=== PATIENT | female | born 1965 | race African-American/Black ===

== ENCOUNTER 2020-10-08 13:10 | Outpatient (REF) | payer OTHER, SELFPAY ==
[2020-10-08 16:47] LABS: MANUAL DIFF FLAG NO
[2020-10-08 16:52] LABS: Basophils Absolute Auto 0.1 X10*3/uL (0.0-0.2); Basophils Percent Auto 0.6 % (0-2); Eosinophils Absolute Auto 0.2 X10*3/uL (0.0-0.4); Eosinophils Percent Auto 2.3 % (0-4); Hematocrit 43.3 % (37-47); Hemoglobin 13.7 g/dl (12.0-16.0); Imm Gran Abs Auto 0.02 X10*3/uL (0.00-0.03); Imm Gran Pct Auto 0.2 % (0.0-0.4); Lymphocytes Percent Auto 20.5 % (20-40); Mean Corpuscular HGB Conc 31.6 g/dl (31.0-35.0); Mean Corpuscular Hemoglobin 28.8 pg (27.0-33.0); Mean Platelet Volume 11.2 fL (9.4-12.3); Monocytes Absolute Auto 0.9 X10*3/uL (0.1-1.2); Monocytes Percent Auto 8.8 % (2-11); Neutrophils Absolute Auto 6.5 X10*3/uL (2.0-8.3); Neutrophils Percent Auto 67.6 % (45-73); Platelet Count 282 X10*3/uL (160-400); Red Blood Count 4.76 X10*6/uL (4.20-5.50); Red Cell Distribution Width 13.7 % (11.0-16.0); White Blood Count 9.6 X10*3/uL (4.8-10.8)
[2020-10-08 17:06] LABS: Anion Gap 11 (12-20); Blood Urea Nitrogen 8 mg/dL (9-16); Calcium 10.3 mg/dL (8.4-10.2); Carbon Dioxide 31 mmol/L (22-29); Chloride 103 mmol/L (96-108); Estimated Glomerular Filt Rate > 60; Glucose Random 75 mg/dL (60-115); Potassium 4.4 mmol/l (3.3-5.1); Sodium 141 mmol/L (135-145)
[2020-10-09 17:52] LABS: LDL Cholesterol Direct 131 mg/dL (<100)
== END 2020-10-08 13:11 | disposition home or self-care (01) ==
LOC: HO.HMGCLDS 13:10
PROVIDERS: PCP Internal Medicine; Visit Provider Internal Medicine
DX: L40.50 Arthropathic psoriasis, unspecified (principal); R01.1 Cardiac murmur, unspecified; I21.4 Non-ST elevation (NSTEMI) myocardial infarction; I10 Essential (primary) hypertension; Z91.19 Patient's noncompliance with other medical treatment and regimen; Z91.09 Other allergy status, other than to drugs and biological substances; K21.9 Gastro-esophageal reflux disease without esophagitis; F33.9 Major depressive disorder, recurrent, unspecified; F41.1 Generalized anxiety disorder; R52 Pain, unspecified; J45.909 Unspecified asthma, uncomplicated; Z15.89 Genetic susceptibility to other disease
CPT/HCPCS: 36415; 80048; 83721; 85025

== ENCOUNTER → 2020-11-19 13:43 | Outpatient (BNVA) | payer OTHER, SELFPAY | PROVIDERS: Visit Provider Obstetrics & Gynecology | DX: Z76.89 Persons encountering health services in other specified circumstances (principal) ==

== ENCOUNTER → 2021-03-24 09:58 | Outpatient (BNVA) | payer OTHER, SELFPAY | PROVIDERS: PCP Internal Medicine; Visit Provider Anesthesiology ==

== ENCOUNTER 2021-05-27 05:51 | Outpatient (REF) | payer OTHER, SELFPAY ==
--- NOTE | ~2021-05-27 | FL_ITS ---
EXAMINATION: XR FLUOROSCOPY WITH IMAGES CLINICAL INFORMATION: Sacroiliitis. COMPARISON: None. TECHNIQUE: Fluoroscopy performed by Shila Maldonado. Fluoroscopy time: 0.2 minutes DAP: 3.39 Gycm2 Images: 2 FINDINGS: 2 views of SI joints reveal needle positioned along the right and left SI joints and contrast opacifying the soft tissues. Visualized SI joint space is maintained normal. No bony of the body seen involving the sacrum or L4 and L5 vertebra. FL/FL guidance in treatment room IMPRESSION: Fluoroscopy was provided to referring physician for pain management.
== END 2021-05-27 05:52 | disposition home or self-care (01) ==
LOC: HO.RADIR 05:51
PROVIDERS: Visit Provider Anesthesiology
DX: M47.816 Spondylosis without myelopathy or radiculopathy, lumbar region (principal); M46.1 Sacroiliitis, not elsewhere classified
CPT/HCPCS: 27096; Q9967

== ENCOUNTER 2021-06-17 13:45 | Outpatient (REF) | payer OTHER, SELFPAY ==
--- NOTE | ~2021-06-17 | MM_ITS ---
EXAMINATION: MM SCREENING DIGITAL BREAST TOMOSYNTHESIS, BILATERAL CLINICAL INFORMATION: Screening. Asymptomatic. The lifetime risk of breast cancer based on the Tyrer-Cuzick Model is 10.3%. COMPARISON: Mammography: May 30, 2019 and studies dating back to February 23, 2013 TECHNIQUE: Digital breast tomosynthesis is performed in both the craniocaudal and mediolateral oblique views along with computer-aided detection (CAD). Synthesized 2D images are generated from the tomosynthesis. Right exaggerated craniocaudal view also performed. FINDINGS: The breasts are heterogeneously dense, which may obscure small masses (ACR BI-RADS breast composition Category c). There are no significant masses, abnormal calcifications, or other abnormalities. MM/MM tomosynthesis screening BI IMPRESSION: There are no significant changes from prior study. ASSESSMENT: BI-RADS 1: Negative RECOMMENDATION: Routine annual mammography screening. This patient's information was entered into a reminder system with a target due date for their next mammogram.
== END 2021-06-17 13:46 | disposition home or self-care (01) ==
LOC: HO.MAMMO 13:45
PROVIDERS: Visit Provider Internal Medicine
DX: Z12.31 Encounter for screening mammogram for malignant neoplasm of breast (principal)
CPT/HCPCS: 77063; 77067

== ENCOUNTER → 2021-07-14 10:48 | Outpatient (BNVA) | payer OTHER, SELFPAY | PROVIDERS: PCP Internal Medicine; Visit Provider Anesthesiology ==

== ENCOUNTER 2021-07-15 07:14 | Outpatient (REF) | payer OTHER, SELFPAY ==
[2021-07-15 11:31] LABS: MANUAL DIFF FLAG NO
[2021-07-15 11:40] LABS: Basophils Absolute Auto 0.1 X10*3/uL (0.0-0.2); Eosinophils Absolute Auto 0.3 X10*3/uL (0.0-0.4); Eosinophils Percent Auto 3.1 % (0-4); Hematocrit 41.4 % (37-47); Hemoglobin 13.1 g/dl (12.0-16.0); Imm Gran Abs Auto 0.03 X10*3/uL (0.00-0.03); Imm Gran Pct Auto 0.3 % (0.0-0.4); Lymphocytes Absolute Auto 1.9 X10*3/uL (1.2-4.9); Lymphocytes Percent Auto 21.2 % (20-40); Mean Corpuscular HGB Conc 31.6 g/dl (31.0-35.0); Mean Corpuscular Hemoglobin 28.4 pg (27.0-33.0); Mean Corpuscular Volume 89.6 fL (80-98); Mean Platelet Volume 10.6 fL (9.4-12.3); Monocytes Absolute Auto 0.6 X10*3/uL (0.1-1.2); Monocytes Percent Auto 6.8 % (2-11); Neutrophils Percent Auto 67.6 % (45-73); Platelet Count 306 X10*3/uL (160-400); Red Blood Count 4.62 X10*6/uL (4.20-5.50); Red Cell Distribution Width 14.2 % (11.0-16.0)
[2021-07-15 12:17] LABS: TSH reflex Free T4 0.71 uIU/mL (0.32-4.0)
[2021-07-15 12:28] LABS: Alanine Aminotransferase 25 U/L (0-31); Alkaline Phosphatase 94 U/L (39-117); Anion Gap 11 (12-20); Aspartate Amino Transferase 24 U/L (5-31); Bilirubin Total 0.6 mg/dL (0.0-1.0); Blood Urea Nitrogen 10 mg/dL (9-16); Calcium 10.2 mg/dL (8.4-10.2); Carbon Dioxide 27 mmol/L (22-29); Chloride 107 mmol/L (96-108); Cholesterol 208 mg/dL; Estimated Glomerular Filt Rate > 60; Glucose Fasting 101 mg/dL (60-99); HDL Cholesterol 54 mg/dL; LDL Cholesterol Calculated 137 mg/dl; Potassium 4.4 mmol/L (3.3-5.1); Sodium 141 mmol/L (135-145); Total Protein 7.8 g/dL (6.5-8.0); Triglycerides 87 mg/dL
[2021-07-18 18:11] LABS: TS Negative Control Passed; TS Panel A 0; TS Panel B 0; TS Positive Control Passed; TSpotTB Negative (SeeBelow)
== END 2021-07-15 07:15 | disposition home or self-care (01) ==
LOC: HO.HMGCLDS 07:14
PROVIDERS: PCP Internal Medicine; Visit Provider Physician Assistant Medical
DX: Z00.01 Encounter for general adult medical examination with abnormal findings (principal); K21.9 Gastro-esophageal reflux disease without esophagitis; J45.909 Unspecified asthma, uncomplicated; F41.1 Generalized anxiety disorder; F33.9 Major depressive disorder, recurrent, unspecified; L40.0 Psoriasis vulgaris; L40.59 Other psoriatic arthropathy; Z91.09 Other allergy status, other than to drugs and biological substances; Z79.899 Other long term (current) drug therapy
CPT/HCPCS: 36415; 80053; 80061; 84443; 85025; 86481

== ENCOUNTER 2021-09-01 13:47 | Outpatient (REF) | payer OTHER, SELFPAY | END 2021-09-01 13:48 | disposition home or self-care (01) | LOC: HO.LNP 13:47 | PROVIDERS: Visit Provider Physician Assistant | DX: Z20.822 Contact with and (suspected) exposure to COVID-19 (principal); J45.901 Unspecified asthma with (acute) exacerbation | CPT/HCPCS: U0003; U0005 ==

== ENCOUNTER → 2021-09-25 14:39 | Outpatient (BNVA) | payer OTHER, SELFPAY | PROVIDERS: PCP Internal Medicine; Visit Provider Internal Medicine ==

== ENCOUNTER → 2021-10-13 09:43 | Outpatient (BNVA) | payer OTHER, SELFPAY | PROVIDERS: PCP Internal Medicine; Referring Provider Internal Medicine; Visit Provider Internal Medicine Cardiovascular Disease | DX: I42.2 Other hypertrophic cardiomyopathy (principal); I51.89 Other ill-defined heart diseases; R06.02 Shortness of breath | CPT/HCPCS: 93005 ==

== ENCOUNTER → 2021-11-13 11:24 | Outpatient (REF) | payer OTHER, SELFPAY ==
--- NOTE | 2021-11-13 11:26 | CA_ITS ---
Transthoracic Echocardiogram Amended Patient (Last, First, Middle): Lisa Gill, Gender: Female Date of : 1965 Age: 56 Procedure Date: 11/13/2021 Procedure Type: Transthoracic Echocardiogram Location: OP Height: 162.56 cm Weight: 94.8 kg BSA: 1.99 m2 Heart Rate: bpm BP: 138 / 80 mmHg Inorganic Chemistry Professor: VERONICA Perez MD: Danielito Alexander MD Small Piece Cutter: Danielito Alexander MD Symptoms: I42.2 - Other hypertrophic cardiomyopathy Study Quality: Fair/Contrast ECG Rhythm: Sinus Conclusions: - 1. Normal LV systolic function with psedonormal filling pattern 2. Asymmetric hypertrophy of the apex as well as the lateral and posterior wall of moderate seveirty 3. Mild aortic regurgitation 4. No pericardial effusion Findings Procedure Information Contrast agent, definity, is being given per protocol without apparent complications. Left Ventricle Normal left ventricular size and systolic function. The visually estimated ejection fraction is between 60-65%. There is no evidence of regional wall motion abnormalities. Spectral Doppler is indicative of a pseudonormal filling pattern. E/E prime ratio is between 8 and 15 consistent with indeterminate filling pressures. There is moderate posterior, moderate lateral, and moderate apical asymmetric hypertrophy. Right Ventricle Normal right ventricular cavity size and systolic function. Atria The left atrium is mildly dilated. Interatrial shunt cannot be excluded. The right atrium is normal in size. Aortic Valve The aortic valve structure and function is likely normal. There is no aortic valve stenosis. The peak aortic gradient is 30 mmHg.The mean gradient is 14 mmHg. There is mild aortic valve regurgitation. The increased gradient across the aortic valve is most suggestive of increased stroke volume. Obstructive physiology cannot be entirely ruled out. Mitral Valve Normal mitral valve structure and function. There is trace mitral valve regurgitation. There is no mitral valve stenosis. Pulmonic Valve The pulmonic valve was not well visualized. Tricuspid Valve Likely normal tricuspid valve structure and function. Tricuspid regurgitation envelope is inadequate for calculation of right ventricular systolic pressure. Great Vessels All visible segments of the aorta are normal in size. The pulmonary artery was not well visualized. Venous The inferior vena cava is mildly dilated and collapses greater than 50% with inspiration. Pericardium/Pleural There is no evidence of pericardial effusion. Prior Study Comparison No significant change compared to prior study dated: 12/27/2017. Measurements 2D Linear Measurements IVSd: 1.07 0.6-0.9/0.6-1.0 cm LVIDd: 4.50 3.9-5.3/4.2-5.9 cm LVIDd Index: 2.26 2.4-3.2/2.2-3.1 cm/m2 LVIDs: 2.78 2.0-3.6 cm LVPWd: 1.43 0.7-1.1 cm Ao Root: 2.50 2.1-3.5 cm LA Diam: 4.40 2.7-3.8/3.0-4.0 cm LAIDs Index: 2.21 1.5-2.3 cm/m2 LV Mass: 261.95 67-162/88-224 g LV Mass Index: 131.63 43-95/49-115 g/m2 LVOT Diam: 1.90 3.0+(-)1.3 cm 2D Volumes LA Vol: 27.90 Mitral Valve MV Pk E: 1.12 MV PK A: 0.73 MV Decel Time: 230.00 E/A: 1.50 E'Lateral: 4.46 E'Medial: 5.55 E/E' Med: 20.20 E/E' Lat: 25.10 PHT: 67.00 MVA PHT: 3.28 Decel Van Zandt: 4.88 Aortic Valve AoV Pk Vu: 2.76 AoV Mn Vu: 1.67 AoV VTI: 0.47 AoV Pk Grad: 30.00 Aov Mn Grad: 14.00 TEQUILA Cont.VTI: 2.31 LVOT LVOT Pk Vu: 2.01 LVOT Mn Vu: 1.33 LVOT VTI: 0.38 LVOT Pk Grad: 16.00 LVOT Mn Grad: 8.00 LVOT Diam: 1.90 LVOT Area: 2.84 Diastolic Function MV Pk E: 1.12 MV Pk A: 0.73 E/A: 1.50 E'Medial: 5.55 E/E' Med: 20.20 E' Laterial: 4.46 E/E' Lat: 25.10 Right Ventricle TAPSE (mm): 2.04 TVS' Vu: 9.90 Tricuspid Valve RA Press: 8.00 Great Vessels Aorta Ao Root-2D: 2.50 2.0-3.7 cm Ao Asc: 2.50 2.1-3.4 cm Updated in Other Vendor System with Status of Final Danielito Alexander MD electronically signed on 11/13/2021 3:22:54 PM with status of Final
== END ==
LOC: HO.CARD 11:24
PROVIDERS: PCP Internal Medicine; Visit Provider Internal Medicine Cardiovascular Disease
DX: I42.2 Other hypertrophic cardiomyopathy (principal)
CPT/HCPCS: 93306; Q9957

== ENCOUNTER 2021-11-21 06:05 | Day surgery (SDC) | payer OTHER, SELFPAY ==
[2021-09-15 10:23] VITALS: BMI 36.2
--- NOTE | 2021-11-20 16:28 | P.CONAN_ITS ---
Documented by User: Albertina Gardner NP 11/20/21 16:32 HPI - Anesthesia Eval Consult details Narrative: 56yo F for Right?Diagnostic Sacroiliac Joint Innervation Injection Recent cardiac and pulmo visits stress importance of MITCHELL treatment. Case reviewed with Dr Bonilla. [facility] Active Problems Active Problems: All Active Problems (Updated 10/13/21 @ 10:26 by Andrea Kirby) HTN (hypertension) (Acute) Diastolic dysfunction (Acute) Apical variant hypertrophic cardiomyopathy (Acute) MITCHELL (obstructive sleep apnea) (Acute) Obesity (BMI 35.0-39.9 without comorbidity) (Acute) Asthma, moderate (Acute) Encounter for general adult medical examination with abnormal findings (Acute) Breast screening (Acute) Chronic narcotic dependence (Acute) Blurring of vision (Acute) Sacroiliitis (Acute) Spondylosis of lumbar region without myelopathy or radiculopathy (Acute) Asthma (Acute) Pain management (Acute) Anxiety, generalized (Acute) Depression, major, recurrent (Acute) Chronic GERD (Acute) Environmental allergies (Acute) Noncompliance (Acute) Hypertension, essential (Acute) Arthritis with psoriasis (Acute) HLA B27 (HLA B27 positive) (Acute) Past Medical History Medical History Anxiety, generalized 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 Asthma Cardiomyopathy Chronic GERD Depression, major, recurrent Diastolic dysfunction Environmental allergies Heart murmur HLA B27 (HLA B27 positive) HTN (hypertension) Hypertension, essential Noncompliance NSTEMI (non-ST elevated myocardial infarction) Obesity (BMI 35.0-39.9 without comorbidity) MITCHELL (obstructive sleep apnea) Pain management Sacroiliitis Spondylosis of lumbar region without myelopathy or radiculopathy Family History Family History Mother Uterine cancer Other Substance use disorder Surgical History Surgical History History of endometrial ablation History of hysterectomy for benign disease History of tubal ligation Social History Social History (System 10/29/21 @ 12:41 by Danielle Sanchez) Housing: House Patient Tobacco Use Status: Former Tobacco user Quit Date: 2007 Tobacco use type: Cigarette Second Hand Smoke Exposure: No Use of substances other than those prescribed or required for medical reasons: No Spiritism Healthcare Practices: Sikhism- no blood products Are you DNR?: No Advance Directives: No Advance Directives Information Provided: Yes Advance Directives on File: No Current occupational status: employed Meds Allergies Allergy/AdvReac Type Severity Reaction Status Date / Time cat dander [CATS] Allergy Severe DIFFICULTY Verified 10/29/21 12:41 BREATHING dog dander [DOGS] Allergy Severe DIFFICULTY Verified 10/29/21 12:41 BREATHING latex [Latex] Allergy Severe ANAPHYLAXIS Verified 10/29/21 12:41 penicillin G [PENICILLIN G] AdvReac Unknown PT STATES Verified 10/29/21 12:41 IT JUST DOESN'T WORK FOR HER Environmental Allergy Unknown allergy Uncoded 10/29/21 12:41 symptoms Home Medications Medication Instructions Recorded Confirmed Last Taken Type betamethasone dipropionate 0.05 % 1 applic TOPICAL DAILY PRN 10/08/20 10/13/21 Unknown History topical cream montelukast 10 mg tablet 10 mg PO DAILY 10/08/20 10/13/21 Unknown History (Singulair) albuterol sulfate 90 mcg/actuation 1 puff PO QID PRN 09/15/21 10/13/21 Unknown History aerosol inhaler cetirizine 10 mg tablet (Zyrtec) 10 mg PO DAILY 09/15/21 10/13/21 Unknown History albuterol sulfate 5 mg/mL(0.5 %) 5 mg INHALATION Q6H PRN 09/25/21 10/13/21 Unknown History solution for nebulization guselkumab 100 mg/mL subcutaneous mg SUBCUT 11/21/21 11/21/21 Unknown History auto-injector (Tremfya) Exam Exam Date and Time: November 20, 2021 1628 Height,Weight and Vital Signs: Height 5 ft 4 in Weight 95.708 kg Pertinent Lab Results Pertinent Lab Results: Laboratory Tests 07/15/21 07/15/21 07:22 07:22 WBC 9.0 Hgb 13.1 Hct 41.4 Plt Count 306 Sodium 141 Potassium 4.4 Chloride 107 Carbon Dioxide 27 BUN 10 Creatinine 0.77 Narrative Narrative: ECHO 10/2021 Conclusions: - 1. Normal LV systolic function with psedonormal filling pattern 2. Asymmetric hypertrophy of the apex as well as the lateral and posterior wall of moderate seveirty? 3. Mild aortic regurgitation ? 4. No pericardial effusion ?? 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 Asthma Cardiomyopathy Chronic GERD Depression, major, recurrent Diastolic dysfunction Environmental allergies Heart murmur HLA B27 (HLA B27 positive) HTN (hypertension) Hypertension, essential Noncompliance NSTEMI (non-ST elevated myocardial infarction) Obesity (BMI 35.0-39.9 without comorbidity) MITCHELL (obstructive sleep apnea) Pain management Sacroiliitis Spondylosis of lumbar region without myelopathy or radiculopathy Family History Family History Mother Uterine cancer Other Substance use disorder Family history of problems with anesthesia: No Surgical History Surgical History History of endometrial ablation History of hysterectomy for benign disease History of tubal ligation History of Problems with Anesthesia: No Social History Social History (System 10/29/21 @ 12:41 by Danielle Sanchez) Housing: House Patient Tobacco Use Status: Former Tobacco user Quit Date: 2007 Tobacco use type: Cigarette Second Hand Smoke Exposure: No Use of substances other than those prescribed or required for medical reasons: No Spiritism Healthcare Practices: Sikhism- no blood products Are you DNR?: No Advance Directives: No Advance Directives Information Provided: Yes Advance Directives on File: No Current occupational status: employed Meds Allergies Allergy/AdvReac Type Severity Reaction Status Date / Time cat dander [CATS] Allergy Severe DIFFICULTY Verified 10/29/21 12:41 BREATHING dog dander [DOGS] Allergy Severe DIFFICULTY Verified 10/29/21 12:41 BREATHING latex [Latex] Allergy Severe ANAPHYLAXIS Verified 10/29/21 12:41 penicillin G [PENICILLIN G] AdvReac Unknown PT STATES Verified 10/29/21 12:41 IT JUST DOESN'T WORK FOR HER Environmental Allergy Unknown allergy Uncoded 10/29/21 12:41 symptoms Home Medications Medication Instructions Recorded Confirmed Last Taken Type betamethasone dipropionate 0.05 % 1 applic TOPICAL DAILY PRN 10/08/20 10/13/21 Unknown History topical cream montelukast 10 mg tablet 10 mg PO DAILY 10/08/20 10/13/21 Unknown History (Singulair) albuterol sulfate 90 mcg/actuation 1 puff PO QID PRN 09/15/21 10/13/21 Unknown History aerosol inhaler cetirizine 10 mg tablet (Zyrtec) 10 mg PO DAILY 09/15/21 10/13/21 Unknown History albuterol sulfate 5 mg/mL(0.5 %) 5 mg INHALATION Q6H PRN 09/25/21 10/13/21 Unknown History solution for nebulization guselkumab 100 mg/mL subcutaneous mg SUBCUT 11/21/21 11/21/21 Unknown History auto-injector (Tremfya) Exam Airway Mallampati Class: III TM Dist: >3cm Neck ROM: Full Loose/Missing/Broken Teeth: Yes (Chipped , caps ) Heart: rrr Lungs: bl breath sounds Assessment and Plan Final Anesthetic Review Family History of Problems with Anesthesia: No History of Problems with Anesthesia: No NPO: Yes ASA Class: III Patient Risk: Intermediate Procedure Risk: Intermediate Anesthetic Plan Anesthetic Plan: MAC: Disposition: Standard PACU
--- NOTE | ~2021-11-21 | FL_ITS ---
EXAMINATION: Intraoperative fluoroscopy CLINICAL INFORMATION: SI joint injection COMPARISON: Intraoperative fluoroscopy 05/27/2021 TECHNIQUE: Intraoperative fluoroscopy was provided for use by Dr. Topete. A total of 3 images were saved to PACS. A radiologist was not present during imaging. Today's dictation is only for administrative purposes to document intraoperative fluoroscopic usage. TOTAL FLUOROSCOPIC TIME: 0.5 FL/FL guidance in OR FINDINGS~\^^ Intraoperative fluoroscopy provided for use by Dr. Topete. Please see operative note for detailed findings.
[2021-11-21 06:27] VITALS: BP 110/77; PULSE 74; RESP 18; TEMP 36.6; O2SAT 95
[2021-11-21] MEDS: Lactated Ringers 500 ML 20 ML IVCONT (06:37)
--- NOTE | 2021-11-21 07:52 | MHC.SHP ---
Pre-Procedural Eval Section A Date of Service: 11/21/21 Section B Chief Complaint: Sacroiliitis Details of Present Illness: as above Relevant Family History (Specify if Yes): No Relevant Social History: None Present Medications: see Short Stay Collaborative assessment Medical History: Significant History History of Previous Operations: No relevant previous surgery Allergies: Allergies Allergy/AdvReac Type Severity Reaction Status Date / Time cat dander [CATS] Allergy Severe DIFFICULTY Verified 10/29/21 12:41 BREATHING dog dander [DOGS] Allergy Severe DIFFICULTY Verified 10/29/21 12:41 BREATHING latex [Latex] Allergy Severe ANAPHYLAXIS Verified 10/29/21 12:41 penicillin G [PENICILLIN G] AdvReac Unknown PT STATES Verified 10/29/21 12:41 IT JUST DOESN'T WORK FOR HER Environmental Allergy Unknown allergy Uncoded 10/29/21 12:41 symptoms Review of Systems Sugical H&P ROS: Negative: Cardiovascular, Respiratory, Neurological, Psychiatric, Hem-Onc, Allergic/Immunologic, Gastrointestinal, Genitourinary, Musculoskeletal, Integumentary, Endocrine and Eyes/Ears/Nose/Throat and Yes, Specify: Constitution (morbid obesity) Exam Surgical H&P Exam: Normal: HEENT, Normal: Heart, Normal: Lungs, Normal: Extremities, Normal: Abdomen, Normal: Skin and Normal: Neurological Plan Diagnosis/Plan: Unchanged I have reviewed the history and physical and performed a pertinent physical examination on my patient. No changes have occurred unless specified.
[2021-11-21 08:20] VITALS: BP 154/89; PULSE 64; RESP 20; TEMP 36.1; O2SAT 95
--- NOTE | 2021-11-21 08:23 | P.BOP_ITS ---
Brief Operative Note Date of Service: 11/21/21 Pre-op diagnosis: sacroiliitis Post-op diagnosis: same Procedure: sacroiliac joint innervation injection right Implants: none Surgeon: Rodo Topeet MD Anesthesia: MAC Was an First Assistant Manager used for this Procedure?: No Estimated blood loss (mL): 1 Pathology: none sent Condition: stable Disposition: PACU
--- NOTE | 2021-11-21 08:24 | P.OP_ITS ---
Operative Note Operative Note Date of Service: 11/21/21 Narrative: Lisa is a very pleasant 56 years old female who came to the operating room with symptoms of right sacroiliitis. She is here to receive right sacroiliac joint Innervation diagnostic injection. The patient was explained informed consent all the risks and benefits were explained to the patient. She was taken to the operating room where med and Society of Anesthesiology monitors were applied and patient was minimally sedated. She was positioned prone on the operating table. Time-out was performed delineating correct site and side of the procedure date of of the patient, name of the patient, risk of fire, need for DVT prophylaxis, need for antibiotics which is none. Her right lower back and right buttock were prepped with DuraPrep and draped with sterile utility towels. C-arm was brought over the operating field and sq picture of the right pelvis was demonstrated on the screen. The point of interest were delineated as the connection of the superior articular process of the patient on the right with sacral allow on the right as well as lowest point of sacral lip of the sacroiliac joint on the right. The rest of the points of interest were delineated as the line between the 1st 2 point of the interests in which the needles would need to be position in Hutchinson fashion. The projection of the line of needle insertions to the skin was injected with lidocaine 1%, after that 22 gauge 3-1/2 inch needles were driven to the point of interest in tunnel vision fashion. When needles gently contacted the bone small amount of Marcaine 0.5% was injected into each needle position. The the patient received total amount of lidocaine 2% 15 mL and total amount of Marcaine 0.5% 13 mL. The patient tolerated procedure well she was taking outside of the operating room to recovery room. She recovered uneventfully.
[2021-11-21 08:35] VITALS: BP 147/90; PULSE 71; RESP 20; TEMP 36.1; O2SAT 95
[2021-11-21 08:50] VITALS: BP 150/86; PULSE 65; RESP 22; TEMP 36.1; O2SAT 99
== END 2021-11-21 09:16 | disposition home or self-care (01) ==
PROVIDERS: PCP Internal Medicine; Visit Provider Anesthesiology
PROC: (CPT 64451; principal; 2021-11-21 07:30)
DX: M46.1 Sacroiliitis, not elsewhere classified (principal); M47.816 Spondylosis without myelopathy or radiculopathy, lumbar region; I10 Essential (primary) hypertension; G47.33 Obstructive sleep apnea (adult) (pediatric); J45.909 Unspecified asthma, uncomplicated; F32.9 Major depressive disorder, single episode, unspecified; Z79.51 Long term (current) use of inhaled steroids; Z79.899 Other long term (current) drug therapy; Z88.0 Allergy status to penicillin; Z91.040 Latex allergy status; Z87.891 Personal history of nicotine dependence
CPT/HCPCS: 64451; J2250; Q9967

== ENCOUNTER → 2021-11-27 09:31 | Outpatient (BNVA) | payer OTHER, SELFPAY | PROVIDERS: PCP Internal Medicine; Visit Provider Anesthesiology ==

== ENCOUNTER → 2021-12-01 12:47 | Outpatient (REF) | payer OTHER, SELFPAY | LOC: HO.SL 12:47 | PROVIDERS: PCP Internal Medicine; Visit Provider Internal Medicine | DX: G47.33 Obstructive sleep apnea (adult) (pediatric) (principal); E66.9 Obesity, unspecified | CPT/HCPCS: 95806 ==

== ENCOUNTER 2022-02-09 12:38 | Outpatient (REF) | payer OTHER, SELFPAY ==
--- NOTE | ~2022-02-09 | XR_ITS ---
EXAMINATION: XR SHOULDER, LEFT CLINICAL INFORMATION: Sprain of left shoulder joint. COMPARISON: None TECHNIQUE: AP external rotation, Grashey, scapular Y, and axillary views of the left shoulder. FINDINGS: The bones and soft tissues are normal. No fracture. Glenohumeral and acromioclavicular alignment is anatomic with normal joint space. No abnormal soft tissue calcifications. XR/XR shoulder LT min 2V IMPRESSION: Unremarkable left shoulder.
== END 2022-02-09 12:39 | disposition home or self-care (01) ==
LOC: HO.HMGCX 12:38
PROVIDERS: PCP Internal Medicine; Visit Provider Internal Medicine
DX: S43.402A Unspecified sprain of left shoulder joint, initial encounter (principal)
CPT/HCPCS: 73030

== ENCOUNTER 2022-04-10 15:22 | Outpatient (REF) | payer OTHER, SELFPAY ==
[2022-04-10 16:23] LABS: MANUAL DIFF FLAG NO
[2022-04-10 16:28] LABS: Basophils Absolute Auto 0.1 X10*3/uL (0.0-0.2); Basophils Percent Auto 0.6 % (0-2); Eosinophils Absolute Auto 0.3 X10*3/uL (0.0-0.4); Eosinophils Percent Auto 2.9 % (0-4); Hematocrit 38.8 % (37.0-47.0); Hemoglobin 11.9 g/dl (12.0-16.0); Imm Gran Abs Auto 0.02 X10*3/uL (0.00-0.03); Imm Gran Pct Auto 0.2 % (0.0-0.4); Lymphocytes Absolute Auto 2.1 X10*3/uL (1.2-4.9); Lymphocytes Percent Auto 23.2 % (20-40); Mean Corpuscular HGB Conc 30.7 g/dl (31.0-35.0); Mean Corpuscular Hemoglobin 27.7 pg (27.0-33.0); Mean Corpuscular Volume 90.4 fL (80.0-98.0); Mean Platelet Volume 10.7 fL (9.4-12.3); Monocytes Absolute Auto 0.9 X10*3/uL (0.1-1.2); Monocytes Percent Auto 9.5 % (2-11); Neutrophils Absolute Auto 5.7 x10*3/uL (2.0-8.3); Neutrophils Percent Auto 63.6 % (45-73); Platelet Count 274 X10*3/uL (160-400); Red Blood Count 4.29 X10*6/uL (4.20-5.50); Red Cell Distribution Width 14.7 % (11.0-16.0)
[2022-04-10 17:04] LABS: Alanine Aminotransferase 17 U/L (0-31); Albumin Level 3.7 g/dL (3.5-5.0); Alkaline Phosphatase 91 U/L (39-117); Anion Gap 11 (12-20); Aspartate Amino Transferase 19 U/L (5-31); Bilirubin Total 0.3 mg/dL (0.0-1.0); Blood Urea Nitrogen 10 mg/dL (9-16); Calcium 11.1 mg/dL (8.4-10.2); Carbon Dioxide 30 mmol/L (22-29); Chloride 104 mmol/L (96-108); Estimated Glomerular Filt Rate > 60; Glucose Random 90 mg/dL (60-115); Potassium 4.4 mmol/L (3.3-5.1); Sodium 141 mmol/L (135-145); Total Protein 7.3 g/dL (6.5-8.0)
[2022-04-10 17:06] LABS: Amphetamine Screen Urine Not Detected (Not Detect); Barbiturates, Urine Not Detected (Not Detect); Benzodiazepines Screen Urine Not Detected (Not Detect); Cannabinoid Screen Urine Not Detected (Not Detect); Cocaine Screen Urine Not Detected (Not Detect); Fentanyl, urine Not Detected (Not Detect); Opiate Screen Urine POSITIVE (Not Detect); Phencyclidine Screen Urine Not Detected (Not Detect)
[2022-04-10 17:16] LABS: Estimated Average Glucose 123 mg/dL; Hemoglobin A1c % 5.9 %
== END 2022-04-10 15:23 | disposition home or self-care (01) ==
LOC: HO.HMGCLDS 15:22
PROVIDERS: PCP Internal Medicine; Visit Provider Internal Medicine
DX: F11.20 Opioid dependence, uncomplicated (principal); F33.9 Major depressive disorder, recurrent, unspecified; F41.1 Generalized anxiety disorder; I10 Essential (primary) hypertension; J45.40 Moderate persistent asthma, uncomplicated; K21.9 Gastro-esophageal reflux disease without esophagitis; L40.50 Arthropathic psoriasis, unspecified; R52 Pain, unspecified; R73.03 Prediabetes; Z15.89 Genetic susceptibility to other disease
CPT/HCPCS: 80053; 80307; 80364; 80365; 83036; 85025

== ENCOUNTER 2022-04-17 13:12 | Outpatient (REF) | payer OTHER, SELFPAY ==
[2022-04-21 20:56] LABS: Parathyroid Hormone Related Pr 12 pg/mL (11-20)
== END 2022-04-17 13:13 | disposition home or self-care (01) ==
LOC: HO.HMGCLDS 13:12
PROVIDERS: PCP Internal Medicine; Visit Provider Internal Medicine
DX: E83.52 Hypercalcemia (principal)
CPT/HCPCS: 36415; 83519

== ENCOUNTER → 2022-12-08 14:08 | Outpatient (BNVA) | payer OTHER, SELFPAY | PROVIDERS: PCP Internal Medicine; Referring Provider Internal Medicine; Visit Provider Internal Medicine Cardiovascular Disease | DX: I42.2 Other hypertrophic cardiomyopathy (principal); I10 Essential (primary) hypertension | CPT/HCPCS: 93005 ==

== ENCOUNTER 2023-02-02 13:50 | Outpatient (REF) | payer OTHER, SELFPAY ==
--- NOTE | ~2023-02-02 | MM_ITS ---
EXAMINATION: MM SCREENING DIGITAL BREAST TOMOSYNTHESIS, BILATERAL CLINICAL INFORMATION: Screening. Asymptomatic. The lifetime risk of breast cancer based on the Tyrer-Cuzick Model is 6%. COMPARISON: Mammography: 06/17/2021, 05/30/2019, 03/31/2017 TECHNIQUE: Digital breast tomosynthesis is performed in both the craniocaudal and mediolateral oblique views along with computer-aided detection (CAD). Synthesized 2D images are generated from the tomosynthesis. FINDINGS: There are scattered areas of fibroglandular density (ACR BI-RADS breast composition Category b). There are no significant masses, abnormal calcifications, or other abnormalities. Parenchymal pattern is similar to prior studies. There is no developing density or architectural abnormality. The axilla and skin contours are unremarkable. No significant changes. MM/MM tomosynthesis screening BI IMPRESSION: No mammographic evidence of malignancy. ASSESSMENT: BI-RADS 1: Negative RECOMMENDATION: Routine annual mammography screening. This patient's information was entered into a reminder system with a target due date for their next mammogram.
== END 2023-02-02 13:51 | disposition home or self-care (01) ==
LOC: HO.MAMMO 13:50
PROVIDERS: Visit Provider Internal Medicine
DX: Z12.31 Encounter for screening mammogram for malignant neoplasm of breast (principal)
CPT/HCPCS: 77063; 77067

== ENCOUNTER → 2023-02-23 15:03 | Outpatient (BNVA) | payer OTHER, SELFPAY | PROVIDERS: PCP Internal Medicine; Visit Provider Internal Medicine | DX: Z13.89 Encounter for screening for other disorder (principal) ==

== ENCOUNTER 2023-03-11 08:10 | Outpatient (REF) | payer OTHER, SELFPAY ==
[2023-03-11 11:04] LABS: MANUAL DIFF FLAG NO
[2023-03-11 11:44] LABS: Basophils Absolute Auto 0.1 X10*3/uL (0.0-0.2); Basophils Percent Auto 0.6 % (0-2); Eosinophils Absolute Auto 0.1 X10*3/uL (0.0-0.4); Eosinophils Percent Auto 1.4 % (0-4); Hematocrit 38.5 % (37.0-47.0); Hemoglobin 11.8 g/dl (12.0-16.0); Imm Gran Abs Auto 0.03 X10*3/uL (0.00-0.03); Imm Gran Pct Auto 0.3 % (0.0-0.4); Lymphocytes Percent Auto 10.9 % (20-40); Mean Corpuscular HGB Conc 30.6 g/dl (31.0-35.0); Mean Corpuscular Hemoglobin 28.1 pg (27.0-33.0); Mean Corpuscular Volume 91.7 fL (80.0-98.0); Mean Platelet Volume 11.1 fL (9.4-12.3); Monocytes Absolute Auto 0.6 X10*3/uL (0.1-1.2); Monocytes Percent Auto 6.3 % (2-11); Neutrophils Absolute Auto 7.2 x10*3/uL (2.0-8.3); Neutrophils Percent Auto 80.5 % (45-73); Platelet Count 269 X10*3/uL (160-400); Red Cell Distribution Width 15.5 % (11.0-16.0); White Blood Count 8.9 X10*3/uL (4.8-10.8)
[2023-03-11 12:06] LABS: B Type Natriuretic Peptide 612 pg/mL (<100)
[2023-03-11 12:17] LABS: Alanine Aminotransferase 40 U/L (0-31); Albumin Level 3.8 g/dL (3.5-5.0); Alkaline Phosphatase 93 U/L (39-117); Anion Gap 9 (12-20); Aspartate Amino Transferase 22 U/L (5-31); Bilirubin Total 0.6 mg/dL (0.0-1.0); Blood Urea Nitrogen 11 mg/dL (9-16); Calcium 10.3 mg/dL (8.4-10.2); Carbon Dioxide 29 mmol/L (22-29); Chloride 109 mmol/L (96-108); Cholesterol 185 mg/dL; Estimated Glomerular Filt Rate > 60; Glucose Fasting 109 mg/dL (60-99); Glucose Random 108 mg/dL (60-115); HDL Cholesterol 58 mg/dL; LDL Cholesterol Calculated 117 mg/dl; Potassium 4.4 mmol/L (3.3-5.1); Sodium 143 mmol/L (135-145); Triglycerides 51 mg/dL
[2023-03-11 12:40] LABS: TSH reflex Free T4 0.52 uIU/mL (0.32-4.0)
== END 2023-03-11 08:11 | disposition home or self-care (01) ==
LOC: HO.HMGCLDS 08:10
PROVIDERS: Absent Provider Internal Medicine Cardiovascular Disease; PCP Internal Medicine; Visit Provider Internal Medicine
DX: F33.9 Major depressive disorder, recurrent, unspecified (principal); J45.40 Moderate persistent asthma, uncomplicated; K21.9 Gastro-esophageal reflux disease without esophagitis; L40.50 Arthropathic psoriasis, unspecified; R73.03 Prediabetes; R06.09 Other forms of dyspnea; F11.20 Opioid dependence, uncomplicated; F41.1 Generalized anxiety disorder; I10 Essential (primary) hypertension
CPT/HCPCS: 36415; 80048; 80053; 80061; 83880; 84443; 85025

== ENCOUNTER 2023-06-17 12:02 | Outpatient (REF) | payer OTHER, SELFPAY ==
[2023-06-17 13:13] LABS: MANUAL DIFF FLAG NO
[2023-06-17 13:47] LABS: Basophils Absolute Auto 0.1 X10*3/uL (0.0-0.2); Basophils Percent Auto 0.8 % (0-2); Eosinophils Absolute Auto 0.1 X10*3/uL (0.0-0.4); Eosinophils Percent Auto 1.4 % (0-4); Hematocrit 43.5 % (37.0-47.0); Imm Gran Abs Auto 0.04 X10*3/uL (0.00-0.03); Imm Gran Pct Auto 0.4 % (0.0-0.4); Lymphocytes Absolute Auto 1.6 X10*3/uL (1.2-4.9); Lymphocytes Percent Auto 17.9 % (20-40); Mean Corpuscular HGB Conc 32.2 g/dl (31.0-35.0); Mean Corpuscular Hemoglobin 28.6 pg (27.0-33.0); Mean Platelet Volume 10.9 fL (9.4-12.3); Monocytes Absolute Auto 0.7 X10*3/uL (0.1-1.2); Neutrophils Absolute Auto 6.5 x10*3/uL (2.0-8.3); Neutrophils Percent Auto 71.5 % (45-73); Platelet Count 292 X10*3/uL (160-400); Red Blood Count 4.89 X10*6/uL (4.20-5.50); Red Cell Distribution Width 14.6 % (11.0-16.0); White Blood Count 9.1 X10*3/uL (4.8-10.8)
[2023-06-17 14:50] LABS: Alanine Aminotransferase 23 U/L (0-31); Albumin Level 4.1 g/dL (3.5-5.0); Alkaline Phosphatase 109 U/L (39-117); Anion Gap 14 (12-20); Aspartate Amino Transferase 24 U/L (5-31); Bilirubin Direct 0.2 mg/dL (0.0-0.5); Bilirubin Total 0.4 mg/dL (0.0-1.0); Blood Urea Nitrogen 12 mg/dL (9-16); Carbon Dioxide 25 mmol/L (22-29); Chloride 106 mmol/L (96-108); Estimated Glomerular Filt Rate > 60; Glucose Random 95 mg/dL (60-115); Potassium 3.9 mmol/L (3.3-5.1); Sodium 141 mmol/L (135-145); Total Protein 8.1 g/dL (6.5-8.0)
[2023-06-18 05:31] LABS: HBS Num1 13.08 mIU/mL (0-7.99); HBc Num1 0.09 S/CO (0.00-0.79); HBsAGNum1 0.49 S/CO (0.00-0.99); Hepatitis B Core Antibody Nonreactive (Nonreactive); Hepatitis B Surface Antigen Negative (Negative); ~Hepatitis B Surface Antibody REACTIVE (Nonreactive); ~Hepatitis C Antibody Nonreactive (Nonreactive)
[2023-06-19 22:28] LABS: TS Negative Control Passed; TS Panel A 0; TS Panel B 0; TS Positive Control Passed; TSpotTB Negative (Negative)
== END 2023-06-17 12:03 | disposition home or self-care (01) ==
LOC: HO.HMGCLDS 12:02
PROVIDERS: PCP Internal Medicine; Visit Provider Physician Assistant Medical
DX: Z11.1 Encounter for screening for respiratory tuberculosis (principal); L40.0 Psoriasis vulgaris; L40.59 Other psoriatic arthropathy
CPT/HCPCS: 36415; 80048; 80076; 85025; 86481; 86704; 86706; 86803; 87340

== ENCOUNTER 2023-06-18 12:04 | Outpatient (AMB) | payer OTHER, SELFPAY ==
[2023-06-18 12:05] VITALS: BP 144/78; PULSE 70; O2SAT 96; BMI 35.4
--- NOTE | 2023-06-18 12:05 | A.OFFPC_ITS ---
Vital Signs 06/18/23 12:05 Height 5 ft 4 in Weight 206 lb BMI 35.4 BP 144/78 H Blood Pressure Location Rt brachial Position Sitting Pulse 70 Pulse Source Pulse Oximeter Pulse Oximetry (%) 96 Oxygen Delivery Method Room Air Intake Visit Reasons: 2 month follow up Allergies cat dander [CATS] Allergy (Severe, Verified 06/18/23 12:05) DIFFICULTY BREATHING dog dander [DOGS] Allergy (Severe, Verified 06/18/23 12:05) DIFFICULTY BREATHING latex [Latex] Allergy (Severe, Verified 06/18/23 12:05) ANAPHYLAXIS penicillin G [PENICILLIN G] Adverse Reaction (Unknown, Verified 06/18/23 12:05) PT STATES IT JUST DOESN'T WORK FOR HER Environmental Allergy (Unknown, Uncoded 02/23/23 15:28) allergy symptoms Medication List - Last Reconciled 06/18/23 by Kai Saha MD albuterol sulfate 90 mcg/actuation (ProAir HFA) 1 inh inhalation QID PRN 90 days albuterol sulfate 0.63 mg (3 mL) inhalation QID PRN betamethasone dipropionate 0.05% 1 appl topical DAILY PRN 30 days blood pressure test kit-large (Quick Response BP Monitor-Large Cuff kit) As directed [Bp monitor As directed] cetirizine (All Day Allergy (cetirizine)) 10 mg PO DAILY fluticasone propion-salmeterol 500-50 mcg/dose 1 inh inhalation BID furosemide 20 mg PO DAILY guselkumab (Tremfya) mg subcut labetalol 100 mg PO BID montelukast 10 mg PO ONCE oxycodone 10 mg PO Q8H PRN 30 days quetiapine 100 mg PO BEDTIME 90 days sertraline 200 mg (2 x 100 mg) PO DAILY 90 days [Updraft machine As directed] verapamil ER 240 mg PO DAILY Tobacco use date assessed: 06/18/23 Dental Screening Dental Screen Date: 06/18/23 Did you have a dental visit in the last 12 months?: Yes Did you have a dental problem in the last 6 months where you did not have access to dental care?: No Was dental information given to patient?: No HPI 2 month follow up HPI Details Patient is a 57-year-old female this is her by monthly visit for medication refill Patient have diastolic hypertrophic cardiomyopathy management by Cardiology [facility] patient has visit in November Patient has a psoriatic arthritis, she is on oxycodone 10 mg 3 times a day and muscle relaxers as needed.? Patient is complying with the treatment plan Urine drug screen is being done twice a year Major severe depression:? Patient is on Seroquel 100 mg at bedtime which also helps her with sleep Anxiety disorder stable with sertraline 200 mg daily.? Hypertension: Continue verapamil 240 mg and labetalol 100 mg b.i.d. blood pressure is stable. Hypertension management is through Cardiology Asthma treatment with Advair and albuterol She is taking [id number] omeprazole once at night I have told her to start taking it twice a day Patient was seeing Dr. Clarke but she has no longer seeing him She is prediabetic , I would recommend diet-controlled Labs to be done next visit due for urine drug screen as well [facility] Medical History Anxiety, generalized 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 Asthma Cardiomyopathy Chronic GERD Depression, major, recurrent Diastolic dysfunction Dyspnea on exertion Environmental allergies Heart murmur HLA B27 (HLA B27 positive) HTN (hypertension) Hypertension, essential Noncompliance NSTEMI (non-ST elevated myocardial infarction) Obesity (BMI 35.0-39.9 without comorbidity) MITCHELL (obstructive sleep apnea) Pain management Refusal of blood transfusions as patient is [place] Sacroiliitis Spondylosis of lumbar region without myelopathy or radiculopathy Surgical History History of endometrial ablation History of hysterectomy for benign disease History of tubal ligation Hx of cardiac catheterization Hx of colonoscopy Family History Mother Uterine cancer Other Substance use disorder Social History Housing: House Patient Tobacco Use Status: Former Tobacco user Quit Date: 2007 Tobacco use type: Cigarette e-Cigarette/Vaping Use: Never Used Second Hand Smoke Exposure: No Current occupational status: employed Cognitive needs: No Hearing needs: No Vision needs: Yes Female Reproductive History Menstrual Age of Menarche: 14 Questionnaire PHQ-9 Over the last 2 weeks, how often have you been bothered by any of the following problems? 1. Little interest or pleasure in doing things: not at all 2. Feeling down, depressed, or hopeless: several days 3. Trouble falling or staying asleep, or sleeping too much: several days 4. Feeling tired or having little energy: several days 5. Poor appetite or overeating: not at all 6. Feeling bad about yourself - or that you are a failure or have let yourself or your family down: not at all 7. Trouble concentrating on things, such as reading the newspaper or watching television: not at all 8. Moving or speaking so slowly that other people could have noticed. Or the opposite - being so fidgety or restless that you have been moving around a lot more than usual: not at all 9. Thoughts that you would be better off or of hurting yourself in some way: not at all Total score: 3 Depression Screening Interpretation: Negative 01651 - PHQ-9 Billing: Yes Source: Developed by Drs. Albin Fitch, Kate Fink, Yosi Bar and colleagues, with an educational isaak from [employer]. Thrive Questionnaire Date Thrive assessed: 06/18/23 I am a: Patient What is your living situation today?: I have a steady place to live Within the past 12 months, did the food you bought not last and you didn't have the money to get more?: Sometimes True Within the past 12 months, did you worry whether your food would run out before you got money to buy more?: Never true Do you have trouble paying for medicines?: No Do you have trouble getting transportation to medical appointments?: No Do you have trouble paying your heating and electricity bill?: No Do you have trouble taking care of your child, family member or friend?: No Do you have trouble with day-to-day activities such as bathing, preparing meals, shopping, managing finances, etc.?: Yes Are you currently unemployed and looking for a job?: No Are you interested in more education?: No AUDIT C Alcohol Use Questionnaire (AUDIT-C) 1. How often do you have a drink containing alcohol?: 2-4 times a month 2. How many drinks containing alcohol do you have on a typical day when you are drinking?: 1 or 2 3. How often do you have six or more drinks on one occasion?: Never Total Score: 2 Score Reviewed/Action Taken: Yes FIDELIA-7 AMB Questionnaire FIDELIA-7 Date FIDELIA - 7 assessed: 06/18/23 Feeling nervous, anxious, or on edge: 0 = Not at all Not being able to stop or control worryin = Not at all Worrying too much about different things: 0 = Not at all Trouble relaxin = Not at all Being so restless that it is hard to sit still: 0 = Not at all Becoming easily annoyed or irritable: 0 = Not at all Feeling afraid as if something awful might happen: 0 = Not at all Total FIDELIA-7 score (0-4 normal; 5-9 mild; 10-14 moderate; 15-21 severe): 0 Source: Developed by Drs. Albin Fitch, Kate Fink, Yosi Bar and colleagues, with an educational isaak from [employer]. FIDELIA-7 Assessment Billing FIDELIA-7 Assessment Tool: FIDELIA-7 Assessment 17647 Review of Systems Const Denies chills and Denies fever(s) ENT Denies epistaxis and Denies nasal discharge Card Denies chest pain Resp Denies chest congestion, Denies cough and Denies hemoptysis GI Denies diarrhea and Denies nausea Skin/Breast Denies rash Neuro Reports no additional complaints Psych Reports no additional complaints Endo Reports no additional complaints Physical exam (Primary Care) Vital Signs: Last Vital Signs Pulse 70 06/18/23 12:05 BP 144/78 H 06/18/23 12:05 Pulse Ox 96 06/18/23 12:05 Oxygen Delivery Method Room Air 06/18/23 12:05 BMI result Body Mass Index 35.4 Tobacco/Smoking Status: Tobacco use Status Tobacco use date assessed 06/18/23 06/18/23 12:07 Patient Tobacco Use Status Former Tobacco user 06/18/23 12:07 Tobacco use type Cigarette 06/18/23 12:07 e-Cigarette/Vaping Use Never Used 06/18/23 12:07 Depression Screening Interpretation: Negative Thrive Assessment: Date of Thrive Assessment Date Thrive assessed 12/23/21 06/18/23 12:07 Const General: cooperative, comfortable and no acute distress Orientation/consciousness: patient oriented x3 HENMT Head: Yes normocephalic Eyes General: appearance normal, both eyes and all related structures Neck Neck: Yes supple Resp Effort & Inspection: normal respiratory effort, no cough and no stridor Cardio Rhythm: regular rhythm Heart sounds: S1 normal heart sound present and S2 normal heart sound present Skin General skin exam: turgor normal Neuro General: patient oriented x3, tone normal and moves all extremities Extrem Right lower extremity: no edema Left lower extremity: no edema Assessment and Plan Assessment & Plan (1) Arthritis with psoriasis: Code(s): L40.50 - Arthropathic psoriasis, unspecified (2) Hypertension, essential: Code(s): I10 - Essential (primary) hypertension (3) Chronic GERD: Code(s): K21.9 - Gastro-esophageal reflux disease without esophagitis (4) Depression, major, recurrent: Code(s): F33.9 - Major depressive disorder, recurrent, unspecified (5) Anxiety, generalized: Code(s): F41.1 - Generalized anxiety disorder (6) Pain management: Comment: Foll'd by Dr. Topete Code(s): R52 - Pain, unspecified (7) Asthma, moderate persistent: Code(s): J45.40 - Moderate persistent asthma, uncomplicated (8) Pre-diabetes: Code(s): R73.03 - Prediabetes (9) Chronic narcotic dependence: Comment: Controlled nature of medication was discussed, it is important to notify me of change of pharmacy, or if traveling. Do not share the medication with anybody, keep it safe away from the hands of small children, and only take it as prescribed. This medication have a tendency to be abused, habit-forming, and it can cause severe constipation along with other allergic reactions. Long-term use of narcotic medications have shown to increase sensitivity to pain. Code(s): F11.20 - Opioid dependence, uncomplicated Plan Patient is a 57-year-old female this is her by monthly visit for medication refill Patient have diastolic hypertrophic cardiomyopathy management by Cardiology [facility] patient has visit in November Patient has a psoriatic arthritis, she is on oxycodone 10 mg 3 times a day and muscle relaxers as needed.? Patient is complying with the treatment plan Urine drug screen is being done twice a year Major severe depression:? Patient is on Seroquel 100 mg at bedtime which also helps her with sleep Anxiety disorder stable with sertraline 200 mg daily.? Hypertension: Continue verapamil 240 mg and labetalol 100 mg b.i.d. blood pressure is stable. Hypertension management is through Cardiology Asthma treatment with Advair and albuterol She is taking [id number]-xcndser omeprazole once at night I have told her to start taking it twice a day Patient was seeing Dr. Clarke but she has no longer seeing him She is prediabetic , I would recommend diet-controlled Labs to be done next visit due for urine drug screen as well Medications: Refilled oxycodone 10 mg PO Q8H 30 days PRN 90 tabs 0RF pain Coding Level of Care Code Est Pt Level 4 (42767) Diagnoses Arthritis with psoriasis L40.50 Hypertension, essential I10 Chronic GERD K21.9 Depression, major, recurrent F33.9 Anxiety, generalized F41.1 Pain management R52 Asthma, moderate persistent J45.40 Pre-diabetes R73.03 Chronic narcotic dependence F11.20 Additional Codes FIDELIA-7 Assessment Billing - FIDELIA-7 Assessment Tool: FIDELIA-7 Assessment 50454 ([id number])
== END 2023-06-18 13:56 | disposition home or self-care (01) ==
PROVIDERS: PCP Internal Medicine; Visit Provider Internal Medicine
DX: I10 Essential (primary) hypertension (principal); K21.9 Gastro-esophageal reflux disease without esophagitis; F33.9 Major depressive disorder, recurrent, unspecified; F11.20 Opioid dependence, uncomplicated; J45.40 Moderate persistent asthma, uncomplicated; L40.50 Arthropathic psoriasis, unspecified; F41.1 Generalized anxiety disorder; R52 Pain, unspecified; R73.03 Prediabetes
CPT/HCPCS: 99214

== ENCOUNTER 2023-07-06 13:02 | Outpatient (AMB) | payer OTHER, SELFPAY ==
[2023-07-06 13:09] VITALS: BMI 35.8
--- NOTE | 2023-07-06 13:09 | A.OFFVIS_ITS ---
Intake VS Expanded 07/06/23 13:09 07/20/23 19:37 Height 5 ft 4 in 5 ft 4 in Weight 208 lb 8.917 oz 208 lb 12.8 oz BMI 35.8 35.8 Intake Visit Reasons: Obesity Allergies cat dander [CATS] Allergy (Severe, Verified 06/18/23 12:05) DIFFICULTY BREATHING dog dander [DOGS] Allergy (Severe, Verified 06/18/23 12:05) DIFFICULTY BREATHING latex [Latex] Allergy (Severe, Verified 06/18/23 12:05) ANAPHYLAXIS penicillin G [PENICILLIN G] Adverse Reaction (Unknown, Verified 06/18/23 12:05) PT STATES IT JUST DOESN'T WORK FOR HER Environmental Allergy (Unknown, Uncoded 02/23/23 15:28) allergy symptoms HPI Nutrition Presentation Details Pt presents for MNT for Obesity, MITCHELL. Pt was referred by Dr. Clarke, assembler [employer]. Pt reports having joined weight watchers 2 wks ago and is working on diet modifications. Current Meal routine B: 2 boiled eggs and plain yogurt w granola L: bowl of salad with chicken breast with hall bit, fat free dressing D: 2 corn ears with butter and chicken breast with green beans /hall bits snack: fruit parfait , popcorn Physical activity: daily life activities ETOH: denies smoking:denies Wt hx 228s in 2020 MJP-Ehltsta-Wa.Jeor Equation Height 5 ft 4 in Weight 208 lb 12.8 oz Resting Metabolic Rate 1515.79 Calculated Activity Level Sedentary Calories Needed to Maintain Weight 1818.95 Diagnosis Nutrition problem #1 excessive energy intake As related to (etiology) #1 diagnosis (as evidenced by BMI at 35.8 on 06/2023 , and elevated FBG) Most Recent Diabetes Results: Cholesterol 185 mg/dL 03/11/23 HDL Cholesterol 58 mg/dL 03/11/23 Triglycerides 51 mg/dL 03/11/23 Creatinine 0.76 mg/dL (0.5-1.4) 06/17/23 Blood Urea Nitrogen 12 mg/dL (9-16) 06/17/23 Sodium 141 mmol/L (135-145) 06/17/23 Potassium 3.9 mmol/L (3.3-5.1) 06/17/23 Chloride 106 mmol/L (96-108) 06/17/23 Carbon Dioxide 25 mmol/L (22-29) 06/17/23 Calcium 11.0 mg/dL (8.4-10.2) H 06/17/23 AST 24 U/L (5-31) 06/17/23 ALT 23 U/L (0-31) 06/17/23 Total Protein 8.1 g/dL (6.5-8.0) H 06/17/23 Albumin 4.1 g/dL (3.5-5.0) 06/17/23 [facility] Medical History Anxiety, generalized 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 Asthma Cardiomyopathy Chronic GERD Depression, major, recurrent Diastolic dysfunction Dyspnea on exertion Environmental allergies Heart murmur HLA B27 (HLA B27 positive) HTN (hypertension) Hypertension, essential Noncompliance NSTEMI (non-ST elevated myocardial infarction) Obesity (BMI 35.0-39.9 without comorbidity) MITCHELL (obstructive sleep apnea) Pain management Refusal of blood transfusions as patient is Spirit[place] Sacroiliitis Spondylosis of lumbar region without myelopathy or radiculopathy Surgical History History of endometrial ablation History of hysterectomy for benign disease History of tubal ligation Hx of cardiac catheterization Hx of colonoscopy Family History Mother Uterine cancer Other Substance use disorder Social History Housing: House Patient Tobacco Use Status: Former Tobacco user Quit Date: 2007 Tobacco use type: Cigarette e-Cigarette/Vaping Use: Never Used Second Hand Smoke Exposure: No Current occupational status: employed Cognitive needs: No Hearing needs: No Vision needs: Yes Female Reproductive History Menstrual Age of Menarche: 14 Assessment & Plan Assessment & Plan (1) Obesity due to excess calories: Code(s): E66.09 - Other obesity due to excess calories Plan: USed wt : 95 kg (06/2023) Est kcal needs as per MSJ: 1800 (40% carb, 30% protein/fat) Est fluid needs as per 25-30 ml/d: 2400- 2900 ml/d Est prot per day as per 1 g/kg bw: 95 Recommend fiber intake : 8-10 g per day and gradually increase to 25-28 g per day for women and 35-38 g for men or as tolerated Recommend sodium intake per day : l less than 2000 mg Educated patient on: ( R = reviewed V = verbalizes understanding N/R = needs review N/A = not applicable * Food sources of carbohydrate, adequate serving sizes and its role in various health conditions: R * Differences between complex carbohydrates a simple carbohydrates, role of fiber in diet: R * Differences between types of fats and role in diet (mono on saturated fat fatty acids, saturated fatty acids, trans fats): R basic * Food sources of sodium in salt and healthy modifications for heart health in kidney health: NR * Vitamins and minerals: R * Healthy plate method concept: R * Physical activity: Benefits a precaution: R Patient Instructions: Work on reducing your total carbohydrates to less than 180 g per day , distributed throughout the day (30-60g per meal) reduce on snack - limit to 0 or up to 20g , no more than 2 a day - practice mindful eating Coding Level of Care Code Nutr Indiv Intake (19242) Diagnoses Obesity due to excess calories E66.09 Time Spent (min) 30
[2023-07-20 19:37] VITALS: BMI 35.8
== END 2023-07-06 13:47 | disposition home or self-care (01) ==
PROVIDERS: PCP Internal Medicine; Referring Provider Internal Medicine; Visit Provider Dietitian, Registered
DX: E66.09 Other obesity due to excess calories (principal)

== ENCOUNTER → 2023-07-06 13:02 | Outpatient (BNVA) | payer OTHER, SELFPAY | PROVIDERS: Visit Provider Dietitian, Registered | DX: E66.09 Other obesity due to excess calories (principal); Z68.35 Body mass index [BMI] 35.0-35.9, adult; Z71.3 Dietary counseling and surveillance | CPT/HCPCS: 97802 ==

== ENCOUNTER 2023-07-28 16:39 | Emergency (ER) | payer OTHER, SELFPAY ==
--- NOTE | ~2023-07-28 | CT_ITS ---
EXAMINATION: CT HEAD WITHOUT CONTRAST CLINICAL INFORMATION: Clinical question of thalamic infarction. COMPARISON: None available. TECHNIQUE: Contiguous axial imaging was performed from the skull base to vertex without intravenous administration of contrast. This CT examination was performed using dose optimization techniques as appropriate, variously including the following: *Automated exposure control *Adjustment of mA and/or kV according to patient size (this includes techniques or standardized protocols for targeted exams where dose is matched to indication/reason for exam; i.e. extremities or head) *Use of iterative reconstruction technique DLP: 766 mGy-cm FINDINGS: There is no acute intracranial hemorrhage or evidence of territorial infarction. No abnormal mass effect or midline shift is seen. Zuniga to white matter differentiation is well preserved. There is no abnormal attenuation within the brain parenchyma. The ventricles are normal in size. No extra-axial fluid collections are identified. The calvarium and scalp soft tissues are normal. The middle ear cavity and mastoid air cells are clear. The visualized paranasal sinuses are clear. CT/CT head/brain wo IV con IMPRESSION: No acute intracranial pathology. If a clinical question of thalamic infarction persists, consider MRI evaluation as a more sensitive imaging modality.
[2023-07-28 16:42] VITALS: BP 176/75; PULSE 60; RESP 16; TEMP 36.3; O2SAT 97; BMI 36.4
--- NOTE | 2023-07-28 16:45 | ECG_ITS ---
Test Reason : numbness/tingling Blood Pressure : / mmHG Vent. Rate : 058 BPM Atrial Rate : 058 BPM P-R Int : 200 ms QRS Dur : 106 ms QT Int : 460 ms P-R-T Axes : 059 046 252 degrees QTc Int : 451 ms Sinus bradycardia Possible Left atrial enlargement Left ventricular hypertrophy ( Sokolow-Bains , [place] product ) ST & T wave abnormality, consider inferolateral ischemia Abnormal ECG When compared with ECG of -DEC-2017 10:48, Non-specific change in ST segment in Anterior leads Referred By: Wojciech Veras Electronically Signed By:DERICK PEMBERTON
--- NOTE | 2023-07-28 16:46 | ED_ITS ---
HPI - General Adult General Chief complaint: General Medical Stated complaint: extreme sweat, mini strokes? Time Seen by Provider: 07/28/23 17:57 Source: patient Mode of arrival: ambulatory Limitations: no limitations History of Present Illness HPI narrative: Patient 57 years old with history of anxiety, apical variant hypertrophic cardiomyopathy, hypertension, MITCHELL comes here for episodes of profuse sweating for last 6 months. Patient has seen PCP for same blood workup showed slightly elevated calcium level also complaining of headaches patient does get this can of episodes of profuse sweating which last for 5 - 10 minutes no palpitation no chest pain no nausea no vomiting patient is postmenopausal for last 18 years no chest pain no palpitation no syncope episode Related Data Home Medications Medication Instructions Recorded Confirmed guselkumab 100 mg/mL subcutaneous mg subcut 11/21/21 06/18/23 auto-injector (Tremfya) montelukast 10 mg tablet 10 mg PO ONCE 12/08/22 06/18/23 Previous Rx's Medication Instructions Recorded Updraft machine #1 ea 09/16/21 Bp monitor #1 ea 11/18/22 blood pressure test kit-large #1 ea 11/19/22 (Quick Response BP Monitor-Large Cuff kit) furosemide 20 mg tablet 20 mg PO DAILY #90 tabs 03/12/23 cetirizine 10 mg tablet (All Day 10 mg PO DAILY #90 tabs 03/23/23 Allergy (cetirizine)) fluticasone 500 mcg-salmeterol 50 1 inh inhalation BID #60 ea 03/29/23 mcg/dose blistr powdr for inhalation albuterol sulfate 0.63 mg/3 mL 0.63 mg (3 mL) inhalation QID PRN 04/05/23 solution for nebulization for wheezing #75 mL verapamil 240 mg 24 hr 240 mg PO DAILY #90 caps 04/19/23 capsule,extended release albuterol sulfate 90 mcg/actuation 1 inh inhalation QID PRN shortness 04/28/23 aerosol inhaler (ProAir HFA) of breath or wheezing 90 days #3 multiple units labetalol 100 mg tablet 100 mg PO BID #60 tabs 05/19/23 sertraline 100 mg tablet 200 mg (2 x 100 mg) PO DAILY 90 05/21/23 days #180 tabs betamethasone dipropionate 0.05 % 1 appl topical DAILY PRN Itching 06/08/23 topical cream 30 days #45 grams quetiapine 100 mg tablet 100 mg PO BEDTIME 90 days #90 tabs 06/22/23 oxycodone 10 mg tablet 10 mg PO Q8H PRN pain 30 days #90 07/14/23 tabs Allergies Allergy/AdvReac Type Severity Reaction Status Date / Time cat dander [CATS] Allergy Severe DIFFICULTY Verified 06/18/23 12:05 BREATHING dog dander [DOGS] Allergy Severe DIFFICULTY Verified 06/18/23 12:05 BREATHING latex [Latex] Allergy Severe ANAPHYLAXIS Verified 06/18/23 12:05 penicillin G [PENICILLIN G] AdvReac Unknown PT STATES Verified 06/18/23 12:05 IT JUST DOESN'T WORK FOR HER Environmental Allergy Unknown allergy Uncoded 02/23/23 15:28 symptoms Review of Systems 2 Review of Systems: Yes all other systems are reviewed and are negative [facility] Past Medical History Medical History Dyspnea on exertion Refusal of blood transfusions as patient is [employer] HTN (hypertension) Diastolic dysfunction Apical variant hypertrophic cardiomyopathy MITCHELL (obstructive sleep apnea) Obesity (BMI 35.0-39.9 without comorbidity) Sacroiliitis Spondylosis of lumbar region without myelopathy or radiculopathy Cardiomyopathy Asthma Pain management Anxiety, generalized Depression, major, recurrent Chronic GERD Environmental allergies Noncompliance Hypertension, essential NSTEMI (non-ST elevated myocardial infarction) Heart murmur 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) Surgical History Hx of cardiac catheterization Hx of colonoscopy History of tubal ligation History of endometrial ablation History of hysterectomy for benign disease Family History Family History Mother Uterine cancer Other Substance use disorder Social History Social History Housing: House Alcohol intake: current Alcohol intake frequency: 0-2 drinks per day Alcohol type: hard liquor Patient Tobacco Use Status: Former Tobacco user Quit Date: 2007 Tobacco use type: Cigarette Smoked in Last 30 Days: No e-Cigarette/Vaping Use: Never Used Second Hand Smoke Exposure: No Use of substances other than those prescribed or required for medical reasons: No Advance Directives: No Advance Directives Information Provided: Yes Patient : No Current occupational status: employed Cognitive needs: No Hearing needs: No Vision needs: Yes Physical Exam ED Vital Signs: Vital Signs - 24 hr 07/28/23 16:42 07/28/23 18:35 07/28/23 19:58 Temperature 97.4 F 98.5 F Pulse Rate 60 60 58 Respiratory Rate 16 18 16 Blood Pressure 176/75 H 166/82 H 173/79 H Pulse Oximetry 97 98 96 Oxygen Delivery Method Room Air Room Air Room Air 07/28/23 20:44 07/28/23 20:46 07/28/23 20:51 Temperature Pulse Rate 60 66 75 Respiratory Rate Blood Pressure 149/60 H 144/50 H 154/65 H Pulse Oximetry Oxygen Delivery Method BMI result Body Mass Index 36.4 Appearance: Alert. Oriented X3. No acute distress. Eyes: PERRLA, No Nystagmus ENT: Pharynx normal. Oral Mucosa moist thyroid not palpable Neck: Normal inspection. Neck supple. CVS: Normal heart rate and rhythm. Pulses normal. Systolic ejection murmur at base Respiratory: No respiratory distress. Equal air entry bilateral, no wheezing/rales/rhonchi Abdomen: Soft and nontender. Bowel sounds are present, no mass palpable, no CVA tenderness Skin: Skin warm and dry. Normal skin color. Normal skin turgor. Extremities: No lower extremity edema. No calf tenderness Neuro: Oriented X 3. No motor deficit. No sensory deficit.No cerebellar signs , cranial nerves II-XII intact Course Course Course Narrative: RME- 57 year old female presents for evaluation of periods of excessive sweating and tingling. Her doctor referred her to the ER for further workup. The patient has none of the symptoms currently and no neuro deficits. Plan for labs and an EKG Medical Decision Making Medical Decision Making [facility] Narrative: Patient with episode of diaphoresis etiology not clear likely autonomic dysfunction no palpitation no chest pain associated with symptoms will get CT scan of the head to rule out any severe labs are stable Patient CT scan is negative for acute orthostatics are normal discharge patient home advised to follow with neurologist/PCP Differential Diagnosis Differential Diagnoses: The differential diagnosis associated with the presentation includes Autonomic does function/metabolic cause/cardia Lab Data [facility] Lab Attestation statement: I reviewed the patient's lab results. 07/28/23 16:57 07/28/23 16:57 Labs: Lab Results 07/28/23 Range/Units 16:57 WBC 10.9 H (4.8-10.8) X10*3/uL RBC 3.88 L D (4.20-5.50) X10*6/uL Hgb 11.2 L (12.0-16.0) g/dl Hct 35.4 L (37.0-47.0) % MCV 91.2 (80.0-98.0) fL MCH 28.9 (27.0-33.0) pg MCHC 31.6 (31.0-35.0) g/dl RDW 14.6 (11.0-16.0) % Plt Count 217 D (160-400) X10*3/uL MPV 10.4 (9.4-12.3) fL Immature Gran % (Auto) 0.4 (0.0-0.4) % Neut % (Auto) 69.3 (45-73) % Lymph % (Auto) 16.9 L (20-40) % Fannin % (Auto) 9.7 (2-11) % Eos % (Auto) 3.0 (0-4) % Baso % (Auto) 0.7 (0-2) % Lymph # (Auto) 1.8 (1.2-4.9) X10*3/uL Fannin # (Auto) 1.1 (0.1-1.2) X10*3/uL Eos # (Auto) 0.3 (0.0-0.4) X10*3/uL Baso # (Auto) 0.1 (0.0-0.2) X10*3/uL Abs Immat Gran (auto) 0.04 H (0.00-0.03) X10*3/uL Absolute Neuts (auto) 7.6 (2.0-8.3) x10*3/uL Absolute Nucleated RBC 0.000 (0.0-0.012) X10*3/uL Nucleated RBC % (auto) 0.0 (0.0-0.2) /100WBC Sodium 140 (135-145) mmol/L Potassium 3.5 (3.3-5.1) mmol/L Chloride 107 (96-108) mmol/L Carbon Dioxide 29 (22-29) mmol/L Anion Gap 8 L (12-20) BUN 13 (9-16) mg/dL Creatinine 0.80 (0.5-1.4) mg/dL Estim Creat Clear Calc 86.2 Estimated GFR > 60 Random Glucose 86 (60-115) mg/dL Calcium 10.4 H (8.4-10.2) mg/dL Phosphorus 2.8 (2.7-4.5) mg/dL Magnesium 1.6 (1.6-2.6) mg/dL Total Bilirubin 0.3 (0.0-1.0) mg/dL AST 19 (5-31) U/L ALT 15 (0-31) U/L Alkaline Phosphatase 85 (39-117) U/L Total Protein 7.2 (6.5-8.0) g/dL Albumin 3.8 (3.5-5.0) g/dL Lipase 9 (8-78) U/L TSH 0.75 (0.32-4.0) uIU/mL Independent Interpretation I performed an independent interpretation of an: EKG Interpretation: Sinus bradycardia with heart rate 58 beats per minute LVH nonspecific ST T wave changes no acute change no acute ischemia Radiology Impression Discussion of test interpretation with radiology: I have reviewed the radiologist's reading. Discharge Plan Discharge Clinical Impression: Diaphoresis Patient Disposition: Home, Self-Care Instructions: Normal Exam (ED) Additional Instructions: Cause of your sweating is not clear possible some anomic dysfunction Check blood pressure/pulse rate during the episodes follow with PCP/neurologist for further evaluation Prescriptions: No Action (DME) Bp monitor Medium See Rx Instructions .Route .MEDSUPPLY Qty: 1 0RF Rx Instructions: As directed (DME) blood pressure test kit-large [Quick Response BP Monitor-Larg] Kit See Rx Instructions .Route Qty: 1 0RF Rx Instructions: As directed furosemide 20 mg tablet 20 mg PO DAILY Qty: 90 2RF cetirizine [All Day Allergy (cetirizine)] 10 mg tablet 10 mg PO DAILY Qty: 90 3RF fluticasone propion-salmeterol 500-50 mcg/dose blister with device 1 inh inhalation BID Qty: 60 3RF albuterol sulfate 0.63 mg/3 mL solution for nebulization 0.63 mg inhalation QID PRN (Reason: for wheezing) Qty: 75 0RF verapamil 240 mg capsule,ext rel. pellets 24 hr 240 mg PO DAILY Qty: 90 3RF labetalol 100 mg tablet 100 mg PO BID Qty: 60 4RF sertraline 100 mg tablet 200 mg PO DAILY 90 Days Qty: 180 0RF betamethasone dipropionate 0.05 % cream 1 appl topical DAILY PRN (Reason: Itching) 30 Days Qty: 45 2RF quetiapine 100 mg tablet 100 mg PO BEDTIME 90 Days Qty: 90 0RF Rx Instructions: Further refills will need office visit oxycodone 10 mg tablet 10 mg PO Q8H PRN (Reason: pain) 30 Days Qty: 90 0RF Tremfya 100 mg/mL auto-injector subcut (DME) Updraft machine See Rx Instructions .Route .MEDSUPPLY Qty: 1 0RF Rx Instructions: As directed albuterol sulfate [ProAir HFA] 90 mcg/actuation HFA aerosol inhaler 1 inh inhalation QID PRN (Reason: shortness of breath or wheezing) 90 Days Qty: 3 3RF montelukast 10 mg tablet 10 mg PO ONCE Interventions: ED Discharge Assessment Last Done: 07/28/23 21:13 Discharge Date/Time: 07/28/23 21:14
[2023-07-28 17:02] LABS: MANUAL DIFF FLAG NO
[2023-07-28 17:05] LABS: Basophils Absolute Auto 0.1 X10*3/uL (0.0-0.2); Basophils Percent Auto 0.7 % (0-2); Eosinophils Absolute Auto 0.3 X10*3/uL (0.0-0.4); Hematocrit 35.4 % (37.0-47.0); Hemoglobin 11.2 g/dl (12.0-16.0); Imm Gran Abs Auto 0.04 X10*3/uL (0.00-0.03); Imm Gran Pct Auto 0.4 % (0.0-0.4); Lymphocytes Absolute Auto 1.8 X10*3/uL (1.2-4.9); Lymphocytes Percent Auto 16.9 % (20-40); Mean Corpuscular HGB Conc 31.6 g/dl (31.0-35.0); Mean Corpuscular Hemoglobin 28.9 pg (27.0-33.0); Mean Corpuscular Volume 91.2 fL (80.0-98.0); Mean Platelet Volume 10.4 fL (9.4-12.3); Monocytes Absolute Auto 1.1 X10*3/uL (0.1-1.2); Monocytes Percent Auto 9.7 % (2-11); Neutrophils Absolute Auto 7.6 x10*3/uL (2.0-8.3); Neutrophils Percent Auto 69.3 % (45-73); Platelet Count 217 X10*3/uL (160-400); Red Blood Count 3.88 X10*6/uL (4.20-5.50); Red Cell Distribution Width 14.6 % (11.0-16.0); White Blood Count 10.9 X10*3/uL (4.8-10.8)
[2023-07-28 17:26] LABS: Alanine Aminotransferase 15 U/L (0-31); Albumin Level 3.8 g/dL (3.5-5.0); Alkaline Phosphatase 85 U/L (39-117); Anion Gap 8 (12-20); Aspartate Amino Transferase 19 U/L (5-31); Bilirubin Total 0.3 mg/dL (0.0-1.0); Blood Urea Nitrogen 13 mg/dL (9-16); Calcium 10.4 mg/dL (8.4-10.2); Carbon Dioxide 29 mmol/L (22-29); Chloride 107 mmol/L (96-108); Creatinine Clr Calc Pharmacy 86.2; Estimated Glomerular Filt Rate > 60; Glucose Random 86 mg/dL (60-115); Lipase 9 U/L (8-78); Magnesium 1.6 mg/dL (1.6-2.6); Phosphorus 2.8 mg/dL (2.7-4.5); Potassium 3.5 mmol/L (3.3-5.1); Sodium 140 mmol/L (135-145); Total Protein 7.2 g/dL (6.5-8.0)
[2023-07-28 17:41] LABS: TSH reflex Free T4 0.75 uIU/mL (0.32-4.0)
[2023-07-28 18:35] VITALS: BP 166/82; PULSE 60; RESP 18; TEMP 36.9; O2SAT 98
[2023-07-28 19:58] VITALS: BP 173/79; PULSE 58; RESP 16; O2SAT 96
--- NOTE | 2023-07-28 19:59 | PC.NURSE ---
pt aox4, ambulatory. reporting for several months episodes of sweating accompanied by numbness and along left side. episodes last for several minutes each and pt feels unfocused and off during these times. labs and EKG done. pt hypertensive, VS otherwise stable. reporting 5/10 throat pain.
[2023-07-28 20:44] VITALS: BP 149/60; PULSE 60
[2023-07-28 20:46] VITALS: BP 144/50; PULSE 66
[2023-07-28 20:51] VITALS: BP 154/65; PULSE 75
--- NOTE | 2023-07-28 21:01 | PC.NURSE ---
no tachycardia per orthos, Dr. Martinez aware, plan is to discharge pt. Notified ANGELINA Robbins
--- NOTE | 2023-07-28 21:11 | PC.NURSE ---
Reviewed discharge instructions With pt, pt verbalized understanding. No sign of distress at discharge. Notifed RN Itzel,
== END 2023-07-28 21:14 | disposition home or self-care (01) ==
PROVIDERS: Physician Assistant; Emergency Provider Internal Medicine; PCP Internal Medicine
DX: R61 Generalized hyperhidrosis (principal); R20.0 Anesthesia of skin; R00.1 Bradycardia, unspecified; R51.9 Headache, unspecified; Z79.899 Other long term (current) drug therapy
CPT/HCPCS: 36415; 70450; 80053; 83690; 83735; 84100; 84443; 85025; 93005; 99284

== ENCOUNTER 2023-08-04 12:52 | Outpatient (REF) | payer OTHER, SELFPAY ==
[2023-08-04 16:35] LABS: Anion Gap 13 (12-20); Blood Urea Nitrogen 11 mg/dL (9-16); Carbon Dioxide 30 mmol/L (22-29); Chloride 104 mmol/L (96-108); Estimated Glomerular Filt Rate > 60; Glucose Random 90 mg/dL (60-115); Potassium 3.5 mmol/L (3.3-5.1); Sodium 143 mmol/L (135-145)
[2023-08-04 16:39] LABS: B Type Natriuretic Peptide 609 pg/mL (<100)
== END 2023-08-04 12:53 | disposition home or self-care (01) ==
LOC: HO.HMGCLDS 12:52
PROVIDERS: PCP Internal Medicine; Visit Provider Nurse Practitioner
DX: R06.09 Other forms of dyspnea (principal)
CPT/HCPCS: 36415; 80048; 83880

== ENCOUNTER 2023-08-10 14:07 | Outpatient (AMB) | payer OTHER, SELFPAY ==
--- NOTE | 2023-08-10 14:28 | A.OFFVIS_ITS ---
Intake Vital Signs 08/10/23 14:30 Height 5 ft 4 in Weight 210 lb 12.191 oz BMI 36.2 BP 122/64 Blood Pressure Location Lt brachial Position Sitting Pulse 65 Pulse Source Pulse Oximeter Pulse Oximetry (%) 93 Oxygen Delivery Method Room Air Intake Visit Reasons: Shortness of breath Allergies cat dander [CATS] Allergy (Severe, Verified 08/10/23 14:32) DIFFICULTY BREATHING dog dander [DOGS] Allergy (Severe, Verified 08/10/23 14:32) DIFFICULTY BREATHING latex [Latex] Allergy (Severe, Verified 08/10/23 14:32) ANAPHYLAXIS penicillin G [PENICILLIN G] Adverse Reaction (Unknown, Verified 08/10/23 14:32) PT STATES IT JUST DOESN'T WORK FOR HER Environmental Allergy (Unknown, Uncoded 08/10/23 14:32) allergy symptoms Medication List - Last Reconciled 08/10/23 by Emilie Hernandez NP albuterol sulfate 90 mcg/actuation (ProAir HFA) 1 inh inhalation QID PRN 90 days albuterol sulfate 0.63 mg (3 mL) inhalation QID PRN betamethasone dipropionate 0.05% 1 appl topical DAILY PRN 30 days blood pressure test kit-large (Quick Response BP Monitor-Large Cuff kit) As directed [Bp monitor As directed] cetirizine (All Day Allergy (cetirizine)) 10 mg PO DAILY fluticasone propion-salmeterol 500-50 mcg/dose 1 inh inhalation BID furosemide 20 mg PO DAILY guselkumab (Tremfya) mg subcut labetalol 100 mg PO BID montelukast 10 mg PO ONCE oxycodone 10 mg PO Q8H PRN 30 days quetiapine 100 mg PO BEDTIME 90 days sertraline 200 mg (2 x 100 mg) PO DAILY 90 days [Updraft machine As directed] verapamil ER 240 mg PO DAILY HPI HPI Comments History of Present Illness Details 57-year-old female comes in today for an increased shortness of breath. She has a history of HTN, pre-diabetes. asthma, diastolic dysfunction, MITCHELL, and GERD., She had recently called and reported that she was feeling an increase in shortness of breath and we increased her lasix to 40mg QD for 3 days and checked a BNP and BMP. BNP was 609. She denies leg edema but endorses SOB with minimal exertion. She has not been monitoring her weight due to a broken scale but recei catalina a new one today. She reports she has not been watching her salt intake and has a high salt intake. Since 07/06/23 she had increased 3 lbs. [facility] Medical History Dyspnea on exertion Refusal of blood transfusions as patient is [employer] HTN (hypertension) Diastolic dysfunction Apical variant hypertrophic cardiomyopathy MITCHELL (obstructive sleep apnea) Obesity (BMI 35.0-39.9 without comorbidity) Sacroiliitis Spondylosis of lumbar region without myelopathy or radiculopathy Cardiomyopathy Asthma Pain management Anxiety, generalized Depression, major, recurrent Chronic GERD Environmental allergies Noncompliance Hypertension, essential NSTEMI (non-ST elevated myocardial infarction) Heart murmur 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) Surgical History Hx of cardiac catheterization Hx of colonoscopy History of tubal ligation History of endometrial ablation History of hysterectomy for benign disease Family History Mother Uterine cancer Other Substance use disorder Social History Housing: House Alcohol intake: current Alcohol intake frequency: 0-2 drinks per day Alcohol type: hard liquor Patient Tobacco Use Status: Former Tobacco user Quit Date: 2007 Tobacco use type: Cigarette e-Cigarette/Vaping Use: Never Used Second Hand Smoke Exposure: No Current occupational status: employed Cognitive needs: No Hearing needs: No Vision needs: Yes Female Reproductive History Menstrual Age of Menarche: 14 Review of Systems Const Denies chills, Denies fatigue, Denies fever(s), Denies frequent falls, Denies weakness, Denies weight gain and Denies weight loss ENT Denies dizziness Card Denies chest pain, Denies chest pain with activity, Denies syncope, Denies rapid heart rate, Denies pedal edema, Denies irregular heart rhythm, Denies leg edema, Denies lightheadedness, Denies palpitations, Reports dyspnea, Reports dyspnea on exertion, Denies orthopnea and Denies other (LOC) Resp Denies cough, Reports dyspnea and Reports dyspnea on exertion GI Denies hematochezia and Denies change in bowel habits Musc Denies abnormal gait, Denies arthralgias, Denies muscle weakness, Denies numbness, Denies radiating pain into limb and Denies tingling Neuro Denies abnormal gait, Denies dizziness, Denies syncope, Denies frequent falls, Denies numbness, Denies tingling and Denies weakness Endo Denies fatigue and Denies palpitations Physical Exam Vital Signs: Last Vital Signs Pulse 65 08/10/23 14:30 BP 122/64 08/10/23 14:30 Pulse Ox 93 08/10/23 14:30 Oxygen Delivery Method Room Air 08/10/23 14:30 BMI result Body Mass Index 36.2 Const General: healthy appearing and no acute distress Orientation/consciousness: patient oriented x3 HEENT Head: Yes normal to inspection Eyes General: appearance normal, both eyes and all related structures Neck Neck: Yes normal visual inspection Chest Chest palpation & inspection: normal inspection of the chest Resp Effort & Inspection: normal respiratory effort and able to speak in complete sentences Auscultation: clear to auscultation bilaterally Cardio Jugular venous distension: no JVD Palpation: normal PMI Rate: regular rate Rhythm: regular rhythm Heart sounds: S1 normal heart sound present, S2 normal heart sound present, no click, no gallops, no murmurs and no rubs GI Inspection: Yes normal to inspection Palpation (GI): Soft to palpation Skin General skin exam: no rashes or lesions noted Neuro General: patient oriented x3 Extrem General: Yes normal to inspection Psych Appearance: grossly normal Results Reviewed Results Reviewed: Laboratory Tests 08/04/23 13:02 Sodium 143 Potassium 3.5 Chloride 104 Carbon Dioxide 30 H Anion Gap 13 BUN 11 Creatinine 0.81 Estim Creat Clear Calc Not Reportable Estimated GFR > 60 Random Glucose 90 Calcium 10.0 B-Natriuretic Peptide 609 H Assessment & Plan Assessment & Plan (1) Dyspnea on exertion: Comment: Dyspnea on exertion is due to increased weight. As noted above the after stopping to drink wine her dyspnea on exertion has definitely improved, though her weight did not change much Have ordered a complete PULMONARY FUNCTION TEST for an up to date evaluation. Code(s): R06.09 - Other forms of dyspnea (2) Uncontrolled hypertension: Code(s): I10 - Essential (primary) hypertension Plan Blood pressure today is within goal. Increase lasix 20mg to 40mg a day for 3 days and repeat lab work this weekend/Wednesday morning. Discussed in detail the importance of goal blood pressures, sodium reduction, and daily monitoring weight. She will follow up in November as planned with Dr. Alexander sooner if needed. Orders: Orders Basic Metabolic Panel Today I10 - Essential (primary) hypertension, R06.09 - Other forms of dyspnea B Type Natriuretic Peptide 3 Days I10 - Essential (primary) hypertension, R06.09 - Other forms of dyspnea Coding Level of Care Code Est Pt Level 3 (47171) Diagnoses Dyspnea on exertion R06.09 Uncontrolled hypertension I10
[2023-08-10 14:30] VITALS: BP 122/64; PULSE 65; O2SAT 93; BMI 36.2
== END 2023-08-10 16:02 | disposition home or self-care (01) ==
PROVIDERS: PCP Internal Medicine; Visit Provider Nurse Practitioner
DX: R06.09 Other forms of dyspnea (principal); I10 Essential (primary) hypertension
CPT/HCPCS: 99213

== ENCOUNTER → 2023-08-10 14:07 | Outpatient (BNVA) | payer OTHER, SELFPAY | PROVIDERS: PCP Internal Medicine; Visit Provider Nurse Practitioner ==

== ENCOUNTER 2023-08-17 11:55 | Outpatient (AMB) | payer OTHER, SELFPAY ==
--- NOTE | 2023-08-17 11:58 | MHC.PC.OV ---
Vital Signs 08/17/23 12:02 Height 5 ft 4 in Weight 204 lb 5 oz BMI 35.1 BP 132/68 Blood Pressure Location Rt brachial Position Sitting Pulse 57 Pulse Source Pulse Oximeter Pulse Oximetry (%) 95 Oxygen Delivery Method Room Air Intake Visit Reasons: 2 Month follow up Allergies cat dander [CATS] Allergy (Severe, Verified 08/17/23 11:58) DIFFICULTY BREATHING dog dander [DOGS] Allergy (Severe, Verified 08/17/23 11:58) DIFFICULTY BREATHING latex [Latex] Allergy (Severe, Verified 08/17/23 11:58) ANAPHYLAXIS penicillin G [PENICILLIN G] Adverse Reaction (Unknown, Verified 08/17/23 11:58) PT STATES IT JUST DOESN'T WORK FOR HER Environmental Allergy (Unknown, Uncoded 08/10/23 14:32) allergy symptoms Medication List - Last Reconciled 08/17/23 by Kai Saha MD albuterol sulfate 90 mcg/actuation (ProAir HFA) 1 inh inhalation QID PRN 90 days albuterol sulfate 0.63 mg (3 mL) inhalation QID PRN betamethasone dipropionate 0.05% 1 appl topical DAILY PRN 30 days blood pressure test kit-large (Quick Response BP Monitor-Large Cuff kit) As directed [Bp monitor As directed] cetirizine (All Day Allergy (cetirizine)) 10 mg PO DAILY fluticasone propion-salmeterol 500-50 mcg/dose 1 inh inhalation BID furosemide 20 mg PO DAILY guselkumab (Tremfya) mg subcut labetalol 100 mg PO BID montelukast 10 mg PO ONCE oxycodone 10 mg PO Q8H PRN 30 days quetiapine 100 mg PO BEDTIME 90 days sertraline 200 mg (2 x 100 mg) PO DAILY 90 days [Updraft machine As directed] verapamil ER 240 mg PO DAILY Tobacco use date assessed: 08/17/23 Dental Screening Dental Screen Date: 08/17/23 Did you have a dental visit in the last 12 months?: Yes Did you have a dental problem in the last 6 months where you did not have access to dental care?: No Was dental information given to patient?: Patient has dentist HPI 2 Month follow up HPI Details Patient is 57-year-old female came in today for her follow-up appointment Patient was in emergency room in July of this year when she complained of feeling short of breath and tingling. Emergency notes reviewed, patient is slightly anemic with hemoglobin of 11.2 She had a cardiology appointment after urgency room visit Patient have diastolic hypertrophic cardiomyopathy her BNP is elevated in 600 range. She will be having echocardiogram and follow-up again in November with Dr. Alexander. She was feeling very depressed because of shortness of breath and her symptoms but she is getting better now. Patient has a psoriatic arthritis, she is on oxycodone 10 mg 3 times a day and muscle relaxers as needed.? Patient is complying with the treatment plan Urine drug screen is being done twice a year Major severe depression:? Patient is on Seroquel 100 mg at bedtime which also helps her with sleep Anxiety disorder stable with sertraline 200 mg daily.? Hypertension: Continue verapamil 240 mg and labetalol 100 mg b.i.d. blood pressure is stable. Hypertension management is through Cardiology Asthma treatment with Advair and albuterol, patient is stable at this time she was seeing Dr. Clarke but she is no longer seeing him She is taking anio-kxt-cntycil omeprazole once at night I have told her to start taking it twice a day She is prediabetic , I would recommend diet-controlled Labs to be done next visit due for urine drug screen as well PFSH Medical History Dyspnea on exertion Refusal of blood transfusions as patient is Jehovah's witness HTN (hypertension) Diastolic dysfunction Apical variant hypertrophic cardiomyopathy MITCHELL (obstructive sleep apnea) Obesity (BMI 35.0-39.9 without comorbidity) Sacroiliitis Spondylosis of lumbar region without myelopathy or radiculopathy Cardiomyopathy Asthma Pain management Anxiety, generalized Depression, major, recurrent Chronic GERD Environmental allergies Noncompliance Hypertension, essential NSTEMI (non-ST elevated myocardial infarction) Heart murmur 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) Surgical History Hx of cardiac catheterization Hx of colonoscopy History of tubal ligation History of endometrial ablation History of hysterectomy for benign disease Family History Mother Uterine cancer Other Substance use disorder Social History Housing: House Alcohol intake: current Alcohol intake frequency: 0-2 drinks per day Alcohol type: hard liquor Patient Tobacco Use Status: Former Tobacco user Quit Date: 2007 Tobacco use type: Cigarette e-Cigarette/Vaping Use: Never Used Second Hand Smoke Exposure: No Current occupational status: employed Cognitive needs: No Hearing needs: No Vision needs: Yes Female Reproductive History Menstrual Age of Menarche: 14 Questionnaire PHQ-9 Over the last 2 weeks, how often have you been bothered by any of the following problems? 1. Little interest or pleasure in doing things: several days 2. Feeling down, depressed, or hopeless: several days 3. Trouble falling or staying asleep, or sleeping too much: more than half the days 4. Feeling tired or having little energy: several days 5. Poor appetite or overeating: several days 6. Feeling bad about yourself - or that you are a failure or have let yourself or your family down: several days 7. Trouble concentrating on things, such as reading the newspaper or watching television: not at all 8. Moving or speaking so slowly that other people could have noticed. Or the opposite - being so fidgety or restless that you have been moving around a lot more than usual: not at all 9. Thoughts that you would be better off or of hurting yourself in some way: not at all Total score: 7 Depression Screening Interpretation: Positive Depression Screening Follow-up: Existing condition and In treatment Depression Screening Done: Yes [id number] - PHQ-9 Billing: Yes Source: Developed by Drs. Albin Fitch, Yosi Prakash and colleagues, with an educational isaka from [employer]. Thrive Questionnaire Date Thrive assessed: 06/18/23 AUDIT C Alcohol Use Questionnaire (AUDIT-C) 1. How often do you have a drink containing alcohol?: Never 3. How often do you have six or more drinks on one occasion?: Never Total Score: 0 Score Reviewed/Action Taken: Yes FIDELIA-7 AMB Questionnaire FIDELIA-7 Date FIDELIA - 7 assessed: 06/18/23 Source: Developed by Kate Bledsoe Kurt Kroenke and colleagues, with an educational isaak from [employer]. Review of Systems Const Denies chills and Denies fever(s) ENT Denies epistaxis and Denies nasal discharge Card Denies chest pain Resp Denies chest congestion, Denies cough and Denies hemoptysis GI Denies diarrhea and Denies nausea Skin/Breast Denies rash Neuro Reports no additional complaints Psych Reports no additional complaints Endo Reports no additional complaints Physical exam (Primary Care) Vital Signs: Last Vital Signs Pulse 57 08/17/23 12:02 BP 132/68 08/17/23 12:02 Pulse Ox 95 08/17/23 12:02 Oxygen Delivery Method Room Air 08/17/23 12:02 BMI result Body Mass Index 35.1 Tobacco/Smoking Status: Tobacco use Status Tobacco use date assessed 08/17/23 08/17/23 12:05 Patient Tobacco Use Status Former Tobacco user 08/17/23 12:05 Tobacco use type Cigarette 08/17/23 12:05 e-Cigarette/Vaping Use Never Used 08/17/23 12:05 PHQ-9: PHQ-9 Score PHQ-9: Total score 7 08/17/23 12:19 Depression Screening Interpretation: Positive Depression Screening Follow-up: Existing condition and In treatment Thrive Assessment: Date of Thrive Assessment Date Thrive assessed 06/18/23 08/17/23 12:05 Const General: cooperative, comfortable and no acute distress Orientation/consciousness: patient oriented x3 HENMT Head: Yes normocephalic Eyes General: appearance normal, both eyes and all related structures Neck Neck: Yes supple Resp Effort & Inspection: normal respiratory effort, no cough and no stridor Cardio Other: Cardiac murmur present Rhythm: regular rhythm Heart sounds: S1 normal heart sound present and S2 normal heart sound present Skin General skin exam: turgor normal Neuro General: patient oriented x3, tone normal and moves all extremities Extrem Other: Psoriatic nail changes present Right lower extremity: no edema Left lower extremity: no edema Assessment and Plan Assessment & Plan (1) Hypertension, essential: Code(s): I10 - Essential (primary) hypertension (2) Arthritis with psoriasis: Code(s): L40.50 - Arthropathic psoriasis, unspecified (3) Depression, major, recurrent: Code(s): F33.9 - Major depressive disorder, recurrent, unspecified Qualifiers: Active/Remission status: in partial remission Qualified Code(s): F33.41 - Major depressive disorder, recurrent, in partial remission (4) HLA B27 (HLA B27 positive): Code(s): Z15.89 - Genetic susceptibility to other disease (5) Sacroiliitis: Code(s): M46.1 - Sacroiliitis, not elsewhere classified (6) Apical variant hypertrophic cardiomyopathy: Code(s): I42.2 - Other hypertrophic cardiomyopathy (7) Chronic narcotic dependence: Comment: Controlled nature of medication was discussed, it is important to notify me of change of pharmacy, or if traveling. Do not share the medication with anybody, keep it safe away from the hands of small children, and only take it as prescribed. This medication have a tendency to be abused, habit-forming, and it can cause severe constipation along with other allergic reactions. Long-term use of narcotic medications have shown to increase sensitivity to pain. Code(s): F11.20 - Opioid dependence, uncomplicated (8) Psoriatic arthritis: Code(s): L40.50 - Arthropathic psoriasis, unspecified (9) Anxiety, generalized: Code(s): F41.1 - Generalized anxiety disorder (10) Pain management: Code(s): R52 - Pain, unspecified (11) Asthma, moderate persistent: Code(s): J45.40 - Moderate persistent asthma, uncomplicated Qualifiers: Asthma complication type: uncomplicated Qualified Code(s): J45.40 - Moderate persistent asthma, uncomplicated (12) Pre-diabetes: Code(s): R73.03 - Prediabetes (13) Pain management: Code(s): R52 - Pain, unspecified Plan Patient is 57-year-old female came in today for her follow-up appointment Patient was in emergency room in July of this year when she complained of feeling short of breath and tingling. Emergency notes reviewed, patient is slightly anemic with hemoglobin of 11.2 She had a cardiology appointment after urgency room visit Patient have diastolic hypertrophic cardiomyopathy her BNP is elevated in 600 range. She will be having echocardiogram and follow-up again in November with Dr. Alexander. She was feeling very depressed because of shortness of breath and her symptoms but she is getting better now. Patient has a psoriatic arthritis, she is on oxycodone 10 mg 3 times a day and muscle relaxers as needed.? Patient is complying with the treatment plan Urine drug screen is being done twice a year Major severe depression:? Patient is on Seroquel 100 mg at bedtime which also helps her with sleep Anxiety disorder stable with sertraline 200 mg daily.? Hypertension: Continue verapamil 240 mg and labetalol 100 mg b.i.d. blood pressure is stable. Hypertension management is through Cardiology Asthma treatment with Advair and albuterol, patient is stable at this time she was seeing Dr. Clarke but she is no longer seeing him She is taking hnup-uqc-esumabw omeprazole once at night I have told her to start taking it twice a day She is prediabetic , I would recommend diet-controlled Labs to be done next visit due for urine drug screen as well Orders: Orders Complete Blood Count Auto Diff 6 Weeks F11.20 - Opioid dependence, uncomplicated, F33.9 - Major depressive disorder, recurrent, unspecified, I10 - Essential (primary) hypertension, I42.2 - Other hypertrophic cardiomyopathy, L40.50 - Arthropathic psoriasis, unspecified, M46.1 - Sacroiliitis, not elsewhere classified, Z15.89 - Genetic susceptibility to other disease B Type Natriuretic Peptide 6 Weeks F11.20 - Opioid dependence, uncomplicated, F33.9 - Major depressive disorder, recurrent, unspecified, I10 - Essential (primary) hypertension, I42.2 - Other hypertrophic cardiomyopathy, L40.50 - Arthropathic psoriasis, unspecified, M46.1 - Sacroiliitis, not elsewhere classified, Z15.89 - Genetic susceptibility to other disease Drug Screen Urine 6 Weeks F11.20 - Opioid dependence, uncomplicated, R52 - Pain, unspecified Ferritin 6 Weeks F11.20 - Opioid dependence, uncomplicated, F33.9 - Major depressive disorder, recurrent, unspecified, I10 - Essential (primary) hypertension, I42.2 - Other hypertrophic cardiomyopathy, L40.50 - Arthropathic psoriasis, unspecified, M46.1 - Sacroiliitis, not elsewhere classified, Z15.89 - Genetic susceptibility to other disease Comprehensive Met. Panel 6 Weeks F11.20 - Opioid dependence, uncomplicated, F33.9 - Major depressive disorder, recurrent, unspecified, I10 - Essential (primary) hypertension, I42.2 - Other hypertrophic cardiomyopathy, L40.50 - Arthropathic psoriasis, unspecified, M46.1 - Sacroiliitis, not elsewhere classified, Z15.89 - Genetic susceptibility to other disease Opiates GCMS Expanded, Ur 6 Weeks F11.20 - Opioid dependence, uncomplicated, R52 - Pain, unspecified Medications: Refilled oxycodone 10 mg PO Q8H PRN 90 tabs 0RF pain 30 days Coding Level of Care Code Est Pt Level 4 (28310) Diagnoses Hypertension, essential I10 Arthritis with psoriasis L40.50 Recurrent major depressive disorder, in partial remission F33.41 Active/Remission status: in partial remission HLA B27 (HLA B27 positive) Z15.89 Sacroiliitis M46.1 Apical variant hypertrophic cardiomyopathy I42.2 Chronic narcotic dependence F11.20 Anxiety, generalized F41.1 Pain management R52 Moderate persistent asthma without complication J45.40 Asthma complication type: uncomplicated Pre-diabetes R73.03
[2023-08-17 12:02] VITALS: BP 132/68; PULSE 57; O2SAT 95; BMI 35.1
== END 2023-08-17 12:17 | disposition home or self-care (01) ==
PROVIDERS: PCP Internal Medicine; Visit Provider Internal Medicine
DX: L40.50 Arthropathic psoriasis, unspecified (principal); F33.41 Major depressive disorder, recurrent, in partial remission; M46.1 Sacroiliitis, not elsewhere classified; I42.2 Other hypertrophic cardiomyopathy; F11.20 Opioid dependence, uncomplicated; I10 Essential (primary) hypertension; J45.40 Moderate persistent asthma, uncomplicated; Z15.89 Genetic susceptibility to other disease; F41.1 Generalized anxiety disorder; R52 Pain, unspecified; R73.03 Prediabetes
CPT/HCPCS: 99214

== ENCOUNTER 2023-10-19 12:03 | Outpatient (AMB) | payer OTHER, SELFPAY ==
[2023-10-19 12:04] VITALS: BP 148/66; PULSE 67; O2SAT 95; BMI 36.3
--- NOTE | 2023-10-19 12:04 | MHC.PC.OV ---
Vital Signs 10/19/23 12:04 Height 5 ft 4 in Weight 211 lb 4 oz BMI 36.3 BP 148/66 H Blood Pressure Location Rt brachial Position Sitting Pulse 67 Pulse Source Pulse Oximeter Pulse Oximetry (%) 95 Oxygen Delivery Method Room Air Intake Visit Reasons: 4 month follow up Allergies cat dander [CATS] Allergy (Severe, Verified 10/19/23 12:04) DIFFICULTY BREATHING dog dander [DOGS] Allergy (Severe, Verified 10/19/23 12:04) DIFFICULTY BREATHING latex [Latex] Allergy (Severe, Verified 10/19/23 12:04) ANAPHYLAXIS penicillin G [PENICILLIN G] Adverse Reaction (Unknown, Verified 10/19/23 12:04) PT STATES IT JUST DOESN'T WORK FOR HER Environmental Allergy (Unknown, Uncoded 08/10/23 14:32) allergy symptoms Medication List - Last Reconciled 10/19/23 by Kai Saha MD albuterol sulfate 90 mcg/actuation (ProAir HFA) 1 inh inhalation QID PRN 90 days albuterol sulfate 0.63 mg (3 mL) inhalation QID PRN betamethasone dipropionate 0.05% 1 appl topical DAILY PRN 30 days blood pressure test kit-large (Quick Response BP Monitor-Large Cuff kit) As directed [Bp monitor As directed] cetirizine (All Day Allergy (cetirizine)) 10 mg PO DAILY ferrous sulfate 324 mg PO BID 90 days fluticasone propion-salmeterol 500-50 mcg/dose 1 inh inhalation BID furosemide 20 mg PO DAILY guselkumab (Tremfya) mg subcut labetalol 100 mg PO BID montelukast 10 mg PO ONCE oxycodone 10 mg PO Q8H PRN 30 days quetiapine 100 mg PO BEDTIME 90 days sertraline 200 mg (2 x 100 mg) PO DAILY 90 days [Updraft machine As directed] verapamil ER 240 mg PO DAILY Tobacco use date assessed: 10/19/23 Dental Screening Dental Screen Date: 10/19/23 Did you have a dental visit in the last 12 months?: Yes Did you have a dental problem in the last 6 months where you did not have access to dental care?: No Was dental information given to patient?: Patient has dentist HPI 4 month follow up HPI Details Patient is 58-year-old female came in today for her follow-up appointment Patient have diastolic hypertrophic cardiomyopathy her BNP is elevated 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 Alexander. 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 Patient is complying with the treatment plan Urine drug screen is being done twice a year , I have been ordering it but patient has not done it she will have it done today And patient is requesting if she can start coming every 3 months, as she is unable to afford the cost of visits, patient has been stable on this medication and there are no signs of abuse Need for p.o. right if patient started coming every 3 months Major severe depression:? Patient is on Seroquel 100 mg at bedtime which also helps her with sleep Anxiety disorder stable with sertraline 200 mg daily.? Hypertension: Continue verapamil 240 mg and labetalol 100 mg b.i.d. blood pressure is stable. Hypertension management is through Cardiology Asthma treatment with Advair and albuterol, patient is stable at this time she was seeing Dr. Clarke but she is no longer seeing him She is taking [id number] omeprazole once at night I have told her to start taking it twice a day She is prediabetic , I would recommend diet-controlled Follow-up 3 months for physical exam PFSH Medical History Dyspnea on exertion Refusal of blood transfusions as patient is [employer] HTN (hypertension) Diastolic dysfunction Apical variant hypertrophic cardiomyopathy MITCHELL (obstructive sleep apnea) Obesity (BMI 35.0-39.9 without comorbidity) Sacroiliitis Spondylosis of lumbar region without myelopathy or radiculopathy Cardiomyopathy Asthma Pain management Anxiety, generalized Depression, major, recurrent Chronic GERD Environmental allergies Noncompliance Hypertension, essential NSTEMI (non-ST elevated myocardial infarction) Heart murmur 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) Surgical History Hx of cardiac catheterization Hx of colonoscopy History of tubal ligation History of endometrial ablation History of hysterectomy for benign disease Family History Mother Uterine cancer Other Substance use disorder Social History Housing: House Alcohol intake: current Alcohol intake frequency: 0-2 drinks per day Alcohol type: hard liquor Patient Tobacco Use Status: Former Tobacco user Quit Date: 2007 Tobacco use type: Cigarette e-Cigarette/Vaping Use: Never Used Second Hand Smoke Exposure: No Current occupational status: employed Cognitive needs: No Hearing needs: No Vision needs: Yes Female Reproductive History Menstrual Age of Menarche: 14 Questionnaire Thrive Questionnaire Date Thrive assessed: 06/18/23 AUDIT C Alcohol Use Questionnaire (AUDIT-C) 1. How often do you have a drink containing alcohol?: Monthly or less 2. How many drinks containing alcohol do you have on a typical day when you are drinking?: 1 or 2 3. How often do you have six or more drinks on one occasion?: Never Total Score: 1 Score Reviewed/Action Taken: Yes FIDELIA-7 AMB Questionnaire FIDELIA-7 Date FIDELIA - 7 assessed: 06/18/23 Source: Developed by Drs. Albin Fitch, Kate Fink, Yosi Bar and colleagues, with an educational isaak from [employer]. Review of Systems Const Denies chills and Denies fever(s) ENT Denies epistaxis and Denies nasal discharge Card Denies chest pain Resp Denies chest congestion, Denies cough and Denies hemoptysis GI Denies diarrhea and Denies nausea Skin/Breast Denies rash Neuro Reports no additional complaints Psych Reports no additional complaints Endo Reports no additional complaints Physical exam (Primary Care) Vital Signs: Last Vital Signs Pulse 67 10/19/23 12:04 BP 148/66 H 10/19/23 12:04 Pulse Ox 95 10/19/23 12:04 Oxygen Delivery Method Room Air 10/19/23 12:04 BMI result Body Mass Index 36.3 Tobacco/Smoking Status: Tobacco use Status Tobacco use date assessed 10/19/23 10/19/23 12:05 Patient Tobacco Use Status Former Tobacco user 10/19/23 12:05 Tobacco use type Cigarette 10/19/23 12:05 e-Cigarette/Vaping Use Never Used 10/19/23 12:05 Thrive Assessment: Date of Thrive Assessment Date Thrive assessed 06/18/23 10/19/23 12:05 Const General: cooperative, comfortable and no acute distress Orientation/consciousness: patient oriented x3 HENMT Head: Yes normocephalic Eyes General: appearance normal, both eyes and all related structures Neck Neck: Yes supple Resp Effort & Inspection: normal respiratory effort, no cough and no stridor Cardio Rhythm: regular rhythm Heart sounds: S1 normal heart sound present and S2 normal heart sound present Skin General skin exam: turgor normal Neuro General: patient oriented x3, tone normal and moves all extremities Extrem Right lower extremity: no edema Left lower extremity: no edema Assessment and Plan Assessment & Plan (1) Hypertension, essential: Code(s): I10 - Essential (primary) hypertension (2) Chronic narcotic dependence: Comment: Controlled nature of medication was discussed, it is important to notify me of change of pharmacy, or if traveling. Do not share the medication with anybody, keep it safe away from the hands of small children, and only take it as prescribed. This medication have a tendency to be abused, habit-forming, and it can cause severe constipation along with other allergic reactions. Long-term use of narcotic medications have shown to increase sensitivity to pain. Code(s): F11.20 - Opioid dependence, uncomplicated (3) Psoriatic arthritis: Code(s): L40.50 - Arthropathic psoriasis, unspecified (4) Apical variant hypertrophic cardiomyopathy: Code(s): I42.2 - Other hypertrophic cardiomyopathy (5) Asthma, moderate persistent: Code(s): J45.40 - Moderate persistent asthma, uncomplicated Qualifiers: Asthma complication type: uncomplicated Qualified Code(s): J45.40 - Moderate persistent asthma, uncomplicated (6) Arthritis with psoriasis: Code(s): L40.50 - Arthropathic psoriasis, unspecified (7) Depression, major, recurrent: Code(s): F33.9 - Major depressive disorder, recurrent, unspecified Qualifiers: Active/Remission status: in partial remission Qualified Code(s): F33.41 - Major depressive disorder, recurrent, in partial remission (8) HLA B27 (HLA B27 positive): Code(s): Z15.89 - Genetic susceptibility to other disease (9) Sacroiliitis: Code(s): M46.1 - Sacroiliitis, not elsewhere classified (10) Anxiety, generalized: Code(s): F41.1 - Generalized anxiety disorder (11) Pain management: Code(s): R52 - Pain, unspecified (12) Pre-diabetes: Code(s): R73.03 - Prediabetes (13) Obesity due to excess calories: Code(s): E66.09 - Other obesity due to excess calories Qualifiers: Obesity classification: adult class 2 (BMI 35 - 39.9) Serious obesity comorbidity presence: with serious comorbidity Body mass index: BMI 36.0-36.9 Qualified Code(s): E66.01 - Morbid (severe) obesity due to excess calories; Z68.36 - Body mass index [BMI] 36.0-36.9, adult Plan Patient is 58-year-old female came in today for her follow-up appointment Patient have diastolic hypertrophic cardiomyopathy her BNP is elevated 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 Patient is complying with the treatment plan Urine drug screen is being done twice a year , I have been ordering it but patient has not done it she will have it done today And patient is requesting if she can start coming every 3 months, as she is unable to afford the cost of visits, patient has been stable on this medication and there are no signs of abuse Need for p.o. right if patient started coming every 3 months Major severe depression:? Patient is on Seroquel 100 mg at bedtime which also helps her with sleep Anxiety disorder stable with sertraline 200 mg daily.? Hypertension: Continue verapamil 240 mg and labetalol 100 mg b.i.d. blood pressure is stable. Hypertension management is through Cardiology Asthma treatment with Advair and albuterol, patient is stable at this time she was seeing Dr. Clarke but she is no longer seeing him She is taking tgkx-jrr-chgtaep omeprazole once at night I have told her to start taking it twice a day She is prediabetic , I would recommend diet-controlled Follow-up 3 months for physical exam Medications: Refilled oxycodone 10 mg PO Q8H PRN 90 tabs 0RF pain 30 days Coding Level of Care Code Est Pt Level 4 (85156) Diagnoses Hypertension, essential I10 Chronic narcotic dependence F11.20 Psoriatic arthritis L40.50 Apical variant hypertrophic cardiomyopathy I42.2 Moderate persistent asthma without complication J45.40 Asthma complication type: uncomplicated Recurrent major depressive disorder, in partial remission F33.41 Active/Remission status: in partial remission HLA B27 (HLA B27 positive) Z15.89 Sacroiliitis M46.1 Anxiety, generalized F41.1 Pain management R52 Pre-diabetes R73.03 Class 2 severe obesity due to excess calories with serious comorbidity and body mass index (BMI) of 36.0 to 36.9 in adult E66.01; Z68.36 Obesity classification: adult class 2 (BMI 35 - 39.9) Serious obesity comorbidity presence: with serious comorbidity Body mass index: BMI 36.0-36.9
== END 2023-10-19 12:36 | disposition home or self-care (01) ==
PROVIDERS: PCP Internal Medicine; Visit Provider Internal Medicine
DX: I10 Essential (primary) hypertension (principal); F11.20 Opioid dependence, uncomplicated; L40.50 Arthropathic psoriasis, unspecified; I42.2 Other hypertrophic cardiomyopathy; F33.41 Major depressive disorder, recurrent, in partial remission; E66.01 Morbid (severe) obesity due to excess calories; M46.1 Sacroiliitis, not elsewhere classified; J45.40 Moderate persistent asthma, uncomplicated; Z15.89 Genetic susceptibility to other disease; F41.1 Generalized anxiety disorder; R73.03 Prediabetes; Z68.36 Body mass index [BMI] 36.0-36.9, adult
CPT/HCPCS: 99214

== ENCOUNTER 2023-10-19 12:36 | Outpatient (REF) | payer OTHER, SELFPAY ==
[2023-10-19 16:03] LABS: Amphetamine Screen Urine Not Detected (Not Detect); Barbiturates, Urine Not Detected (Not Detect); Benzodiazepines Screen Urine Not Detected (Not Detect); Cannabinoid Screen Urine Not Detected (Not Detect); Cocaine Screen Urine Not Detected (Not Detect); Fentanyl, urine Not Detected (Not Detect); Opiate Screen Urine POSITIVE (Not Detect); Phencyclidine Screen Urine Not Detected (Not Detect)
[2023-10-19 16:07] LABS: MANUAL DIFF FLAG NO
[2023-10-19 16:13] LABS: Basophils Percent Auto 0.4 % (0-2); Eosinophils Absolute Auto 0.2 X10*3/uL (0.0-0.4); Eosinophils Percent Auto 2.6 % (0-4); Hematocrit 38.3 % (37.0-47.0); Hemoglobin 12.1 g/dl (12.0-16.0); Imm Gran Abs Auto 0.02 X10*3/uL (0.00-0.03); Imm Gran Pct Auto 0.2 % (0.0-0.4); Lymphocytes Absolute Auto 1.3 X10*3/uL (1.2-4.9); Lymphocytes Percent Auto 16.3 % (20-40); Mean Corpuscular HGB Conc 31.6 g/dl (31.0-35.0); Mean Corpuscular Hemoglobin 29.7 pg (27.0-33.0); Mean Corpuscular Volume 94.1 fL (80.0-98.0); Mean Platelet Volume 10.6 fL (9.4-12.3); Monocytes Absolute Auto 0.7 X10*3/uL (0.1-1.2); Neutrophils Absolute Auto 5.8 x10*3/uL (2.0-8.3); Neutrophils Percent Auto 71.5 % (45-73); Platelet Count 258 X10*3/uL (160-400); Red Blood Count 4.07 X10*6/uL (4.20-5.50); Red Cell Distribution Width 13.6 % (11.0-16.0); White Blood Count 8.1 X10*3/uL (4.8-10.8)
[2023-10-19 16:41] LABS: Alanine Aminotransferase 18 U/L (0-31); Albumin Level 3.8 g/dL (3.5-5.0); Alkaline Phosphatase 90 U/L (39-117); Anion Gap 10 (12-20); Aspartate Amino Transferase 21 U/L (5-31); Bilirubin Total 0.3 mg/dL (0.0-1.0); Blood Urea Nitrogen 12 mg/dL (9-16); Calcium 10.4 mg/dL (8.4-10.2); Carbon Dioxide 28 mmol/L (22-29); Chloride 106 mmol/L (96-108); Estimated Glomerular Filt Rate > 60; Glucose Random 94 mg/dL (60-115); Potassium 4.1 mmol/L (3.3-5.1); Sodium 140 mmol/L (135-145); Total Protein 7.7 g/dL (6.5-8.0)
[2023-10-19 16:44] LABS: Ferritin 68 ng/mL (10-250)
[2023-10-19 16:45] LABS: B Type Natriuretic Peptide 529 pg/mL (<100)
[2023-10-25 08:12] LABS: Codeine, Ur NEGATIVE; Hydrocodone, Ur NEGATIVE
[2023-10-25 08:16] LABS: Hydromorphone, Ur NEGATIVE; Morphine, Ur NEGATIVE; Norhydrocodone, Ur NEGATIVE
== END 2023-10-19 12:37 | disposition home or self-care (01) ==
LOC: HO.HMGCLDS 12:36
PROVIDERS: PCP Internal Medicine; Visit Provider Internal Medicine
DX: I10 Essential (primary) hypertension (principal); L40.50 Arthropathic psoriasis, unspecified; F33.9 Major depressive disorder, recurrent, unspecified; M46.1 Sacroiliitis, not elsewhere classified; I42.2 Other hypertrophic cardiomyopathy; F11.20 Opioid dependence, uncomplicated; R52 Pain, unspecified; Z15.89 Genetic susceptibility to other disease
CPT/HCPCS: 80053; 80307; 80365; 82728; 83880; 85025; G0480

== ENCOUNTER 2023-12-07 12:37 | Outpatient (AMB) | payer OTHER, SELFPAY ==
--- NOTE | 2023-12-07 12:38 | A.OFFVIS_ITS ---
Intake Vital Signs 12/07/23 12:41 Height 5 ft 4 in Weight 209 lb 7.026 oz BMI 35.9 BP 120/72 Blood Pressure Location Lt brachial Position Sitting Pulse 66 Intake Visit Reasons: 1 yr f/u after an echo Intake Note: 1 year follow-up after echo feeling good stopped lasix a few weeks ago Microfiche Duplicator Required: No Allergies cat dander [CATS] Allergy (Severe, Verified 10/19/23 12:04) DIFFICULTY BREATHING dog dander [DOGS] Allergy (Severe, Verified 10/19/23 12:04) DIFFICULTY BREATHING latex [Latex] Allergy (Severe, Verified 10/19/23 12:04) ANAPHYLAXIS penicillin G [PENICILLIN G] Adverse Reaction (Unknown, Verified 10/19/23 12:04) PT STATES IT JUST DOESN'T WORK FOR HER Environmental Allergy (Unknown, Uncoded 08/10/23 14:32) allergy symptoms Medication List - Last Reconciled 12/07/23 by Danielito Alexander MD albuterol sulfate 90 mcg/actuation (ProAir HFA) 1 inh inhalation QID PRN 90 days albuterol sulfate 0.63 mg (3 mL) inhalation QID PRN betamethasone dipropionate 0.05% 1 appl topical DAILY PRN 30 days blood pressure test kit-large (Quick Response BP Monitor-Large Cuff kit) As directed [Bp monitor As directed] cetirizine (All Day Allergy (cetirizine)) 10 mg PO DAILY ferrous sulfate 324 mg PO BID 90 days fluticasone propion-salmeterol 500-50 mcg/dose 1 inh inhalation BID guselkumab (Tremfya) mg subcut labetalol 100 mg PO BID montelukast 10 mg PO ONCE oxycodone 10 mg PO Q8H PRN 30 days quetiapine 100 mg PO BEDTIME 90 days sertraline 200 mg (2 x 100 mg) PO DAILY 90 days [Updraft machine As directed] verapamil ER 240 mg PO DAILY HPI HPI Comments History of Present Illness Details Lisa comes for follow-up. In July she was here because she was getting very short of breath walking very short distances. She was then prescribed Lasix 40 mg for few days and then 20 mg daily. She took it for a month. She says the symptoms improved and now her symptoms are better with exertion. However she says that recently she has been noticing increasing PND. She has not noticed any significant leg edema abdominal distension. She has currently not on any diuretic regimen. A BNP in July was in the 600 range and had reduced to 500 range after diuretic therapy. No repeat lab work has been done. No echocardiogram has been done. Patient denies any lightheadedness, syncope. Taking all her medications. She does not watch salt intake in her diet. She has also not monitoring her blood pressure at home regularly. She has also not been monitoring her weight at home. She uses a CPAP. No prolonged palpitations irregular heartbeat. [facility] Medical History (HFpEF) heart failure with preserved ejection fraction Dyspnea on exertion Refusal of blood transfusions as patient is [employer] HTN (hypertension) Diastolic dysfunction Apical variant hypertrophic cardiomyopathy MITCHELL (obstructive sleep apnea) Obesity (BMI 35.0-39.9 without comorbidity) Sacroiliitis Spondylosis of lumbar region without myelopathy or radiculopathy Cardiomyopathy Asthma Pain management Anxiety, generalized Depression, major, recurrent Chronic GERD Environmental allergies Noncompliance Hypertension, essential NSTEMI (non-ST elevated myocardial infarction) Heart murmur 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) Surgical History Hx of cardiac catheterization Hx of colonoscopy History of tubal ligation History of endometrial ablation History of hysterectomy for benign disease Family History Mother Uterine cancer Other Substance use disorder Social History Housing: House Alcohol intake: current Alcohol intake frequency: 0-2 drinks per day Alcohol type: hard liquor Patient Tobacco Use Status: Former Tobacco user Quit Date: 2007 Tobacco use type: Cigarette e-Cigarette/Vaping Use: Never Used Second Hand Smoke Exposure: No Current occupational status: employed Cognitive needs: No Hearing needs: No Vision needs: Yes Female Reproductive History Menstrual Age of Menarche: 14 Review of Systems Const Denies chills, Denies fatigue, Denies fever(s), Denies frequent falls, Denies weakness, Denies weight gain and Denies weight loss ENT Denies dizziness Card Denies chest pain, Denies leg edema, Denies lightheadedness, Denies palpitations, Denies dyspnea, Denies dyspnea on exertion, Denies orthopnea and D enies other (loss of consciousness) Resp Denies cough, Denies dyspnea and Denies dyspnea on exertion GI Denies hematochezia and Denies change in stool character Musc Denies abnormal gait, Denies muscle weakness, Denies numbness, Denies radiating pain into limb and Denies tingling Neuro Denies abnormal gait, Denies dizziness, Denies frequent falls, Denies numbness, Denies tingling and Denies weakness Endo Denies fatigue and Denies palpitations Physical Exam Vital Signs: Last Vital Signs Pulse 66 12/07/23 12:41 BP 120/72 12/07/23 12:41 BMI result Body Mass Index 35.9 Const General: cooperative, comfortable, no acute distress, alert and awake Nutritional Appearance: obese Orientation/consciousness: patient oriented x3 Limitations: no limitations Neck Neck: Yes trachea midline, Yes supple and Yes JVD Resp Effort & Inspection: normal respiratory effort Auscultation: clear to auscultation bilaterally Cardio Jugular venous distension: JVD Palpation: normal PMI Rate: regular rate Rhythm: regular rhythm Heart sounds: S1 normal heart sound present, S2 normal heart sound present, no click, no gallops and Murmur heart sound present systolic early, decrescendo, crescendo and other (Worsening with upright positioning suggestive dynamic murmur) Skin General skin exam: no rashes or lesions noted Neuro General: patient oriented x3 and no focal motor deficits Extrem General: Yes no clubbing, cyanosis or edema Assessment & Plan Assessment & Plan (1) (HFpEF) heart failure with preserved ejection fraction: Code(s): I50.30 - Unspecified diastolic (congestive) heart failure Plan: Patient exhibiting signs of mild fluid overload with symptoms of PND recently with prior significant elevated BNP and diastolic dysfunction related to apical hypertrophic cardiomyopathy. She has findings consistent with heart failure preserved ejection fraction. I had a long discussion about pathophysiology of heart failure with her. Management of this was discussed. Goals of therapy were discussed including improving symptoms and avoiding hospitalization. Will recheck BMP and BNP today. Will start on low-dose Lasix 20 mg daily starting tomorrow as well as Jardiance 10 mg starting tomorrow. Role of the therapy was discussed. Importance of daily weight monitoring was discussed. Additional diuretics as needed was discussed if she has weight gain of greater than 3 lb. Told her that after starting diuretic therapy and Jardiance she will notice some weight loss and will have a new baseline. Will obtain an echocardiogram in near future to assess LV systolic and diastolic function filling pressures. Continue CPAP therapy. Advised to monitor blood pressure at home and maintain a log. Goal blood pressure less than 130/84. Advised to call me with worsening symptoms. Follow-up lab work in 6 weeks time. Will follow up in the clinic in 6 weeks time, sooner p.r.n.. Thank you for allowing me to partake in her care Orders: Orders B Type Natriuretic Peptide Today I50.30 - Unspecified diastolic (congestive) he art failure B Type Natriuretic Peptide 6 Weeks I50.30 - Unspecified diastolic (congestive) heart failure Basic Metabolic Panel 6 Weeks I50.30 - Unspecified diastolic (congestive) heart failure CA echo transthoracic complete Today I50.30 - Unspecified diastolic (congestive) heart failure Basic Metabolic Panel Today I50.30 - Unspecified diastolic (congestive) heart failure Medications: New empagliflozin (Jardiance) 10 mg PO DAILY 30 tabs 5RF I50.30 - Unspecified diastolic (congestive) heart failure furosemide (Lasix) 20 mg PO DAILY 40 tabs 5RF I50.30 - Unspecified diastolic (congestive) heart failure Coding Level of Care Code Est Pt Level 4 (21204) Diagnoses (HFpEF) heart failure with preserved ejection fraction I50.30
[2023-12-07 12:41] VITALS: BP 120/72; PULSE 66; BMI 35.9
== END 2023-12-07 13:10 | disposition home or self-care (01) ==
PROVIDERS: Visit Provider Internal Medicine Cardiovascular Disease
DX: I50.30 Unspecified diastolic (congestive) heart failure (principal)
CPT/HCPCS: 99214

== ENCOUNTER 2023-12-07 12:37 | Outpatient (REF) | payer OTHER, SELFPAY ==
[2023-12-07 15:01] LABS: B Type Natriuretic Peptide 452 pg/mL (<100)
[2023-12-07 15:11] LABS: Anion Gap 9 (12-20); Blood Urea Nitrogen 12 mg/dL (9-16); Calcium 10.5 mg/dL (8.4-10.2); Carbon Dioxide 28 mmol/L (22-29); Chloride 107 mmol/L (96-108); Estimated Glomerular Filt Rate > 60; Glucose Random 83 mg/dL (60-115); Potassium 4.2 mmol/L (3.3-5.1); Sodium 140 mmol/L (135-145)
== END 2023-12-07 12:38 | disposition home or self-care (01) ==
LOC: HO.LAB 12:37
PROVIDERS: PCP Internal Medicine; Visit Provider Internal Medicine Cardiovascular Disease
DX: I50.30 Unspecified diastolic (congestive) heart failure (principal)
CPT/HCPCS: 36415; 80048; 83880

== ENCOUNTER 2024-01-11 13:40 | Outpatient (AMB) | payer OTHER, SELFPAY ==
--- NOTE | 2024-01-11 14:12 | MHC.PC.OV ---
Intake Visit Reasons: 3 month Follow Up (Pain meds)[phone] Allergies cat dander [CATS] Allergy (Severe, Verified 01/11/24 14:12) DIFFICULTY BREATHING dog dander [DOGS] Allergy (Severe, Verified 01/11/24 14:12) DIFFICULTY BREATHING latex [Latex] Allergy (Severe, Verified 01/11/24 14:12) ANAPHYLAXIS penicillin G [PENICILLIN G] Adverse Reaction (Unknown, Verified 01/11/24 14:12) PT STATES IT JUST DOESN'T WORK FOR HER Environmental Allergy (Unknown, Uncoded 08/10/23 14:32) allergy symptoms Medication List - Last Reconciled 01/11/24 by Kai Saha MD Advair Diskus 500-50 mcg/dose (fluticasone propion-salmeterol) 1 inh inhalation BID NS albuterol sulfate 90 mcg/actuation (ProAir HFA) 1 inh inhalation QID PRN 90 days albuterol sulfate 0.63 mg (3 mL) inhalation QID PRN betamethasone dipropionate 0.05% 1 appl topical DAILY PRN 30 days blood pressure test kit-large (Quick Response BP Monitor-Large Cuff kit) As directed [Bp monitor As directed] cetirizine (All Day Allergy (cetirizine)) 10 mg PO DAILY empagliflozin (Jardiance) 10 mg PO DAILY ferrous sulfate 324 mg PO BID 90 days furosemide (Lasix) 20 mg PO DAILY guselkumab (Tremfya) mg subcut labetalol 100 mg PO BID montelukast 10 mg PO ONCE oxycodone 10 mg PO Q8H PRN 30 days quetiapine 100 mg PO BEDTIME 90 days sertraline 200 mg (2 x 100 mg) PO DAILY 90 days [Updraft machine As directed] verapamil ER 240 mg PO DAILY Tobacco use date assessed: 01/11/24 Dental Screening Dental Screen Date: 01/11/24 Did you have a dental visit in the last 12 months?: Yes Did you have a dental problem in the last 6 months where you did not have access to dental care?: No Was dental information given to patient?: Patient has dentist HPI 3 month Follow Up (Pain meds)[phone] HPI Details Patient is a 58-year-old female this is a telemedicine video conference Patient has been started on Jardiance by Cardiology Since then she is having recurrent yeast infection she is requesting a script for Diflucan which I have sent for her Patient also have chronic lower back pain she is positive for HLA B27 Also have psoriatic arthritis She is taking oxycodone 10 mg t.i.d. Patient is complying with the treatment plan no signs of abuse Medication refilled She has physical exam appointment next month [facility] Medical History (HFpEF) heart failure with preserved ejection fraction Dyspnea on exertion Refusal of blood transfusions as patient is Hoahaoism HTN (hypertension) Diastolic dysfunction Apical variant hypertrophic cardiomyopathy MITCHELL (obstructive sleep apnea) Obesity (BMI 35.0-39.9 without comorbidity) Sacroiliitis Spondylosis of lumbar region without myelopathy or radiculopathy Cardiomyopathy Asthma Pain management Anxiety, generalized Depression, major, recurrent Chronic GERD Environmental allergies Noncompliance Hypertension, essential NSTEMI (non-ST elevated myocardial infarction) Heart murmur 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) Surgical History Hx of cardiac catheterization Hx of colonoscopy History of tubal ligation History of endometrial ablation History of hysterectomy for benign disease Family History Mother Uterine cancer Other Substance use disorder Social History Housing: House Alcohol intake: current Alcohol intake frequency: 0-2 drinks per day Alcohol type: hard liquor Patient Tobacco Use Status: Former Tobacco user Quit Date: 2007 Tobacco use type: Cigarette e-Cigarette/Vaping Use: Never Used Second Hand Smoke Exposure: No Current occupational status: employed Cognitive needs: No Hearing needs: No Vision needs: Yes Female Reproductive History Menstrual Age of Menarche: 14 Questionnaire Thrive Questionnaire Date Thrive assessed: 06/18/23 I am a: Patient What is your living situation today?: I have a steady place to live Within the past 12 months, did the food you bought not last and you didn't have the money to get more?: Never true Within the past 12 months, did you worry whether your food would run out before you got money to buy more?: Never true Please select the resources that you would like help with: None Currently or been in a relationship where the following occur: no concerns reported THRIVE Score: 0 AUDIT C Alcohol Use Questionnaire (AUDIT-C) 1. How often do you have a drink containing alcohol?: 4 or more times a week 2. How many drinks containing alcohol do you have on a typical day when you are drinking?: 1 or 2 3. How often do you have six or more drinks on one occasion?: Never Total Score: 4 Score Reviewed/Action Taken: No FIDELIA-7 AMB Questionnaire FIDELIA-7 Date FIDELIA - 7 assessed: 06/18/23 Feeling nervous, anxious, or on edge: 0 = Not at all Not being able to stop or control worryin = Not at all Worrying too much about different things: 0 = Not at all Trouble relaxin = Not at all Being so restless that it is hard to sit still: 0 = Not at all Becoming easily annoyed or irritable: 1 = Several days Feeling afraid as if something awful might happen: 0 = Not at all Total FIDELIA-7 score (0-4 normal; 5-9 mild; 10-14 moderate; 15-21 severe): 1 Source: Developed by Drs. Albin Fitch, Kate Fink, Yosi Bar and colleagues, with an educational isaak from [employer]. FIDELIA-7 Assessment Billing FIDELIA-7 Assessment Tool: FIDELIA-7 Assessment 00676 Review of Systems Const Denies chills and Denies fever(s) ENT Denies epistaxis and Denies nasal discharge Card Denies chest pain Resp Denies chest congestion, Denies cough and Denies hemoptysis GI Denies diarrhea and Denies nausea Skin/Breast Denies rash Neuro Reports no additional complaints Psych Reports no additional complaints Endo Reports no additional complaints Physical exam (Primary Care) Tobacco/Smoking Status: Tobacco use Status Tobacco use date assessed 01/11/24 01/11/24 14:13 Patient Tobacco Use Status Former Tobacco user 01/11/24 14:13 Tobacco use type Cigarette 01/11/24 14:13 e-Cigarette/Vaping Use Never Used 01/11/24 14:13 Thrive Assessment: Date of Thrive Assessment Date Thrive assessed 06/18/23 01/11/24 14:13 Currently or been in a relationship where the following occur: no concerns reported Telehealth Telehealth Location of provider rendering services: practice address Location of patient: address on file Patient Identification confirmed using: Name, : Yes Telehealth method: video Patient verbally consented to treatment: Yes Patient verbally consented to billing insurance company: Yes Patient informed of any privacy concerns related to visit: Yes Assessment and Plan Assessment & Plan (1) Hypertension, essential: Code(s): I10 - Essential (primary) hypertension (2) Chronic narcotic dependence: Comment: Controlled nature of medication was discussed, it is important to notify me of change of pharmacy, or if traveling. Do not share the medication with anybody, keep it safe away from the hands of small children, and only take it as prescribed. This medication have a tendency to be abused, habit-forming, and it can cause severe constipation along with other allergic reactions. Long-term use of narcotic medications have shown to increase sensitivity to pain. Code(s): F11.20 - Opioid dependence, uncomplicated (3) Psoriatic arthritis: Code(s): L40.50 - Arthropathic psoriasis, unspecified (4) HLA B27 (HLA B27 positive): Code(s): Z15.89 - Genetic susceptibility to other disease (5) Sacroiliitis: Code(s): M46.1 - Sacroiliitis, not elsewhere classified (6) Pain management: Code(s): R52 - Pain, unspecified (7) Vaginal yeast infection: Code(s): B37.31 - Acute candidiasis of vulva and vagina Plan Patient is a 58-year-old female this is a telemedicine video conference Patient has been started on Jardiance by Cardiology Since then she is having recurrent yeast infection she is requesting a script for Diflucan which I have sent for her Patient also have chronic lower back pain she is positive for HLA B27 Also have psoriatic arthritis She is taking oxycodone 10 mg t.i.d. Patient is complying with the treatment plan no signs of abuse Medication refilled Pressure is stable She has physical exam appointment next month Medications: New fluconazole may repeat second dose 72 hrs after first dose if symptoms persist 150 mg PO Q3D 2 tabs 2RF 2 doses Refilled oxycodone 10 mg PO Q8H PRN 90 tabs 0RF pain 30 days Coding Level of Care Code Tele Est Pt Level 3 (57372) Diagnoses Hypertension, essential I10 Chronic narcotic dependence F11.20 Psoriatic arthritis L40.50 HLA B27 (HLA B27 positive) Z15.89 Sacroiliitis M46.1 Pain management R52 Vaginal yeast infection B37.31 Additional Codes FIDELIA-7 Assessment Billing - FIDELIA-7 Assessment Tool: FIDELIA-7 Assessment 61039 ([id number]) Time Spent (min) 14
== END 2024-01-11 16:10 | disposition home or self-care (01) ==
LOC: HO.HMGC 13:41
PROVIDERS: PCP Internal Medicine; Visit Provider Internal Medicine
DX: I10 Essential (primary) hypertension (principal); F11.20 Opioid dependence, uncomplicated; L40.50 Arthropathic psoriasis, unspecified; M46.1 Sacroiliitis, not elsewhere classified; Z15.89 Genetic susceptibility to other disease; R52 Pain, unspecified; B37.31 Acute candidiasis of vulva and vagina
CPT/HCPCS: 99213

== ENCOUNTER → 2024-01-18 14:49 | Outpatient (REF) | payer OTHER, SELFPAY ==
--- NOTE | 2024-01-18 14:53 | CA_ITS ---
Transthoracic Echocardiogram Patient (Last, First, Middle): Lisa Gill, Gender: Female Date of : 1965 Age: 58 Procedure Date: 01/18/2024 Procedure Type: Transthoracic Echocardiogram Location: OP Height: 162.56 cm Weight: 92.53 kg BSA: 1.97 m2 Heart Rate: bpm BP: 130 / 68 mmHg Kitchen Steward: TO Referring MD: Danielito Alexander MD Symptoms: I50.30 - Unspecified diastolic (congestive) heart failure Study Quality: Fair/Contrast ECG Rhythm: Sinus Conclusions: - The left ventricular systolic function is hyperdynamic. The visually estimated ejection fraction is >70%. - Pattern of left ventricular hypertrophy suggestive of apical variant hypertrophic cardiomyopathy. - There is mild aortic valve regurgitation. - If clinically indicated, consider cardiac MRI. Findings Procedure Information Contrast agent, definity, is being given per protocol without apparent complications. Left Ventricle Normal left ventricular cavity size. The left ventricular systolic function is hyperdynamic. The visually estimated ejection fraction is >70%. Evidence suggests grade II (moderate) diastolic dysfunction. There is at least mild to-moderate concentric left ventricular hypertrophy but severe towards the apex. Pattern suggestive of apical variant hypertrophic cardiomyopathy. There is resting intraventricular/LVOT gradients, with a peak of 39 mm Hg. No significant change with Valsalva. Right Ventricle Normal right ventricular cavity size and systolic function. Atria Both atria are normal in size. Aortic Valve The aortic valve structure and function is likely normal. There is no aortic valve stenosis. There is mild aortic valve regurgitation. Gradients noted across the aortic valve due to hyperdynamic LV function. Mitral Valve The mitral valve appears normal. There is trace mitral valve regurgitation. There is no mitral valve stenosis. Pulmonic Valve The pulmonic valve is likely normal. Tricuspid Valve There is trace tricuspid valve regurgitation. Tricuspid regurgitation envelope is inadequate for calculation of right ventricular systolic pressure. Great Vessels The asc aorta is normal in size. Venous The inferior vena cava is normal in size and collapses greater than 50% with inspiration. Pericardium/Pleural There is no evidence of pericardial effusion. Prior Study Comparison No significant change compared to prior study dated: 11/13/2021. Measurements 2D Linear Measurements IVSd: 1.83 0.6-0.9/0.6-1.0 cm LVIDd: 5.05 3.9-5.3/4.2-5.9 cm LVIDd Index: 2.56 2.4-3.2/2.2-3.1 cm/m2 LVIDs: 2.84 2.0-3.6 cm LVPWd: 1.58 0.7-1.1 cm LV Mass: 495.78 67-162/88-224 g LV Mass Index: 251.66 43-95/49-115 g/m2 LVOT Diam: 1.80 3.0+(-)1.3 cm Mitral Valve MV VTI: 0.35 MV Pk Vu: 1.15 MV Mn Vu: 0.61 MV Pk Grad: 5.00 MV Mn Grad: 2.00 MV Pk E: 1.11 MV PK A: 0.55 MV Decel Time: 224.00 E/A: 2.00 E'Lateral: 4.90 E'Medial: 4.24 E/E' Med: 26.20 E/E' Lat: 22.70 PHT: 66.00 MVA PHT: 3.33 MVA Continuity: 3.51 Decel [place]: 4.96 Aortic Valve AoV Pk Vu: 3.04 AoV Mn Vu: 2.09 AoV VTI: 0.52 AoV Pk Grad: 37.00 Aov Mn Grad: 21.00 TEQUILA Cont.VTI: 2.39 AI Pk Vu: 4.54 AI [place]: 2.69 LVOT LVOT Pk Vu: 2.97 LVOT Mn Vu: 1.93 LVOT VTI: 0.49 LVOT Pk Grad: 35.00 LVOT Mn Grad: 18.00 LVOT Diam: 1.80 LVOT Area: 2.54 Diastolic Function MV Pk E: 1.11 MV Pk A: 0.55 E/A: 2.00 E'Medial: 4.24 E/E' Med: 26.20 E' Laterial: 4.90 E/E' Lat: 22.70 Right Ventricle TAPSE (mm): 25.90 TVS' Vu: 13.60 Tricuspid Valve RA Press: 8.00 Great Vessels Aorta Sinus of Valsalva: 2.48 2.0-3.5 cm Ao Asc: 2.70 2.1-3.4 cm Updated in Other Vendor System with Status of Final Justice Cabrera MD electronically signed on 01/19/2024 6:49:20 AM with status of Final
[2024-01-18 16:39] LABS: Anion Gap 9 (12-20); Blood Urea Nitrogen 14 mg/dL (9-16); Calcium 10.9 mg/dL (8.4-10.2); Carbon Dioxide 29 mmol/L (22-29); Chloride 105 mmol/L (96-108); Estimated Glomerular Filt Rate > 60; Glucose Random 96 mg/dL (60-115); Potassium 4.2 mmol/L (3.3-5.1); Sodium 139 mmol/L (135-145)
[2024-01-18 16:40] LABS: B Type Natriuretic Peptide 487 pg/mL (<100)
== END ==
LOC: HO.CARD 14:49
PROVIDERS: PCP Internal Medicine; Visit Provider Internal Medicine Cardiovascular Disease
DX: I50.30 Unspecified diastolic (congestive) heart failure (principal)
CPT/HCPCS: 36415; 80048; 83880; 93306; Q9957

== ENCOUNTER → 2024-01-18 14:53 | Outpatient (BNV) | payer OTHER, SELFPAY | PROVIDERS: PCP Internal Medicine; Visit Provider Internal Medicine | DX: I42.2 Other hypertrophic cardiomyopathy (principal); I50.30 Unspecified diastolic (congestive) heart failure | CPT/HCPCS: 93306 ==

== ENCOUNTER 2024-01-25 14:20 | Outpatient (AMB) | payer OTHER, SELFPAY ==
--- NOTE | 2024-01-25 14:30 | A.OFFVIS_ITS ---
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 Accompanied by: Daughter Allergies cat dander [CATS] Allergy (Severe, Verified 01/11/24 14:12) DIFFICULTY BREATHING dog dander [DOGS] Allergy (Severe, Verified 01/11/24 14:12) DIFFICULTY BREATHING latex [Latex] Allergy (Severe, Verified 01/11/24 14:12) ANAPHYLAXIS penicillin G [PENICILLIN G] Adverse Reaction (Unknown, Verified 01/11/24 14:12) PT STATES IT JUST DOESN'T WORK FOR HER Environmental Allergy (Unknown, Uncoded 08/10/23 14:32) allergy symptoms Medication List - Last Reconciled 01/25/24 by Danielito Alexander MD Advair Diskus 500-50 mcg/dose (fluticasone propion-salmeterol) 1 inh inhalation BID NS albuterol sulfate 90 mcg/actuation (ProAir HFA) 1 inh inhalation QID PRN 90 days albuterol sulfate 0.63 mg (3 mL) inhalation QID PRN betamethasone dipropionate 0.05% 1 appl topical DAILY PRN 30 days blood pressure test kit-large (Quick Response BP Monitor-Large Cuff kit) As directed [Bp monitor As directed] cetirizine (All Day Allergy (cetirizine)) 10 mg PO DAILY empagliflozin (Jardiance) 10 mg PO DAILY ferrous sulfate 324 mg PO BID 90 days furosemide (Lasix) 20 mg PO DAILY guselkumab (Tremfya) mg subcut labetalol 100 mg PO BID montelukast 10 mg PO ONCE oxycodone 10 mg PO Q8H PRN 30 days quetiapine 100 mg PO BEDTIME 90 days sertraline 200 mg (2 x 100 mg) PO DAILY 90 days [Updraft machine As directed] verapamil ER 240 mg PO DAILY HPI HPI Comments History of Present Illness Details Lisa comes for follow-up. She is accompanied by her daughter. She has been feeling very well. She still gets exertional shortness of breath but says that she gets exertional shortness of breath both related to bronchospastic airway disease and related to the heart and she can not tell the difference. Usually with the heart she says her shortness of breath resolved very quickly when she stops. She has not had anymore PND/orthopnea on low-dose diuretic therapy and on Jardiance. Continue the same. Recent echocardiogram shows normal LV ejection fraction but severe apical hypertrophic cardiomyopathy and [id number] concentric left ventricular hypertrophy. She has at least grade 2 diastolic dysfunction. She denies any palpitations, lightheadedness, syncope. Takes all her medications. Blood pressure is well controlled on current medications today. [facility] Medical History (HFpEF) heart failure with preserved ejection fraction Dyspnea on exertion Refusal of blood transfusions as patient is Gnosticism HTN (hypertension) Diastolic dysfunction Apical variant hypertrophic cardiomyopathy MITCHELL (obstructive sleep apnea) Obesity (BMI 35.0-39.9 without comorbidity) Sacroiliitis Spondylosis of lumbar region without myelopathy or radiculopathy Cardiomyopathy Asthma Pain management Anxiety, generalized Depression, major, recurrent Chronic GERD Environmental allergies Noncompliance Hypertension, essential NSTEMI (non-ST elevated myocardial infarction) Heart murmur 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) Surgical History Hx of cardiac catheterization Hx of colonoscopy History of tubal ligation History of endometrial ablation History of hysterectomy for benign disease Family History Mother Uterine cancer Other Substance use disorder Social History Housing: House Alcohol intake: current Alcohol intake frequency: 0-2 drinks per day Alcohol type: hard liquor Patient Tobacco Use Status: Former Tobacco user Quit Date: 2007 Tobacco use type: Cigarette e-Cigarette/Vaping Use: Never Used Second Hand Smoke Exposure: No Current occupational status: employed Cognitive needs: No Hearing needs: No Vision needs: Yes Female Reproductive History Menstrual Age of Menarche: 14 Review of Systems Const Denies chills, Denies fatigue, Denies fever(s), Denies frequent falls, Denies weakness, Denies weight gain and Denies weight loss ENT Denies dizziness Card Denies chest pain, Denies leg edema, Denies lightheadedness, Denies palpitations, Denies dyspnea, Denies dyspnea on exertion, Denies orthopnea and Denies other (loss of consciousness) Resp Denies cough, Denies dyspnea and Denies dyspnea on exertion GI Denies hematochezia and Denies change in stool character Musc Denies abnormal gait, Denies muscle weakness, Denies numbness, Denies radiating pain into limb and Denies tingling Neuro Denies abnormal gait, Denies dizziness, Denies frequent falls, Denies numbness, Denies tingling and Denies weakness Endo Denies fatigue and Denies palpitations Physical Exam Vital Signs: Last Vital Signs Pulse 66 01/25/24 14:31 BP 120/70 01/25/24 14:31 BMI result Body Mass Index 35.6 Const General: cooperative, comfortable, no acute distress, alert and awake Nutritional Appearance: obese Orientation/consciousness: patient oriented x3 Limitations: no limitations Neck Neck: Yes trachea midline, Yes supple and Yes no JVD Resp Effort & Inspection: normal respiratory effort Auscultation: clear to auscultation bilaterally Cardio Jugular venous distension: no JVD Palpation: normal PMI Rate: regular rate Rhythm: regular rhythm Heart sounds: S1 normal heart sound present, S2 normal heart sound present, no click, no gallops and Murmur heart sound present systolic early, decrescendo, crescendo and other (Worsening with upright positioning suggestive dynamic murmur) Skin General skin exam: no rashes or lesions noted Neuro General: patient oriented x3 and no focal motor deficits Extrem General: Yes no clubbing, cyanosis or edema Assessment & Plan Assessment & Plan (1) (HFpEF) heart failure with preserved ejection fraction: Code(s): I50.30 - Unspecified diastolic (congestive) heart failure Plan: Heart failure preserved ejection fraction with much improved symptoms on low- dose diuretic therapy and Jardiance therapy. Importance of continuing decongestive therapy was discussed. Management of heart failure was discussed in details. Importance of daily weight monitoring avoidance of salt loading was discussed additional diuretics as need be. Continue control of aggressively blood pressure was discussed. Continue CPAP therapy. She is encouraged to continue to participate in physical activity and weight loss program as tolerated. (2) Apical variant hypertrophic cardiomyopathy: Code(s): I42.2 - Other hypertrophic cardiomyopathy Plan: Apical form of hypertrophic cardiomyopathy with worsening concentric left ventricular hypertrophy. Will suggest a cardiac MRI to assess for subendocardial scar burden. She is significant scar burden will refer her for possible placement of defibrillator to reduce risk of sudden cardiac that. Otherwise continue aggressive risk factor modification along with current therapy with verapamil and labetalol. Continue participate in physical activity as tolerated. Will follow up in the clinic in 6 months time, sooner p.r.n.. Thank you for allowing me to partake in the care Orders: Orders MR cardiac morph fnct w con 1 Week I42.2 - Other hypertrophic cardiomyopathy Coding Level of Care Code Est Pt Level 4 (55624) Diagnoses (HFpEF) heart failure with preserved ejection fraction I50.30 Apical variant hypertrophic cardiomyopathy I42.2
[2024-01-25 14:31] VITALS: BP 120/70; PULSE 66; BMI 35.6
== END 2024-01-25 15:21 | disposition home or self-care (01) ==
PROVIDERS: PCP Internal Medicine; Visit Provider Internal Medicine Cardiovascular Disease
DX: I50.30 Unspecified diastolic (congestive) heart failure (principal); I42.2 Other hypertrophic cardiomyopathy
CPT/HCPCS: 99214

== ENCOUNTER → 2024-01-25 14:20 | Outpatient (BNVA) | payer OTHER, SELFPAY | PROVIDERS: PCP Internal Medicine; Visit Provider Internal Medicine Cardiovascular Disease ==

== ENCOUNTER 2024-02-08 12:13 | Outpatient (AMB) | payer OTHER, SELFPAY ==
[2024-02-08 12:15] VITALS: BP 130/68; PULSE 63; O2SAT 97; BMI 36.0
--- NOTE | 2024-02-08 12:15 | A.OFFPC_ITS ---
Vital Signs 02/08/24 12:15 Height 5 ft 4 in Weight 210 lb BMI 36.0 BP 130/68 Blood Pressure Location Rt brachial Position Sitting Pulse 63 Pulse Source Pulse Oximeter Pulse Oximetry (%) 97 Oxygen Delivery Method Room Air Intake Visit Reasons: Annual PE/Overdue Allergies cat dander [CATS] Allergy (Severe, Verified 02/08/24 12:16) DIFFICULTY BREATHING dog dander [DOGS] Allergy (Severe, Verified 02/08/24 12:16) DIFFICULTY BREATHING latex [Latex] Allergy (Severe, Verified 02/08/24 12:16) ANAPHYLAXIS penicillin G [PENICILLIN G] Adverse Reaction (Unknown, Verified 02/08/24 12:16) PT STATES IT JUST DOESN'T WORK FOR HER Environmental Allergy (Unknown, Uncoded 08/10/23 14:32) allergy symptoms Medication List - Last Reconciled 02/08/24 by Kai Saha MD Advair Diskus 500-50 mcg/dose (fluticasone propion-salmeterol) 1 inh inhalation BID NS albuterol sulfate 90 mcg/actuation (ProAir HFA) 1 inh inhalation QID PRN 90 days albuterol sulfate 0.63 mg (3 mL) inhalation QID PRN betamethasone dipropionate 0.05% 1 appl topical DAILY PRN 30 days blood pressure test kit-large (Quick Response BP Monitor-Large Cuff kit) As directed [Bp monitor As directed] cetirizine (All Day Allergy (cetirizine)) 10 mg PO DAILY empagliflozin (Jardiance) 10 mg PO DAILY ferrous sulfate 324 mg PO BID 90 days furosemide (Lasix) 20 mg PO DAILY guselkumab (Tremfya) mg subcut labetalol 100 mg PO BID montelukast 10 mg PO ONCE oxycodone 10 mg PO Q8H PRN 30 days quetiapine 100 mg PO BEDTIME 90 days sertraline 200 mg (2 x 100 mg) PO DAILY 90 days [Updraft machine As directed] verapamil ER 240 mg PO DAILY Tobacco use date assessed: 02/08/24 Dental Screening Dental Screen Date: 02/08/24 Did you have a dental visit in the last 12 months?: Yes Did you have a dental problem in the last 6 months where you did not have access to dental care?: No Was dental information given to patient?: Patient has dentist HPI Annual PE/Overdue HPI Details Patient is a 58 year female came physical exam Mammogram was January of last year, new set of order placed Patient had hysterectomy and is no longer having Pap smears Due for colonoscopy? I have sent message to gastroenterology department to check on that Patient suffers room hypertrophic cardiomyopathy recently had echocardiogram, a nd through Cardiology MRI of heart order was placed Patient might need defibrillator inserted Her BNP level continued to be high above 400 Her calcium is high as well I did order parathyroid hormone level last year which was not done I have placed order again we will check it in April, as patient recently had labs done already Blood pressure is stable, she brought her blood pressure monitor which is not working properly. Continue labetalol 100 mg b.i.d. along with verapamil 240 mg Asthma COPD stable with Advair Allergies stable with cetirizine and montelukast Patient is also on Jardiance through Cardiology and frusemide Patient have psoriatic arthritis and sacroiliitis Taking oxycodone 10 mg every 8 hours, patient is complying with the treatment plan no signs of abuse Medication refill sent Depression stable with Seroquel 100 mg at bedtime and sertraline 200 mg BMI is elevated at 36.0 need lose weight Follow-up 2 months for pain medication refill [facility] Medical History (HFpEF) heart failure with preserved ejection fraction Dyspnea on exertion Refusal of blood transfusions as patient is Sabianist HTN (hypertension) Diastolic dysfunction Apical variant hypertrophic cardiomyopathy MITCHELL (obstructive sleep apnea) Obesity (BMI 35.0-39.9 without comorbidity) Sacroiliitis Spondylosis of lumbar region without myelopathy or radiculopathy Cardiomyopathy Asthma Pain management Anxiety, generalized Depression, major, recurrent Chronic GERD Environmental allergies Noncompliance Hypertension, essential NSTEMI (non-ST elevated myocardial infarction) Heart murmur 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) Surgical History Hx of cardiac catheterization Hx of colonoscopy History of tubal ligation History of endometrial ablation History of hysterectomy for benign disease Family History Mother Uterine cancer Other Substance use disorder Social History Housing: House Alcohol intake: current Alcohol intake frequency: 0-2 drinks per day Alcohol type: hard liquor Patient Tobacco Use Status: Former Tobacco user Quit Date: 2007 Tobacco use type: Cigarette e-Cigarette/Vaping Use: Never Used Second Hand Smoke Exposure: No Current occupational status: employed Cognitive needs: No Hearing needs: No Vision needs: Yes Female Reproductive History Menstrual Age of Menarche: 14 Questionnaire Thrive Questionnaire Date Thrive assessed: 06/18/23 AUDIT C Alcohol Use Questionnaire (AUDIT-C) 1. How often do you have a drink containing alcohol?: 2-3 times a week 2. How many drinks containing alcohol do you have on a typical day when you are drinking?: 1 or 2 3. How often do you have six or more drinks on one occasion?: Never Total Score: 3 Score Reviewed/Action Taken: Yes FIDELIA-7 AMB Questionnaire FIDELIA-7 Date FIDELIA - 7 assessed: 06/18/23 Source: Developed by Drs. Albin Fitch, Kate Fink, Yosi Bar and colleagues, with an educational isaak from [employer]. Review of Systems Const Denies chills, Denies fever(s) and Denies headache(s) Eyes Denies blurry vision ENT Denies headache(s), Denies nasal discharge, Denies nasal obstruction, Denies odynophagia and Denies sinus pain Card Denies chest pain at rest and Denies chest pain with activity Resp Denies cough and Denies hemoptysis GI Denies diarrhea, Denies odynophagia, Denies vomiting and Denies hematemesis Reports as per HPI Musc Denies abnormal gait Skin/Breast Reports as per HPI Neuro Denies Neuro-related abnormal movements, Denies Abnormal speech present, Denies abnormal gait, Denies headache(s) and Denies Sensory deficit (Neuro) Psych Denies mood swings and Denies paranoia Endo Reports as per HPI Emmett/Lymph Reports as per HPI Aller/Immun Reports as per HPI Physical exam (Primary Care) Vital Signs: Last Vital Signs Pulse 63 02/08/24 12:15 BP 130/68 02/08/24 12:15 Pulse Ox 97 02/08/24 12:15 Oxygen Delivery Method Room Air 02/08/24 12:15 BMI result Body Mass Index 36.0 Tobacco/Smoking Status: Tobacco use Status Tobacco use date assessed 02/08/24 02/08/24 12:23 Patient Tobacco Use Status Former Tobacco user 02/08/24 12:23 Tobacco use type Cigarette 02/08/24 12:23 e-Cigarette/Vaping Use Never Used 02/08/24 12:23 Thrive Assessment: Date of Thrive Assessment Date Thrive assessed 06/18/23 02/08/24 12:23 Const General: cooperative, comfortable and no acute distress Orientation/consciousness: patient oriented x3 HENMT Head: Yes normocephalic and Yes atraumatic Eyes General: appearance normal, both eyes and all related structures Pupils: Equal, round and reactive pupils present EOM: EOMs intact bilaterally Neck Neck: Yes supple and No lymphadenopathy Thyroid: Thyroid normal Lymphatic: no lymphadenopathy noted Chest Breast/axilla palpation: normal palpation of the breasts Resp Effort & Inspection: normal respiratory effort and able to speak in complete sentences Auscultation: clear to auscultation bilaterally Cardio Heart sounds: S1 normal heart sound present and S2 normal heart sound present GI Palpation (GI): Soft to palpation and nontender Auscultation: normal bowel sounds General: Yes no CVA tenderness Back/Spine/Pelvis Back: no CVA tenderness Skin General skin exam: elasticity normal and turgor normal Neuro Other: Tandem walk failed, Romberg negative General: patient oriented x3 and gait normal Cranial nerves: Yes Equal, round and reactive pupils present Speech: No Abnormal speech present Sensory Exam: No Sensory deficit (Neuro) Coordination: tandem gait normal and Romberg test negative Extrem General: Yes normal exam except as noted and No edema Assessment and Plan Assessment & Plan (1) Encounter for general adult medical examination with abnormal findings: Code(s): Z00.01 - Encounter for general adult medical examination with abnormal findings (2) (HFpEF) heart failure with preserved ejection fraction: Code(s): I50.30 - Unspecified diastolic (congestive) heart failure Qualifiers: Heart failure chronicity: chronic Qualified Code(s): I50.32 - Chronic diastolic (congestive) heart failure (3) Pre-diabetes: Code(s): R73.03 - Prediabetes (4) Psoriatic arthritis: Code(s): L40.50 - Arthropathic psoriasis, unspecified (5) Asthma, moderate persistent: Code(s): J45.40 - Moderate persistent asthma, uncomplicated Qualifiers: Asthma complication type: uncomplicated Qualified Code(s): J45.40 - Moderate persistent asthma, uncomplicated (6) Obesity due to excess calories: Code(s): E66.09 - Other obesity due to excess calories Qualifiers: Body mass index: BMI 36.0-36.9 Obesity classification: adult class 2 (BMI 35 - 39.9) Serious obesity comorbidity presence: with serious comorbidity Qualified Code(s): E66.01 - Morbid (severe) obesity due to excess calories; Z68.36 - Body mass index [BMI] 36.0-36.9, adult (7) Chronic narcotic dependence: Comment: Controlled nature of medication was discussed, it is important to notify me of change of pharmacy, or if traveling. Do not share the medication with anybody, keep it safe away from the hands of small children, and only take it as prescribed. This medication have a tendency to be abused, habit-forming, and it can cause severe constipation along with other allergic reactions. Long-term use of narcotic medications have shown to increase sensitivity to pain. Code(s): F11.20 - Opioid dependence, uncomplicated (8) Blurring of vision: Code(s): H53.8 - Other visual disturbances (9) Apical variant hypertrophic cardiomyopathy: Code(s): I42.2 - Other hypertrophic cardiomyopathy (10) Sacroiliitis: Code(s): M46.1 - Sacroiliitis, not elsewhere classified (11) Anxiety, generalized: Code(s): F41.1 - Generalized anxiety disorder (12) Depression, major, recurrent: Code(s): F33.9 - Major depressive disorder, recurrent, unspecified Qualifiers: Active/Remission status: in partial remission Qualified Code(s): F33.41 - Major depressive disorder, recurrent, in partial remission (13) Chronic GERD: Code(s): K21.9 - Gastro-esophageal reflux disease without esophagitis (14) HLA B27 (HLA B27 positive): Code(s): Z15.89 - Genetic susceptibility to other disease (15) Hypertension, essential: Code(s): I10 - Essential (primary) hypertension Plan Patient is a 58 year female came physical exam Mammogram was January of last year, new set of order placed Patient had hysterectomy and is no longer having Pap smears Due for colonoscopy? I have sent message to gastroenterology department to check on that Patient suffers room hypertrophic cardiomyopathy recently had echocardiogram, and through Cardiology MRI of heart order was placed Patient might need defibrillator inserted Her BNP level continued to be high above 400 Her calcium is high as well I did order parathyroid hormone level last year which was not done I have placed order again we will check it in April, as patient recently had labs done already Blood pressure is stable, she brought her blood pressure monitor which is not working properly. Continue labetalol 100 mg b.i.d. along with verapamil 240 mg Asthma COPD stable with Advair Allergies stable with cetirizine and montelukast Patient is also on Jardiance through Cardiology and frusemide Patient have psoriatic arthritis and sacroiliitis Taking oxycodone 10 mg every 8 hours, patient is complying with the treatment plan no signs of abuse Medication refill sent Depression stable with Seroquel 100 mg at bedtime and sertraline 200 mg BMI is elevated at 36.0 need lose weight Follow-up 2 months for pain medication refill Orders: Orders Comprehensive Met. Panel 3 Months E66.09 - Other obesity due to excess calories, F11.20 - Opioid dependence, uncomplicated, F33.9 - Major depressive disorder, recurrent, unspecified, F41.1 - Generalized anxiety disorder, H53.8 - Other visual disturbances, I10 - Essential (primary) hypertension, I42.2 - Other hypertrophic cardiomyopathy, I50.30 - Unspecified diastolic (congestive) heart failure, J45.40 - Moderate persistent asthma, uncomplicated, K21.9 - Gastro- esophageal reflux disease without esophagitis, L40.50 - Arthropathic psoriasis, unspecified, M46.1 - Sacroiliitis, not elsewhere classified, R73.03 - Prediabetes, Z00.01 - Encounter for general adult medical examination with abnormal findings, Z15.89 - Genetic susceptibility to other disease B Type Natriuretic Peptide 3 Months E66.09 - Other obesity due to excess calories, F11.20 - Opioid dependence, uncomplicated, F33.9 - Major depressive disorder, recurrent, unspecified, F41.1 - Generalized anxiety disorder, H53.8 - Other visual disturbances, I10 - Essential (primary) hypertension, I42.2 - Other hypertrophic cardiomyopathy, I50.30 - Unspecified diastolic (congestive) heart failure, J45.40 - Moderate persistent asthma, uncomplicated, K21.9 - Gastro- esophageal reflux disease without esophagitis, L40.50 - Arthropathic psoriasis, unspecified, M46.1 - Sacroiliitis, not elsewhere classified, R73.03 - Prediabetes, Z00.01 - Encounter for general adult medical examination with abnormal findings, Z15.89 - Genetic susceptibility to other disease Parathyroid Hormone Related Pr 3 Months E66.09 - Other obesity due to excess calories, F11.20 - Opioid dependence, uncomplicated, F33.9 - Major depressive disorder, recurrent, unspecified, F41.1 - Generalized anxiety disorder, H53.8 - Other visual disturbances, I10 - Essential (primary) hypertension, I42.2 - Other hypertrophic cardiomyopathy, I50.30 - Unspecified diastolic (congestive) heart failure, J45.40 - Moderate persistent asthma, uncomplicated, K21.9 - Gastro- esophageal reflux disease without esophagitis, L40.50 - Arthropathic psoriasis, unspecified, M46.1 - Sacroiliitis, not elsewhere classified, R73.03 - Prediabetes, Z00.01 - Encounter for general adult medical examination with abnormal findings, Z15.89 - Genetic susceptibility to other disease Complete Blood Count Auto Diff 3 Months E66.09 - Other obesity due to excess calories, F11.20 - Opioid dependence, uncomplicated, F33.9 - Major depressive disorder, recurrent, unspecified, F41.1 - Generalized anxiety disorder, H53.8 - Other visual disturbances, I10 - Essential (primary) hypertension, I42.2 - Other hypertrophic cardiomyopathy, I50.30 - Unspecified diastolic (congestive) heart failure, J45.40 - Moderate persistent asthma, uncomplicated, K21.9 - Gastro- esophageal reflux disease without esophagitis, L40.50 - Arthropathic psoriasis, unspecified, M46.1 - Sacroiliitis, not elsewhere classified, R73.03 - Prediabetes, Z00.01 - Encounter for general adult medical examination with abnormal findings, Z15.89 - Genetic susceptibility to other disease TSH reflex Free T4 3 Months E66.09 - Other obesity due to excess calories, F11 .20 - Opioid dependence, uncomplicated, F33.9 - Major depressive disorder, recurrent, unspecified, F41.1 - Generalized anxiety disorder, H53.8 - Other visual disturbances, I10 - Essential (primary) hypertension, I42.2 - Other hypertrophic cardiomyopathy, I50.30 - Unspecified diastolic (congestive) heart failure, J45.40 - Moderate persistent asthma, uncomplicated, K21.9 - Gastro- esophageal reflux disease without esophagitis, L40.50 - Arthropathic psoriasis, unspecified, M46.1 - Sacroiliitis, not elsewhere classified, R73.03 - Prediabetes, Z00.01 - Encounter for general adult medical examination with abnormal findings, Z15.89 - Genetic susceptibility to other disease Vitamin D 25-OH (D2 and D3) 3 Months E66.09 - Other obesity due to excess calories, F11.20 - Opioid dependence, uncomplicated, F33.9 - Major depressive disorder, recurrent, unspecified, F41.1 - Generalized anxiety disorder, H53.8 - Other visual disturbances, I10 - Essential (primary) hypertension, I42.2 - Other hypertrophic cardiomyopathy, I50.30 - Unspecified diastolic (congestive) heart failure, J45.40 - Moderate persistent asthma, uncomplicated, K21.9 - Gastro- esophageal reflux disease without esophagitis, L40.50 - Arthropathic psoriasis, unspecified, M46.1 - Sacroiliitis, not elsewhere classified, R73.03 - Prediabetes, Z00.01 - Encounter for general adult medical examination with abnormal findings, Z15.89 - Genetic susceptibility to other disease LDL Cholesterol Direct 3 Months E66.09 - Other obesity due to excess calories, F11.20 - Opioid dependence, uncomplicated, F33.9 - Major depressive disorder, recurrent, unspecified, F41.1 - Generalized anxiety disorder, H53.8 - Other visual disturbances, I10 - Essential (primary) hypertension, I42.2 - Other hyp ertrophic cardiomyopathy, I50.30 - Unspecified diastolic (congestive) heart failure, J45.40 - Moderate persistent asthma, uncomplicated, K21.9 - Gastro- esophageal reflux disease without esophagitis, L40.50 - Arthropathic psoriasis, unspecified, M46.1 - Sacroiliitis, not elsewhere classified, R73.03 - Prediabetes, Z00.01 - Encounter for general adult medical examination with abnormal findings, Z15.89 - Genetic susceptibility to other disease Medications: Refilled oxycodone 10 mg PO Q8H PRN 90 tabs 0RF pain 30 days Coding Level of Care Code Est Pt Prev Care 40-64y([id number]) Diagnoses Encounter for general adult medical examination with abnormal findings Z00.01 Chronic heart failure with preserved ejection fraction I50.32 Heart failure chronicity: chronic Pre-diabetes R73.03 Psoriatic arthritis L40.50 Moderate persistent asthma without complication J45.40 Asthma complication type: uncomplicated Class 2 severe obesity due to excess calories with serious comorbidity and body mass index (BMI) of 36.0 to 36.9 in adult E66.01; Z68.36 Body mass index: BMI 36.0-36.9 Obesity classification: adult class 2 (BMI 35 - 39.9) Serious obesity comorbidity presence: with serious comorbidity Chronic narcotic dependence F11.20 Blurring of vision H53.8 Apical variant hypertrophic cardiomyopathy I42.2 Sacroiliitis M46.1 Anxiety, generalized F41.1 Recurrent major depressive disorder, in partial remission F33.41 Active/Remission status: in partial remission Chronic GERD K21.9 HLA B27 (HLA B27 positive) Z15.89 Hypertension, essential I10
== END 2024-02-08 12:49 | disposition home or self-care (01) ==
PROVIDERS: PCP Internal Medicine; Visit Provider Internal Medicine
DX: Z00.01 Encounter for general adult medical examination with abnormal findings (principal); I50.32 Chronic diastolic (congestive) heart failure; R73.03 Prediabetes; L40.50 Arthropathic psoriasis, unspecified; J45.40 Moderate persistent asthma, uncomplicated; E66.01 Morbid (severe) obesity due to excess calories; Z68.36 Body mass index [BMI] 36.0-36.9, adult; F11.20 Opioid dependence, uncomplicated; H53.8 Other visual disturbances; I42.2 Other hypertrophic cardiomyopathy; M46.1 Sacroiliitis, not elsewhere classified; F41.1 Generalized anxiety disorder
CPT/HCPCS: 99396

== ENCOUNTER 2024-02-19 16:21 | Inpatient (IN) | payer OTHER, SELFPAY ==
--- NOTE | 2024-02-19 | ECG_ITS ---
Test Reason : PAIN Blood Pressure : / mmHG Vent. Rate : 061 BPM Atrial Rate : 061 BPM P-R Int : 196 ms QRS Dur : 106 ms QT Int : 440 ms P-R-T Axes : 064 049 -13 degrees QTc Int : 442 ms Normal sinus rhythm Possible Left atrial enlargement Left ventricular hypertrophy ( Sokolow-Bains , [employer] product ) T wave abnormality, consider inferior ischemia Abnormal ECG When compared with ECG of 28-JUL-2023 16:52, ST no longer depressed in Lateral leads Referred By: Generic ED Physician Electronically Signed By:MELISSA PEREZ MD
--- NOTE | ~2024-02-19 | XR_ITS ---
EXAMINATION: XR LUMBOSACRAL SPINE CLINICAL INFORMATION: Low back pain. COMPARISON: CT abdomen/pelvis 02/19/2024. TECHNIQUE: Three views of the lumbosacral spine. FINDINGS: No evidence of acute compression deformity or subluxation. Severe intervertebral disc height loss and facet arthropathy at L5-S1 leading to neural foraminal encroachment. Symmetric SI joints. A few pelvic phleboliths are seen. Moderate degree of colonic stool burden. XR/XR lumbar spine 2-3V IMPRESSION: 1. No acute compression deformity or subluxation. 2. Severe degenerative changes at L5-S1 leading to neural foraminal encroachment.
--- NOTE | ~2024-02-19 | XR_ITS ---
EXAMINATION: XR CHEST CLINICAL INFORMATION: Chest pain COMPARISON: Chest x-rays of 12/27/2017 TECHNIQUE: Frontal view of the chest was obtained. FINDINGS: Cardiac leads and wires overlie the chest. Mild cardiomegaly is suspected. The lungs are mildly hypoexpanded. No focal airspace opacities, changes of overt pulmonary edema, pleural effusions or pneumothorax are seen. Mild prominence of the pulmonary vasculature is noted which may suggest pulmonary venous congestion. XR/XR chest 1V IMPRESSION: Mildly hypoexpanded lungs. No evidence of changes of overt pulmonary edema. No radiographic evidence of pneumonia. Likely mild pulmonary venous congestion.
--- NOTE | ~2024-02-19 | CT_ITS ---
EXAMINATION: CT ANGIOGRAM CHEST, PE PROTOCOL CT ABDOMEN AND PELVIS WITH CONTRAST CLINICAL INFORMATION: Pain COMPARISON: None TECHNIQUE: Multidetector CT pulmonary angiography of the thorax was performed according to the pulmonary embolism protocol after intravenous administration of 100 mL Omnipaque 350. Additionally, images of the abdomen and pelvis were acquired. Reformatted coronal and sagittal imaging was performed. 3-D MIP images performed at a dedicated separate workstation. This CT examination was performed using dose optimization techniques as appropriate, variously including the following: *Automated exposure control *Adjustment of mA and/or kV according to patient size (this includes techniques or standardized protocols for targeted exams where dose is matched to indication/reason for exam; i.e. extremities or head) *Use of iterative reconstruction technique DLP: 733 mGy-cm QUALITY: Overall Exam Quality: Satisfactory. Pulmonary Arterial Enhancement: Suboptimal. Breath Hold: Adequate. Artifacts Impacting Image Quality: None. FINDINGS: VASCULAR: Heart: Enlarged. No coronary artery calcifications. No aortic aneurysm or dissection. Celiac artery stenosis with poststenotic dilation; distal perfusion preserved. Superior mesenteric artery patent. Pulmonary Artery: No filling defect is identified in the central, lobar, or proximal segmental pulmonary arterial branches to suggest pulmonary embolus. NONVASCULAR: THORAX: Thyroid Gland: The visualized thyroid gland is normal. Lymph Nodes: No supraclavicular, axillary, mediastinal or hilar lymphadenopathy is identified. Airways: The trachea and central bronchi are normal. Lungs: No airspace consolidation. No suspicious nodules or masses. Pleura: No pleural effusion. No pneumothorax. ABDOMEN/PELVIS: Liver: Homogeneous in attenuation. Enlarged measuring 20 cm in the midclavicular line.. Gallbladder: Noninflamed. Biliary System: No intrahepatic or extrahepatic biliary dilation. Pancreas: Homogeneous in attenuation. Spleen: Normal in size. Genitourinary: Bilateral kidneys demonstrate symmetric enhancement. No perinephric fluid collection. No renal calculi. No hydroureteronephrosis. Urinary bladder is fluid-filled without focal wall thickening. Adrenal Glands: Unremarkable. Reproductive: Prostate present. Gastrointestinal: The visualized alimentary tract is normal in course. No evidence of obstruction. Appendix: The appendix is seen in its entirety and is unremarkable. Peritoneum: No pneumoperitoneum. No intra-abdominal fluid collection. Lymph Nodes: No pathologically enlarged abdominal or pelvic lymph nodes. Soft Tissues/Musculoskeletal: Degenerative changes at L4-L5 and L5-S1. No focal osseous lesions. CT/CT angio chest PE protocol IMPRESSION: 1. No acute pulmonary embolus up to the proximal segmental. 2. Hepatomegaly. 3. No acute abdominal or pelvic pathology. Fleischner guidelines were followed.
[2024-02-19 16:27] VITALS: BP 157/132; PULSE 70; RESP 30; TEMP 36.3; O2SAT 97; BMI 35.5
--- NOTE | 2024-02-19 16:29 | ED_ITS ---
HPI - Back Pain/Injury General Chief Complaint: Back Pain/Injury Stated Complaint: Back pain/Hurts to breath Time Seen by Provider: 02/19/24 16:31 Source: patient, RN notes reviewed and old records reviewed Mode of arrival: ambulatory Limitations: no limitations History of Present Illness HPI Narrative: 58-year-old female with past medical history significant for hypertrophic cardiomyopathy, heart failure with preserved ejection fraction, hypertension, asthma obstructive sleep apnea who presents for evaluation of mid back pain Patient reports that she noticed some mild mid back pain last night that was keeping her awake She reports that she could not lay on the sore area She had some minor discomfort this morning as well. About an hour prior to arrival she experienced severe mid back pain with associated shortness of breath She reports the pain has been constant for an hour The pain is 10/10 and it hurts to take a deep breath Denies any nausea vomiting, diarrhea. She reports a history of hysterectomy but no other abdominal surgeries Patient denies any chest pain currently Related Data Home Medications ?Medication ?Instructions ?Recorded ?Confirmed guselkumab 100 mg/mL subcutaneous mg subcut 11/21/21 02/08/24 auto-injector (Tremfya) Previous Rx's ?Medication ?Instructions ?Recorded Updraft machine #1 ea 09/16/21 Bp monitor #1 ea 11/18/22 blood pressure test kit-large #1 ea 11/19/22 (Quick Response BP Monitor-Large Cuff kit) cetirizine 10 mg tablet (All Day 10 mg PO DAILY #90 tabs 03/23/23 Allergy (cetirizine)) albuterol sulfate 0.63 mg/3 mL 0.63 mg (3 mL) inhalation QID PRN 04/05/23 solution for nebulization for wheezing #75 mL verapamil 240 mg 24 hr 240 mg PO DAILY #90 caps 04/19/23 capsule,extended release albuterol sulfate 90 mcg/actuation 1 inh inhalation QID PRN shortness 04/28/23 aerosol inhaler (ProAir HFA) of breath or wheezing 90 days #3 multiple units montelukast 10 mg tablet 10 mg PO ONCE #90 tabs 09/13/23 labetalol 100 mg tablet 100 mg PO BID #60 tabs 10/05/23 sertraline 100 mg tablet 200 mg (2 x 100 mg) PO DAILY 90 11/22/23 days #180 tabs empagliflozin 10 mg tablet 10 mg PO DAILY #30 tabs 12/07/23 (Jardiance) furosemide 20 mg tablet (Lasix) 20 mg PO DAILY #40 tabs 12/07/23 Advair Diskus 500 mcg-50 mcg/dose 1 inh inhalation BID #60 ea 12/08/23 powder for inhalation (fluticasone propion-salmeterol) betamethasone dipropionate 0.05 % 1 appl topical DAILY PRN Itching 12/09/23 topical cream 30 days #90 grams quetiapine 100 mg tablet 100 mg PO BEDTIME 90 days #90 tabs 12/21/23 ferrous sulfate 324 mg (65 mg 324 mg PO BID 90 days #180 tabs 01/31/24 iron) tablet,delayed release oxycodone 10 mg tablet 10 mg PO Q8H PRN pain 30 days #90 02/08/24 tabs Allergies Allergy/AdvReac Type Severity Reaction Status Date / Time cat dander [CATS] Allergy Severe DIFFICULTY Verified 02/19/24 16:31 BREATHING dog dander [DOGS] Allergy Severe DIFFICULTY Verified 02/19/24 16:31 BREATHING latex [Latex] Allergy Severe ANAPHYLAXIS Verified 02/19/24 16:31 penicillin G [PENICILLIN G] AdvReac Unknown PT STATES Verified 02/19/24 16:31 IT JUST DOESN'T WORK FOR HER Environmental Allergy Unknown allergy Uncoded 02/19/24 16:27 symptoms Review of Systems 2 Constitutional: Constitutional: Denies anorexia, Denies body ache(s), Denies chills and Denies fever(s) ENT: Denies sore throat Cardiovascular: Cardiovascular: Denies chest pain, Denies leg edema and Reports dyspnea Respiratory: Respiratory: Reports pain on inspiration and Reports dyspnea Gastrointestinal: Gastrointestinal: Denies abdominal pain and Denies nausea Musculoskeletal: Musculoskeletal: Reports back pain Integumentary/Breasts: Skin/Breast: Denies rash PMFSH Past Medical History Medical History (HFpEF) heart failure with preserved ejection fraction Dyspnea on exertion Refusal of blood transfusions as patient is Alevism HTN (hypertension) Diastolic dysfunction Apical variant hypertrophic cardiomyopathy MITCHELL (obstructive sleep apnea) Obesity (BMI 35.0-39.9 without comorbidity) Sacroiliitis Spondylosis of lumbar region without myelopathy or radiculopathy Cardiomyopathy Asthma Pain management Anxiety, generalized Depression, major, recurrent Chronic GERD Environmental allergies Noncompliance Hypertension, essential NSTEMI (non-ST elevated myocardial infarction) Heart murmur 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) Surgical History Hx of cardiac catheterization Hx of colonoscopy History of tubal ligation History of endometrial ablation History of hysterectomy for benign disease Family History Family History Mother Uterine cancer Other Substance use disorder Social History Social History Housing: House Alcohol intake: current Alcohol intake frequency: 0-2 drinks per day Alcohol type: hard liquor Patient Tobacco Use Status: Former Tobacco user Quit Date: 2007 Tobacco use type: Cigarette e-Cigarette/Vaping Use: Never Used Second Hand Smoke Exposure: No Advance Directives: No Advance Directives Information Provided: No Current occupational status: employed Cognitive needs: No Hearing needs: No Vision needs: Yes Physical Exam 2 Vital Signs: Vital Signs: Last Vital Signs Temp 97.3 F 02/19/24 16:27 Pulse 70 02/19/24 16:27 Resp 22 H 02/19/24 16:44 BP 157/132 H 02/19/24 16:27 Pulse Ox 97 02/19/24 16:27 O2 Del Method Room Air 02/19/24 16:27 BMI result Body Mass Index 35.5 Const: General: healthy appearing, alert and awake; No comfortable or no acute distress Nutritional Appearance: well nourished Orientation/consciousness: patient oriented x3 HEENT: Head: Yes normocephalic and Yes atraumatic Eyes: Eyelids: Yes eyelids normal Conjunctivae: conjunctivae normal S clerae: sclerae normal Corneas: corneas normal Pupils: Equal, round and reactive pupils present EOM: EOMs intact bilaterally Neck: Neck: Yes full ROM Resp: Effort & Inspection: normal respiratory effort, able to speak in complete sentences, no audible wheezes and not labored Auscultation: clear to auscultation bilaterally Cardio: Rate: regular rate Rhythm: regular rhythm GI: Inspection: No distended Palpation (GI): Soft to palpation, not firm, nontender, no guarding and not rigid Skin: General skin exam: elasticity normal Neuro: General: patient oriented x3 Cranial nerves: Yes Equal, round and reactive pupils present and Yes Bilaterally intact EOM present Cognition (Neuro): normal cognition Course Course Course Narrative: This is a Rapid Medical Examination (RME) in triage, full HPI, ROS, assessment and plan per primary provider in the Main ED. 58 yo female presenting for acute onset of right sided middle/lower back pain that started yesterday and acutely worsened less than an hour ago. Can't breathe. Diaphoretic and very uncomfortable in triage. VSS in triage, hypertensive. Plan: directly to treatment room Reevaluation(s) Reevaluation #1: Patient's EKG still shows T-wave inversions in the inferior leads. These are somewhat improved when compared to her most recent EKG which was dated July 28, 2023. Patient's troponin was called back as critical at 1:24 a.m.. The patient is continuing to have pain after morphine. I ordered aspirin and a CT angiography of her chest and abdomen. Time: 17:38 Reevaluation #2: Patient is now pain-free Time: 18:27 Medications Administered Discontinued Medications Generic Name Dose Route Start Last Admin Trade Name Freq PRN Reason Stop Dose Admin Iohexol 65 ml 02/19/24 18:13 02/19/24 18:13 Iohexol 350 Mg/Ml 100 Ml Infus..Btl IV 02/19/24 18:14 65 ml ONCE ONE Administration Morphine Sulfate 4 mg 02/19/24 16:41 02/19/24 16:44 Morphine Sulfate 4 Mg/Ml Cartridge IVPUSH 02/19/24 16:42 4 mg ONCE ONE Administration Protocol Ondansetron HCl 4 mg 02/19/24 16:41 02/19/24 16:44 Ondansetron Hcl 4 Mg/2 Ml Vial IVPUSH 02/19/24 16:42 4 mg ONCE ONE Administration Medical Decision Making Medical Decision Making MDM Narrative: 58-year-old female presents for evaluation of mid back pain that was atraumatic. She reports associated shortness of breath and pain with inspiration. Denies any chest pain currently. Her pain is not reproducible on exam. Patient admits to drinking a glass of wine daily but does not drink in excess. Pancreatitis is possible. Plan for labs including lipase. Will get a chest x-ray to evaluate for pneumonia/pleural effusion or widened mediastinum. Patient has no abdominal pain at this time, no chest pain. An EKG will be obtained to rule out acute ischemia. Patient be treated with morphine and Zofran in the meantime. Further workup as indicated Differential Diagnosis Differential Diagnoses: The differential diagnosis associated with the presentation includes See above Pancreatitis, pneumonia, pleural effusion, ACS, PE less likely, heart failure, obstructive uropathy Lab Data 02/19/24 16:40 02/19/24 16:40 Labs: Lab Results 02/19/24 Range/Units 16:40 WBC 11.8 H (4.8-10.8) X10*3/uL RBC 4.82 (4.20-5.50) X10*6/uL Hgb 14.0 (12.0-16.0) g/dl Hct 43.5 (37.0-47.0) % MCV 90.2 (80.0-98.0) fL MCH 29.0 (27.0-33.0) pg MCHC 32.2 (31.0-35.0) g/dl RDW 14.6 (11.0-16.0) % Plt Count 276 (160-400) X10*3/uL MPV 10.0 (9.4-12.3) fL Immature Gran % (Auto) 0.3 (0.0-0.4) % Neut % (Auto) 68.1 (45-73) % Lymph % (Auto) 19.4 L (20-40) % Winston % (Auto) 9.6 (2-11) % Eos % (Auto) 2.2 (0-4) % Baso % (Auto) 0.4 (0-2) % Lymph # (Auto) 2.3 (1.2-4.9) X10*3/uL Winston # (Auto) 1.1 (0.1-1.2) X10*3/uL Eos # (Auto) 0.3 (0.0-0.4) X10*3/uL Baso # (Auto) 0.1 (0.0-0.2) X10*3/uL Abs Immat Gran (auto) 0.04 H (0.00-0.03) X10*3/uL Absolute Neuts (auto) 8.0 (2.0-8.3) x10*3/uL Absolute Nucleated RBC 0.000 (0.0-0.012) X10*3/uL Nucleated RBC % (auto) 0.0 (0.0-0.2) /100WBC PT 11.5 (11.1-13.3) SEC INR 0.9 (0.9-1.1) Sodium 139 (135-145) mmol/L Potassium 4.4 (3.3-5.1) mmol/L Chloride 104 (96-108) mmol/L Carbon Dioxide 27 (22-29) mmol/L Anion Gap 12 (12-20) BUN 15 (9-16) mg/dL Creatinine 0.85 (0.5-1.4) mg/dL Estim Creat Clear Calc 79.1 Estimated GFR > 60 Random Glucose 95 (60-115) mg/dL Calcium 11.3 H (8.4-10.2) mg/dL Magnesium 2.1 (1.6-2.6) mg/dL Total Bilirubin 0.4 (0.0-1.0) mg/dL AST 20 (5-31) U/L ALT 17 (0-31) U/L Alkaline Phosphatase 110 (39-117) U/L Troponin I High Sens 125.7 H* (<3.5-17.0) ng/L Total Protein 8.5 H (6.5-8.0) g/dL Albumin 4.2 (3.5-5.0) g/dL Lipase 11 (8-78) U/L Discharge Plan Discharge Clinical Impression: Back pain Patient Disposition: Still a Patient Prescriptions: No Action (DME) Bp monitor Medium See Rx Instructions .Route .MEDSUPPLY Qty: 1 0RF Rx Instructions: As directed (DME) blood pressure test kit-large [Quick Response BP Monitor-Larg] Kit See Rx Instructions .Route Qty: 1 0RF Rx Instructions: As directed cetirizine [All Day Allergy (cetirizine)] 10 mg tablet 10 mg PO DAILY Qty: 90 3RF albuterol sulfate 0.63 mg/3 mL solution for nebulization 0.63 mg inhalation QID PRN (Reason: for wheezing) Qty: 75 0RF verapamil 240 mg capsule,ext rel. pellets 24 hr 240 mg PO DAILY Qty: 90 3RF montelukast 10 mg tablet 10 mg PO ONCE Qty: 90 3RF labetalol 100 mg tablet 100 mg PO BID Qty: 60 7RF sertraline 100 mg tablet 200 mg PO DAILY 90 Days Qty: 180 0RF fluticasone propion-salmeterol [Advair Diskus] 500-50 mcg/dose blister with device 1 inh inhalation BID Qty: 60 3RF betamethasone dipropionate 0.05 % cream 1 appl topical DAILY PRN (Reason: Itching) 30 Days Qty: 90 2RF quetiapine 100 mg tablet 100 mg PO BEDTIME 90 Days Qty: 90 0RF Rx Instructions: Further refills will need office visit ferrous sulfate 324 mg (65 mg iron) tablet,delayed release (DR/EC) 324 mg PO BID 90 Days Qty: 180 0RF Tremfya 100 mg/mL auto-injector subcut (DME) Updraft machine See Rx Instructions .Route .MEDSUPPLY Qty: 1 0RF Rx Instructions: As directed albuterol sulfate [ProAir HFA] 90 mcg/actuation HFA aerosol inhaler 1 inh inhalation QID PRN (Reason: shortness of breath or wheezing) 90 Days Qty: 3 3RF oxycodone 10 mg tablet 10 mg PO Q8H PRN (Reason: pain) 30 Days Qty: 90 0RF furosemide [Lasix] 20 mg tablet 20 mg PO DAILY Qty: 40 5RF Jardiance 10 mg tablet 10 mg PO DAILY Qty: 30 5RF Print Language: Chinese
[2024-02-19 16:44] VITALS: RESP 22
[2024-02-19] MEDS: Morphine Sulfate 4 MG/ML CARTRIDGE IVPUSH (16:44)
[2024-02-19] MEDS: ondansetron HCL 4 MG/2 ML VIAL IVPUSH (16:44)
[2024-02-19 16:45] LABS: MANUAL DIFF FLAG NO
[2024-02-19 16:48] LABS: Basophils Absolute Auto 0.1 X10*3/uL (0.0-0.2); Basophils Percent Auto 0.4 % (0-2); Eosinophils Absolute Auto 0.3 X10*3/uL (0.0-0.4); Eosinophils Percent Auto 2.2 % (0-4); Hematocrit 43.5 % (37.0-47.0); Imm Gran Abs Auto 0.04 X10*3/uL (0.00-0.03); Imm Gran Pct Auto 0.3 % (0.0-0.4); Lymphocytes Absolute Auto 2.3 X10*3/uL (1.2-4.9); Lymphocytes Percent Auto 19.4 % (20-40); Mean Corpuscular HGB Conc 32.2 g/dl (31.0-35.0); Mean Corpuscular Volume 90.2 fL (80.0-98.0); Monocytes Absolute Auto 1.1 X10*3/uL (0.1-1.2); Monocytes Percent Auto 9.6 % (2-11); Neutrophils Percent Auto 68.1 % (45-73); Platelet Count 276 X10*3/uL (160-400); Red Blood Count 4.82 X10*6/uL (4.20-5.50); Red Cell Distribution Width 14.6 % (11.0-16.0); White Blood Count 11.8 X10*3/uL (4.8-10.8)
[2024-02-19 16:55] LABS: INTERNATIONAL NORM RATIO 0.9 (0.9-1.1); Prothrombin Time 11.5 SEC (11.1-13.3)
--- NOTE | 2024-02-19 17:02 | PC.NURSE ---
Pt arrived tearful, rolling around on the bed, IV placed, labs obtained, provider at bedside, meds given per MAR.
[2024-02-19 17:07] LABS: Alanine Aminotransferase 17 U/L (0-31); Albumin Level 4.2 g/dL (3.5-5.0); Alkaline Phosphatase 110 U/L (39-117); Anion Gap 12 (12-20); Aspartate Amino Transferase 20 U/L (5-31); Bilirubin Total 0.4 mg/dL (0.0-1.0); Blood Urea Nitrogen 15 mg/dL (9-16); Calcium 11.3 mg/dL (8.4-10.2); Carbon Dioxide 27 mmol/L (22-29); Chloride 104 mmol/L (96-108); Creatinine Clr Calc Pharmacy 79.1; Estimated Glomerular Filt Rate > 60; Glucose Random 95 mg/dL (60-115); Lipase 11 U/L (8-78); Magnesium 2.1 mg/dL (1.6-2.6); Potassium 4.4 mmol/L (3.3-5.1); Sodium 139 mmol/L (135-145); Total Protein 8.5 g/dL (6.5-8.0)
--- NOTE | 2024-02-19 17:08 | MHC.EDTECH ---
I called lab and they said they would add the BNP and DDHS manually to the tubes they have
[2024-02-19] MEDS: iohexoL 350 MG/ML 100 ML INFUS..BTL 65 ML IV (18:13)
[2024-02-19] MEDS: Aspirin 81 MG TAB.CHEW 324 MG PO (18:33)
[2024-02-19 18:34] VITALS: RESP 18
[2024-02-19] MEDS: HYDROmorphone HCl 1 MG/ML SYRINGE IVPUSH ×2 (18:34→23:16)
[2024-02-19 18:43] VITALS: BP 135/55; PULSE 71; RESP 12; O2SAT 90
[2024-02-19 18:53] LABS: Appearance Urine Clear; Color Urine Yellow; Glucose Urine UA >=1000 mg/dL (Negative); Leukocyte Esterase Urine Negative (Negative); Nitrite Urine Negative (Negative); PH 5.5 (5.0-9.0); Specific Gravity - Urine >= 1.030 (1.005-1.025); UMIC TRIGGER UACC YES; Urine Blood Negative (Negative); Urine Ketones Negative (Negative); Urine Protein Negative (Neg-Trace)
[2024-02-19 18:55] LABS: Bacteria Urine Trace (None Seen); Hyaline Casts Urine 0-2 /LPF (0-2); RBC Urine 0-2 /HPF (0-2); WBC Urine 0-5 /HPF (0-5)
[2024-02-19 19:01] LABS: D Dimer High Sensitivity 200 NG/ML
[2024-02-19 19:12] LABS: B Type Natriuretic Peptide 512 pg/mL (<100)
[2024-02-19 19:31] LABS: Troponin-I High Sensitivity 125.7 ng/L (<3.5-17.0)
[2024-02-19 20:23] LABS: Troponin-I High Sensitivity 124.5 ng/L (<3.5-17.0)
[2024-02-19 22:27] VITALS: BP 131/67; PULSE 91; RESP 15; O2SAT 91
[2024-02-19] MEDS: 0.9 % Sodium Chloride Flush 3 ML SYRINGE IVFLUSH (23:15)
[2024-02-19] MEDS: Gabapentin 100 MG CAPSULE 200 MG PO (23:16)
[2024-02-20] VITALS (7 sets, daily range): BP systolic 112–140; BP diastolic 53–71; PULSE 52–82; RESP 16–19; TEMP 36.1–37.1; O2SAT 86–99
[2024-02-20] MEDS: QUEtiapine Fumarate 100 MG TABLET PO ×2 (01:15→21:20)
[2024-02-20] MEDS: Labetalol HCL 100 MG TABLET PO ×3 (01:15→21:20)
--- NOTE | 2024-02-20 03:08 | P.HPHOSP_ITS ---
History of Present Illness Date of Service: 02/19/24 Attending physician on admission: Francine Douglas Chief Complaint: Lower back pain Lisa Gill is a very pleasant 58 years old woman with past medical history significant for HFpEF, hypertrophic cardiomyopathy, essential hypertension, GERD, obstructive sleep apnea and asthma presents to the emergency department complaining of severe mid low back pain that started last night. She was unable to sleep well however, the pain subsided during the day. Tonight, she started to experience severe 10/10 mid back pain again that increases with inspiration. She described the pain as sharp and sudden. At some point the back pain radiated to her chest. It does not radiate to the lower extremities. She denied associated shortness on breath, cough, fever, chills, dizziness or palpitation. She denied any acute gastrointestinal or genitourinary symptoms. She takes oxycodone at home for chronic pain. She denied alcohol abuse, illicit drugs use or tobacco smoking In the ED, she was found to have tachypnea and hypertension but this resolved about 2 hours after receiving pain medications. Her blood workup is remarkable for elevated troponin x2 (125.7--> 124.5), BNP is 512 which is slightly increased from prior. There is slight elevation of WBC count. There are no significant electrolyte imbalances. UA showed no findings of UTI. She underwent chest, abdomen and pelvic CTA that showed no pulmonary embolism of to the proximal segmental, hepatomegaly and no acute abdominal abnormalities. There is no aortic aneurysm or dissection. ECG showed normal sinus rhythm with a heart rate of 61 beats per minutes, LVH changes without acute ischemic changes. CXR is negative. ED tx: Morphine 4 mg IV, Zofran 4 mg IV, aspirin 325 mg p.o., Dilaudid 1 g IV. While interviewing the patient she started to complain of severe mid back pain. Review of Systems 2 Review of Systems: All 12 systems were reviewed and normal except as noted in HPI. [facility] Medical History (Updated 02/20/24 @ 04:32 by Francine Douglas MD) Essential hypertension (HFpEF) heart failure with preserved ejection fraction Dyspnea on exertion Refusal of blood transfusions as patient is Jehovah's witness HTN (hypertension) Diastolic dysfunction Apical variant hypertrophic cardiomyopathy MITCHELL (obstructive sleep apnea) Obesity (BMI 35.0-39.9 without comorbidity) Sacroiliitis Spondylosis of lumbar region without myelopathy or radiculopathy Cardiomyopathy Asthma Pain management Anxiety, generalized Depression, major, recurrent Chronic GERD Environmental allergies Noncompliance Hypertension, essential NSTEMI (non-ST elevated myocardial infarction) Heart murmur 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) Family History Mother Uterine cancer Other Substance use disorder Surgical History Hx of cardiac catheterization Hx of colonoscopy History of tubal ligation History of endometrial ablation History of hysterectomy for benign disease Social History Housing: House Alcohol intake: current Alcohol intake frequency: 0-2 drinks per day Alcohol type: hard liquor Patient Tobacco Use Status: Former Tobacco user Quit Date: 2007 Tobacco use type: Cigarette e-Cigarette/Vaping Use: Never Used Second Hand Smoke Exposure: No Advance Directives: No Advance Directives Information Provided: No Current occupational status: employed Cognitive needs: No Hearing needs: No Vision needs: Yes Meds Allergies Allergy/AdvReac Type Severity Reaction Status Date / Time cat dander [CATS] Allergy Severe DIFFICULTY Verified 02/19/24 16:31 BREATHING dog dander [DOGS] Allergy Severe DIFFICULTY Verified 02/19/24 16:31 BREATHING latex [Latex] Allergy Severe ANAPHYLAXIS Verified 02/19/24 16:31 penicillin G [PENICILLIN G] AdvReac Unknown PT STATES Verified 02/19/24 16:31 IT JUST DOESN'T WORK FOR HER Environmental Allergy Unknown allergy Uncoded 02/19/24 16:27 symptoms Active Medications: Current Medications Acetaminophen (Acetaminophen 325 Mg Tablet) 975 mg PO Q6H PRN PRN Reason: Pain, Mild (Pain Scale 1-3) Labetalol HCl (Labetalol Hcl 100 Mg Tablet) 100 mg PO BID JAMES; Protocol Last Admin: 02/20/24 01:15 Dose: 100 mg Quetiapine Fumarate (Quetiapine Fumarate 100 Mg Tablet) 100 mg PO BEDTIME JAMES Last Admin: 02/20/24 01:15 Dose: 100 mg Sodium Chloride (0.9 % Sodium Chloride Flush 3 Ml Syringe) 3 ml IVFLUSH QSHIFT JAMES Last Admin: 02/19/24 23:15 Dose: 3 ml Home Medications ?Medication ?Instructions ?Recorded ?Confirmed ?Last Taken ?Type guselkumab 100 mg/mL subcutaneous mg subcut 11/21/21 02/08/24 02/19/24 History auto-injector (Tremfya) empagliflozin 10 mg tablet 10 mg PO DAILY 02/20/24 02/20/24 Unknown History (Jardiance) ferrous sulfate 324 mg (65 mg 324 mg PO BID 02/20/24 02/20/24 Unknown History iron) tablet,delayed release fluticasone 500 mcg-salmeterol 50 1 ea inhalation BID 02/20/24 02/20/24 Unknown History mcg/dose blistr powdr for inhalation ([facility] Inhub) guselkumab 100 mg/mL subcutaneous mg subcut 02/20/24 Unknown History auto-injector (Tremfya) montelukast 10 mg tablet 10 mg PO DAILY 02/20/24 02/20/24 Unknown History oxycodone 10 mg tablet 10 mg PO Q8H PRN pain 02/20/24 02/20/24 Unknown History sertraline 100 mg tablet 200 mg PO DAILY 02/20/24 02/20/24 Unknown History verapamil 240 mg 24 hr 240 mg PO DAILY 02/20/24 02/20/24 Unknown History capsule,extended release Physical Exam 2 Vital Signs and Narrative: Vital Signs: Last Vital Signs Temp 97.3 F 02/19/24 16:27 Pulse 79 02/20/24 02:06 Resp 16 02/20/24 02:06 BP 114/63 02/20/24 02:06 Pulse Ox 89 L 02/20/24 02:06 O2 Del Method Room Air 02/20/24 02:06 BMI result Body Mass Index 35.5 Constitutional - Awake and Alert. Looks in acute distress due to back pain. Cooperative. Pleasant HEENT - Pupils equally round. Normal sclerae. Moist oral mucosa Heart - S1S2, RRR. Lungs - Normal lung expansion, Normal respiratory effort, No respiratory distress, CTA bilaterally Gastrointestinal - NT / ND; +BS; No rebound or guarding Extremities - no calf tenderness bilaterally, no swelling Musculoskeletal - Normal inspection, normal ROM. No paraspinal muscle tenderness. Skin - Warm/Dry Neurological - Alert & oriented x3, CN II-XII in tact, 5/5 strength BUE and BLE Psychological - Appropriate affect Results Labs 02/19/24 16:40 02/19/24 16:40 Labs: Laboratory Results - last 24 hr 02/19/24 02/19/24 02/19/24 16:40 18:42 19:47 MCV 90.2 MCH 29.0 MCHC 32.2 RDW 14.6 Plt Count 276 MPV 10.0 Immature Gran % (Auto) 0.3 Neut % (Auto) 68.1 Lymph % (Auto) 19.4 L [place] % (Auto) 9.6 Eos % (Auto) 2.2 Baso % (Auto) 0.4 Lymph # (Auto) 2.3 [place] # (Auto) 1.1 Eos # (Auto) 0.3 Baso # (Auto) 0.1 Abs Immat Gran (auto) 0.04 H Absolute Neuts (auto) 8.0 Absolute Nucleated RBC 0.000 Nucleated RBC % (auto) 0.0 PT 11.5 INR 0.9 D-Dimer High Sensitivty 200 Anion Gap 12 Estim Creat Clear Calc 79.1 Estimated GFR > 60 Random Glucose 95 Calcium 11.3 H Magnesium 2.1 Total Bilirubin 0.4 AST 20 ALT 17 Alkaline Phosphatase 110 Troponin I High Sens 125.7 H* 124.5 H* B-Natriuretic Peptide 512 H Total Protein 8.5 H Albumin 4.2 Lipase 11 Urine Color Yellow Urine Appearance Clear Urine pH 5.5 Ur Specific [place] >= 1.030 H Urine Protein Negative Urine Glucose (UA) >=1000 H Urine Ketones Negative Urine Blood Negative Urine Nitrite Negative Ur Leukocyte Esterase Negative Urine RBC 0-2 Urine WBC 0-5 Ur Squamous Epith Cells 11-20 Urine Bacteria Trace Hyaline Casts 0-2 Imaging Radiologist's Impressions: Impressions Chest X-Ray 02/19/24 16:40 IMPRESSION: Mildly hypoexpanded lungs. No evidence of changes of overt pulmonary edema. No radiographic evidence of pneumonia. Likely mild pulmonary venous congestion. Abdomen/Pelvis CTA 02/19/24 18:43 IMPRESSION: 1. No acute pulmonary embolus up to the proximal segmental. 2. Hepatomegaly. 3. No acute abdominal or pelvic pathology. Fleischner guidelines were followed. Chest CTA 02/19/24 18:43 IMPRESSION: 1. No acute pulmonary embolus up to the proximal segmental. 2. Hepatomegaly. 3. No acute abdominal or pelvic pathology. Fleischner guidelines were followed. Assessment and Plan (1) Back pain: Qualifiers: Back pain location: low back pain Chronicity: acute Back pain laterality: midline Sciatica presence: without sciatica Qualified Code(s): M 54.50 - Low back pain, unspecified Status: Acute (2) (HFpEF) heart failure with preserved ejection fraction: Qualifiers: Heart failure chronicity: chronic Qualified Code(s): I50.32 - Chronic diastolic (congestive) heart failure Status: Acute (3) Elevated troponin: Status: Acute (4) Essential hypertension: Status: Acute (5) Asthma, moderate: Qualifiers: Asthma persistence: persistent Asthma complication type: uncomplicated Qualified Code(s): J45.40 - Moderate persistent asthma, uncomplicated Status: Acute (6) Obesity due to excess calories: Qualifiers: Obesity classification: adult class 2 (BMI 35 - 39.9) Serious obesity comorbidity presence: with serious comorbidity Body mass index: BMI 36.0-36.9 Qualified Code(s): E66.01 - Morbid (severe) obesity due to excess calories; Z68.36 - Body mass index [BMI] 36.0-36.9, adult Status: Acute (7) MITCHELL (obstructive sleep apnea): Status: Acute (8) Hypertension, essential: Status: Acute (9) Arthritis with psoriasis: Status: Acute Plan Lisa Gill is a very pleasant 58 years old woman presents with: * Low back pain (mid), not reproducible to palpation; hx of spondylosis lumbar/psoriatic arthritis; unclear of the etiology but could be neuropathic or atypical chest pain. Keeping observation. Pain control with Dilaudid IV as needed. 200 mg p.o. x1. * Elevated troponin. Recheck in the morning. Recent TTE reviewed (January 2024). Check lipid panel and hemoglobin A1c. Continue aspirin. Cardiology consult for further recommendations. * HFpEF. Hypertrophic cardiomyopathy. No signs symptoms of decompensation. Plan to obtain a cardiac MRI as an outpatient. Continue furosemide and Jardiance. * Essential hypertension. Continue diltiazem and labetalol. * Obstructive sleep apnea. Patient is not using her CPAP. * Asthma, moderate persistent. Continue Wixela or alternative. Continue montelukast. Bronchodilator therapy as needed. * Essential hypertension. Continue labetalol and verapamil. * Major severe depression. Continue sertraline and Seroquel. * Obesity. BMI 35.5 kg/m2. Weight loss. * Chronic narcotic dependence. Continue oxycodone Quality Stroke Does the patient have a stroke diagnosis?: No VTE Prior VTE?: No VTE Risk Level:: Medical - low VTE Device Contraindication: Treatment Not Indicated VTE Drug Contraindication: Treatment Not Indicated
[2024-02-20] MEDS: oxyCODONE HCl Immed Release 5 MG TABLET 10 MG PO ×2 (05:39→16:09)
[2024-02-20] MEDS: Acetaminophen 325 MG TABLET 975 MG PO (05:42)
[2024-02-20 05:58] LABS: MANUAL DIFF FLAG NO
--- NOTE | 2024-02-20 05:59 | PC.NURSE ---
Addendum entered by Amy Santos RN 02/20/24 06:29: Patient transfered to floor from ED at 0450. at 0438 ED RN read text from me concerning pt O2 sat 89% room air. RN did not respond or address. When patient transferred at 0450, O2 found to be 86%, fluctuating up and down to 92%, however, would not maintain>90% room air. Patient reported dyspnea while in ED as noted in MD reports, also with MITCHELL. MD made aware. Original Note: patient placed on 1L O2 NC
[2024-02-20 06:12] LABS: Basophils Absolute Auto 0.1 X10*3/uL (0.0-0.2); Basophils Percent Auto 0.5 % (0-2); Eosinophils Absolute Auto 0.2 X10*3/uL (0.0-0.4); Eosinophils Percent Auto 1.7 % (0-4); Hematocrit 38.7 % (37.0-47.0); Hemoglobin 12.1 g/dl (12.0-16.0); Imm Gran Abs Auto 0.04 X10*3/uL (0.00-0.03); Imm Gran Pct Auto 0.4 % (0.0-0.4); Lymphocytes Absolute Auto 1.8 X10*3/uL (1.2-4.9); Lymphocytes Percent Auto 16.7 % (20-40); Mean Corpuscular HGB Conc 31.3 g/dl (31.0-35.0); Mean Corpuscular Hemoglobin 29.2 pg (27.0-33.0); Mean Corpuscular Volume 93.3 fL (80.0-98.0); Mean Platelet Volume 10.2 fL (9.4-12.3); Monocytes Absolute Auto 1.1 X10*3/uL (0.1-1.2); Monocytes Percent Auto 10.8 % (2-11); Neutrophils Absolute Auto 7.3 x10*3/uL (2.0-8.3); Neutrophils Percent Auto 69.9 % (45-73); Platelet Count 224 X10*3/uL (160-400); Red Blood Count 4.15 X10*6/uL (4.20-5.50); Red Cell Distribution Width 14.6 % (11.0-16.0); White Blood Count 10.5 X10*3/uL (4.8-10.8)
[2024-02-20 06:41] LABS: Troponin-I High Sensitivity 115.2 ng/L (<3.5-17.0)
--- NOTE | 2024-02-20 08:53 | P.PNIM_ITS ---
Subjective Subjective Date of Service: 02/20/24 Interval History: f/u on back pain, elevated troponin pain is better, no chest pain at the moment, troponin i trending down Physical Exam 2 Vital Signs: Vital Signs: Last Vital Signs Temp 97.3 F 02/20/24 07:19 Pulse 71 02/20/24 07:19 Resp 16 02/20/24 07:19 BP 126/58 L 02/20/24 07:19 Pulse Ox 90 L 02/20/24 07:19 O2 Del Method Nasal Cannula 02/20/24 07:19 O2 Flow Rate 1 02/20/24 07:19 BMI result Body Mass Index 35.5 General: AO X 3, no acute distress Resp: CTA bilateral CVS: S1,S2,RRR GI: +BS, NT, no distention Skin: No rash Neuro: motor grossly intact Psych: appropriate affect Objective Data Active Medications Acetaminophen (Acetaminophen 325 Mg Tablet) 975 mg PO Q6H PRN PRN Reason: Pain, Mild (Pain Scale 1-3) Last Admin: 02/20/24 05:42 Dose: 975 mg Documented By: LORETA Aspirin (Aspirin Enteric Coated 81 Mg Tablet.) 81 mg PO DAILY [facility] Empagliflozin (Empagliflozin 10 Mg Tablet) 10 mg PO DAILY [facility] Ferrous Sulfate (Ferrous Sulfate 324 Mg Tablet.) 324 mg PO BID [facility] Fluticasone/Vilanterol (Fluticasone/Vilanterol 200/25 Blst.W.Dev) 1 puff INHALE DAILY [facility] Last Admin: 02/20/24 08:33 Dose: Not Given Documented By: SAJAN Non-Admin Reason: med unavail. pharmacy called Labetalol HCl (Labetalol Hcl 100 Mg Tablet) 100 mg PO BID [facility]; Protocol Last Admin: 02/20/24 01:15 Dose: 100 mg Documented By: TANMAY Montelukast Sodium (Montelukast Sodium 10 Mg Tablet) 10 mg PO DAILY [facility] Oxycodone HCl (Oxycodone Hcl Immed Release 5 Mg Tablet) 10 mg PO Q8H PRN PRN Reason: Pain, Severe (Pain Scale 7-10) Last Admin: 02/20/24 05:39 Dose: 10 mg Documented By: LORETA Quetiapine Fumarate (Quetiapine Fumarate 100 Mg Tablet) 100 mg PO BEDTIME [facility] Last Admin: 02/20/24 01:15 Dose: 100 mg Documented By: TANMAY Sertraline HCl (Sertraline Hcl 100 Mg Tablet) 200 mg PO DAILY [facility] Sodium Chloride (0.9 % Sodium Chloride Flush 3 Ml Syringe) 3 ml IVFLUSH QSHIFT [facility] Last Admin: 02/19/24 23:15 Dose: 3 ml Documented By: TANMAY Verapamil HCl (Verapamil Hcl Sr 240 Mg Tablet.Er) 240 mg PO DAILY [facility]; Protocol Labs 02/20/24 05:48 02/19/24 16:40 Labs: Laboratory Results - last 24 hr 02/19/24 02/19/24 02/19/24 16:40 18:42 19:47 MCV 90.2 MCH 29.0 MCHC 32.2 RDW 14.6 Plt Count 276 MPV 10.0 Immature Gran % (Auto) 0.3 Neut % (Auto) 68.1 Lymph % (Auto) 19.4 L [place] % (Auto) 9.6 Eos % (Auto) 2.2 Baso % (Auto) 0.4 Lymph # (Auto) 2.3 [place] # (Auto) 1.1 Eos # (Auto) 0.3 Baso # (Auto) 0.1 Abs Immat Gran (auto) 0.04 H Absolute Neuts (auto) 8.0 Absolute Nucleated RBC 0.000 Nucleated RBC % (auto) 0.0 PT 11.5 INR 0.9 D-Dimer High Sensitivty 200 Anion Gap 12 Estim Creat Clear Calc 79.1 Estimated GFR > 60 Random Glucose 95 Calcium 11.3 H Magnesium 2.1 Total Bilirubin 0.4 AST 20 ALT 17 Alkaline Phosphatase 110 Troponin I High Sens 125.7 H* 124.5 H* B-Natriuretic Peptide 512 H Total Protein 8.5 H Albumin 4.2 Lipase 11 Urine Color Yellow Urine Appearance Clear Urine pH 5.5 Ur Specific [place] >= 1.030 H Urine Protein Negative Urine Glucose (UA) >=1000 H Urine Ketones Negative Urine Blood Negative Urine Nitrite Negative Ur Leukocyte Esterase Negative Urine RBC 0-2 Urine WBC 0-5 Ur Squamous Epith Cells 11-20 Urine Bacteria Trace Hyaline Casts 0-2 02/20/24 05:48 MCV 93.3 MCH 29.2 MCHC 31.3 RDW 14.6 Plt Count 224 MPV 10.2 Immature Gran % (Auto) 0.4 Neut % (Auto) 69.9 Lymph % (Auto) 16.7 L [place] % (Auto) 10.8 Eos % (Auto) 1.7 Baso % (Auto) 0.5 Lymph # (Auto) 1.8 [place] # (Auto) 1.1 Eos # (Auto) 0.2 Baso # (Auto) 0.1 Abs Immat Gran (auto) 0.04 H Absolute Neuts (auto) 7.3 Absolute Nucleated RBC 0.000 Nucleated RBC % (auto) 0.0 PT INR D-Dimer High Sensitivty Anion Gap Estim Creat Clear Calc Estimated GFR Random Glucose Calcium Magnesium Total Bilirubin AST ALT Alkaline Phosphatase Troponin I High Sens 115.2 H* B-Natriuretic Peptide Total Protein Albumin Lipase Urine Color Urine Appearance Urine pH Ur Specific [place] Urine Protein Urine Glucose (UA) Urine Ketones Urine Blood Urine Nitrite Ur Leukocyte Esterase Urine RBC Urine WBC Ur Squamous Epith Cells Urine Bacteria Hyaline Casts Assessment and Plan (1) Back pain: Status: Acute Plan 58/F with HFpEF, HTN, MITCHELL here with back pain, chest pain Low back pain (mid), not reproducible to palpation; non radiating, hx of spondylosis lumbar/psoriatic arthritis; unclear etiology and intermittent, possibly muscular skeletal, no fever, or increase WBC. Symptomatic treatment for now Keeping observation. Consider imaging of the back if persists Elevated troponin. trednding down, no ischemic chages on ECG, repeat ECG, cardiology consul;t HFpEF. Hypertrophic cardiomyopathy. Euvolemic. Plan to obtain a cardiac MRI as an outpatient. Continue furosemide and Jardiance. Essential hypertension. Continue diltiazem and labetalol. Obstructive sleep apnea. Patient is not using her CPAP. Asthma, moderate persistent. No exacerbation, Continue Wixela or alternative. Continue montelukast. Bronchodilator therapy as needed. Essential hypertension. Continue labetalol and verapamil. Major severe depression. Continue sertraline and Seroquel. Obesity. BMI 35.5 kg/m2. Weight loss advised Chronic narcotic dependence. Continue oxycodone DVT P: Lovenox full code Quality Stroke Does the patient have a stroke diagnosis?: No VTE Prior VTE?: No VTE Risk Level:: Medical - low VTE Device Contraindication: Treatment Not Indicated VTE Drug Contraindication: Treatment Not Indicated
[2024-02-20] MEDS: 0.9 % Sodium Chloride Flush 3 ML SYRINGE IVFLUSH ×3 (09:16→22:21)
--- NOTE | 2024-02-20 09:17 | PHA.MEDREC ---
Pharmacy Consult ? Medication Reconciliation Pharmacy has completed the medication reconciliation.
[2024-02-20] MEDS: Empagliflozin 10 MG TABLET PO (09:18)
[2024-02-20] MEDS: Ferrous Sulfate 324 MG TABLET.DR PO ×2 (09:18→21:20)
[2024-02-20] MEDS: Aspirin Enteric Coated 81 MG TABLET.DR PO (09:18)
[2024-02-20] MEDS: VerapamiL HCL SR 240 MG TABLET.ER PO (09:18)
[2024-02-20] MEDS: Montelukast Sodium 10 MG TABLET PO (09:18)
[2024-02-20] MEDS: Sertraline HCL 100 MG TABLET 200 MG PO (09:18)
[2024-02-20 11:10] LABS: Cholesterol 198 mg/dL (<200); HDL Cholesterol 66 mg/dL (>40); LDL Cholesterol Calculated 121 mg/dL (<100); Triglycerides 56 mg/dL (<150)
--- NOTE | 2024-02-20 11:16 | MHC.CM.PN ---
pt lives with has own ride home is independent dc plan home no servies
[2024-02-20 11:17] LABS: Anion Gap 11 (12-20); Blood Urea Nitrogen 17 mg/dL (9-16); Calcium 10.4 mg/dL (8.4-10.2); Carbon Dioxide 27 mmol/L (22-29); Chloride 103 mmol/L (96-108); Estimated Glomerular Filt Rate > 60; Glucose Random 91 mg/dL (60-115); Potassium 4.3 mmol/L (3.3-5.1); Sodium 137 mmol/L (135-145)
[2024-02-20 11:19] LABS: Estimated Average Glucose 123 mg/dL; Hemoglobin A1c % 5.9 % (<6.0)
[2024-02-20] MEDS: Furosemide 20 MG TABLET PO (11:22)
[2024-02-20] MEDS: Loratadine 10 MG TABLET PO (11:22)
--- NOTE | 2024-02-20 11:23 | P.CONCA_ITS ---
History of Present Illness History of Present Illness Date of Service: 02/20/24 Requesting physician: Blayne Morales Consult reason: troponin elevation Chief complaint: intractable back pain Narrative: I was consulted to see you lawn done in cardiology consultation today whom I see in the clinic with history of apical hypertrophic cardiomyopathy as well as heart failure with preserved ejection fraction and sleep apnea with hypertension. She has been doing well overall and suddenly developed significant right lower back pain which was very severe. She says she had some pain before going to bed but he noted as the pain was mild and then when she woke up she was still having some pain and then subsequently went about doing her usual stuff around the house and then developed sudden-onset severe right lower back pain and came to the hospital. She said the pain was severe enough that she was not able to breathe. She has a any movement and deep breathing will cause of pain. She subsequently workup EKG shows normal sinus rhythm with repolarization abnormality although EKGs better than in the past. She has not hypertensive. Her BNP was in the baseline range of the mid 500 range and troponin were mildly elevated 100 range. However they were flat. Cardiology consult was sought for elevated troponins. Patient has had no chest pain or interscapular pain. She still has a little shortness of breath but she says this is because of her not able to take a deep breath because of the pain. She has never had pain like this in the past. She underwent a workup which was negative for acute pulmonary embolism or thoracic dissection any intra-abdominal pathology. Review of Systems 2 Constitutional: Constitutional: Reports no additional constitutional complaints Eyes: Eyes: Reports no additional eye complaints Cardiovascular: Cardiovascular: Denies chest pain, Denies syncope, Denies leg edema, Denies lightheadedness, Denies Loss of Consciousness, Denies palpitations and Reports dyspnea Respiratory: Respiratory: Reports no additional respiratory complaints and Reports dyspnea Gastrointestinal: Gastrointestinal: Reports no additional gastrointestinal complaints Musculoskeletal: Musculoskeletal: Reports other (Right lower discomfort) Neurologic: Reports system reviewed and no additional complaints, except as documented and Denies syncope Endocrine: Endocrine: Denies palpitations Allergic/Immunologic: Allergic/Immunologic: Reports no additional allergic/immunologic complaints [facility] Past Medical History Medical History (Updated 02/20/24 @ 11:27 by Danielito Alexander MD) Essential hypertension (HFpEF) heart failure with preserved ejection fraction Dyspnea on exertion Refusal of blood transfusions as patient is Yarsanism HTN (hypertension) Diastolic dysfunction Apical variant hypertrophic cardiomyopathy MITCHELL (obstructive sleep apnea) Obesity (BMI 35.0-39.9 without comorbidity) Sacroiliitis Spondylosis of lumbar region without myelopathy or radiculopathy Cardiomyopathy Asthma Pain management Anxiety, generalized Depression, major, recurrent Chronic GERD Environmental allergies Noncompliance Hypertension, essential NSTEMI (non-ST elevated myocardial infarction) Heart murmur 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) Family History Family History Mother Uterine cancer Other Substance use disorder Surgical History Surgical History Hx of cardiac catheterization Hx of colonoscopy History of tubal ligation History of endometrial ablation History of hysterectomy for benign disease Social History Social History Housing: House Alcohol intake: current Alcohol intake frequency: 0-2 drinks per day Alcohol type: hard liquor Patient Tobacco Use Status: Former Tobacco user Quit Date: 2007 Tobacco use type: Cigarette e-Cigarette/Vaping Use: Never Used Second Hand Smoke Exposure: No service: No Current occupational status: employed Cognitive needs: No Hearing needs: No Vision needs: Yes Meds Allergies Allergy/AdvReac Type Severity Reaction Status Date / Time cat dander [CATS] Allergy Severe DIFFICULTY Verified 02/19/24 16:31 BREATHING dog dander [DOGS] Allergy Severe DIFFICULTY Verified 02/19/24 16:31 BREATHING latex [Latex] Allergy Severe ANAPHYLAXIS Verified 02/19/24 16:31 penicillin G [PENICILLIN G] AdvReac Unknown PT STATES Verified 02/19/24 16:31 IT JUST DOESN'T WORK FOR HER Environmental Allergy Unknown allergy Uncoded 02/19/24 16:27 symptoms Active Medications: Current Medications Acetaminophen (Acetaminophen 325 Mg Tablet) 975 mg PO Q6H PRN PRN Reason: Pain, Mild (Pain Scale 1-3) Last Admin: 02/20/24 05:42 Dose: 975 mg Albuterol Sulfate (Albuterol Sulfate (0.042%) 1.25 Mg/3 Ml Vial.Neb) 1.25 mg INHALE QID PRN PRN Reason: for wheezing Albuterol Sulfate (Albuterol Sulfate 90 Mcg 8 Gm Inhaler) 1 puff INHALE QID PRN PRN Reason: shortness of breath or wheezing Aspirin (Aspirin Enteric Coated 81 Mg Tablet.) 81 mg PO DAILY [facility] Last Admin: 02/20/24 09:18 Dose: 81 mg Diphenhydramine HCl (Diphenhydramine Hcl 25 Mg Capsule) 25 mg PO DAILY [facility] Empagliflozin (Empagliflozin 10 Mg Tablet) 10 mg PO DAILY [facility] Last Admin: 02/20/24 09:18 Dose: 10 mg Ferrous Sulfate (Ferrous Sulfate 324 Mg Tablet.) 324 mg PO BID [facility] Last Admin: 02/20/24 09:18 Dose: 324 mg Fluticasone/Vilanterol (Fluticasone/Vilanterol 200/25 Blst.W.Dev) 1 puff INHALE DAILY [facility] Last Admin: 02/20/24 08:33 Dose: Not Given Furosemide (Furosemide 20 Mg Tablet) 20 mg PO DAILY [facility]; Protocol Labetalol HCl (Labetalol Hcl 100 Mg Tablet) 100 mg PO BID [facility]; Protocol Last Admin: 02/20/24 01:15 Dose: 100 mg Loratadine (Loratadine 10 Mg Tablet) 10 mg PO DAILY [facility] Montelukast Sodium (Montelukast Sodium 10 Mg Tablet) 10 mg PO DAILY [facility] Last Admin: 02/20/24 09:18 Dose: 10 mg Oxycodone HCl (Oxycodone Hcl Immed Release 5 Mg Tablet) 10 mg PO Q8H PRN PRN Reason: Pain, Severe (Pain Scale 7-10) Last Admin: 02/20/24 05:39 Dose: 10 mg Quetiapine Fumarate (Quetiapine Fumarate 100 Mg Tablet) 100 mg PO BEDTIME [facility] Last Admin: 02/20/24 01:15 Dose: 100 mg Sertraline HCl (Sertraline Hcl 100 Mg Tablet) 200 mg PO DAILY [facility] Last Admin: 02/20/24 09:18 Dose: 200 mg Sodium Chloride (0.9 % Sodium Chloride Flush 3 Ml Syringe) 3 ml IVFLUSH QSHIFT [facility] Last Admin: 02/20/24 09:16 Dose: 3 ml Verapamil HCl (Verapamil Hcl Sr 240 Mg Tablet.Er) 240 mg PO DAILY [facility]; Protocol Last Admin: 02/20/24 09:18 Dose: 240 mg Home Medications ?Medication ?Instructions ?Recorded ?Confirmed ?Last Taken ?Type diphenhydramine HCl 25 mg tablet 25 mg PO DAILY 02/20/24 02/20/24 02/19/24 History (Benadryl Allergy) empagliflozin 10 mg tablet 10 mg PO DAILY 02/20/24 02/20/24 02/19/24 History (Jardiance) ferrous sulfate 324 mg (65 mg 324 mg PO BID 02/20/24 02/20/24 02/19/24 History iron) tablet,delayed release fluticasone 500 mcg-salmeterol 50 1 ea inhalation BID 02/20/24 02/20/24 02/19/24 History mcg/dose blistr powdr for inhalation (Wixela Inhub) guselkumab 100 mg/mL subcutaneous 100 mg subcut Q8W 02/20/24 02/20/24 Unknown History auto-injector (Tremfya) montelukast 10 mg tablet 10 mg PO BEDTIME 02/20/24 02/20/24 Unknown History oxycodone 10 mg tablet 10 mg PO Q8H PRN pain 02/20/24 02/20/24 02/19/24 History sertraline 100 mg tablet 200 mg PO DAILY 02/20/24 02/20/24 02/19/24 History verapamil 240 mg 24 hr 240 mg PO DAILY 02/20/24 02/20/24 02/19/24 History capsule,extended release Physical Exam 2 Vital Signs: Vital Signs: Last Vital Signs Temp 97.3 F 02/20/24 07:19 Pulse 71 02/20/24 07:19 Resp 16 02/20/24 07:19 BP 126/58 L 02/20/24 07:19 Pulse Ox 90 L 02/20/24 07:19 O2 Del Method Nasal Cannula 02/20/24 07:19 O2 Flow Rate 1 02/20/24 07:19 BMI result Body Mass Index 35.5 Const: General: cooperative, comfortable, no acute distress, alert and awake Nutritional Appearance: obese Orientation/consciousness: patient oriented x3 HEENT: Head: Yes normocephalic and Yes atraumatic Neck: Neck: Yes trachea midline, Yes supple and Yes no JVD Resp: Effort & Inspection: decreased respiratory effort Auscultation: clear to auscultation bilaterally and diminished lung sounds Cardio: Jugular venous distension: no JVD Rate: regular rate Rhythm: r egular rhythm Heart sounds: S1 normal heart sound present, S2 normal heart sound present, no click, no gallops and no murmurs GI: Auscultation: normal bowel sounds Skin: General skin exam: no rashes or lesions noted Neuro: General: patient oriented x3 and no focal motor deficits Extrem: General: Yes no clubbing, cyanosis or edema Objective Labs and Meds 02/20/24 05:48 02/20/24 05:48 Lab results: Laboratory Results - last 24 hr 02/19/24 02/19/24 02/19/24 16:40 18:42 19:47 WBC 11.8 H RBC 4.82 Hgb 14.0 Hct 43.5 MCV 90.2 MCH 29.0 MCHC 32.2 RDW 14.6 Plt Count 276 MPV 10.0 Immature Gran % (Auto) 0.3 Neut % (Auto) 68.1 Lymph % (Auto) 19.4 L Piatt % (Auto) 9.6 Eos % (Auto) 2.2 Baso % (Auto) 0.4 Lymph # (Auto) 2.3 Piatt # (Auto) 1.1 Eos # (Auto) 0.3 Baso # (Auto) 0.1 Abs Immat Gran (auto) 0.04 H Absolute Neuts (auto) 8.0 Absolute Nucleated RBC 0.000 Nucleated RBC % (auto) 0.0 PT 11.5 INR 0.9 D-Dimer High Sensitivty 200 Sodium 139 Potassium 4.4 Chloride 104 Carbon Dioxide 27 Anion Gap 12 BUN 15 Creatinine 0.85 Estim Creat Clear Calc 79.1 Estimated GFR > 60 Random Glucose 95 Estimat Average Glucose Hemoglobin A1c % Calcium 11.3 H Magnesium 2.1 Total Bilirubin 0.4 AST 20 ALT 17 Alkaline Phosphatase 110 Troponin I High Sens 125.7 H* 124.5 H* B-Natriuretic Peptide 512 H Total Protein 8.5 H Albumin 4.2 Triglycerides Cholesterol LDL Cholesterol, Calc HDL Cholesterol Lipase 11 Urine Color Yellow Urine Appearance Clear Urine pH 5.5 Ur Specific Robbins >= 1.030 H Urine Protein Negative Urine Glucose (UA) >=1000 H Urine Ketones Negative Urine Blood Negative Urine Nitrite Negative Ur Leukocyte Esterase Negative Urine RBC 0-2 Urine WBC 0-5 Ur Squamous Epith Cells 11-20 Urine Bacteria Trace Hyaline Casts 0-2 02/20/24 05:48 WBC 10.5 RBC 4.15 L Hgb 12.1 Hct 38.7 MCV 93.3 MCH 29.2 MCHC 31.3 RDW 14.6 Plt Count 224 MPV 10.2 Immature Gran % (Auto) 0.4 Neut % (Auto) 69.9 Lymph % (Auto) 16.7 L Piatt % (Auto) 10.8 Eos % (Auto) 1.7 Baso % (Auto) 0.5 Lymph # (Auto) 1.8 Piatt # (Auto) 1.1 Eos # (Auto) 0.2 Baso # (Auto) 0.1 Abs Immat Gran (auto) 0.04 H Absolute Neuts (auto) 7.3 Absolute Nucleated RBC 0.000 Nucleated RBC % (auto) 0.0 PT INR D-Dimer High Sensitivty Sodium 137 Potassium 4.3 Chloride 103 Carbon Dioxide 27 Anion Gap 11 L BUN 17 H Creatinine 0.83 Estim Creat Clear Calc 81.0 Estimated GFR > 60 Random Glucose 91 Estimat Average Glucose 123 Hemoglobin A1c % 5.9 Calcium 10.4 H D Magnesium Total Bilirubin AST ALT Alkaline Phosphatase Troponin I High Sens 115.2 H* B-Natriuretic Peptide Total Protein Albumin Triglycerides 56 Cholesterol 198 LDL Cholesterol, Calc 121 H HDL Cholesterol 66 Lipase Urine Color Urine Appearance Urine pH Ur Specific Robbins Urine Protein Urine Glucose (UA) Urine Ketones Urine Blood Urine Nitrite Ur Leukocyte Esterase Urine RBC Urine WBC Ur Squamous Epith Cells Urine Bacteria Hyaline Casts Imaging Radiologist's impression: Impressions Chest X-Ray 02/19/24 16:40 IMPRESSION: Mildly hypoexpanded lungs. No evidence of changes of overt pulmonary edema. No radiographic evidence of pneumonia. Likely mild pulmonary venous congestion. Abdomen/Pelvis CTA 02/19/24 18:43 IMPRESSION: 1. No acute pulmonary embolus up to the proximal segmental. 2. Hepatomegaly. 3. No acute abdominal or pelvic pathology. Fleischner guidelines were followed. Chest CTA 02/19/24 18:43 IMPRESSION: 1. No acute pulmonary embolus up to the proximal segmental. 2. Hepatomegaly. 3. No acute abdominal or pelvic pathology. Fleischner guidelines were followed. Lumbar Spine X-Ray 02/20/24 09:42 IMPRESSION: 1. No acute compression deformity or subluxation. 2. Severe degenerative changes at L5-S1 leading to neural foraminal encroachment. Assessment and Plan (1) Elevated troponin: Status: Acute Elevated but flat troponin this middle-aged woman with known history of apical hypertrophic cardiomyopathy and heart failure preserved ejection fraction with acute pain. This is most likely a reaction to acute pain with catecholamine surge rather than an acute myocardial infarction. Likelihood of acute coronary syndrome is low. Her EKG actually looks better and she does not have any clear ischemic sounding discomfort. Her right lower back pain appears to be more musculoskeletal or muscular spasm. There is no obvious intra-abdominal pathology noted on CT scan with no evidence of aortic dissection and/or pulmonary embolism. Will pursue outpatient ischemic workup (2) Hypoxia: Status: Acute Hypoxia which appears to be due to reduce his ventilatory effort related to the pain. She says she is still getting pain when she takes a deep breath. She is most suggestive of musculoskeletal pain. There is no evidence of pulmonary embolism. Clinically BNP is high although does not appear to be in significant overt heart failure. Can give IV Lasix today. Strict intake and output chart needs to be pursued. Continue other medical therapy for hypertension as before. Continue supportive care. Incentive spirometry. Pain control. Will sign of the case. Please consult us if any significant issues Procedures Date of Service Date of Service: 02/20/24
[2024-02-20 12:46] LABS: Reflex LDLD? No
[2024-02-20] MEDS: Cyclobenzaprine HCl 5 MG TABLET PO ×2 (13:47→21:20)
[2024-02-21] VITALS: BP 142/62; PULSE 63; RESP 18; TEMP 36.2; O2SAT 90
--- NOTE | 2024-02-21 | ECG_ITS ---
Test Reason : elevated troponin Blood Pressure : / mmHG Vent. Rate : 063 BPM Atrial Rate : 063 BPM P-R Int : 194 ms QRS Dur : 104 ms QT Int : 436 ms P-R-T Axes : 070 054 225 degrees QTc Int : 446 ms Normal sinus rhythm Moderate voltage criteria for LVH, may be normal variant ( Sokolow-Bains , Hamer product ) ST & T wave abnormality, consider inferolateral ischemia Abnormal ECG When compared with ECG of 19-FEB-2024 17:01, T wave inversion now evident in Lateral leads Referred By: Blayne Morales Electronically Signed By:Rodolfo Pierre
--- NOTE | 2024-02-21 00:23 | PC.NURSE ---
Assumed care of patient at 19:00. Pt is A&Ox4. Pt was on 1L nc on assuming care of patient. Weaned to RA with spo2 maintaining 94-95%. Pt denies sob and breathing has been even and unlabored without distress. On second set of vitals this shift pt was woken up and spo2 noted 90% on RA, assessment unchanged from previous, pt asymptomatic. Covering Dr. Ryan Douglas notified, written order for okay 90% spo2, no need for 1L nc at this time to prevent potential co2 retention and per chart review pt has MITCHELL though has documented non-compliance with cpap. Per discussion with pt, pt stated I couldn't tolerate the mask . Patient resting in bed without any distress. Will continue to monitor for remainder of com writer's shift.
[2024-02-21 04:00] VITALS: BP 146/65; PULSE 72; RESP 18; TEMP 36.2; O2SAT 93
--- NOTE | 2024-02-21 05:25 | PC.NURSE ---
Pt discontinued her new IV in her sleep per her report; IV found intact on pt's table. Pt is refusing further IV insertion attempts. Covering Dr. Ryan Douglas notified.
[2024-02-21 07:23] VITALS: BP 132/72; PULSE 73; RESP 18; TEMP 36; O2SAT 95
[2024-02-21] MEDS: diphenhydrAMINE HCL 25 MG CAPSULE PO (07:29)
[2024-02-21] MEDS: Sertraline HCL 100 MG TABLET 200 MG PO (07:30)
[2024-02-21] MEDS: Loratadine 10 MG TABLET PO (07:30)
[2024-02-21] MEDS: Aspirin Enteric Coated 81 MG TABLET.DR PO (07:30)
[2024-02-21] MEDS: Montelukast Sodium 10 MG TABLET PO (07:30)
[2024-02-21] MEDS: oxyCODONE HCl Immed Release 5 MG TABLET 10 MG PO (07:30)
[2024-02-21] MEDS: Ferrous Sulfate 324 MG TABLET.DR PO (07:30)
[2024-02-21] MEDS: Empagliflozin 10 MG TABLET PO (07:30)
[2024-02-21] MEDS: Labetalol HCL 100 MG TABLET PO (07:30)
[2024-02-21] MEDS: VerapamiL HCL SR 240 MG TABLET.ER PO (07:31)
[2024-02-21] MEDS: Furosemide 20 MG TABLET PO (07:31)
--- NOTE | 2024-02-21 08:24 | PM.DS ---
DS: Providers Provider Date of Service: 02/21/24 Date of admission: 02/19/24 22:41 Primary care physician: Kai Saha MD Consults: 02/20/24 04:07 Consult to Cardiology Routine Consulting Provider: [facility] [facility] Reason for consultation: Elevated troponin Has provider been notified: Yes DS: Diagnosis Discharge Diagnosis (1) Elevated troponin: Status: Acute (2) Hypoxia: Status: Acute DS: Summary Hospital Course Hospital Course: admission hpi Chief Complaint: Lower back pain Lisa Gill is a very pleasant 58 years old woman with past medical history significant for HFpEF, hypertrophic cardiomyopathy, essential hypertension, GERD, obstructive sleep apnea and asthma presents to the emergency department complaining of severe mid low back pain that started last night. She was unable to sleep well however, the pain subsided during the day. Tonight, she started to experience severe 10/10 mid back pain again that increases with inspiration. She described the pain as sharp and sudden. At some point the back pain radiated to her chest. It does not radiate to the lower extremities. She denied associated shortness on breath, cough, fever, chills, dizziness or palpitation. She denied any acute gastrointestinal or genitourinary symptoms. She takes oxycodone at home for chronic pain. She denied alcohol abuse, illicit drugs use or tobacco smoking In the ED, she was found to have tachypnea and hypertension but this resolved about 2 hours after receiving pain medications. Her blood workup is remarkable for elevated troponin x2 (125.7--> 124.5), BNP is 512 which is slightly increased from prior. There is slight elevation of WBC count. There are no significant electrolyte imbalances. UA showed no findings of UTI. She underwent chest, abdomen and pelvic CTA that showed no pulmonary embolism of to the proximal segmental, hepatomegaly and no acute abdominal abnormalities. There is no aortic aneurysm or dissection. ECG showed normal sinus rhythm with a heart rate of 61 beats per minutes, LVH changes without acute ischemic changes. CXR is negative. ED tx: Morphine 4 mg IV, Zofran 4 mg IV, aspirin 325 mg p.o., Dilaudid 1 g IV. While interviewing the patient she started to complain of severe mid back pain. Hospital course: Patient presented with back pain, with a history of arthritis. The pain was localized to the lower back without radiation, and there were no associated weakness or numbness in the limbs, nor was there any fever reported. The patient denied any trauma. Initial workup revealed an incidental elevation in troponin I levels of 124 and went down to 115, no chest pain or significant ECG changes. Further investigations included a CT angiography (CTA) of the chest, which showed no pulmonary embolism (PE), and a CTA of the abdomen, which revealed no acute findings. A lumbar spine X-ray demonstrated severe degenerative disease at the L5-S1 level, likely responsible for the patient's pain. Pain management was approached conservatively with analgesics, muscle relaxants, and advice to avoid overuse of the back. Regarding the elevated troponin levels, the patient was evaluated by cardiology and was not deemed to be experiencing acute acute coronary syndrome (ACS). Additionally, mild hypoxia was noted, prompting a PE study, which yielded negative results. The low oxygen levels were likely related to the pain, and the patient was provided with incentive spirometry to aid in breathing exercises. Presently, the oxygen saturation is at 95% on room air, and the patient is encouraged to continue using the incentive spirometry. Time Attestation Discharge Coordination Time (in mins): 35 Quality: Safe Use of Opioids Does Pt have an Active Cancer Diagnosis on the Problem List?: No Quality: Stroke Does the patient have a stroke diagnosis?: No Physical Exam Vital Signs: Vital Signs: Last Vital Signs Temp 96.8 F 02/21/24 07:23 Pulse 73 02/21/24 07:23 Resp 18 02/21/24 07:23 BP 132/72 02/21/24 07:23 Pulse Ox 95 02/21/24 07:23 O2 Del Method Room Air 02/21/24 07:23 O2 Flow Rate 1 02/20/24 19:35 BMI result Body Mass Index 35.5 General: AO X 3, no acute distress Resp: CTA bilateral CVS: S1,S2,RRR GI: +BS, NT, no distention Skin: No rash Neuro: motor grossly intact Psych: appropriate affect DS: Data Data Completed and Pending Labs on day of discharge: Laboratory Results - last 24 hr 02/20/24 05:48 Sodium 137 Potassium 4.3 Chloride 103 Carbon Dioxide 27 Anion Gap 11 L BUN 17 H Creatinine 0.83 Estim Creat Clear Calc 81.0 Estimated GFR > 60 Random Glucose 91 Estimat Average Glucose 123 Hemoglobin A1c % 5.9 Calcium 10.4 H D Triglycerides 56 Cholesterol 198 LDL Cholesterol, Calc 121 H HDL Cholesterol 66 Discharge Plan Discharge Anticipated Discharge Date/Time: 02/21/24 08:25 Patient Disposition: Home, Self-Care Discharge Diagnosis: Back pain, elevated troponin I Referrals: Kai Saha MD [Primary Care Provider] - 1 Week Discharge Medications: New cyclobenzaprine 5 mg Tablet 5 mg PO TID PRN (Reason: spasm) Qty: 10 0RF Continued (DME) Bp monitor Medium See Rx Instructions .Route .MEDSUPPLY Qty: 1 0RF Rx Instructions: As directed (DME) blood pressure test kit-large [Quick Response BP Monitor-Larg] Kit See Rx Instructions .Route Qty: 1 0RF Rx Instructions: As directed cetirizine [All Day Allergy (cetirizine)] 10 mg tablet 10 mg PO DAILY Qty: 90 3RF albuterol sulfate 0.63 mg/3 mL solution for nebulization 0.63 mg inhalation QID PRN (Reason: for wheezing) Qty: 75 0RF labetalol 100 mg tablet 100 mg PO BID Qty: 60 7RF betamethasone dipropionate 0.05 % cream 1 appl topical DAILY PRN (Reason: Itching) 30 Days Qty: 90 2RF quetiapine 100 mg tablet 100 mg PO BEDTIME 90 Days Qty: 90 0RF Rx Instructions: Further refills will need office visit fluticasone propion-salmeterol [Wixela Inhub] 500-50 mcg/dose blister with device 1 ea INHALATION BID ferrous sulfate 324 mg (65 mg iron) tablet,delayed release (DR/EC) 324 mg PO BID Jardiance 10 mg tablet 10 mg PO DAILY montelukast 10 mg tablet 10 mg PO BEDTIME oxycodone 10 mg tablet 10 mg PO Q8H PRN (Reason: pain) sertraline 100 mg tablet 200 mg PO DAILY Tremfya 100 mg/mL auto-injector 100 mg subcut Q8W verapamil 240 mg capsule,ext rel. pellets 24 hr 240 mg PO DAILY diphenhydramine HCl [Benadryl Allergy] 25 mg Tablet 25 mg PO DAILY (DME) Updraft machine See Rx Instructions .Route .MEDSUPPLY Qty: 1 0RF Rx Instructions: As directed albuterol sulfate [ProAir HFA] 90 mcg/actuation HFA aerosol inhaler 1 inh inhalation QID PRN (Reason: shortness of breath or wheezing) 90 Days Qty: 3 3RF furosemide [Lasix] 20 mg tablet 20 mg PO DAILY Qty: 40 5RF Discharge Orders: Discharge Order (Routine); Ordered 02/21/24 Ordered By: Blayne Morales Diet: Advance to usual diet Activity on Discharge: As tolerated Stand Alone Forms: Patient Portal Discharge page Print Language: Nauruan Care Plan Goals: recovery from back pain and return to normal functioning Health Concerns: Back pain, elevated troponin Plan of Treatment: take oxycodone for pain, and cyclobenzaprine for muscle spasm avoid heavy lifting use incentive spirometry as directed follow up with your Doc[facility] in a week, call for appointment Assessment: see above
[2024-02-21] MEDS: Fluticasone/Vilanterol 200/25 BLST.W.DEV 1 PUFF INHALE (08:27)
[2024-02-21 08:31] VITALS: PULSE 72; RESP 18; O2SAT 93
--- NOTE | 2024-02-21 09:14 | MHC.CM.PN ---
EMR reviewed. Patient is medically cleared for dc home self care. Patient's sister will provide transportation ~9:30am. RN aware.
== END 2024-02-21 10:19 | disposition home or self-care (01) | DRG 552 ==
LOC: HO.ED 17:07 → HO.EDOVER 22:46 → HO.S3 02-20 03:38
PROVIDERS: Physician Assistant; Admitting Provider Internal Medicine; Emergency Provider Emergency Medicine Emergency Medical Services; PCP Internal Medicine; Visit Provider Internal Medicine
DX: M51.37 Other intervertebral disc degeneration, lumbosacral region (principal); I42.2 Other hypertrophic cardiomyopathy; I50.32 Chronic diastolic (congestive) heart failure; G47.33 Obstructive sleep apnea (adult) (pediatric); E66.01 Morbid (severe) obesity due to excess calories; Z68.36 Body mass index [BMI] 36.0-36.9, adult; I11.0 Hypertensive heart disease with heart failure; J45.40 Moderate persistent asthma, uncomplicated; Z79.51 Long term (current) use of inhaled steroids; Z79.899 Other long term (current) drug therapy
CPT/HCPCS: 36415; 71045; 71275; 72100; 74174; 80048; 80053; 80061; 81001; 83036; 83690; 83735; 83880; 84484; 85025; 85379; 85610; 93005; 94640; 99221; 99285; J1170; J2270; J2405; Q9967

== ENCOUNTER → 2024-02-19 22:41 | Outpatient (BNV) | payer OTHER, SELFPAY | PROVIDERS: Admitting Provider Internal Medicine; Emergency Provider Emergency Medicine Emergency Medical Services; PCP Internal Medicine; Visit Provider Internal Medicine Cardiovascular Disease | DX: R79.89 Other specified abnormal findings of blood chemistry (principal); R09.02 Hypoxemia; R94.31 Abnormal electrocardiogram [ECG] [EKG] | CPT/HCPCS: 93010; 99222 ==

== ENCOUNTER → 2024-02-19 22:41 | Outpatient (BNV) | payer OTHER, SELFPAY | PROVIDERS: Admitting Provider Internal Medicine; Emergency Provider Emergency Medicine Emergency Medical Services; PCP Internal Medicine; Visit Provider Internal Medicine | DX: R79.89 Other specified abnormal findings of blood chemistry (principal); R09.02 Hypoxemia | CPT/HCPCS: 99223; 99239; 99499 ==

== ENCOUNTER 2024-02-20 13:37 | Outpatient (BNV) | payer OTHER, SELFPAY | END 2024-02-21 08:08 | PROVIDERS: Admitting Provider Internal Medicine; Emergency Provider Emergency Medicine Emergency Medical Services; PCP Internal Medicine; Visit Provider Internal Medicine Cardiovascular Disease | DX: R94.31 Abnormal electrocardiogram [ECG] [EKG] (principal) | CPT/HCPCS: 93010 ==

== ENCOUNTER 2024-02-25 13:12 | Outpatient (AMB) | payer OTHER, SELFPAY ==
[2024-02-25 13:14] VITALS: BP 116/78; PULSE 67; O2SAT 98; BMI 36.1
--- NOTE | 2024-02-25 13:14 | MHC.PC.OV ---
Vital Signs 02/25/24 13:14 Height 5 ft 4 in Weight 210 lb 6 oz BMI 36.1 BP 116/78 Blood Pressure Location Lt brachial Position Sitting Pulse 67 Pulse Source Pulse Oximeter Pulse Oximetry (%) 98 Oxygen Delivery Method Room Air Intake Visit Reasons: ED F/u Allergies cat dander [CATS] Allergy (Severe, Verified 02/25/24 13:16) DIFFICULTY BREATHING dog dander [DOGS] Allergy (Severe, Verified 02/25/24 13:16) DIFFICULTY BREATHING latex [Latex] Allergy (Severe, Verified 02/25/24 13:16) ANAPHYLAXIS penicillin G [PENICILLIN G] Adverse Reaction (Unknown, Verified 02/25/24 13:16) PT STATES IT JUST DOESN'T WORK FOR HER Environmental Allergy (Unknown, Uncoded 02/25/24 13:16) allergy symptoms Medication List - Last Reconciled 02/25/24 by Kai Saha MD albuterol sulfate 90 mcg/actuation (ProAir HFA) 1 inh inhalation QID PRN 90 days albuterol sulfate 0.63 mg (3 mL) inhalation QID PRN betamethasone dipropionate 0.05% 1 appl topical DAILY PRN 30 days blood pressure test kit-large (Quick Response BP Monitor-Large Cuff kit) As directed [Bp monitor As directed] cetirizine (All Day Allergy (cetirizine)) 10 mg PO DAILY cyclobenzaprine 5 mg PO TID PRN diphenhydramine HCl (Benadryl Allergy) 25 mg PO DAILY empagliflozin (Jardiance) 10 mg PO DAILY ferrous sulfate 324 mg PO BID fluticasone propion-salmeterol 500-50 mcg/dose (Wixela Inhub) 1 ea inhalation BID furosemide (Lasix) 20 mg PO DAILY guselkumab (Tremfya) 100 mg subcut Q8W labetalol 100 mg PO BID montelukast 10 mg PO BEDTIME oxycodone 10 mg PO Q8H PRN quetiapine 100 mg PO BEDTIME 90 days sertraline 200 mg (2 x 100 mg) PO DAILY [Updraft machine As directed] verapamil ER 240 mg PO DAILY Tobacco use date assessed: 02/25/24 Dental Screening Dental Screen Date: 02/25/24 Did you have a dental visit in the last 12 months?: Yes Did you have a dental problem in the last 6 months where you did not have access to dental care?: No Was dental information given to patient?: Patient has dentist HPI ED F/u HPI Details Patient is a 58 year female came in today for follow-up after visiting emergency room 02/19/2024 [facility]. Patient have a history of hypertrophic cardiomyopathy, heart failure with preserved ejection fraction, hypertension Asthma, obstructive sleep apnea Presented for evaluation of mid back pain right-sided, associated with shortness a breath 10 x 10 intensity EKG showed T-wave inversions in inferior leads With elevated troponin of 125.7 and 124.5 with BNP of 512 Patient was given morphine and CT angio of chest and abdomen was ordered which showed no pulmonary embolism, no aortic aneurysm or dissection. Chest x-ray was negative Patient was admitted and she stayed in hospital for 2 days She was evaluated by Cardiology and was not deemed to be experiencing acute coronary syndrome. After evaluation patient was discharged with a script of cyclobenzaprine as muscle relaxer for back pain Patient says that she was organizing her home, and the pain was bothering her 2 days before it got worse the day she presented to emergency room Cyclobenzaprine is helping her she is feeling much better she is still having some discomfort with movement Pain is located more lower parathoracic area COUNTS INCLUDE 234 BEDS AT THE [facility] Medical History Essential hypertension (HFpEF) heart failure with preserved ejection fraction Dyspnea on exertion Refusal of blood transfusions as patient is Judaism HTN (hypertension) Diastolic dysfunction Apical variant hypertrophic cardiomyopathy MITCHELL (obstructive sleep apnea) Obesity (BMI 35.0-39.9 without comorbidity) Sacroiliitis Spondylosis of lumbar region without myelopathy or radiculopathy Cardiomyopathy Asthma Pain management Anxiety, generalized Depression, major, recurrent Chronic GERD Environmental allergies Noncompliance Hypertension, essential NSTEMI (non-ST elevated myocardial infarction) Heart murmur 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) Surgical History Hx of cardiac catheterization Hx of colonoscopy History of tubal ligation History of endometrial ablation History of hysterectomy for benign disease Family History Mother Uterine cancer Other Substance use disorder Social History Housing: House Alcohol intake: current Alcohol intake frequency: 0-2 drinks per day Alcohol type: hard liquor Patient Tobacco Use Status: Former Tobacco user Quit Date: 2007 Tobacco use type: Cigarette e-Cigarette/Vaping Use: Never Used Second Hand Smoke Exposure: No service: No Current occupational status: employed Cognitive needs: No Hearing needs: No Vision needs: Yes Female Reproductive History Menstrual Age of Menarche: 14 Questionnaire Thrive Questionnaire Date Thrive assessed: 02/20/24 FIDELIA-7 AMB Questionnaire FIDELIA-7 Date FIDELIA - 7 assessed: 06/18/23 Source: Developed by Drs. Albin Fitch, Kate Fink, Yosi Bar and colleagues, with an educational isaak from [employer]. Review of Systems Const Denies chills and Denies fever(s) ENT Denies epistaxis and Denies nasal discharge Card Denies chest pain Resp Denies chest congestion, Denies cough and Denies hemoptysis GI Denies diarrhea and Denies nausea Skin/Breast Denies rash Neuro Reports no additional complaints Psych Reports no additional complaints Endo Reports no additional complaints Physical exam (Primary Care) Vital Signs: Last Vital Signs Pulse 67 02/25/24 13:14 BP 116/78 02/25/24 13:14 Pulse Ox 98 02/25/24 13:14 Oxygen Delivery Method Room Air 02/25/24 13:14 BMI result Body Mass Index 36.1 Tobacco/Smoking Status: Tobacco use Status Tobacco use date assessed 02/25/24 02/25/24 13:18 Patient Tobacco Use Status Former Tobacco user 02/25/24 13:18 Tobacco use type Cigarette 02/25/24 13:18 e-Cigarette/Vaping Use Never Used 02/25/24 13:18 Thrive Assessment: Date of Thrive Assessment Date Thrive assessed 02/20/24 02/25/24 13:18 Const General: cooperative, comfortable and no acute distress Orientation/consciousness: patient oriented x3 HENMT Head: Yes normocephalic Eyes General: appearance normal, both eyes and all related structures Neck Neck: Yes supple Resp Effort & Inspection: normal respiratory effort, no cough and no stridor Cardio Rhythm: regular rhythm Heart sounds: S1 normal heart sound present and S2 normal heart sound present Back/Spine/Pelvis Back/spine/pelvis image: 1. Site of pain Skin General skin exam: turgor normal Neuro General: patient oriented x3, tone normal and moves all extremities Extrem Right lower extremity: no edema Left lower extremity: no edema Assessment and Plan Assessment & Plan (1) Hospital discharge follow-up: Code(s): Z09 - Encounter for follow-up examination after completed treatment for conditions other than malignant neoplasm (2) Acute back pain: Code(s): M54.9 - Dorsalgia, unspecified Qualifiers: Back pain location: thoracic back pain Back pain laterality: bilateral Qualified Code(s): M54.6 - Pain in thoracic spine (3) Elevated troponin: Code(s): R79.89 - Other specified abnormal findings of blood chemistry Plan Patient is a 58 year female came in today for follow-up after visiting emergency room 02/19/2024 [facility]. Patient have a history of hypertrophic cardiomyopathy, heart failure with preserved ejection fraction, hypertension Asthma, obstructive sleep apnea Presented for evaluation of mid back pain right-sided, associated with shortness a breath 10 x 10 intensity EKG showed T-wave inversions in inferior leads With elevated troponin of 125.7 and 124.5 with BNP of 512 Patient was given morphine and CT angio of chest and abdomen was ordered which showed no pulmonary embolism, no aortic aneurysm or dissection. Chest x-ray was negative Patient was admitted and she stayed in hospital for 2 days She was evaluated by Cardiology and was not deemed to be experiencing acute coronary syndrome. After evaluation patient was discharged with a script of cyclobenzaprine as muscle relaxer for back pain Patient says that she was organizing her home, and the pain was bothering her 2 days before it got worse the day she presented to emergency room Cyclobenzaprine is helping her she is feeling much better she is still having some discomfort with movement Pain is located more lower parathoracic area Coding Level of Care Code Est Pt Level 4 (24828) Diagnoses Hospital discharge follow-up Z09 Acute bilateral thoracic back pain M54.6 Back pain location: thoracic back pain Back pain laterality: bilateral Elevated troponin R79.89
== END 2024-02-25 16:36 | disposition home or self-care (01) ==
PROVIDERS: PCP Internal Medicine; Visit Provider Internal Medicine
DX: Z09 Encounter for follow-up examination after completed treatment for conditions other than malignant neoplasm (principal); M54.6 Pain in thoracic spine; R79.89 Other specified abnormal findings of blood chemistry
CPT/HCPCS: 99214

== ENCOUNTER 2024-03-24 15:31 | Outpatient (AMB) | payer OTHER, SELFPAY ==
[2024-03-24 15:35] VITALS: BP 134/72; PULSE 63; O2SAT 96; BMI 36.6
--- NOTE | 2024-03-24 15:35 | MHC.PC.OV ---
Vital Signs 03/24/24 15:35 Height 5 ft 4 in Weight 213 lb 6 oz BMI 36.6 BP 134/72 Blood Pressure Location Rt brachial Position Sitting Pulse 63 Pulse Source Pulse Oximeter Pulse Oximetry (%) 96 Oxygen Delivery Method Room Air Intake Visit Reasons: Discuss Pain Management~ Allergies cat dander [CATS] Allergy (Severe, Verified 03/24/24 15:38) DIFFICULTY BREATHING dog dander [DOGS] Allergy (Severe, Verified 03/24/24 15:38) DIFFICULTY BREATHING latex [Latex] Allergy (Severe, Verified 03/24/24 15:38) ANAPHYLAXIS penicillin G [PENICILLIN G] Adverse Reaction (Unknown, Verified 03/24/24 15:38) PT STATES IT JUST DOESN'T WORK FOR HER Environmental Allergy (Unknown, Uncoded 02/25/24 13:16) allergy symptoms Medication List - Last Reconciled 03/24/24 by Kai Saha MD albuterol sulfate 90 mcg/actuation (ProAir HFA) 1 inh inhalation QID PRN 90 days albuterol sulfate 0.63 mg (3 mL) inhalation QID PRN betamethasone dipropionate 0.05% 1 appl topical DAILY PRN 30 days blood pressure test kit-large (Quick Response BP Monitor-Large Cuff kit) As directed [Bp monitor As directed] cetirizine (All Day Allergy (cetirizine)) 10 mg PO DAILY cyclobenzaprine 5 mg PO TID 15 days diphenhydramine HCl (Benadryl Allergy) 25 mg PO DAILY empagliflozin (Jardiance) 10 mg PO DAILY ferrous sulfate 324 mg PO BID fluticasone propion-salmeterol 500-50 mcg/dose (Wixela Inhub) 1 ea inhalation BID furosemide (Lasix) 20 mg PO DAILY guselkumab (Tremfya) 100 mg subcut Q8W labetalol 100 mg PO BID montelukast 10 mg PO BEDTIME oxycodone 10 mg PO Q8H PRN quetiapine 100 mg PO BEDTIME 90 days sertraline 200 mg (2 x 100 mg) PO DAILY [Updraft machine As directed] verapamil ER 240 mg PO DAILY Tobacco use date assessed: 03/24/24 Dental Screening Dental Screen Date: 03/24/24 Did you have a dental visit in the last 12 months?: Yes Did you have a dental problem in the last 6 months where you did not have access to dental care?: No Was dental information given to patient?: Patient has dentist HPI Discuss Pain Management~ HPI Details Patient is a 58 year female who suffers psoriatic arthritis multiple joints She is taking oxycodone 10 mg 3 times a day Patient is requesting to switch it to extended release 40 mg once a day Patient says that she only takes it in the morning as it interferes with her sleep Medication switched to extended-release 40 mg. Patient is under pain contract, she is complying with the treatment plan no signs of abuse She also would like to try Wegovy injection for weight loss Patient already suffers from cardiac condition and is prediabetic with BMI of 36.6 Script sent [facility] Medical History Obesity due to excess calories Asthma, moderate Essential hypertension (HFpEF) heart failure with preserved ejection fraction Dyspnea on exertion Refusal of blood transfusions as patient is Moravian HTN (hypertension) Diastolic dysfunction Apical variant hypertrophic cardiomyopathy MITCHELL (obstructive sleep apnea) Obesity (BMI 35.0-39.9 without comorbidity) Sacroiliitis Spondylosis of lumbar region without myelopathy or radiculopathy Cardiomyopathy Asthma Pain management Anxiety, generalized Depression, major, recurrent Chronic GERD Environmental allergies Noncompliance Hypertension, essential NSTEMI (non-ST elevated myocardial infarction) Heart murmur 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) Surgical History Hx of cardiac catheterization Hx of colonoscopy History of tubal ligation History of endometrial ablation History of hysterectomy for benign disease Family History Mother Uterine cancer Other Substance use disorder Social History Housing: House Alcohol intake: current Alcohol intake frequency: 0-2 drinks per day Alcohol type: hard liquor Patient Tobacco Use Status: Former Tobacco user Quit Date: 2007 Tobacco use type: Cigarette e-Cigarette/Vaping Use: Never Used Second Hand Smoke Exposure: No service: No Current occupational status: employed Cognitive needs: No Hearing needs: No Vision needs: Yes Female Reproductive History Menstrual Age of Menarche: 14 Questionnaire Thrive Questionnaire Date Thrive assessed: 02/20/24 AUDIT C Alcohol Use Questionnaire (AUDIT-C) 1. How often do you have a drink containing alcohol?: Never 3. How often do you have six or more drinks on one occasion?: Never Total Score: 0 Score Reviewed/Action Taken: Yes FIDELIA-7 AMB Questionnaire FIDELIA-7 Date FIDELIA - 7 assessed: 06/18/23 Source: Developed by Drs. Albin Fitch, Kate Fink, Yosi Bar and colleagues, with an educational isaak from [employer]. Review of Systems Const Denies chills and Denies fever(s) ENT Denies epistaxis and Denies nasal discharge Card Denies chest pain Resp Denies chest congestion, Denies cough and Denies hemoptysis GI Denies diarrhea and Denies nausea Skin/Breast Denies rash Neuro Reports no additional complaints Psych Reports no additional complaints Endo Reports no additional complaints Physical exam (Primary Care) Vital Signs: Last Vital Signs Pulse 63 03/24/24 15:35 BP 134/72 03/24/24 15:35 Pulse Ox 96 03/24/24 15:35 Oxygen Delivery Method Room Air 03/24/24 15:35 BMI result Body Mass Index 36.6 Tobacco/Smoking Status: Tobacco use Status Tobacco use date assessed 03/24/24 03/24/24 15:40 Patient Tobacco Use Status Former Tobacco user 03/24/24 15:40 Tobacco use type Cigarette 03/24/24 15:40 e-Cigarette/Vaping Use Never Used 03/24/24 15:40 Thrive Assessment: Date of Thrive Assessment Date Thrive assessed 02/20/24 03/24/24 15:40 Const General: cooperative, comfortable and no acute distress Orientation/consciousness: patient oriented x3 HENMT Head: Yes normocephalic Eyes General: appearance normal, both eyes and all related structures Neck Neck: Yes supple Resp Effort & Inspection: normal respiratory effort, no cough and no stridor Skin General skin exam: turgor normal Neuro General: patient oriented x3, tone normal and moves all extremities Extrem Right lower extremity: no edema Left lower extremity: no edema Assessment and Plan Assessment & Plan (1) Psoriatic arthritis: Code(s): L40.50 - Arthropathic psoriasis, unspecified (2) Pre-diabetes: Code(s): R73.03 - Prediabetes (3) Pain management: Code(s): R52 - Pain, unspecified (4) HLA B27 (HLA B27 positive): Code(s): Z15.89 - Genetic susceptibility to other disease Plan Patient is a 58 year female who suffers psoriatic arthritis multiple joints She is taking oxycodone 10 mg 3 times a day Patient is requesting to switch it to extended release 40 mg once a day Patient says that she only takes it in the morning as it interferes with her sleep Medication switched to extended-release 40 mg. Patient is under pain contract, she is complying with the treatment plan no signs of abuse She also would like to try Wegovy injection for weight loss Patient already suffers from cardiac condition and is prediabetic with BMI of 36.6 Script sent Medications: New semaglutide (weight loss) (Wegovy) administer weeks 1 through 4 of therapy 0.25 mg (0.5 mL) subcut QWEEK 2 mL 0RF oxycodone ER Partial Fill upon patient request. 40 mg PO ONCE 30 tabs 0RF 30 days Discontinued oxycodone Discontinued Reason: Doctor's Order 10 mg PO Q8H PRN 90 tabs 0RF pain Coding Level of Care Code Est Pt Level 3 (10086) Diagnoses Psoriatic arthritis L40.50 Pre-diabetes R73.03 Pain management R52 HLA B27 (HLA B27 positive) Z15.89
== END 2024-03-24 16:35 | disposition home or self-care (01) ==
PROVIDERS: PCP Internal Medicine; Visit Provider Internal Medicine
DX: L40.50 Arthropathic psoriasis, unspecified (principal); R73.03 Prediabetes; R52 Pain, unspecified; Z15.89 Genetic susceptibility to other disease
CPT/HCPCS: 99213

== ENCOUNTER 2024-03-27 10:10 | Outpatient (REF) | payer OTHER, SELFPAY ==
[2024-03-27 13:27] LABS: MANUAL DIFF FLAG NO
[2024-03-27 13:48] LABS: Basophils Absolute Auto 0.1 X10*3/uL (0.0-0.2); Basophils Percent Auto 0.7 % (0-2); Eosinophils Absolute Auto 0.2 X10*3/uL (0.0-0.4); Eosinophils Percent Auto 1.8 % (0-4); Hematocrit 43.8 % (37.0-47.0); Imm Gran Abs Auto 0.02 X10*3/uL (0.00-0.03); Imm Gran Pct Auto 0.2 % (0.0-0.4); Lymphocytes Absolute Auto 1.4 X10*3/uL (1.2-4.9); Lymphocytes Percent Auto 16.3 % (20-40); Mean Corpuscular Hemoglobin 29.9 pg (27.0-33.0); Mean Corpuscular Volume 93.4 fL (80.0-98.0); Mean Platelet Volume 10.9 fL (9.4-12.3); Monocytes Absolute Auto 0.7 X10*3/uL (0.1-1.2); Monocytes Percent Auto 8.7 % (2-11); Neutrophils Percent Auto 72.3 % (45-73); Platelet Count 280 X10*3/uL (160-400); Red Blood Count 4.69 X10*6/uL (4.20-5.50); Red Cell Distribution Width 14.2 % (11.0-16.0); White Blood Count 8.3 X10*3/uL (4.8-10.8)
[2024-03-27 14:12] LABS: Alanine Aminotransferase 17 U/L (0-31); Albumin Level 4.1 g/dL (3.5-5.0); Alkaline Phosphatase 98 U/L (39-117); Anion Gap 15 (12-20); Aspartate Amino Transferase 25 U/L (5-31); Bilirubin Direct 0.2 mg/dL (0.0-0.5); Bilirubin Total 0.5 mg/dL (0.0-1.0); Blood Urea Nitrogen 12 mg/dL (9-16); Calcium 10.7 mg/dL (8.4-10.2); Carbon Dioxide 26 mmol/L (22-29); Chloride 104 mmol/L (96-108); Estimated Glomerular Filt Rate > 60; Glucose Random 100 mg/dL (60-115); Potassium 4.2 mmol/L (3.3-5.1); Sodium 141 mmol/L (135-145); Total Protein 8.2 g/dL (6.5-8.0)
[2024-03-27 14:16] LABS: TSH reflex Free T4 0.67 uIU/mL (0.32-4.0)
[2024-03-27 14:19] LABS: B Type Natriuretic Peptide 784 pg/mL (<100)
[2024-03-28 08:48] LABS: HBS Num1 10.46 mIU/mL (0-7.99); HBc Num1 0.18 S/CO (0.00-0.79); HBsAGNum1 0.25 S/CO (0.00-0.99); Hepatitis B Core Antibody Nonreactive (Nonreactive); Hepatitis B Surface Antigen Negative (Negative); ~HepC Num1 0.16 S/CO (0.00-0.79); ~Hepatitis C Antibody Nonreactive (Nonreactive)
[2024-03-28 18:04] LABS: LDL Cholesterol Direct 163 mg/dL (<100)
[2024-03-29 08:11] LABS: HBS Num2 10.66 mIU/mL (0-7.99); HBS Num3 10.67 mIU/mL (0-7.99); ~Hepatitis B Surface Antibody GRAYZONE (Nonreactive)
[2024-03-30 11:03] LABS: TS Negative Control Passed; TS Panel A 0; TS Panel B 0; TS Positive Control Passed; TSpotTB Negative (Negative)
[2024-03-31 15:23] LABS: Vitamin D 25-OH, D2 <4 ng/mL; Vitamin D 25-OH, D3 7 ng/mL; Vitamin D 25-OH, Total 7 ng/mL (30-100)
[2024-04-06 15:03] LABS: Parathyroid Hormone Related Pr 10 pg/mL (11-20)
== END 2024-03-27 10:11 | disposition home or self-care (01) ==
LOC: HO.HMGCLDS 10:10
PROVIDERS: PCP Internal Medicine; Referring Provider Physician Assistant Medical; Visit Provider Internal Medicine
DX: Z00.01 Encounter for general adult medical examination with abnormal findings (principal); I50.30 Unspecified diastolic (congestive) heart failure; R73.03 Prediabetes; L40.50 Arthropathic psoriasis, unspecified; J45.40 Moderate persistent asthma, uncomplicated; E66.09 Other obesity due to excess calories; F11.20 Opioid dependence, uncomplicated; H53.8 Other visual disturbances; I42.2 Other hypertrophic cardiomyopathy; M46.1 Sacroiliitis, not elsewhere classified; F41.1 Generalized anxiety disorder; F33.9 Major depressive disorder, recurrent, unspecified; K21.9 Gastro-esophageal reflux disease without esophagitis; Z15.89 Genetic susceptibility to other disease; I10 Essential (primary) hypertension; L40.0 Psoriasis vulgaris; L40.59 Other psoriatic arthropathy
CPT/HCPCS: 36415; 80053; 80076; 82248; 82306; 83519; 83721; 83880; 84443; 85025; 86481; 86704; 86706; 86803; 87340

== ENCOUNTER 2024-06-07 10:05 | Outpatient (AMB) | payer OTHER, SELFPAY ==
--- NOTE | 2024-06-07 10:07 | MHC.PC.OV ---
Vital Signs 06/07/24 10:08 Height 5 ft 4 in Weight 212 lb 3 oz BMI 36.4 BP 142/76 H Blood Pressure Location Rt brachial Pulse 78 Pulse Source Pulse Oximeter Pulse Oximetry (%) 94 Oxygen Delivery Method Room Air Intake Visit Reasons: Pain mgnt f/u Allergies cat dander [CATS] Allergy (Severe, Verified 06/07/24 10:08) DIFFICULTY BREATHING dog dander [DOGS] Allergy (Severe, Verified 06/07/24 10:08) DIFFICULTY BREATHING latex [Latex] Allergy (Severe, Verified 06/07/24 10:08) ANAPHYLAXIS penicillin G [PENICILLIN G] Adverse Reaction (Unknown, Verified 06/07/24 10:08) PT STATES IT JUST DOESN'T WORK FOR HER Environmental Allergy (Unknown, Uncoded 02/25/24 13:16) allergy symptoms Medication List - Last Reconciled 06/07/24 by Kai Saha MD albuterol sulfate 90 mcg/actuation (ProAir HFA) 1 inh inhalation QID PRN 90 days albuterol sulfate 0.63 mg (3 mL) inhalation QID PRN betamethasone dipropionate 0.05% 1 appl topical DAILY PRN 30 days blood pressure test kit-large (Quick Response BP Monitor-Large Cuff kit) As directed [Bp monitor As directed] cetirizine (All Day Allergy (cetirizine)) 10 mg PO DAILY cholecalciferol (vitamin D3) 50 mcg (2 x 25 mcg (1,000 unit)) PO DAILY 90 days diphenhydramine HCl (Benadryl Allergy) 25 mg PO DAILY empagliflozin (Jardiance) 10 mg PO DAILY fentanyl 12 mcg/hr 1 patch transdermal Q48H 30 days ferrous sulfate 324 mg PO BID fluticasone propion-salmeterol 500-50 mcg/dose (Wixela Inhub) 1 ea inhalation BID FreeStyle Lancets (lancets) Test blood sugar once per day NS FreeStyle Lite Meter (blood-glucose meter) Check blood sugar once per day NS FreeStyle Test (blood sugar diagnostic) Test blood sugar once per day NS furosemide (Lasix) 20 mg PO DAILY guselkumab (Tremfya) 100 mg subcut Q8W labetalol 100 mg PO BID montelukast 10 mg PO BEDTIME oxycodone 10 mg PO Q8H PRN 30 days oxycodone 5 mg PO Q8H PRN 7 days quetiapine 100 mg PO BEDTIME 90 days semaglutide (weight loss) (Wegovy) 0.25 mg (0.5 mL) subcut QWEEK sertraline 200 mg (2 x 100 mg) PO DAILY [Updraft machine As directed] verapamil ER 240 mg PO DAILY Tobacco use date assessed: 06/07/24 Dental Screening Dental Screen Date: 06/07/24 Did you have a dental visit in the last 12 months?: Yes Did you have a dental problem in the last 6 months where you did not have access to dental care?: No Was dental information given to patient?: Patient has dentist HPI Pain mgnt f/u HPI Details Patient is a 58 year female came in today for her regular pain management visit in follow-up Patient was started on fentanyl 12.5 mg patches as her psoriatic arthritis pain was not controlled with oxycodone 10 mg up to 3 times a day She was even prescribe sustained release oxycodone 40 mg she still continued to have pain at the end of the day Fentanyl patches helping her but she need to change it every other day and insurance is causing problem covering that We will address that Meanwhile she had leftover sustained release 40 mg of oxycodone she is using that Pain contract updated Labs done in March showed very low vitamin-D of 7 She is taking 1000 units daily, I am stopping that and instead I have sent 66311 unit once a week for next 3 months She is monitoring her sugars they are running below 120 fasting Allergies are stable patient is on cetirizine 10 mg and Singulair Asthma is stable with Wixela Patient is established with Cardiology for cardiomyopathy At this time patient is stable she is on frusemide 20 mg daily Blood pressure is stable continue labetalol 100 mg b.i.d. Depression and difficulty sleeping, patient is on Seroquel 100 mg at bedtime and is doing well along with sertraline 200 mg She was started on semaglutide injection for obesity Patient will return in 2 months for follow-up appointment [facility] Medical History Obesity due to excess calories Asthma, moderate Essential hypertension (HFpEF) heart failure with preserved ejection fraction Dyspnea on exertion Refusal of blood transfusions as patient is [employer] HTN (hypertension) Diastolic dysfunction Apical variant hypertrophic cardiomyopathy MITCHELL (obstructive sleep apnea) Obesity (BMI 35.0-39.9 without comorbidity) Sacroiliitis Spondylosis of lumbar region without myelopathy or radiculopathy Cardiomyopathy Asthma Pain management Anxiety, generalized Depression, major, recurrent Chronic GERD Environmental allergies Noncompliance Hypertension, essential NSTEMI (non-ST elevated myocardial infarction) Heart murmur 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) Surgical History Hx of cardiac catheterization Hx of colonoscopy History of tubal ligation History of endometrial ablation History of hysterectomy for benign disease Family History Mother Uterine cancer Other Substance use disorder Social History Housing: House Alcohol intake: current Alcohol intake frequency: 0-2 drinks per day Alcohol type: hard liquor Patient Tobacco Use Status: Former Tobacco user Tobacco use type: Cigarette e-Cigarette/Vaping Use: Never Used Second Hand Smoke Exposure: No service: No Current occupational status: employed Cognitive needs: No Hearing needs: No Vision needs: Yes Female Reproductive History Menstrual Age of Menarche: 14 Questionnaire Thrive Questionnaire Date Thrive assessed: 06/07/24 I am a: Patient What is your living situation today?: I have a steady place to live Within the past 12 months, did the food you bought not last and you didn't have the money to get more?: Never true Within the past 12 months, did you worry whether your food would run out before you got money to buy more?: Never true Do you have trouble paying for medicines?: No Do you have trouble getting transportation to medical appointments?: No Do you have trouble paying your heating and electricity bill?: No Do you have trouble taking care of your child, family member or friend?: No Do you have trouble with day-to-day activities such as bathing, preparing meals, shopping, managing finances, etc.?: I choose not to answer this question Are you currently unemployed and looking for a job?: No Are you interested in more education?: No Please select the resources that you would like help with: Housing/Intermediate Currently or been in a relationship where the following occur: No concerns reported THRIVE Score: 0 AUDIT C Alcohol Use Questionnaire (AUDIT-C) 1. How often do you have a drink containing alcohol?: 2-3 times a week 2. How many drinks containing alcohol do you have on a typical day when you are drinking?: 1 or 2 3. How often do you have six or more drinks on one occasion?: Never Total Score: 3 Score Reviewed/Action Taken: Yes FIDELIA-7 AMB Questionnaire FIDELIA-7 Date FIDELIA - 7 assessed: 06/07/24 Feeling nervous, anxious, or on edge: 0 = Not at all Not being able to stop or control worryin = Not at all Worrying too much about different things: 0 = Not at all Trouble relaxin = Not at all Being so restless that it is hard to sit still: 0 = Not at all Becoming easily annoyed or irritable: 0 = Not at all Feeling afraid as if something awful might happen: 0 = Not at all Total FIDELIA-7 score (0-4 normal; 5-9 mild; 10-14 moderate; 15-21 severe): 0 Source: Developed by Drs. Albin Fitch, Kate Fink, Yosi Bar and colleagues, with an educational isaak from [employer]. FIDELIA-7 Assessment Billing FIDELIA-7 Assessment Tool: FIDELIA-7 Assessment 78975 Review of Systems Const Denies chills and Denies fever(s) ENT Denies epistaxis and Denies nasal discharge Card Denies chest pain Resp Denies chest congestion, Denies cough and Denies hemoptysis GI Denies diarrhea and Denies nausea Skin/Breast Denies rash Neuro Reports no additional complaints Psych Reports no additional complaints Endo Reports no additional complaints Physical exam (Primary Care) Vital Signs: Last Vital Signs Pulse 78 06/07/24 10:08 BP 142/76 H 06/07/24 10:08 Pulse Ox 94 06/07/24 10:08 Oxygen Delivery Method Room Air 06/07/24 10:08 BMI result Body Mass Index 36.4 Tobacco/Smoking Status: Tobacco use Status Tobacco use date assessed 06/07/24 06/07/24 10:15 Patient Tobacco Use Status Former Tobacco user 06/07/24 10:15 Tobacco use type Cigarette 06/07/24 10:15 e-Cigarette/Vaping Use Never Used 06/07/24 10:15 Thrive Assessment: Date of Thrive Assessment Date Thrive assessed 06/07/24 06/07/24 10:15 Currently or been in a relationship where the following occur: No concerns reported Const General: cooperative, comfortable and no acute distress Orientation/consciousness: patient oriented x3 HENMT Head: Yes normocephalic Eyes General: appearance normal, both eyes and all related structures Neck Neck: Yes supple Resp Effort & Inspection: normal respiratory effort, no cough and no stridor Cardio Rhythm: regular rhythm Heart sounds: S1 normal heart sound present and S2 normal heart sound present Skin General skin exam: turgor normal Neuro General: patient oriented x3, tone normal and moves all extremities Extrem Right lower extremity: no edema Left lower extremity: no edema Assessment and Plan Assessment & Plan (1) Hypertension, essential: Code(s): I10 - Essential (primary) hypertension (2) Depression, major, recurrent: Code(s): F33.9 - Major depressive disorder, recurrent, unspecified Qualifiers: Active/Remission status: in partial remission Qualified Code(s): F33.41 - Major depressive disorder, recurrent, in partial remission (3) Asthma, moderate persistent: Code(s): J45.40 - Moderate persistent asthma, uncomplicated Qualifiers: Asthma complication type: uncomplicated Qualified Code(s): J45.40 - Moderate persistent asthma, uncomplicated (4) Apical variant hypertrophic cardiomyopathy: Code(s): I42.2 - Other hypertrophic cardiomyopathy (5) HLA B27 (HLA B27 positive): Code(s): Z15.89 - Genetic susceptibility to other disease (6) Spondylosis of lumbar region without myelopathy or radiculopathy: Code(s): M47.816 - Spondylosis without myelopathy or radiculopathy, lumbar region (7) Sacroiliitis: Code(s): M46.1 - Sacroiliitis, not elsewhere classified (8) Psoriatic arthritis: Code(s): L40.50 - Arthropathic psoriasis, unspecified (9) Pre-diabetes: Code(s): R73.03 - Prediabetes (10) Pain management: Code(s): R52 - Pain, unspecified (11) Chronic narcotic dependence: Comment: Controlled nature of medication was discussed, it is important to notify me of change of pharmacy, or if traveling. Do not share the medication with anybody, keep it safe away from the hands of small children, and only take it as prescribed. This medication have a tendency to be abused, habit-forming, and it can cause severe constipation along with other allergic reactions. Long-term use of narcotic medications have shown to increase sensitivity to pain. Code(s): F11.20 - Opioid dependence, uncomplicated (12) Anxiety, generalized: Code(s): F41.1 - Generalized anxiety disorder (13) Chronic GERD: Code(s): K21.9 - Gastro-esophageal reflux disease without esophagitis Plan Patient is a 58 year female came in today for her regular pain management visit in follow-up Patient was started on fentanyl 12.5 mg patches as her psoriatic arthritis pain was not controlled with oxycodone 10 mg up to 3 times a day She was even prescribe sustained release oxycodone 40 mg she still continued to have pain at the end of the day Fentanyl patches helping her but she need to change it every other day and insurance is causing problem covering that We will address that Meanwhile she had leftover sustained release 40 mg of oxycodone she is using that Pain contract updated Labs done in March showed very low vitamin-D of 7 She is taking 1000 units daily, I am stopping that and instead I have sent 68843 unit once a week for next 3 months She is monitoring her sugars they are running below 120 fasting Allergies are stable patient is on cetirizine 10 mg and Singulair Asthma is stable with Wixela Patient is established with Cardiology for cardiomyopathy At this time patient is stable she is on frusemide 20 mg daily Blood pressure is stable continue labetalol 100 mg b.i.d. Depression and difficulty sleeping, patient is on Seroquel 100 mg at bedtime and is doing well along with sertraline 200 mg She was started on semaglutide injection for obesity Patient will return in 2 months for follow-up appointment Medications: New cholecalciferol (vitamin D3) 1,250 mcg PO QWEEK 13 caps 0RF 90 days Refilled fentanyl 12 mcg/hr Partial Fill upon patient request. 1 patch transdermal Q48H 15 ea 0RF 30 days L40.50 - Arthropathic psoriasis, unspecified, M46.1 - Sacroiliitis, not elsewhere classified, M47.816 - Spondylosis without myelopathy or radiculopathy, lumbar region, Z15.89 - Genetic susceptibility to other disease Coding Level of Care Code Est Pt Level 4 (59634) Diagnoses Hypertension, essential I10 Recurrent major depressive disorder, in partial remission F33.41 Active/Remission status: in partial remission Moderate persistent asthma without complication J45.40 Asthma complication type: uncomplicated Apical variant hypertrophic cardiomyopathy I42.2 HLA B27 (HLA B27 positive) Z15.89 Spondylosis of lumbar region without myelopathy or radiculopathy M47.816 Sacroiliitis M46.1 Psoriatic arthritis L40.50 Pre-diabetes R73.03 Pain management R52 Chronic narcotic dependence F11.20 Anxiety, generalized F41.1 Chronic GERD K21.9 Additional Codes FIDELIA-7 Assessment Billing - FIDELIA-7 Assessment Tool: FIDELIA-7 Assessment [id number] ([id number])
[2024-06-07 10:08] VITALS: BP 142/76; PULSE 78; O2SAT 94; BMI 36.4
== END 2024-06-07 10:40 | disposition home or self-care (01) ==
PROVIDERS: PCP Internal Medicine; Visit Provider Internal Medicine
DX: I10 Essential (primary) hypertension (principal); F33.41 Major depressive disorder, recurrent, in partial remission; I42.2 Other hypertrophic cardiomyopathy; M46.1 Sacroiliitis, not elsewhere classified; L40.50 Arthropathic psoriasis, unspecified; F11.20 Opioid dependence, uncomplicated; J45.40 Moderate persistent asthma, uncomplicated; Z15.89 Genetic susceptibility to other disease; M47.816 Spondylosis without myelopathy or radiculopathy, lumbar region; R73.03 Prediabetes; R52 Pain, unspecified; F41.1 Generalized anxiety disorder
CPT/HCPCS: 99214

== ENCOUNTER 2024-06-09 03:38 | Emergency (ER) | payer OTHER, SELFPAY ==
--- NOTE | ~2024-06-09 | XR_ITS ---
EXAMINATION: XR CHEST CLINICAL INFORMATION: Chest pain COMPARISON: 02/19/2024 TECHNIQUE: Frontal view of the chest was obtained. FINDINGS: Lung volumes are symmetric. No focal consolidation is seen. No evidence of pneumothorax or significant pleural effusion. There is suggestion of central peribronchial thickening. Cardiac silhouette appears near the upper limits of normal in size. Calcification is present at the aortic arch. No acute osseous findings are seen. XR/XR chest 1V IMPRESSION: No focal consolidation. Suggestion of central peribronchial thickening which may reflect airways disease.
--- NOTE | ~2024-06-09 | MR_ITS ---
MR CERVICAL SPINE WITHOUT AND WITH CONTRAST CLINICAL INFORMATION: Question abnormal finding at C5. COMPARISON: None available. TECHNIQUE: MRI of the cervical spine was obtained using routine sequences with and without contrast. Intravenous contrast: Magnevist 7 mL. FINDINGS: The mixed lucent and sclerotic lesion within the C5 vertebral body seen on the prior CT study exhibits homogenous enhancement and low signal on T1-weighted imaging. The lesion exhibit trabecular thickening on the prior CT and therefore an intraosseous hemangioma with atypical imaging features is a consideration. A whole-body bone scan would be helpful in excluding additional osseous lesions that may suggest alternative etiologies such as metastatic disease. There is enhancement and T2 signal change involving the left C4 and C5 facets that is most likely degenerative/inflammatory given the presence of severe degenerative hypertrophic facet arthropathy at C4-C5 on the left side seen on the prior CT study. No additional pathologic intraosseous enhancement. The craniocervical junction is unremarkable. The vertebral body heights are maintained. There is mild disc volume loss at C4-C5. The partially imaged posterior fossa is unremarkable. At C2-C3, the posterior disc contour is normal and there is mild bilateral facet arthropathy. No central canal stenosis and no foraminal stenosis. At C3-C4, there is a small annular disc bulge and there is moderate bilateral facet arthropathy. No central canal stenosis. Mild foraminal encroachment bilaterally. At C4-C5, there is a diffuse annular disc bulge and there is severe left and moderate right hypertrophic facet arthropathy. Findings in concert result in mild central canal stenosis as well as severe left and moderate right foraminal stenosis. At C5-C6, uncovertebral joint spurring and facet arthropathy result in moderate left-sided foraminal stenosis. No central canal and no right foraminal stenosis. At C6-C7, there is a small annular disc bulge and uncovertebral joint spurring and facet arthropathy result in moderate to severe right-sided foraminal stenosis. No central canal and no left foraminal stenosis. At C7-T1, the posterior disc contour is normal and there is no central canal stenosis nor foraminal stenosis. MR/MR cervical spine wo/w con IMPRESSION: * The mixed lucent and sclerotic lesion within the C5 vertebral body seen on the prior CT study exhibits homogenous enhancement and low signal on T1-weighted imaging. The lesion exhibited trabecular thickening on the prior CT and therefore a lipid poor intraosseous hemangioma features is a diagnostic consideration. A whole-body bone scan would be helpful in excluding additional osseous lesions that may suggest alternative etiologies such as metastatic disease. * There is enhancement and T2 signal change involving the left C4 and C5 facets that is most likely degenerative/inflammatory given the presence of severe degenerative hypertrophic facet arthropathy at C4-C5 on the left side seen on the prior CT study. * Multilevel cervical spondylosis that is greatest at C4-C5 where spondylitic changes result in mild central canal stenosis as well as severe left and moderate right foraminal stenosis. Spondylitic changes also result in moderate left C5-C6 and moderate to severe right C6-C7 foraminal stenosis.
--- NOTE | ~2024-06-09 | CT_ITS ---
EXAMINATION: CT CERVICAL SPINE WITHOUT CONTRAST CLINICAL INFORMATION: Acute severe pain with history of psoriatic arthritis COMPARISON: None available. TECHNIQUE: Multidetector helical imaging was performed through the cervical spine. Coronal and sagittal reformatted images were created. This CT examination was performed using dose optimization techniques as appropriate, variously including the following: *Automated exposure control *Adjustment of mA and/or kV according to patient size (this includes techniques or standardized protocols for targeted exams where dose is matched to indication/reason for exam; i.e. extremities or head) *Use of iterative reconstruction technique DLP: 602 mGy-cm FINDINGS: There is degenerative change at the atlantodens articulation. There is anatomic alignment of the vertebral bodies and posterior elements. Vertebral body heights are maintained. There is a heterogeneously sclerotic appearance of the C5 vertebral body with multiple internal lucent foci. Slight multilevel intervertebral disc space narrowing. There is left-sided facet arthropathy at C4-C5. No evidence of acute fracture. No prevertebral soft tissue swelling. Visualized portions of the lung apices are unremarkable. The thyroid gland is unremarkable. CT/CT cervical spine wo IV con IMPRESSION: 1. Heterogeneously sclerotic appearance of the C5 vertebral body with multiple internal lucent foci. Differential considerations include osseous metastasis or atypical hemangioma. Further workup with MRI is recommended. 2. Otherwise no acute osseous findings. Left-sided facet arthropathy at C4-C5.
[2024-06-09 03:46] VITALS: BP 182/76; PULSE 76; RESP 18; TEMP 36.6; O2SAT 96; BMI 34.3
--- NOTE | 2024-06-09 04:03 | ED_ITS ---
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 Severe pain started since yesterday 15:00 from no injury pain is more localized in the neck radiating to the left shoulder whenever she moves the neck no trauma no paresthesia no hand weakness no other joint has significant pain no fever or chills patient had a cardiac MRI 2 weeks ago which showed HOCM patient does have chronically elevated troponin patient's psoriatic arthritis is limited to and sacroiliac joint knee and feet never had any vertebra pain because of psoriasis Related Data Home Medications ?Medication ?Instructions ?Recorded ?Confirmed diphenhydramine HCl 25 mg tablet 25 mg PO DAILY 02/20/24 06/07/24 (Benadryl Allergy) empagliflozin 10 mg tablet 10 mg PO DAILY 02/20/24 06/07/24 (Jardiance) ferrous sulfate 324 mg (65 mg 324 mg PO BID 02/20/24 06/07/24 iron) tablet,delayed release fluticasone 500 mcg-salmeterol 50 1 ea inhalation BID 02/20/24 06/07/24 mcg/dose blistr powdr for inhalation (Wixela Inhub) guselkumab 100 mg/mL subcutaneous 100 mg subcut Q8W 02/20/24 06/07/24 auto-injector (Tremfya) montelukast 10 mg tablet 10 mg PO BEDTIME 02/20/24 06/07/24 Previous Rx's ?Medication ?Instructions ?Recorded Updraft machine #1 ea 09/16/21 Bp monitor #1 ea 11/18/22 blood pressure test kit-large #1 ea 11/19/22 (Quick Response BP Monitor-Large Cuff kit) albuterol sulfate 90 mcg/actuation 1 inh inhalation QID PRN shortness 04/28/23 aerosol inhaler (ProAir HFA) of breath or wheezing 90 days #3 multiple units labetalol 100 mg tablet 100 mg PO BID #60 tabs 11/21/23 furosemide 20 mg tablet (Lasix) 20 mg PO DAILY #40 tabs 12/07/23 betamethasone dipropionate 0.05 % 1 appl topical DAILY PRN Itching 12/09/23 topical cream 30 days #90 grams cetirizine 10 mg tablet (All Day 10 mg PO DAILY #90 tabs 02/24/24 Allergy (cetirizine)) sertraline 100 mg tablet 200 mg (2 x 100 mg) PO DAILY #180 02/24/24 tabs verapamil 240 mg 24 hr 240 mg PO DAILY #90 caps 02/24/24 capsule,extended release quetiapine 100 mg tablet 100 mg PO BEDTIME 90 days #90 tabs 03/27/24 cholecalciferol (vitamin D3) 25 50 mcg (2 x 25 mcg (1,000 unit)) 04/06/24 mcg (1,000 unit) capsule PO DAILY 90 days #180 caps oxycodone 10 mg tablet 10 mg PO Q8H PRN pain 30 days #90 04/06/24 tabs semaglutide (weight loss) 0.25 0.25 mg (0.5 mL) subcut QWEEK #2 mL 04/06/24 mg/0.5 mL subcutaneous pen injector (Wegovy) FreeStyle Lancets 28 gauge #100 ea 05/17/24 (lancets) FreeStyle Lite Meter #1 ea 05/17/24 (blood-glucose meter) FreeStyle Test (blood sugar #100 ea 05/17/24 diagnostic) albuterol sulfate 0.63 mg/3 mL 0.63 mg (3 mL) inhalation QID PRN 05/23/24 solution for nebulization for wheezing #75 mL oxycodone 5 mg capsule 5 mg PO Q8H PRN pain 7 days #21 05/30/24 caps cholecalciferol (vitamin D3) 1,250 1,250 mcg PO QWEEK 90 days #13 caps 06/07/24 mcg (50,000 unit) capsule fentanyl 12 mcg/hr transdermal 1 patch transdermal Q48H 30 days 06/07/24 patch #15 ea Allergies Allergy/AdvReac Type Severity Reaction Status Date / Time cat dander [CATS] Allergy Severe DIFFICULTY Verified 06/09/24 03:50 BREATHING dog dander [DOGS] Allergy Severe DIFFICULTY Verified 06/09/24 03:50 BREATHING latex [Latex] Allergy Severe ANAPHYLAXIS Verified 06/09/24 03:50 penicillin G [PENICILLIN G] AdvReac Unknown PT STATES Verified 06/09/24 03:50 IT JUST DOESN'T WORK FOR HER Environmental Allergy Unknown allergy Uncoded 06/09/24 03:50 symptoms Review of Systems 2 Review of Systems: Yes all other systems are reviewed and are negative [facility] Past Medical History Medical History Obesity due to excess calories Asthma, moderate Essential hypertension (HFpEF) heart failure with preserved ejection fraction Dyspnea on exertion Refusal of blood transfusions as patient is [place] HTN (hypertension) Diastolic dysfunction Apical variant hypertrophic cardiomyopathy MITCHELL (obstructive sleep apnea) Obesity (BMI 35.0-39.9 without comorbidity) Sacroiliitis Spondylosis of lumbar region without myelopathy or radiculopathy Cardiomyopathy Asthma Pain management Anxiety, generalized Depression, major, recurrent Chronic GERD Environmental allergies Noncompliance Hypertension, essential NSTEMI (non-ST elevated myocardial infarction) Heart murmur 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) Surgical History Hx of cardiac catheterization Hx of colonoscopy History of tubal ligation History of endometrial ablation History of hysterectomy for benign disease Family History Family History Mother Uterine cancer Other Substance use disorder Social History Social History Housing: House Alcohol intake: current Alcohol intake frequency: 0-2 drinks per day Alcohol type: hard liquor Patient Tobacco Use Status: Former Tobacco user Tobacco use type: Cigarette e-Cigarette/Vaping Use: Never Used Second Hand Smoke Exposure: No Advance Directives: No Advance Directives Information Provided: No Do you have a plan to hurt others: No Plan service: No Current occupational status: employed Cognitive needs: No Hearing needs: No Vision needs: Yes Physical Exam ED Vital Signs: Vital Signs - 24 hr 06/09/24 03:46 06/09/24 06:12 Temperature 97.9 F 97.4 F Pulse Rate 76 70 Respiratory Rate 18 16 Blood Pressure 182/76 H 135/57 L Pulse Oximetry 96 95 Oxygen Delivery Method Room Air Room Air BMI result Body Mass Index 34.3 Appearance: Alert. Oriented X3. No acute distress. Eyes: No pallor or icterus ENT: Pharynx normal. Oral Mucosa moist Neck: Normal inspection. Neck supple. Diffuse tenderness and midline tenderness at C3-C4 CVS: Normal heart rate and rhythm. Pulses normal. Respiratory: No respiratory distress. Equal air entry bilateral, no wheezing/rales/rhonchi Abdomen: Soft and nontender. Bowel sounds are present, no mass palpable, no CVA tenderness Skin: Skin warm and dry. Normal skin color. Normal skin turgor. Extremities: No lower extremity edema. No calf tenderness Neuro: Oriented X 3. No motor deficit. No sensory deficit.No cerebellar signs , cranial nerves II-XII intact Medications Administered Discontinued Medications Generic Name Dose Route Start Last Admin Trade Name Freq PRN Reason Stop Dose Admin Dexamethasone Sodium Phosphate 10 mg 06/09/24 05:45 06/09/24 05:51 Dexamethasone Sod Phosphate 10 Mg/Ml Vial IVPUSH 06/09/24 05:46 10 mg ONCE ONE Administration Ketorolac Tromethamine 30 mg 06/09/24 05:45 06/09/24 05:51 Ketorolac Tromethamine 30 Mg/Ml Vial IVPUSH 06/09/24 05:46 30 mg ONCE ONE Administration Morphine Sulfate 4 mg 06/09/24 04:40 06/09/24 04:48 Morphine Sulfate 4 Mg/Ml Cartridge IVPUSH 06/09/24 04:41 4 mg ONCE ONE Administration Protocol Ondansetron HCl 4 mg 06/09/24 04:40 06/09/24 04:48 Ondansetron Hcl 4 Mg/2 Ml Vial IVPUSH 06/09/24 04:41 4 mg ONCE ONE Administration Medical Decision Making Medical Decision Making [facility] Narrative: Patient with acute onset of mid cervical pain etiology not clear patient does have psoriatic arthritis but never involving the spine CT scan of the cervical spine showed sclerotic appearance of C5 with multiple internal lucent foci differential diagnosis osseous metastasis/atypical hemangioma patient does not have any diagnosis of cancer her mother had ovarian cancer. With this finding will do MRI to confirm whether it is benign or metastatic lesions Patient does have chronically elevated troponin with no delta change EKG without any ischemic changes patient does have psoriatic arthritis but never involved the vertebrae mostly in all the sacroiliac joint hands knee D-dimer is negative for PE/DVT With Sed rate of 11 and slightly elevated CRP 1.9 unlikely psoriatic arthritis Patient has received multiple analgesics including morphine Toradol and IV steroids feeling much better at this time disposition dependent upon the MRI findings patient is signed out to Dr. Colón for further management Differential Diagnosis Differential Diagnoses: The differential diagnosis associated with the presentation includes Cervical fracture/arthritis/psoriatic arthritis/Mets Admission/Observation Consideration of admission/observation: Escalation of care including admission/observation considered Lab Data MDM Lab Attestation statement: I reviewed the patient's lab results. 06/09/24 04:29 06/09/24 04:29 Labs: Lab Results 06/09/24 06/09/24 Range/Units 04:29 06:07 WBC 12.4 H (4.8-10.8) X10*3/uL RBC 4.49 (4.20-5.50) X10*6/uL Hgb 13.6 (12.0-16.0) g/dl Hct 41.7 (37.0-47.0) % MCV 92.9 (80.0-98.0) fL MCH 30.3 (27.0-33.0) pg MCHC 32.6 (31.0-35.0) g/dl RDW 13.4 (11.0-16.0) % Plt Count 262 (160-400) X10*3/uL MPV 9.4 (9.4-12.3) fL Immature Gran % (Auto) 0.3 (0.0-0.4) % Neut % (Auto) 77.0 H (45-73) % Lymph % (Auto) 11.9 L (20-40) % Scurry % (Auto) 8.1 (2-11) % Eos % (Auto) 2.1 (0-4) % Baso % (Auto) 0.6 (0-2) % Lymph # (Auto) 1.5 (1.2-4.9) X10*3/uL Scurry # (Auto) 1.0 (0.1-1.2) X10*3/uL Eos # (Auto) 0.3 (0.0-0.4) X10*3/uL Baso # (Auto) 0.1 (0.0-0.2) X10*3/uL Abs Immat Gran (auto) 0.04 H (0.00-0.03) X10*3/uL Absolute Neuts (auto) 9.5 H (2.0-8.3) x10*3/uL Absolute Nucleated RBC 0.000 (0.0-0.012) X10*3/uL Nucleated RBC % (auto) 0.0 (0.0-0.2) /100WBC ESR 11 (0-20) MM/HR D-Dimer High Sensitivty < 150 NG/ML Sodium 139 (135-145) mmol/L Potassium 4.3 (3.3-5.1) mmol/L Chloride 106 (96-108) mmol/L Carbon Dioxide 24 (22-29) mmol/L Anion Gap 13 (12-20) BUN 12 (9-16) mg/dL Creatinine 0.82 (0.5-1.4) mg/dL Estim Creat Clear Calc 80.6 Estimated GFR > 60 Random Glucose 113 (60-115) mg/dL Calcium 10.8 H (8.4-10.2) mg/dL Total Bilirubin 0.2 (0.0-1.0) mg/dL AST 21 (5-31) U/L ALT 21 (0-31) U/L Alkaline Phosphatase 100 (39-117) U/L Troponin I High Sens 107.4 H* 117.2 H* (<3.5-17.0) ng/L C-Reactive Protein 1.90 H (< or = 0.50) mg/dL Total Protein 7.6 (6.5-8.0) g/dL Albumin 3.9 (3.5-5.0) g/dL Independent Interpretation I performed an independent interpretation of an: EKG and Plain X-Ray Interpretation: Normal sinus rhythm heart rate 73 beats per minute LVH no acute STT wave changes no acute ischemia Chest x-ray negative for infiltrate Radiology Impression Discussion of test interpretation with radiology: I have reviewed the radiologist's reading. Radiologist Impression: [address] [address] [address] Scan Report Signed Patient: Lisa Gill MR#: [id number] : 1965 Acct:[id number] Age/Sex: 58 / F ADM Date: 06/09/24 Loc: .ED Attending Dr: Ordering Physician: Dario Dougherty MD Date of Service: 06/09/24 Procedure(s): CT cervical spine wo IV con Accession Number(s): [id number] cc: Kai Saha MD; Dario Dougherty MD~ EXAMINATION: CT CERVICAL SPINE WITHOUT CONTRAST CLINICAL INFORMATION: Acute severe pain with history of psoriatic arthritis COMPARISON: None available. TECHNIQUE: Multidetector helical imaging was performed through the cervical spine. Coronal and sagittal reformatted images were created. This CT examination was performed using dose optimization techniques as appropriate, variously including the following: *Automated exposure control *Adjustment of mA and/or kV according to patient size (this includes techniques or standardized protocols for targeted exams where dose is matched to indication/reason for exam; i.e. extremities or head) *Use of iterative reconstruction technique DLP: 602 mGy-cm FINDINGS: There is degenerative change at the atlantodens articulation. There is anatomic alignment of the vertebral bodies and posterior elements. Vertebral body heights are maintained. There is a heterogeneously sclerotic appearance of the C5 vertebral body with multiple internal lucent foci. Slight multilevel intervertebral disc space narrowing. There is left-sided facet arthropathy at C4-C5. No evidence of acute fracture. No prevertebral soft tissue swelling. Visualized portions of the lung apices are unremarkable. The thyroid gland is unremarkable. CT/CT cervical spine wo IV con IMPRESSION: 1. Heterogeneously sclerotic appearance of the C5 vertebral body with multiple internal lucent foci. Differential considerations include osseous metastasis or atypical hemangioma. Further workup with MRI is recommended. 2. Otherwise no acute osseous findings. Left-sided facet arthropathy at C4-C5. Critical Care Time Critical Care Time Critical Care Time: Yes Total Critical Care Time: 60 Attestation: The patient was critically ill with a high probability of imminent or life threatening deterioration. I spent greater than 65???minutes of discontinuous time evaluating the patient,delivering critical care at the bedside, discussing and evaluating pertinent data with consultants. Critical care time does not include time spent performing separately billable procedures or teaching. Total time spent performing critical care was 60???minutes. Discharge Plan Discharge Clinical Impression: Acute neck pain Patient Disposition: Still a Patient Prescriptions: No Action (DME) Bp monitor Medium See Rx Instructions .Route .MEDSUPPLY Qty: 1 0RF Rx Instructions: As directed (DME) blood pressure test kit-large [Quick Response BP Monitor-Larg] Kit See Rx Instructions .Route Qty: 1 0RF Rx Instructions: As directed labetalol 100 mg tablet 100 mg PO BID Qty: 60 7RF betamethasone dipropionate 0.05 % cream 1 appl topical DAILY PRN (Reason: Itching) 30 Days Qty: 90 2RF cetirizine [All Day Allergy (cetirizine)] 10 mg tablet 10 mg PO DAILY Qty: 90 3RF sertraline 100 mg tablet 200 mg PO DAILY Qty: 180 1RF verapamil 240 mg capsule,ext rel. pellets 24 hr 240 mg PO DAILY Qty: 90 3RF quetiapine 100 mg tablet 100 mg PO BEDTIME 90 Days Qty: 90 0RF Rx Instructions: Further refills will need office visit oxycodone 10 mg tablet 10 mg PO Q8H PRN (Reason: pain) 30 Days Qty: 90 0RF Wegovy 0.25 mg/0.5 mL pen injector 0.25 mg subcut QWEEK Qty: 2 0RF Rx Instructions: administer weeks 1 through 4 of therapy cholecalciferol (vitamin D3) 25 mcg (1,000 unit) capsule 50 mcg PO DAILY 90 Days Qty: 180 1RF (DME) blood-glucose meter [FreeStyle Lite Meter] Kit See Rx Instructions .Route Qty: 1 0RF Rx Instructions: Check blood sugar once per day (DME) FreeStyle Test Strip See Rx Instructions .Route Qty: 100 0RF Rx Instructions: Test blood sugar once per day (DME) lancets [FreeStyle Lancets] 28 gauge misc See Rx Instructions .Route Qty: 100 0RF Rx Instructions: Test blood sugar once per day albuterol sulfate 0.63 mg/3 mL solution for nebulization 0.63 mg inhalation QID PRN (Reason: for wheezing) Qty: 75 0RF oxycodone 5 mg capsule 5 mg PO Q8H PRN (Reason: pain) 7 Days Qty: 21 0RF Rx Instructions: Partial Fill upon patient request. fluticasone propion-salmeterol [Wixela Inhub] 500-50 mcg/dose blister with device 1 ea INHALATION BID ferrous sulfate 324 mg (65 mg iron) tablet,delayed release (DR/EC) 324 mg PO BID Jardiance 10 mg tablet 10 mg PO DAILY montelukast 10 mg tablet 10 mg PO BEDTIME Tremfya 100 mg/mL auto-injector 100 mg subcut Q8W diphenhydramine HCl [Benadryl Allergy] 25 mg Tablet 25 mg PO DAILY (DME) Updraft machine See Rx Instructions .Route .MEDSUPPLY Qty: 1 0RF Rx Instructions: As directed albuterol sulfate [ProAir HFA] 90 mcg/actuation HFA aerosol inhaler 1 inh inhalation QID PRN (Reason: shortness of breath or wheezing) 90 Days Qty: 3 3RF fentanyl 12 mcg/hr patch 72 hour 1 patch transdermal Q48H 30 Days Qty: 15 0RF Rx Instructions: Partial Fill upon patient request. cholecalciferol (vitamin D3) 1,250 mcg (50,000 unit) capsule 1,250 mcg PO QWEEK 90 Days Qty: 13 0RF furosemide [Lasix] 20 mg tablet 20 mg PO DAILY Qty: 40 5RF Print Language: Nepali
--- NOTE | 2024-06-09 04:06 | ECG_ITS ---
Test Reason : CHEST PAIN Blood Pressure : / mmHG Vent. Rate : 073 BPM Atrial Rate : 073 BPM P-R Int : 216 ms QRS Dur : 104 ms QT Int : 418 ms P-R-T Axes : 063 040 206 degrees QTc Int : 460 ms Sinus rhythm with 1st degree A-V block Possible Left atrial enlargement Left ventricular hypertrophy ( Sokolow-Bains , Galile[place] product ) ST & T wave abnormality, consider inferolateral ischemia Prolonged QT Abnormal ECG When compared with ECG of 21-FEB-2024 08:08, No significant change was found Referred By: Dario Dougherty Electronically Signed By:IFRAH CHARLTON
[2024-06-09 04:33] LABS: Basophils Absolute Auto 0.1 X10*3/uL (0.0-0.2); Basophils Percent Auto 0.6 % (0-2); Eosinophils Absolute Auto 0.3 X10*3/uL (0.0-0.4); Eosinophils Percent Auto 2.1 % (0-4); Hematocrit 41.7 % (37.0-47.0); Hemoglobin 13.6 g/dl (12.0-16.0); Imm Gran Abs Auto 0.04 X10*3/uL (0.00-0.03); Imm Gran Pct Auto 0.3 % (0.0-0.4); Lymphocytes Absolute Auto 1.5 X10*3/uL (1.2-4.9); Lymphocytes Percent Auto 11.9 % (20-40); MANUAL DIFF FLAG NO; Mean Corpuscular HGB Conc 32.6 g/dl (31.0-35.0); Mean Corpuscular Hemoglobin 30.3 pg (27.0-33.0); Mean Corpuscular Volume 92.9 fL (80.0-98.0); Mean Platelet Volume 9.4 fL (9.4-12.3); Monocytes Percent Auto 8.1 % (2-11); Neutrophils Absolute Auto 9.5 x10*3/uL (2.0-8.3); Platelet Count 262 X10*3/uL (160-400); Red Blood Count 4.49 X10*6/uL (4.20-5.50); Red Cell Distribution Width 13.4 % (11.0-16.0); White Blood Count 12.4 X10*3/uL (4.8-10.8)
[2024-06-09 04:45] LABS: D Dimer High Sensitivity < 150 NG/ML
[2024-06-09] MEDS: Morphine Sulfate 4 MG/ML CARTRIDGE IVPUSH (04:48)
[2024-06-09] MEDS: ondansetron HCL 4 MG/2 ML VIAL IVPUSH (04:48)
[2024-06-09 04:50] LABS: Alanine Aminotransferase 21 U/L (0-31); Albumin Level 3.9 g/dL (3.5-5.0); Alkaline Phosphatase 100 U/L (39-117); Anion Gap 13 (12-20); Aspartate Amino Transferase 21 U/L (5-31); Bilirubin Total 0.2 mg/dL (0.0-1.0); Blood Urea Nitrogen 12 mg/dL (9-16); Calcium 10.8 mg/dL (8.4-10.2); Carbon Dioxide 24 mmol/L (22-29); Chloride 106 mmol/L (96-108); Creatinine Clr Calc Pharmacy 80.6; Estimated Glomerular Filt Rate > 60; Glucose Random 113 mg/dL (60-115); Potassium 4.3 mmol/L (3.3-5.1); Sodium 139 mmol/L (135-145); Total Protein 7.6 g/dL (6.5-8.0)
[2024-06-09 05:03] LABS: Troponin-I High Sensitivity 107.4 ng/L (<3.5-17.0)
[2024-06-09 05:06] LABS: Erythrocyte Sedimentation Rate 11 MM/HR (0-20)
[2024-06-09] MEDS: dexAMETHasone sod phosphate 10 MG/ML VIAL IVPUSH (05:51)
[2024-06-09] MEDS: Ketorolac Tromethamine 30 MG/ML VIAL IVPUSH (05:51)
[2024-06-09 06:12] VITALS: BP 135/57; PULSE 70; RESP 16; TEMP 36.3; O2SAT 95
--- NOTE | 2024-06-09 06:30 | PC.NURSE ---
MRI form filled out and faxed
[2024-06-09 06:34] LABS: Troponin-I High Sensitivity 117.2 ng/L (<3.5-17.0)
--- NOTE | 2024-06-09 07:32 | PC.NURSE ---
this RN resumed care of pt at 0645. a&ox4. vss and up to date. pt presents to ED w/ sudden onset left shoulder/clavicle pain radiating to the left side of her neck. pt reports 5/10 pain s/p medication administration by previous RN. pt has a cardiac hx - therefore - cardiac workup was initiated/negative aside from chronic troponin levels (pt's baseline). CT already completed. pt waiting to go to MRI at this time. pt seems to be resting in no apparent distress w/ the lights dimmed. no sob/wob noted. respirations even/unlabored. plan of care ongoing. call walls placed within reach.
--- NOTE | 2024-06-09 08:46 | PC.NURSE ---
pt's original IV access dislodged/removed while she was asleep. new 20gIV placed in the pt's right outer arm - patent/intact. pt continues to wait for MRI to be completed at this time.
[2024-06-09] MEDS: diazePAM 5 MG TABLET PO (09:04)
--- NOTE | 2024-06-09 09:10 | PC.NURSE ---
pt verbalizing increase in pain - requesting medication. MD notified/aware. pt medicated per provider order. pt verbalizes being increasingly diaphoretic d/t pain. pt remains afebrile. IV access wrapped w/ curex gauze to hold access in place.
--- NOTE | 2024-06-09 09:49 | PC.NURSE ---
pt telling this RN that was scheduled to have MRI completed at 0800. MRI still not completed at this time. sonogram technician contacted by this assembly instructions writer - per sonogram technician, MRI will be completed around noon. pt as well as provider notified/aware.
[2024-06-09 10:42] VITALS: BP 145/50; PULSE 66; RESP 16; TEMP 36.8; O2SAT 91
--- NOTE | 2024-06-09 12:04 | PC.NURSE ---
pt to MRI at this time.
--- NOTE | 2024-06-09 13:15 | MHC.EDTECH ---
This tech attempted to obtain updated vital signed at 12:45. Patient currently at MRI
[2024-06-09] MEDS: gadobutroL 10 ML VIAL IVPUSH (13:39)
[2024-06-09 13:46] VITALS: BP 149/70; PULSE 74; RESP 16; TEMP 36.5; O2SAT 92
[2024-06-09] MEDS: Acetaminophen 325 MG TABLET 975 MG PO (13:58)
--- NOTE | 2024-06-09 13:58 | PC.NURSE ---
pt returned from MRI at this time. vss and up to date. pt c/o slight BARRETT - pt medicated per provider order. effectiveness pending. MRI results pending at this time. family bedside for support. plan of care ongoing. call walls placed within reach.
[2024-06-09 14:21] VITALS: BP 149/70; PULSE 74; RESP 16; TEMP 36.5; O2SAT 92
== END 2024-06-09 14:27 | disposition home or self-care (01) ==
PROVIDERS: Internal Medicine; Emergency Provider Emergency Medicine; PCP Internal Medicine
DX: M54.2 Cervicalgia (principal); I42.2 Other hypertrophic cardiomyopathy; R79.89 Other specified abnormal findings of blood chemistry; R51.9 Headache, unspecified; I11.0 Hypertensive heart disease with heart failure; I50.30 Unspecified diastolic (congestive) heart failure; J45.909 Unspecified asthma, uncomplicated; Z79.899 Other long term (current) drug therapy; Z87.891 Personal history of nicotine dependence
CPT/HCPCS: 36415; 71045; 72125; 72156; 80053; 84484; 85025; 85379; 85652; 86140; 93005; 96374; 96375; 99285; A9585; J1100; J1885; J2270; J2405

== ENCOUNTER → 2024-06-09 04:06 | Outpatient (BNV) | payer OTHER, SELFPAY | PROVIDERS: Emergency Provider Emergency Medicine; PCP Internal Medicine; Visit Provider Internal Medicine | DX: R07.9 Chest pain, unspecified (principal) | CPT/HCPCS: 93010 ==

== ENCOUNTER 2024-07-25 13:20 | Outpatient (AMB) | payer OTHER, SELFPAY ==
--- NOTE | 2024-07-25 13:23 | MHC.OFFVIS ---
Vital Signs 07/25/24 13:25 Height 5 ft 4 in Weight 98 kg BMI 37.1 BP 116/70 Blood Pressure Location Lt brachial Position Sitting Pulse 74 Intake Visit Reasons: 6 mth f/up cardiac MRI Intake Note: 6 month have not been able to get Cardiac MRI from [place] [facility] Required: No Allergies cat dander [CATS] Allergy (Severe, Verified 06/09/24 03:50) DIFFICULTY BREATHING dog dander [DOGS] Allergy (Severe, Verified 06/09/24 03:50) DIFFICULTY BREATHING latex [Latex] Allergy (Severe, Verified 06/09/24 03:50) ANAPHYLAXIS penicillin G [PENICILLIN G] Adverse Reaction (Unknown, Verified 06/09/24 03:50) PT STATES IT JUST DOESN'T WORK FOR HER Environmental Allergy (Unknown, Uncoded 06/09/24 03:50) allergy symptoms Medication List - Last Reconciled 07/25/24 by Danielito Alexander MD albuterol sulfate 90 mcg/actuation 1 inh inhalation QID PRN 90 days albuterol sulfate 0.63 mg (3 mL) inhalation QID PRN betamethasone dipropionate 0.05% 1 appl topical DAILY PRN 30 days blood pressure test kit-large (Quick Response BP Monitor-Large Cuff kit) As directed [Bp monitor As directed] cetirizine (All Day Allergy (cetirizine)) 10 mg PO DAILY cholecalciferol (vitamin D3) 1,250 mcg PO QWEEK 90 days cyclobenzaprine 10 mg PO BEDTIME PRN diphenhydramine HCl (Benadryl Allergy) 25 mg PO DAILY fentanyl 25 mcg/hr 1 patch transdermal Q72H 30 days ferrous sulfate 324 mg PO BID fluticasone propion-salmeterol 500-50 mcg/dose (Wixela Inhub) 1 ea inhalation BID FreeStyle Lancets (lancets) Test blood sugar once per day NS FreeStyle Lite Meter (blood-glucose meter) Check blood sugar once per day NS FreeStyle Test (blood sugar diagnostic) Test blood sugar once per day NS furosemide (Lasix) 20 mg PO DAILY guselkumab (Tremfya) 100 mg subcut Q8W labetalol 100 mg PO BID 90 days lidocaine 5% 1 patch topical DAILY montelukast 10 mg PO BEDTIME quetiapine TAKE 1 TABLET BY MOUTH AT BEDTIME FOR 90 DAYS. FUTHER REFILLS WILL NEED OFFICE VISIT semaglutide (weight loss) (Wegovy) 0.25 mg (0.5 mL) subcut QWEEK sertraline 200 mg (2 x 100 mg) PO DAILY [Updraft machine As directed] verapamil ER 240 mg PO DAILY HPI Comments Details: Lisa comes for follow-up. She is currently off Jardiance as she was started on Wegovy therapy thinking that Jardiance was for weight loss. Although Jardiance been use for heart failure. She says shortness of breath improved on current diuretic regimen. She has not had any significant worsening orthopnea, PND, leg edema. A blood pressures been generally well controlled. She had an MRI performed at [facility] which showed significant thickness of the apical myocardium with thickness up to 2.4 cm. She also has significant amount of subendocardial scarring at about 17%. Denies any prolonged palpitation irregular heartbeat. No lightheadedness, syncope. She says she has not been able to exercise much due to her sacroiliac disease. She also stopped doing daily weights as she said she was stable [facility] Medical History (Updated 07/25/24 @ 14:00 by Danielito Alexander MD) (HFpEF) heart failure with preserved ejection fraction Obesity due to excess calories Asthma, moderate Essential hypertension Dyspnea on exertion Refusal of blood transfusions as patient is Taoism HTN (hypertension) Diastolic dysfunction Apical variant hypertrophic cardiomyopathy MITCHELL (obstructive sleep apnea) Obesity (BMI 35.0-39.9 without comorbidity) Sacroiliitis Spondylosis of lumbar region without myelopathy or radiculopathy Cardiomyopathy Asthma Pain management Anxiety, generalized Depression, major, recurrent Chronic GERD Environmental allergies Noncompliance Hypertension, essential NSTEMI (non-ST elevated myocardial infarction) Heart murmur 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) Surgical History Hx of cardiac catheterization Hx of colonoscopy History of tubal ligation History of endometrial ablation History of hysterectomy for benign disease Family History Mother Uterine cancer Other Substance use disorder Social History Housing: House Alcohol intake: current Alcohol intake frequency: 0-2 drinks per day Alcohol type: hard liquor Patient Tobacco Use Status: Former Tobacco user Tobacco use type: Cigarette e-Cigarette/Vaping Use: Never Used Second Hand Smoke Exposure: No service: No Current occupational status: employed Cognitive needs: No Hearing needs: No Vision needs: Yes Female Reproductive History Menstrual Age of Menarche: 14 Review of Systems Const Denies chills, Denies fatigue, Denies fever(s), Denies frequent falls, Denies weakness, Denies weight gain and Denies weight loss ENT Denies dizziness Card Denies chest pain, Denies leg edema, Denies lightheadedness, Denies palpitations, Denies dyspnea, Denies dyspnea on exertion, Denies orthopnea and Denies other (loss of consciousness) Resp Denies cough, Denies dyspnea and Denies dyspnea on exertion GI Denies hematochezia and Denies change in stool character Musc Denies abnormal gait, Denies muscle weakness, Denies numbness, Denies radiating pain into limb and Denies tingling Neuro Denies abnormal gait, Denies dizziness, Denies frequent falls, Denies numbness, Denies tingling and Denies weakness Endo Denies fatigue and Denies palpitations Physical Exam Vital Signs: Last Vital Signs Pulse 74 07/25/24 13:25 BP 116/70 07/25/24 13:25 BMI result Body Mass Index 37.1 Const General: cooperative, comfortable, no acute distress, alert and awake Nutritional Appearance: obese Orientation/consciousness: patient oriented x3 Limitations: no limitations Neck Neck: Yes trachea midline, Yes supple and Yes no JVD Resp Effort & Inspection: normal respiratory effort Auscultation: clear to auscultation bilaterally Cardio Jugular venous distension: no JVD Palpation: normal PMI Rate: regular rate Rhythm: regular rhythm Heart sounds: S1 normal heart sound present, S2 normal heart sound present, no click, no gallops and Murmur heart sound present systolic early, decrescendo, crescendo and other (Worsening with upright positioning suggestive dynamic murmur) Skin General skin exam: no rashes or lesions noted Neuro General: patient oriented x3 and no focal motor deficits Extrem General: Yes no clubbing, cyanosis or edema Assessment & Plan Assessment & Plan (1) Apical variant hypertrophic cardiomyopathy: Code(s): I42.2 - Other hypertrophic cardiomyopathy Category: Medical Plan: Apical hypertrophic cardiomyopathy significant wall thickness of the apical myocardium of greater than 2 cm. She also significant scar burden on MRI with 17% subendocardial scar. Will refer her to cardiac EPS for consideration for ICD placement. Continue aggressive blood pressure control otherwise. Will follow up in the clinic in 6 months time, sooner p.r.n.. Thank you for allowing me to partake in her care (2) (HFpEF) heart failure with preserved ejection fraction: Code(s): I50.30 - Unspecified diastolic (congestive) heart failure Category: Medical Qualifiers: Heart failure chronicity: chronic Qualified Code(s): I50.32 - Chronic diastolic (congestive) heart failure Plan: Heart failure preserved ejection fraction, clinically euvolemic and well compensated current diuretic dose. Importance of every day diuretic regimen was discussed. Daily weight monitoring avoidance of salt loading was discussed additional diuretics as need be. I am restarting her Jardiance therapy which is neurohormonal modulators in patients with heart failure preserved ejection fraction. Importance of this was discussed. Continue participate in regular physical activity and weight loss program. She is having difficulty with musculoskeletal issues. Advise to participate in exercise that was less weight bearing. Continue aggressive blood pressure control which is currently well optimized. Consider CPAP therapy as well. Orders: Orders Basic Metabolic Panel Today I50.32 - Chronic diastolic (congestive) heart failure B Type Natriuretic Peptide Today I50.32 - Chronic diastolic (congestive) heart failure Referrals Cardiac Electrophysiology Referral I42.2 - Other hypertrophic cardiomyopathy Medications: New empagliflozin (Jardiance) 10 mg PO DAILY 30 tabs 6RF Coding Level of Care Code Est Pt Level 4 (90992) Diagnoses Apical variant hypertrophic cardiomyopathy I42.2 Chronic heart failure with preserved ejection fraction I50.32 Heart failure chronicity: chronic
[2024-07-25 13:25] VITALS: BP 116/70; PULSE 74; BMI 37.1
== END 2024-07-25 14:00 | disposition home or self-care (01) ==
PROVIDERS: PCP Internal Medicine; Visit Provider Internal Medicine Cardiovascular Disease
DX: I50.32 Chronic diastolic (congestive) heart failure (principal); I42.2 Other hypertrophic cardiomyopathy
CPT/HCPCS: 99214

== ENCOUNTER 2024-07-25 13:20 | Outpatient (REF) | payer OTHER, SELFPAY ==
[2024-07-25 15:35] LABS: B Type Natriuretic Peptide 269 pg/mL (<100)
[2024-07-25 15:39] LABS: Anion Gap 9 (12-20); Blood Urea Nitrogen 11 mg/dL (9-16); Calcium 11.2 mg/dL (8.4-10.2); Carbon Dioxide 32 mmol/L (22-29); Chloride 103 mmol/L (96-108); Estimated Glomerular Filt Rate > 60; Glucose Random 99 mg/dL (60-115); Potassium 4.2 mmol/L (3.3-5.1); Sodium 140 mmol/L (135-145)
== END 2024-07-25 13:21 | disposition home or self-care (01) ==
LOC: HO.LAB 13:20
PROVIDERS: PCP Internal Medicine; Visit Provider Internal Medicine Cardiovascular Disease
DX: I50.32 Chronic diastolic (congestive) heart failure (principal)
CPT/HCPCS: 36415; 80048; 83880

== ENCOUNTER 2024-08-01 13:41 | Outpatient (AMB) | payer OTHER, SELFPAY ==
[2024-08-01 13:54] VITALS: BP 124/70; PULSE 76; O2SAT 96; BMI 37.5
--- NOTE | 2024-08-01 13:54 | MHC.PC.OV ---
Vital Signs 08/01/24 13:54 Height 5 ft 4 in Weight 218 lb 4 oz BMI 37.5 BP 124/70 Blood Pressure Location Rt brachial Position Sitting Pulse 76 Pulse Source Pulse Oximeter Pulse Oximetry (%) 96 Oxygen Delivery Method Room Air Intake Visit Reasons: 2M Pain mgnt f/u Allergies cat dander [CATS] Allergy (Severe, Verified 08/01/24 13:56) DIFFICULTY BREATHING dog dander [DOGS] Allergy (Severe, Verified 08/01/24 13:56) DIFFICULTY BREATHING latex [Latex] Allergy (Severe, Verified 08/01/24 13:56) ANAPHYLAXIS penicillin G [PENICILLIN G] Adverse Reaction (Unknown, Verified 08/01/24 13:56) PT STATES IT JUST DOESN'T WORK FOR HER Environmental Allergy (Unknown, Uncoded 06/09/24 03:50) allergy symptoms Medication List - Last Reconciled 08/01/24 by Kai Saha MD albuterol sulfate 90 mcg/actuation 1 inh inhalation QID PRN 90 days albuterol sulfate 0.63 mg (3 mL) inhalation QID PRN betamethasone dipropionate 0.05% 1 appl topical DAILY PRN 30 days blood pressure test kit-large (Quick Response BP Monitor-Large Cuff kit) As directed [Bp monitor As directed] cetirizine (All Day Allergy (cetirizine)) 10 mg PO DAILY cholecalciferol (vitamin D3) 1,250 mcg PO QWEEK 90 days cyclobenzaprine 10 mg PO BEDTIME PRN diphenhydramine HCl (Benadryl Allergy) 25 mg PO DAILY empagliflozin (Jardiance) 10 mg PO DAILY fentanyl 25 mcg/hr 1 patch transdermal Q72H 30 days ferrous sulfate 324 mg PO BID fluticasone propion-salmeterol 500-50 mcg/dose (Wixela Inhub) 1 ea inhalation BID 90 days FreeStyle Lancets (lancets) Test blood sugar once per day NS FreeStyle Lite Meter (blood-glucose meter) Check blood sugar once per day NS FreeStyle Test (blood sugar diagnostic) Test blood sugar once per day NS furosemide (Lasix) 20 mg PO DAILY 90 days guselkumab (Tremfya) 100 mg subcut Q8W labetalol 100 mg PO BID 90 days lidocaine 5% 1 patch topical DAILY montelukast 10 mg PO BEDTIME quetiapine TAKE 1 TABLET BY MOUTH AT BEDTIME FOR 90 DAYS. FUTHER REFILLS WILL NEED OFFICE VISIT semaglutide (weight loss) (Wegovy) 0.25 mg (0.5 mL) subcut QWEEK sertraline 200 mg (2 x 100 mg) PO DAILY [Updraft machine As directed] verapamil ER 240 mg PO DAILY Tobacco use date assessed: 08/01/24 Dental Screening Dental Screen Date: 06/07/24 HPI 2M Pain mgnt f/u HPI Details Patient is a 58 year female came in today for her regular pain management visit in follow-up Semaglutide stopped by Cardiology and patient was restarted on Jardiance Patient was started on fentanyl 12.5 mg patches as her psoriatic arthritis pain was not controlled with oxycodone 10 mg up to 3 times a day She was even prescribe sustained release oxycodone 40 mg she still continued to have pain at the end of the day Fentanyl patches 12.5 helped her for a while and then she started having pain again Currently she is on 25 mg patch and she is changing it every 72 hours, still having pain, next script will change it to q.48h And then will go from there. Patient have updated pain contract in the chart Continue vitamin-D supplement She is monitoring her sugars they are running below 120 fasting Allergies are stable patient is on cetirizine 10 mg and Singulair Asthma is stable with Wixela Patient is established with Cardiology for cardiomyopathy At this time patient is stable she is on frusemide 20 mg daily She has started weighing herself every day, instructions are if she goes above 2 lb in 24 hours she has to take extra water pill as per Cardiology Blood pressure is stable continue labetalol 100 mg b.i.d. Depression and difficulty sleeping, patient is on Seroquel 100 mg at bedtime and is doing well along with sertraline 200 mg Patient will return in 2 months for follow-up appointment COUNTS INCLUDE 234 BEDS AT THE [facility] Medical History (HFpEF) heart failure with preserved ejection fraction Obesity due to excess calories Asthma, moderate Essential hypertension Dyspnea on exertion Refusal of blood transfusions as patient is [employer] HTN (hypertension) Diastolic dysfunction Apical variant hypertrophic cardiomyopathy MITCHELL (obstructive sleep apnea) Obesity (BMI 35.0-39.9 without comorbidity) Sacroiliitis Spondylosis of lumbar region without myelopathy or radiculopathy Cardiomyopathy Asthma Pain management Anxiety, generalized Depression, major, recurrent Chronic GERD Environmental allergies Noncompliance Hypertension, essential NSTEMI (non-ST elevated myocardial infarction) Heart murmur 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) Surgical History Hx of cardiac catheterization Hx of colonoscopy History of tubal ligation History of endometrial ablation History of hysterectomy for benign disease Family History Mother Uterine cancer Other Substance use disorder Social History Housing: House Alcohol intake: current Alcohol intake frequency: 0-2 drinks per day Alcohol type: hard liquor Patient Tobacco Use Status: Former Tobacco user Tobacco use type: Cigarette e-Cigarette/Vaping Use: Never Used Second Hand Smoke Exposure: No service: No Current occupational status: employed Cognitive needs: No Hearing needs: No Vision needs: Yes Female Reproductive History Menstrual Age of Menarche: 14 Questionnaire PHQ-9 Over the last 2 weeks, how often have you been bothered by any of the following problems? 1. Little interest or pleasure in doing things: several days 2. Feeling down, depressed, or hopeless: several days 3. Trouble falling or staying asleep, or sleeping too much: more than half the days 4. Feeling tired or having little energy: several days 5. Poor appetite or overeating: several days 6. Feeling bad about yourself - or that you are a failure or have let yourself or your family down: several days 7. Trouble concentrating on things, such as reading the newspaper or watching television: not at all 8. Moving or speaking so slowly that other people could have noticed. Or the opposite - being so fidgety or restless that you have been moving around a lot more than usual: not at all 9. Thoughts that you would be better off or of hurting yourself in some way: not at all Total score: 7 Depression Screening Interpretation: Positive Depression Screening Follow-up: Existing condition and In treatment Depression Screening Done: Yes 31006 - PHQ-9 Billing: Yes Source: Developed by Drs. Albin Fitch, Yosi Prakash and colleagues, with an educational isaak from [employer]. Thrive Questionnaire Date Thrive assessed: 06/07/24 I am a: Patient What is your living situation today?: I have a steady place to live Within the past 12 months, did the food you bought not last and you didn't have the money to get more?: Never true Within the past 12 months, did you worry whether your food would run out before you got money to buy more?: Never true Do you have trouble paying for medicines?: No Do you have trouble getting transportation to medical appointments?: No Do you have trouble paying your heating and electricity bill?: No Do you have trouble taking care of your child, family member or friend?: No Do you have trouble with day-to-day activities such as bathing, preparing meals, shopping, managing finances, etc.?: I choose not to answer this question Are you currently unemployed and looking for a job?: No Are you interested in more education?: No Please select the resources that you would like help with: None Currently or been in a relationship where the following occur: No concerns reported THRIVE Score: 0 AUDIT C Alcohol Use Questionnaire (AUDIT-C) 1. How often do you have a drink containing alcohol?: 2-3 times a week 2. How many drinks containing alcohol do you have on a typical day when you are drinking?: 1 or 2 3. How often do you have six or more drinks on one occasion?: Never Total Score: 3 FIDELIA-7 AMB Questionnaire FIDELIA-7 Date FIDELIA - 7 assessed: 06/07/24 Feeling nervous, anxious, or on edge: 0 = Not at all Not being able to stop or control worryin = Not at all Worrying too much about different things: 0 = Not at all Trouble relaxin = Not at all Being so restless that it is hard to sit still: 0 = Not at all Becoming easily annoyed or irritable: 0 = Not at all Feeling afraid as if something awful might happen: 0 = Not at all Total FIDELIA-7 score (0-4 normal; 5-9 mild; 10-14 moderate; 15-21 severe): 0 Source: Developed by Drs. Albin Fitch, Yosi Prakash and colleagues, with an educational isaak from [employer]. Review of Systems Const Denies chills and Denies fever(s) ENT Denies epistaxis and Denies nasal discharge Card Denies chest pain Resp Denies chest congestion, Denies cough and Denies hemoptysis GI Denies diarrhea and Denies nausea Skin/Breast Denies rash Neuro Reports no additional complaints Psych Reports no additional complaints Endo Reports no additional complaints Physical exam (Primary Care) Vital Signs: Last Vital Signs Pulse 76 08/01/24 13:54 BP 124/70 08/01/24 13:54 Pulse Ox 96 08/01/24 13:54 Oxygen Delivery Method Room Air 08/01/24 13:54 BMI result Body Mass Index 37.5 Tobacco/Smoking Status: Tobacco use Status Tobacco use date assessed 08/01/24 08/01/24 13:58 Patient Tobacco Use Status Former Tobacco user 08/01/24 13:58 Tobacco use type Cigarette 08/01/24 13:58 e-Cigarette/Vaping Use Never Used 08/01/24 13:58 Depression Screening Interpretation: Positive Depression Screening Follow-up: Existing condition and In treatment Thrive Assessment: Date of Thrive Assessment Date Thrive assessed 06/07/24 08/01/24 13:58 Currently or been in a relationship where the following occur: No concerns reported Const General: cooperative, comfortable and no acute distress Orientation/consciousness: patient oriented x3 HENMT Head: Yes normocephalic Eyes General: appearance normal, both eyes and all related structures Neck Neck: Yes supple Resp Effort & Inspection: normal respiratory effort, no cough and no stridor Cardio Rhythm: regular rhythm Heart sounds: S1 normal heart sound present and S2 normal heart sound present Skin General skin exam: turgor normal Neuro General: patient oriented x3, tone normal and moves all extremities Extrem Right lower extremity: no edema Left lower extremity: no edema Assessment and Plan Assessment & Plan (1) Sacroiliitis: Code(s): M46.1 - Sacroiliitis, not elsewhere classified (2) Psoriatic arthritis: Code(s): L40.50 - Arthropathic psoriasis, unspecified (3) Hypertension, essential: Code(s): I10 - Essential (primary) hypertension (4) Depression, major, recurrent: Code(s): F33.9 - Major depressive disorder, recurrent, unspecified Qualifiers: Active/Remission status: in partial remission Qualified Code(s): F33.41 - Major depressive disorder, recurrent, in partial remission (5) Asthma, moderate persistent: Code(s): J45.40 - Moderate persistent asthma, uncomplicated Qualifiers: Asthma complication type: uncomplicated Qualified Code(s): J45.40 - Moderate persistent asthma, uncomplicated (6) Apical variant hypertrophic cardiomyopathy: Code(s): I42.2 - Other hypertrophic cardiomyopathy (7) HLA B27 (HLA B27 positive): Code(s): Z15.89 - Genetic susceptibility to other disease (8) Spondylosis of lumbar region without myelopathy or radiculopathy: Code(s): M47.816 - Spondylosis without myelopathy or radiculopathy, lumbar region (9) Pre-diabetes: Code(s): R73.03 - Prediabetes (10) Pain management: Code(s): R52 - Pain, unspecified (11) Chronic narcotic dependence: Comment: Controlled nature of medication was discussed, it is important to notify me of change of pharmacy, or if traveling. Do not share the medication with anybody, keep it safe away from the hands of small children, and only take it as prescribed. This medication have a tendency to be abused, habit-forming, and it can cause severe constipation along with other allergic reactions. Long-term use of narcotic medications have shown to increase sensitivity to pain. Code(s): F11.20 - Opioid dependence, uncomplicated (12) Anxiety, generalized: Code(s): F41.1 - Generalized anxiety disorder (13) Chronic GERD: Code(s): K21.9 - Gastro-esophageal reflux disease without esophagitis Plan Patient is a 58 year female came in today for her regular pain management visit in follow-up Semaglutide stopped by Cardiology and patient was restarted on Jardiance Last hemoglobin A1c was in 5 range Patient was started on fentanyl 12.5 mg patches as her psoriatic arthritis pain was not controlled with oxycodone 10 mg up to 3 times a day She was even prescribe sustained release oxycodone 40 mg she still continued to have pain at the end of the day Fentanyl patches 12.5 helped her for a while and then she started having pain again Currently she is on 25 mg patch and she is changing it every 72 hours, still having pain, next script will change it to q.48h And then will go from there. Patient have updated pain contract in the chart Continue vitamin-D supplement She is monitoring her sugars they are running below 120 fasting Allergies are stable patient is on cetirizine 10 mg and Singulair Asthma is stable with Wixela Patient is established with Cardiology for cardiomyopathy At this time patient is stable she is on frusemide 20 mg daily She has started weighing herself every day, instructions are if she goes above 2 lb in 24 hours she has to take extra water pill as per Cardiology Blood pressure is stable continue labetalol 100 mg b.i.d. Depression and difficulty sleeping, patient is on Seroquel 100 mg at bedtime and is doing well along with sertraline 200 mg Patient will return in 2 months for follow-up appointment Medications: Discontinued cyclobenzaprine Discontinued Reason: Doctor's Order 10 mg PO BEDTIME PRN 30 tabs 0RF muscle spasm semaglutide (weight loss) (Wegovy) administer weeks 1 through 4 of therapy Discontinued Reason: Doctor's Order 0.25 mg (0.5 mL) subcut QWEEK 2 mL 0RF Coding Level of Care Code Est Pt Level 4 (14626) Diagnoses Sacroiliitis M46.1 Psoriatic arthritis L40.50 Hypertension, essential I10 Recurrent major depressive disorder, in partial remission F33.41 Active/Remission status: in partial remission Moderate persistent asthma without complication J45.40 Asthma complication type: uncomplicated Apical variant hypertrophic cardiomyopathy I42.2 HLA B27 (HLA B27 positive) Z15.89 Spondylosis of lumbar region without myelopathy or radiculopathy M47.816 Pre-diabetes R73.03 Pain management R52 Chronic narcotic dependence F11.20 Anxiety, generalized F41.1 Chronic GERD K21.9
== END 2024-08-01 14:12 | disposition home or self-care (01) ==
PROVIDERS: PCP Internal Medicine; Visit Provider Internal Medicine
DX: M46.1 Sacroiliitis, not elsewhere classified (principal); L40.50 Arthropathic psoriasis, unspecified; I10 Essential (primary) hypertension; F33.41 Major depressive disorder, recurrent, in partial remission; J45.40 Moderate persistent asthma, uncomplicated; I42.2 Other hypertrophic cardiomyopathy; Z15.89 Genetic susceptibility to other disease; M47.816 Spondylosis without myelopathy or radiculopathy, lumbar region; R73.03 Prediabetes; R52 Pain, unspecified; F11.20 Opioid dependence, uncomplicated; F41.1 Generalized anxiety disorder; K21.9 Gastro-esophageal reflux disease without esophagitis

== ENCOUNTER → 2024-08-01 13:41 | Outpatient (BNVA) | payer OTHER, SELFPAY | PROVIDERS: PCP Internal Medicine; Visit Provider Internal Medicine | DX: M46.1 Sacroiliitis, not elsewhere classified (principal); L40.50 Arthropathic psoriasis, unspecified; I10 Essential (primary) hypertension; F33.41 Major depressive disorder, recurrent, in partial remission; J45.40 Moderate persistent asthma, uncomplicated; I42.2 Other hypertrophic cardiomyopathy; M47.816 Spondylosis without myelopathy or radiculopathy, lumbar region; R73.03 Prediabetes; R52 Pain, unspecified; F41.1 Generalized anxiety disorder; K21.9 Gastro-esophageal reflux disease without esophagitis; Z79.891 Long term (current) use of opiate analgesic; Z15.89 Genetic susceptibility to other disease ==

== ENCOUNTER 2024-08-28 17:04 | Emergency (ER) | payer OTHER, SELFPAY ==
[2024-08-28 17:16] VITALS: BP 166/86; PULSE 87; RESP 18; TEMP 36.8; O2SAT 94; BMI 36.6
[2024-08-28] MEDS: HYDROmorphone HCl 2 MG/ML VIAL IM (17:26)
[2024-08-28] MEDS: LORazepam 2 MG/ML VIAL 1 MG IM (17:26)
--- NOTE | 2024-08-28 17:29 | PC.NURSE ---
pt medicated for 9/10 pain and anxiety per order
[2024-08-28] MEDS: diazePAM 5 MG TABLET PO (17:52)
[2024-08-28] MEDS: Ketorolac Tromethamine 30 MG/ML VIAL IM (17:52)
--- NOTE | 2024-08-28 17:55 | PC.NURSE ---
pt medicated per Jan for 07/25 pain
--- NOTE | 2024-08-28 17:57 | ED_ITS ---
HPI - Extremity Problem General Chief complaint: Extremity Injury, Upper Stated complaint: Neck/shoulder/head pain Time Seen by Provider: 08/28/24 17:17 Source: patient, family, RN notes reviewed and old records reviewed Mode of arrival: ambulatory Limitations: no limitations History of Present Illness ED Provider: Dean Saini PA-C HPI Narrative: 58 yo female with history of hypertrophic cardiomyopathy, MITCHELL, HTN, chronic pain on chronic opiates who presents to the ER for evaluation of recurrent, severe left sided neck, and shoulder pain that started last night and got acutely worse today. She reports cleaning more than usual over the weekend but denies any specific injury, no heavy lifting. she states last night she started with an ache in the left side of her neck that radiated to the left shoulder. It got much worse today, worse with any movement or palpation. radiated to the back of her head on the way here. she took 40 mg oxycodone this morning and again this afternoon with no relief. she also took a muscle relaxer. usually on oxycodone 30 mg once per day. she denies any chest pain, sob, vision changes. no falls. she was seen here in may for similar presentation and had MRI of her cervical spine showing multiple abnormalities including multilevel spondylyosis w/ spondylitic changes, severe formainal stenosis, and a mixed lucent and sclerotic lesion withing C5 v ertebral body where an outpatient bone scan was recommended. she has not gotten the scan yet. she reports this pain has happened several times and doctors cannot determine the cause. MD Complaint: extremity pain Onset (ago): day(s) (1) Pain Consistency: constant Location: left and upper extremity Severity scale (1-10): 10 Quality: burning, stabbing, aching and sharp Radiation: distal Exacerbating factors: range of motion and palpation Associated symptoms: denies other symptoms Related Data Home Medications ?Medication ?Instructions ?Recorded ?Confirmed diphenhydramine HCl 25 mg tablet 25 mg PO DAILY 02/20/24 08/01/24 (Benadryl Allergy) guselkumab 100 mg/mL subcutaneous 100 mg subcut Q8W 02/20/24 08/01/24 auto-injector (Tremfya) Previous Rx's ?Medication ?Instructions ?Recorded Updraft machine #1 ea 09/16/21 Bp monitor #1 ea 11/18/22 blood pressure test kit-large #1 ea 11/19/22 (Quick Response BP Monitor-Large Cuff kit) betamethasone dipropionate 0.05 % 1 appl topical DAILY PRN Itching 12/09/23 topical cream 30 days #90 grams cetirizine 10 mg tablet (All Day 10 mg PO DAILY #90 tabs 02/24/24 Allergy (cetirizine)) verapamil 240 mg 24 hr 240 mg PO DAILY #90 caps 02/24/24 capsule,extended release FreeStyle Lancets 28 gauge #100 ea 05/17/24 (lancets) FreeStyle Lite Meter #1 ea 05/17/24 (blood-glucose meter) FreeStyle Test (blood sugar #100 ea 05/17/24 diagnostic) cholecalciferol (vitamin D3) 1,250 1,250 mcg PO QWEEK 90 days #13 caps 06/07/24 mcg (50,000 unit) capsule albuterol sulfate 90 mcg/actuation 1 inh inhalation QID PRN shortness 06/09/24 aerosol inhaler of breath or wheezing 90 days #3 multiple units lidocaine 5 % topical patch 1 patch topical DAILY #30 ea 06/09/24 ferrous sulfate 324 mg (65 mg 324 mg PO BID #180 tabs 06/19/24 iron) tablet,delayed release labetalol 100 mg tablet 100 mg PO BID 90 days #180 tabs 06/19/24 quetiapine 100 mg tablet See Rx Instructions .Route 06/19/24 .COMPLEX #90 tabs albuterol sulfate 0.63 mg/3 mL 0.63 mg (3 mL) inhalation QID PRN 06/27/24 solution for nebulization for wheezing #75 mL empagliflozin 10 mg tablet 10 mg PO DAILY #30 tabs 07/25/24 (Jardiance) fluticasone 500 mcg-salmeterol 50 1 ea inhalation BID 90 days #60 ea 07/26/24 mcg/dose blistr powdr for inhalation (Wixela Inhub) furosemide 20 mg tablet (Lasix) 20 mg PO DAILY 90 days #90 tabs 07/26/24 oxycodone 10 mg tablet 10 mg PO Q8H PRN pain 30 days #90 08/09/24 tabs montelukast 10 mg tablet 10 mg PO BEDTIME #90 tabs 08/18/24 sertraline 100 mg tablet 200 mg (2 x 100 mg) PO DAILY #180 08/22/24 tabs diazepam 5 mg tablet (Valium) 5 mg PO BID PRN muscle spasm #4 08/28/24 tabs Allergies Allergy/AdvReac Type Severity Reaction Status Date / Time cat dander [CATS] Allergy Severe DIFFICULTY Verified 08/28/24 17:16 BREATHING dog dander [DOGS] Allergy Severe DIFFICULTY Verified 08/28/24 17:16 BREATHING latex [Latex] Allergy Severe ANAPHYLAXIS Verified 08/28/24 17:16 penicillin G [PENICILLIN G] AdvReac Unknown PT STATES Verified 08/28/24 17:16 IT JUST DOESN'T WORK FOR HER Environmental Allergy Unknown allergy Uncoded 06/09/24 03:50 symptoms Review of Systems Review of Systems: Yes all other systems are reviewed and are negative [facility] Past Medical History Medical History (HFpEF) heart failure with preserved ejection fraction Obesity due to excess calories Asthma, moderate Essential hypertension Dyspnea on exertion Refusal of blood transfusions as patient is [place] HTN (hypertension) Diastolic dysfunction Apical variant hypertrophic cardiomyopathy MITCHELL (obstructive sleep apnea) Obesity (BMI 35.0-39.9 without comorbidity) Sacroiliitis Spondylosis of lumbar region without myelopathy or radiculopathy Cardiomyopathy Asthma Pain management Anxiety, generalized Depression, major, recurrent Chronic GERD Environmental allergies Noncompliance Hypertension, essential NSTEMI (non-ST elevated myocardial infarction) Heart murmur 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) Surgical History Hx of cardiac catheterization Hx of colonoscopy History of tubal ligation History of endometrial ablation History of hysterectomy for benign disease Family History Family History Mother Uterine cancer Other Substance use disorder Social History Social History Housing: House Alcohol intake: current Alcohol intake frequency: 0-2 drinks per day Alcohol type: hard liquor Patient Tobacco Use Status: Former Tobacco user Tobacco use type: Cigarette e-Cigarette/Vaping Use: Never Used Second Hand Smoke Exposure: No Advance Directives: No Advance Directives Information Provided: No Do you have a plan to hurt others: No Plan service: No Current occupational status: employed Cognitive needs: No Hearing needs: No Vision needs: Yes Physical Exam Vital Signs: Vital Signs: Last Vital Signs Temp 97.8 F 08/28/24 20:02 Pulse 87 08/28/24 20:02 Resp 16 08/28/24 20:02 BP 130/77 08/28/24 20:02 Pulse Ox 96 08/28/24 20:02 O2 Del Method Room Air 08/28/24 20:02 BMI result Body Mass Index 36.6 Appearance: Alert. Oriented X3. Appears uncomfortable, hyperventilating in pain Head: normocephalic, atraumatic. no scalp tenderness. Eyes: Pupils equal, round and reactive to light. ENT: normal external inspection Neck: Normal inspection. Neck supple. No c-spine tenderness. soft tissue tenderness of the left lateral neck. muscle spasm of the upper trapezius. CVS: Normal heart rate and rhythm. Pulses normal. Respiratory: No respiratory distress. Breath sounds normal. Abdomen: Soft and nontender. +BS x4 Skin: Skin warm and dry. Normal skin color. Normal skin turgor. No rashes. Extremities: No lower extremity edema. No joint swelling. left proximal shoulder tenderness at the AC joint. limited ROM of the left shoulder. Neuro/psych: Oriented X 3. No motor deficit. No sensory deficit. CN II-XII intact. Normal speech and cognition. Course Reevaluation(s) Reevaluation #1: still having significant pain after IM dilaudid and IM ativan. given PO valium as she responded well to this in the past. also gave dose of IM toradol for anti-inflammatory effects Time: 17:56 Reevaluation #2: pain improving. now able to lay in bed. Time: 18:27 Reevaluation #3: Sign-out was pending re-evaluation. She is feeling much better, and would like to be discharged home. Vital signs stable. Patient's family member will be bringing her home. Given strict return precautions. She will call her primary care doctor tomorrow. Patient stable for discharge. Time: 19:52 Medications Administered Discontinued Medications Generic Name Dose Route Start Last Admin Trade Name Freq PRN Reason Stop Dose Admin Diazepam 5 mg 08/28/24 17:45 08/28/24 17:52 Diazepam 5 Mg Tablet PO 08/28/24 17:46 5 mg ONCE ONE Administration Hydromorphone HCl 2 mg 08/28/24 17:17 08/28/24 17:26 Hydromorphone Hcl 2 Mg/Ml Vial IM 08/28/24 17:18 2 mg ONCE ONE Administration Protocol Ketorolac Tromethamine 30 mg 08/28/24 17:45 08/28/24 17:52 Ketorolac Tromethamine 30 Mg/Ml Vial IM 08/28/24 17:46 30 mg ONCE ONE Administration Lorazepam 1 mg 08/28/24 17:17 08/28/24 17:26 Lorazepam 2 Mg/Ml Vial IM 08/28/24 17:18 1 mg STAT STA Administration Medical Decision Making Medical Decision Making MDM Narrative: 58 yo female with history of hypertrophic cardiomyopathy, MITCHELL, HTN, chronic pain on chronic opiates who presents to the ER for evaluation of recurrent, severe left sided neck, and shoulder pain that started last night and got acutely worse today. in severe pain on arrival. similar to previous presentation. IM dilaudid and ativan given and then IM toradol and PO valium for ongoing pain. exam and clinical presentation are most c/w muscular etiology, possible radi culopathy given prior MRI findings and radiation of the pain symptomatically improved after treatment. comfortable with discharge home with outpatient follow up. Differential Diagnosis Differential Diagnoses: The differential diagnosis associated with the presentation includes torticollis, muscle spasm, spondylosis, cervical radiculopathy, less likely carotid dissection Admission/Observation Consideration of admission/observation: Escalation of care including admission/observation considered External Record Review External record reviewed: Outpatient record, Prior outpatient labs and Prior outpatient radiology Tests considered The following testing was considered but not selected: considered CTA head/neck to r/o dissection, low clinical suspicion Prescription Management I considered prescription management with: Pain Medication Chronic Conditions Patient?s care impacted by: Other (chronic pain, hypertrophic cardiomyopathy) Critical Care Time Critical Care Time Critical Care Time: Yes Total Critical Care Time: 33 Attestation: I have personally provided critical care time exclusive of time spent on separately billable procedures. Time includes review of lab data, radiology results, bedside evaluation after administration of IM narcotics and benzos, and monitoring for potential decompensation. Intervention performed as documented. Discharge Plan Discharge Clinical Impression: Neck pain Patient Disposition: Home, Self-Care Instructions: Neck Pain (ED) Additional Instructions: Follow up with your doctor as soon as possible Rest Use ice/heat to the area Take the prescribed muscle relaxers as needed for muscle spasm MR/MR cervical spine wo/w con IMPRESSION: * The mixed lucent and sclerotic lesion within the C5 vertebral body seen on the prior CT study exhibits homogenous enhancement and low signal on T1-weighted imaging. The lesion exhibited trabecular thickening on the prior CT and therefore a lipid poor intraosseous hemangioma features is a diagnostic consideration. A whole-body bone scan would be helpful in excluding additional osseous lesions that may suggest alternative etiologies such as metastatic disease. * There is enhancement and T2 signal change involving the left C4 and C5 facets that is most likely degenerative/inflammatory given the presence of severe degenerative hypertrophic facet arthropathy at C4-C5 on the left side seen on the prior CT study. * Multilevel cervical spondylosis that is greatest at C4-C5 where spondylitic changes result in mild central canal stenosis as well as severe left and moderate right foraminal stenosis. Spondylitic changes also result in moderate left C5-C6 and moderate to severe right C6-C7 foraminal stenosis. Prescriptions: New diazepam [Valium] 5 mg tablet 5 mg PO BID PRN (Reason: muscle spasm) Qty: 4 0RF No Action (DME) Bp monitor Medium See Rx Instructions .Route .MEDSUPPLY Qty: 1 0RF Rx Instructions: As directed (DME) blood pressure test kit-large [Quick Response BP Monitor-Larg] Kit See Rx Instructions .Route Qty: 1 0RF Rx Instructions: As directed betamethasone dipropionate 0.05 % cream 1 appl topical DAILY PRN (Reason: Itching) 30 Days Qty: 90 2RF cetirizine [All Day Allergy (cetirizine)] 10 mg tablet 10 mg PO DAILY Qty: 90 3RF verapamil 240 mg capsule,ext rel. pellets 24 hr 240 mg PO DAILY Qty: 90 3RF (DME) blood-glucose meter [FreeStyle Lite Meter] Kit See Rx Instructions .Route Qty: 1 0RF Rx Instructions: Check blood sugar once per day (DME) FreeStyle Test Strip See Rx Instructions .Route Qty: 100 0RF Rx Instructions: Test blood sugar once per day (DME) lancets [FreeStyle Lancets] 28 gauge misc See Rx Instructions .Route Qty: 100 0RF Rx Instructions: Test blood sugar once per day albuterol sulfate 90 mcg/actuation HFA aerosol inhaler 1 inh inhalation QID PRN (Reason: shortness of breath or wheezing) 90 Days Qty: 3 3RF labetalol 100 mg tablet 100 mg PO BID 90 Days Qty: 180 3RF quetiapine 100 mg tablet See Rx Instructions .ROUTE .COMPLEX Qty: 90 0RF Dose Instruction: TAKE 1 TABLET BY MOUTH AT BEDTIME FOR 90 DAYS. FUTHER REFILLS WILL NEED OFFICE VISIT Rx Instructions: TAKE 1 TABLET BY MOUTH AT BEDTIME FOR 90 DAYS. FUTHER REFILLS WILL NEED OFFICE VISIT ferrous sulfate 324 mg (65 mg iron) tablet,delayed release (DR/EC) 324 mg PO BID Qty: 180 0RF albuterol sulfate 0.63 mg/3 mL solution for nebulization 0.63 mg inhalation QID PRN (Reason: for wheezing) Qty: 75 2RF furosemide [Lasix] 20 mg tablet 20 mg PO DAILY 90 Days Qty: 90 3RF fluticasone propion-salmeterol [Wixela Inhub] 500-50 mcg/dose blister with device 1 ea INHALATION BID 90 Days Qty: 60 1RF oxycodone 10 mg tablet 10 mg PO Q8H PRN (Reason: pain) 30 Days Qty: 90 0RF montelukast 10 mg tablet 10 mg PO BEDTIME Qty: 90 0RF sertraline 100 mg tablet 200 mg PO DAILY Qty: 180 1RF Tremfya 100 mg/mL auto-injector 100 mg subcut Q8W diphenhydramine HCl [Benadryl Allergy] 25 mg Tablet 25 mg PO DAILY lidocaine 5 % adhesive patch,medicated 1 patch topical DAILY Qty: 30 0RF Rx Instructions: leave on most painful area for up to 12 hrs (DME) Updraft machine See Rx Instructions .Route .MEDSUPPLY Qty: 1 0RF Rx Instructions: As directed cholecalciferol (vitamin D3) 1,250 mcg (50,000 unit) capsule 1,250 mcg PO QWEEK 90 Days Qty: 13 0RF Jardiance 10 mg tablet 10 mg PO DAILY Qty: 30 6RF Stand Alone Forms: Work/School Release Interventions: ED Discharge Assessment Last Done: 08/28/24 20:02 Discharge Date/Time: 08/28/24 20:02 Print Language: [place]
[2024-08-28 19:41] VITALS: BP 130/77; PULSE 87; RESP 16; TEMP 36.6; O2SAT 96
[2024-08-28 20:02] VITALS: BP 130/77; PULSE 87; RESP 16; TEMP 36.6; O2SAT 96
== END 2024-08-28 20:02 | disposition home or self-care (01) ==
PROVIDERS: Emergency Provider Emergency Medicine; PCP Internal Medicine
DX: M54.2 Cervicalgia (principal); R51.9 Headache, unspecified; Z79.899 Other long term (current) drug therapy; Z87.891 Personal history of nicotine dependence
CPT/HCPCS: 96372; 99284; J1171; J1885; J2060

== ENCOUNTER 2024-09-06 12:54 | Outpatient (AMB) | payer OTHER, SELFPAY ==
--- NOTE | 2024-09-06 12:55 | MHC.PC.OV ---
Vital Signs 09/06/24 12:56 Height 5 ft 4 in Weight 216 lb BMI 37.1 BP 146/90 H Blood Pressure Location Rt brachial Position Sitting Pulse 70 Pulse Source Pulse Oximeter Pulse Oximetry (%) 95 Oxygen Delivery Method Room Air Intake Visit Reasons: Regular Visit Allergies cat dander [CATS] Allergy (Severe, Verified 09/06/24 12:57) DIFFICULTY BREATHING dog dander [DOGS] Allergy (Severe, Verified 09/06/24 12:57) DIFFICULTY BREATHING latex [Latex] Allergy (Severe, Verified 09/06/24 12:57) ANAPHYLAXIS penicillin G [PENICILLIN G] Adverse Reaction (Unknown, Verified 09/06/24 12:57) PT STATES IT JUST DOESN'T WORK FOR HER Environmental Allergy (Unknown, Uncoded 09/06/24 12:57) allergy symptoms Medication List - Last Reconciled 09/06/24 by Kai Saha MD albuterol sulfate 90 mcg/actuation 1 inh inhalation QID PRN 90 days albuterol sulfate 0.63 mg (3 mL) inhalation QID PRN betamethasone dipropionate 0.05% 1 appl topical DAILY PRN 30 days blood pressure test kit-large (Quick Response BP Monitor-Large Cuff kit) As directed [Bp monitor As directed] cetirizine (All Day Allergy (cetirizine)) 10 mg PO DAILY cholecalciferol (vitamin D3) 1,250 mcg PO QWEEK 90 days cyclobenzaprine 10 mg PO BEDTIME PRN diphenhydramine HCl (Benadryl Allergy) 25 mg PO DAILY empagliflozin (Jardiance) 10 mg PO DAILY ferrous sulfate 324 mg PO BID fluticasone propion-salmeterol 500-50 mcg/dose (Wixela Inhub) 1 ea inhalation BID 90 days FreeStyle Lancets (lancets) Test blood sugar once per day NS FreeStyle Lite Meter (blood-glucose meter) Check blood sugar once per day NS FreeStyle Test (blood sugar diagnostic) Test blood sugar once per day NS furosemide (Lasix) 20 mg PO DAILY 90 days guselkumab (Tremfya) 100 mg subcut Q8W labetalol 100 mg PO BID 90 days lidocaine 5% 1 patch topical DAILY montelukast 10 mg PO BEDTIME quetiapine TAKE 1 TABLET BY MOUTH AT BEDTIME FOR 90 DAYS. FUTHER REFILLS WILL NEED OFFICE VISIT sertraline 200 mg (2 x 100 mg) PO DAILY [SCHEDitraft machine As directed] verapamil ER 240 mg PO DAILY Tobacco use date assessed: 09/06/24 Dental Screening Dental Screen Date: 09/06/24 Did you have a dental visit in the last 12 months?: Yes Did you have a dental problem in the last 6 months where you did not have access to dental care?: No Was dental information given to patient?: Patient has dentist HPI Regular Visit HPI Details Patient had cervical spine MRI done May of this year When she presented to emergency room for neck pain She ended up going to emergency room again few weeks ago for similar problem Neck pain radiating to left shoulder Her initial MRI scan report stated as following The mixed lucent and sclerotic lesion within the C5 vertebral body seen on the prior CT study exhibits homogenous enhancement and low signal on T1-weighted imaging. The lesion exhibit trabecular thickening on the prior CT and therefore an intraosseous hemangioma with atypical imaging features is a consideration. A whole-body bone scan would be helpful in excluding additional osseous lesions that may suggest alternative etiologies such as metastatic disease I have ordered a whole-body bone scan for the patient for that reason Patient was started on fentanyl 12.5 mg patches as her psoriatic arthritis pain was not controlled with oxycodone 10 mg up to 3 times a day She was even prescribe sustained release oxycodone 40 mg she still continued to have pain at the end of the day Fentanyl patches 12.5 helped her for a while and then she started having pain again Currently she is on 25 mg patch and she is changing it every 72 hours, there was an issue that patch was falling down So she asked to be restarted on slow release oxycodone for a month Patient says that she talked to pharmacist and there are 2 different kind of patches One of them does stay on, so she would like to go back to 25 mcg patch, sent Patient have updated pain contract in the chart Continue vitamin-D supplement She is monitoring her sugars they are running below 120 fasting Allergies are stable patient is on cetirizine 10 mg and Singulair Asthma is stable with Wixela Patient is established with Cardiology for cardiomyopathy At this time patient is stable she is on frusemide 20 mg daily She has started weighing herself every day, instructions are if she goes above 2 lb in 24 hours she has to take extra water pill as per Cardiology Blood pressure continued to be labile, continue labetalol 100 mg b.i.d. Depression and difficulty sleeping, patient is on Seroquel 100 mg at bedtime and is doing well along with sertraline 200 mg Patient will return in 2 months for follow-up appointment REPLACED BY [facility] Medical History (HFpEF) heart failure with preserved ejection fraction Obesity due to excess calories Asthma, moderate Essential hypertension Dyspnea on exertion Refusal of blood transfusions as patient is Yarsanism HTN (hypertension) Diastolic dysfunction Apical variant hypertrophic cardiomyopathy MITCHELL (obstructive sleep apnea) Obesity (BMI 35.0-39.9 without comorbidity) Sacroiliitis Spondylosis of lumbar region without myelopathy or radiculopathy Cardiomyopathy Asthma Pain management Anxiety, generalized Depression, major, recurrent Chronic GERD Environmental allergies Noncompliance Hypertension, essential NSTEMI (non-ST elevated myocardial infarction) Heart murmur 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) Surgical History Hx of cardiac catheterization Hx of colonoscopy History of tubal ligation History of endometrial ablation History of hysterectomy for benign disease Family History Mother Uterine cancer Other Substance use disorder Social History Housing: House Alcohol intake: current Alcohol intake frequency: 0-2 drinks per day Alcohol type: hard liquor Patient Tobacco Use Status: Former Tobacco user Tobacco use type: Cigarette e-Cigarette/Vaping Use: Never Used Second Hand Smoke Exposure: No service: No Current occupational status: employed Cognitive needs: No Hearing needs: No Vision needs: Yes Female Reproductive History Menstrual Age of Menarche: 14 Questionnaire Thrive Questionnaire Date Thrive assessed: 06/07/24 I am a: Patient What is your living situation today?: I have a steady place to live Within the past 12 months, did the food you bought not last and you didn't have the money to get more?: Never true Within the past 12 months, did you worry whether your food would run out before you got money to buy more?: Never true Do you have trouble paying for medicines?: No Do you have trouble getting transportation to medical appointments?: No Do you have trouble paying your heating and electricity bill?: No Do you have trouble taking care of your child, family member or friend?: No Do you have trouble with day-to-day activities such as bathing, preparing meals, shopping, managing finances, etc.?: I choose not to answer this question Are you currently unemployed and looking for a job?: No Are you interested in more education?: No Please select the resources that you would like help with: None Currently or been in a relationship where the following occur: No concerns reported THRIVE Score: 0 FIDELIA-7 AMB Questionnaire FIDELIA-7 Date FIDELIA - 7 assessed: 06/07/24 Source: Developed by Drs. Albin Fitch, Kate Fink, Yosi Bar and colleagues, with an educational isaak from [employer]. Review of Systems Const Denies chills and Denies fever(s) ENT Denies epistaxis and Denies nasal discharge Card Denies chest pain Resp Denies chest congestion, Denies cough and Denies hemoptysis GI Denies diarrhea and Denies nausea Skin/Breast Denies rash Neuro Reports no additional complaints Psych Reports no additional complaints Endo Reports no additional complaints Physical exam (Primary Care) Vital Signs: Last Vital Signs Pulse 70 09/06/24 12:56 BP 146/90 H 09/06/24 12:56 Pulse Ox 95 09/06/24 12:56 Oxygen Delivery Method Room Air 09/06/24 12:56 BMI result Body Mass Index 37.1 Tobacco/Smoking Status: Tobacco use Status Tobacco use date assessed 09/06/24 09/06/24 12:59 Patient Tobacco Use Status Former Tobacco user 09/06/24 12:59 Tobacco use type Cigarette 09/06/24 12:59 e-Cigarette/Vaping Use Never Used 09/06/24 12:59 Thrive Assessment: Date of Thrive Assessment Date Thrive assessed 06/07/24 09/06/24 12:59 Currently or been in a relationship where the following occur: No concerns reported Const General: cooperative, comfortable and no acute distress Orientation/consciousness: patient oriented x3 HENMT Head: Yes normocephalic Eyes General: appearance normal, both eyes and all related structures Neck Neck: Yes supple Resp Effort & Inspection: normal respiratory effort, no cough and no stridor Cardio Rhythm: regular rhythm Heart sounds: S1 normal heart sound present and S2 normal heart sound present Skin General skin exam: turgor normal Neuro General: patient oriented x3, tone normal and moves all extremities Extrem Right lower extremity: no edema Left lower extremity: no edema Coding Level of Care Code Est Pt Level 5 (09472) Diagnoses Abnormal magnetic resonance imaging of cervical spine R93.7 Cervical radiculitis M54.12 Primary hypertension I10 Hypertension type: primary hypertension Diastolic dysfunction I51.89 Sacroiliitis M46.1 Pain management R52 Anxiety, generalized F41.1 Recurrent major depressive disorder, in partial remission F33.41 Active/Remission status: in partial remission Chronic GERD K21.9 HLA B27 (HLA B27 positive) Z15.89 Moderate persistent asthma without complication J45.40 Asthma complication type: uncomplicated Pre-diabetes R73.03 Assessment & Plan Assessment & Plan (1) Abnormal magnetic resonance imaging of cervical spine: Code(s): R93.7 - Abnormal findings on diagnostic imaging of other parts of musculoskeletal system Category: Medical (2) Cervical radiculitis: Code(s): M54.12 - Radiculopathy, cervical region Category: Medical (3) HTN (hypertension): Code(s): I10 - Essential (primary) hypertension Category: Medical Qualifiers: Hypertension type: primary hypertension Qualified Code(s): I10 - Essential (primary) hypertension (4) Diastolic dysfunction: Code(s): I51.89 - Other ill-defined heart diseases Category: Medical (5) Sacroiliitis: Code(s): M46.1 - Sacroiliitis, not elsewhere classified Category: Medical (6) Pain management: Code(s): R52 - Pain, unspecified Category: Medical (7) Anxiety, generalized: Code(s): F41.1 - Generalized anxiety disorder Category: Medical (8) Depression, major, recurrent: Code(s): F33.9 - Major depressive disorder, recurrent, unspecified Category: Medical Qualifiers: Active/Remission status: in partial remission Qualified Code(s): F33.41 - Major depressive disorder, recurrent, in partial remission (9) Chronic GERD: Code(s): K21.9 - Gastro-esophageal reflux disease without esophagitis Category: Medical (10) HLA B27 (HLA B27 positive): Code(s): Z15.89 - Genetic susceptibility to other disease Category: Medical (11) Asthma, moderate persistent: Code(s): J45.40 - Moderate persistent asthma, uncomplicated Category: Medical Qualifiers: Asthma complication type: uncomplicated Qualified Code(s): J45.40 - Moderate persistent asthma, uncomplicated (12) Pre-diabetes: Code(s): R73.03 - Prediabetes Category: Medical Plan Patient had cervical spine MRI done May of this year When she presented to emergency room for neck pain She ended up going to emergency room again few weeks ago for similar problem Neck pain radiating to left shoulder Her initial MRI scan report stated as following The mixed lucent and sclerotic lesion within the C5 vertebral body seen on the prior CT study exhibits homogenous enhancement and low signal on T1-weighted imaging. The lesion exhibit trabecular thickening on the prior CT and therefore an intraosseous hemangioma with atypical imaging features is a consideration. A whole-body bone scan would be helpful in excluding additional osseous lesions that may suggest alternative etiologies such as metastatic disease I have ordered a whole-body bone scan for the patient for that reason Her neck pain is better now and neck is supple Patient was started on fentanyl 12.5 mg patches as her psoriatic arthritis pain was not controlled with oxycodone 10 mg up to 3 times a day She was even prescribe sustained release oxycodone 40 mg she still continued to have pain at the end of the day Fentanyl patches 12.5 helped her for a while and then she started having pain again Currently she is on 25 mg patch and she is changing it every 72 hours, there was an issue that patch was falling down So she asked to be restarted on slow release oxycodone for a month Patient says that she talked to pharmacist and there are 2 different kind of patches One of them does stay on, so she would like to go back to 25 mcg patch, sent Patient have updated pain contract in the chart Continue vitamin-D supplement She is monitoring her sugars they are running below 120 fasting Allergies are stable patient is on cetirizine 10 mg and Singulair Asthma is stable with Wixela Patient is established with Cardiology for cardiomyopathy At this time patient is stable she is on frusemide 20 mg daily She has started weighing herself every day, instructions are if she goes above 2 lb in 24 hours she has to take extra water pill as per Cardiology Blood pressure continued to be labile, continue labetalol 100 mg b.i.d. Depression and difficulty sleeping, patient is on Seroquel 100 mg at bedtime and is doing well along with sertraline 200 mg Patient will return in 2 months for follow-up appointment 45 minutes spent in care of this patient, including reviewing chart, [id number] Coordination of care Orders: Orders NM bone scan whole body Today M54.12 - Radiculopathy, cervical region, R93.7 - Abnormal findings on diagnostic imaging of other parts of musculoskeletal system Medications: Refilled fentanyl 25 mcg/hr Partial Fill upon patient request. 1 patch transdermal Q72H 30 days 10 ea 0RF L40.50 - Arthropathic psoriasis, unspecified, M46.1 - Sacroiliitis, not elsewhere classified, M47.816 - Spondylosis without myelopathy or radiculopathy, lumbar region, Z15.89 - Genetic susceptibility to other disease
[2024-09-06 12:56] VITALS: BP 146/90; PULSE 70; O2SAT 95; BMI 37.1
== END 2024-09-06 13:22 | disposition home or self-care (01) ==
PROVIDERS: PCP Internal Medicine; Visit Provider Internal Medicine
DX: I10 Essential (primary) hypertension (principal); R93.7 Abnormal findings on diagnostic imaging of other parts of musculoskeletal system; M46.1 Sacroiliitis, not elsewhere classified; F33.41 Major depressive disorder, recurrent, in partial remission; M54.12 Radiculopathy, cervical region; I51.89 Other ill-defined heart diseases; R52 Pain, unspecified; F41.1 Generalized anxiety disorder; K21.9 Gastro-esophageal reflux disease without esophagitis; Z15.89 Genetic susceptibility to other disease; J45.40 Moderate persistent asthma, uncomplicated; R73.03 Prediabetes

== ENCOUNTER → 2024-09-06 12:54 | Outpatient (BNVA) | payer OTHER, SELFPAY | PROVIDERS: PCP Internal Medicine; Visit Provider Internal Medicine ==

== ENCOUNTER → 2024-11-01 10:05 | Outpatient (REF) | payer OTHER, SELFPAY ==
--- OUTSIDE RECORDS SUMMARY | 2024-11-01 10:13 | XMS_ITS ---
Author Name [facility] Organization Unknown History of Medication Use Medication Directions Dispensed Refills Start Date End Date Stat us gadobutrol (GADAVIST) injection 20 mL 20 mL, Intravenous, Once in imaging, contrast, Starting on 05/20/24 at 1147, For 1 dose, Radiology Appointment 05/23/2024 completed Problems Problem Status Onset Date Problem Type Date of Resolution Source Apical variant hypertrophic cardiomyopathy (HCC) [facility]
== END ==
LOC: HO.NUCMED 10:05
PROVIDERS: PCP Internal Medicine; Visit Provider Internal Medicine
DX: R93.7 Abnormal findings on diagnostic imaging of other parts of musculoskeletal system (principal); M54.12 Radiculopathy, cervical region
CPT/HCPCS: 78306; A9503

== ENCOUNTER 2024-11-14 15:22 | Outpatient (AMB) | payer OTHER, SELFPAY ==
--- NOTE | 2024-11-14 15:27 | MHC.PC.OV ---
Vital Signs 11/14/24 15:28 Height 5 ft 4 in Weight 220 lb 4 oz BMI 37.8 BP 134/82 Blood Pressure Location Lt brachial Position Sitting Pulse 76 Pulse Source Pulse Oximeter Pulse Oximetry (%) 95 Oxygen Delivery Method Room Air Intake Visit Reasons: 2 months f/up Allergies cat dander [CATS] Allergy (Severe, Verified 11/14/24 15:37) DIFFICULTY BREATHING dog dander [DOGS] Allergy (Severe, Verified 11/14/24 15:37) DIFFICULTY BREATHING latex [Latex] Allergy (Severe, Verified 11/14/24 15:37) ANAPHYLAXIS penicillin G [PENICILLIN G] Adverse Reaction (Unknown, Verified 11/14/24 15:37) PT STATES IT JUST DOESN'T WORK FOR HER Environmental Allergy (Unknown, Uncoded 09/06/24 12:57) allergy symptoms Medication List - Last Reconciled 11/14/24 by Kai Saha MD albuterol sulfate 90 mcg/actuation 1 inh inhalation QID PRN 90 days albuterol sulfate 0.63 mg (3 mL) inhalation QID PRN betamethasone dipropionate 0.05% 1 appl topical DAILY PRN 30 days blood pressure test kit-large (Quick Response BP Monitor-Large Cuff kit) As directed [Bp monitor As directed] cetirizine (All Day Allergy (cetirizine)) 10 mg PO DAILY cholecalciferol (vitamin D3) 1,250 mcg PO QWEEK 90 days cyclobenzaprine 10 mg PO BEDTIME PRN diphenhydramine HCl (Benadryl Allergy) 25 mg PO DAILY empagliflozin (Jardiance) 10 mg PO DAILY fentanyl 25 mcg/hr 1 patch transdermal Q72H 30 days ferrous sulfate 324 mg PO BID fluticasone propion-salmeterol 500-50 mcg/dose (Wixela Inhub) 1 ea inhalation BID 90 days FreeStyle Lancets (lancets) Test blood sugar once per day NS FreeStyle Lite Meter (blood-glucose meter) Check blood sugar once per day NS FreeStyle Test (blood sugar diagnostic) Test blood sugar once per day NS furosemide (Lasix) 20 mg PO DAILY 90 days guselkumab (Tremfya) 100 mg subcut Q8W labetalol 100 mg PO BID 90 days lidocaine 5% 1 patch topical DAILY montelukast 10 mg PO BEDTIME oxycodone 5 mg PO Q8H PRN 7 days quetiapine TAKE 1 TABLET BY MOUTH AT BEDTIME FOR 90 DAYS. FUTHER REFILLS WILL NEED OFFICE VISIT sertraline 200 mg (2 x 100 mg) PO DAILY [CooCooraft machine As directed] verapamil ER 240 mg PO DAILY Tobacco use date assessed: 11/14/24 Dental Screening Dental Screen Date: 11/14/24 Did you have a dental visit in the last 12 months?: Yes Did you have a dental problem in the last 6 months where you did not have access to dental care?: No Was dental information given to patient?: Patient has dentist HPI 2 months f/up HPI Details - The patient is a 59-year-old female presenting with a regular follow-up for medication refill and review of bone scan results. - Arthritic changes in the cervical spine identified via bone scan - Prior vitamin D deficiency noted in March, initially treated with a dosage of 50,000 IU weekly. - Current vitamin D status: Completed initial prescribed dosage, transitioning to 1,000 IU daily. - History of hypercalcemia: Calcium levels previously borderline high at 10.4 and 10.7; elevated to 11.2 in July. - Previous parathyroid hormone assessment conducted in March was within the normal range. - Regular medication: Fentanyl 25 mcg, with ongoing management of refill schedule. - depression stable - having some sleep issues because taking nap during the day -allergies stable -also on muscle relaxer as needed -asthma stable -blood pressure is stable Patient is established with Cardiology as well Review of Systems General: Reports difficulty with sleep maintenance, waking frequently at night. Endocrine: Denies any recent brand ambassadors promotional sales visits. - General: No fever no chills - Neurological: No headaches no dizziness - Ear nose throat: No sore throat no hearing difficulty no ear pain - Cardiovascular: No syncope, no chest pain, no palpitations - Gastrointestinal: No nausea vomiting or diarrhea - Endocrine: No polyuria polydipsia no heat intolerance - Genitourinary: No dysuria , no blood in urine Physical Exam - General: No acute distress - HEENT: No acute findings - Neck: Supple - Respiratory system: Able to talk in full sentences, no audible wheeze - cardiovascular: S1-S2 regular in rate and rhythm - Gastrointestinal: No pain - Extremities: No new findings - GUEST SERVICES AGENT: Alert awake oriented x3 motor sensory intact - Skin: Normal turgor Patient Instructions - Begin daily intake of Vitamin D at 1,000 IU. - Schedule follow-up labs in two months prior to the next scheduled visit. - Monitor calcium levels and parathyroid hormone, as per next lab results. - Adjust schedule and environment to improve sleep quality; consider avoiding naps. - Contact for medication refill as needed before the scheduled follow-up. - Keep a record of sleep patterns to identify contributing factors for insomnia. [facility] Medical History (HFpEF) heart failure with preserved ejection fraction Obesity due to excess calories Asthma, moderate Essential hypertension Dyspnea on exertion Refusal of blood transfusions as patient is Shinto HTN (hypertension) Diastolic dysfunction Apical variant hypertrophic cardiomyopathy MITCHELL (obstructive sleep apnea) Obesity (BMI 35.0-39.9 without comorbidity) Sacroiliitis Spondylosis of lumbar region without myelopathy or radiculopathy Cardiomyopathy Asthma Pain management Anxiety, generalized Depression, major, recurrent Chronic GERD Environmental allergies Noncompliance Hypertension, essential NSTEMI (non-ST elevated myocardial infarction) Heart murmur 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) Surgical History Hx of cardiac catheterization Hx of colonoscopy History of tubal ligation History of endometrial ablation History of hysterectomy for benign disease Family History Mother Uterine cancer Other Substance use disorder Social History Housing: House Alcohol intake: current Alcohol intake frequency: 0-2 drinks per day Alcohol type: hard liquor Patient Tobacco Use Status: Former Tobacco user Tobacco use type: Cigarette e-Cigarette/Vaping Use: Never Used Second Hand Smoke Exposure: No service: No Current occupational status: employed Cognitive needs: No Hearing needs: No Vision needs: Yes Female Reproductive History Menstrual Age of Menarche: 14 Questionnaire PHQ-9 Over the last 2 weeks, how often have you been bothered by any of the following problems? 1. Little interest or pleasure in doing things: not at all 2. Feeling down, depressed, or hopeless: not at all 3. Trouble falling or staying asleep, or sleeping too much: not at all 4. Feeling tired or having little energy: several days 5. Poor appetite or overeating: not at all 6. Feeling bad about yourself - or that you are a failure or have let yourself or your family down: not at all 7. Trouble concentrating on things, such as reading the newspaper or watching television: several days 8. Moving or speaking so slowly that other people could have noticed. Or the opposite - being so fidgety or restless that you have been moving around a lot more than usual: not at all 9. Thoughts that you would be better off or of hurting yourself in some way: not at all Total score: 2 Depression Screening Interpretation: Negative Depression Screening Done: Yes 75910 - PHQ-9 Billing: Yes Source: Developed by Drs. Albin Fitch, Kate Fink, Yosi Bar and colleagues, with an educational isaak from [employer]. Thrive Questionnaire Date Thrive assessed: 11/14/24 I am a: Patient What is your living situation today?: I have a steady place to live Within the past 12 months, did the food you bought not last and you didn't have the money to get more?: Never true Within the past 12 months, did you worry whether your food would run out before you got money to buy more?: Never true Do you have trouble paying for medicines?: No Do you have trouble getting transportation to medical appointments?: No Do you have trouble paying your heating and electricity bill?: No Do you have trouble taking care of your child, family member or friend?: No Do you have trouble with day-to-day activities such as bathing, preparing meals, shopping, managing finances, etc.?: I choose not to answer this question Are you currently unemployed and looking for a job?: No Are you interested in more education?: No Please select the resources that you would like help with: None Currently or been in a relationship where the following occur: No concerns reported THRIVE Score: 0 AUDIT C Alcohol Use Questionnaire (AUDIT-C) 1. How often do you have a drink containing alcohol?: 2-3 times a week 2. How many drinks containing alcohol do you have on a typical day when you are drinking?: 1 or 2 3. How often do you have six or more drinks on one occasion?: Never Total Score: 3 Score Reviewed/Action Taken: Yes FIDELIA-7 AMB Questionnaire FIDELIA-7 Date FIDELIA - 7 assessed: 06/07/24 Source: Developed by DrsVon Fitch, Kate Fink, Yosi Bar and colleagues, with an educational isaak from [employer]. Physical exam (Primary Care) Vital Signs: Last Vital Signs Pulse 76 11/14/24 15:28 BP 134/82 11/14/24 15:28 Pulse Ox 95 11/14/24 15:28 Oxygen Delivery Method Room Air 11/14/24 15:28 BMI result Body Mass Index 37.8 Tobacco/Smoking Status: Tobacco use Status Tobacco use date assessed 11/14/24 11/14/24 15:29 Patient Tobacco Use Status Former Tobacco user 11/14/24 15:29 Tobacco use type Cigarette 11/14/24 15:29 e-Cigarette/Vaping Use Never Used 11/14/24 15:29 PHQ-9: PHQ-9 Score PHQ-9: Total score 2 11/14/24 15:38 Depression Screening Interpretation: Negative Thrive Assessment: Date of Thrive Assessment Date Thrive assessed 11/14/24 11/14/24 15:29 Currently or been in a relationship where the following occur: No concerns reported Coding Level of Care Code Est Pt Level 4 (31973) Diagnoses Spondylosis of lumbar region without myelopathy or radiculopathy M47.816 HLA B27 (HLA B27 positive) Z15.89 Primary hypertension I10 Hypertension type: primary hypertension Anxiety, generalized F41.1 Recurrent major depressive disorder, in partial remission F33.41 Active/Remission status: in partial remission Chronic GERD K21.9 Environmental allergies Z91.09 Sacroiliitis M46.1 Diastolic dysfunction I51.89 Moderate persistent asthma without complication J45.40 Asthma complication type: uncomplicated Cervical radiculitis M54.12 Serum calcium elevated E83.52 Vitamin D deficiency E55.9 Additional Codes PHQ-9 - 73466 - PHQ-9 Billing: Yes ([id number]) Assessment & Plan Assessment & Plan (1) Spondylosis of lumbar region without myelopathy or radiculopathy: Code(s): M47.816 - Spondylosis without myelopathy or radiculopathy, lumbar region Category: Medical (2) HLA B27 (HLA B27 positive): Code(s): Z15.89 - Genetic susceptibility to other disease Category: Medical (3) HTN (hypertension): Code(s): I10 - Essential (primary) hypertension Category: Medical Qualifiers: Hypertension type: primary hypertension Qualified Code(s): I10 - Essential (primary) hypertension (4) Anxiety, generalized: Code(s): F41.1 - Generalized anxiety disorder Category: Medical (5) Depression, major, recurrent: Code(s): F33.9 - Major depressive disorder, recurrent, unspecified Category: Medical Qualifiers: Active/Remission status: in partial remission Qualified Code(s): F33.41 - Major depressive disorder, recurrent, in partial remission (6) Chronic GERD: Code(s): K21.9 - Gastro-esophageal reflux disease without esophagitis Category: Medical (7) Environmental allergies: Code(s): Z91.09 - Other allergy status, other than to drugs and biological substances Category: Medical (8) Sacroiliitis: Code(s): M46.1 - Sacroiliitis, not elsewhere classified Category: Medical (9) Diastolic dysfunction: Code(s): I51.89 - Other ill-defined heart diseases Category: Medical (10) Asthma, moderate persistent: Code(s): J45.40 - Moderate persistent asthma, uncomplicated Category: Medical Qualifiers: Asthma complication type: uncomplicated Qualified Code(s): J45.40 - Moderate persistent asthma, uncomplicated (11) Cervical radiculitis: Code(s): M54.12 - Radiculopathy, cervical region Category: Medical (12) Serum calcium elevated: Code(s): E83.52 - Hypercalcemia Category: Medical (13) Vitamin D deficiency: Code(s): E55.9 - Vitamin D deficiency, unspecified Category: Medical Plan - The patient is a 59-year-old female presenting with a regular follow-up for medication refill and review of bone scan results. - Arthritic changes in the cervical spine identified via bone scan - Prior vitamin D deficiency noted in March, initially treated with a dosage of 50,000 IU weekly. - Current vitamin D status: Completed initial prescribed dosage, transitioning to 1,000 IU daily. - History of hypercalcemia: Calcium levels previously borderline high at 10.4 and 10.7; elevated to 11.2 in July. - Previous parathyroid hormone assessment conducted in March was within the normal range. - Regular medication: Fentanyl 25 mcg, with ongoing management of refill schedule. - depression stable - having some sleep issues because taking nap during the day -allergies stable -also on muscle relaxer as needed -asthma stable -blood pressure is stable Patient is established with Cardiology as well Review of Systems General: Reports difficulty with sleep maintenance, waking frequently at night. Endocrine: Denies any recent brand ambassadors promotional sales visits. - General: No fever no chills - Neurological: No headaches no dizziness - Ear nose throat: No sore throat no hearing difficulty no ear pain - Cardiovascular: No syncope, no chest pain, no palpitations - Gastrointestinal: No nausea vomiting or diarrhea - Endocrine: No polyuria polydipsia no heat intolerance - Genitourinary: No dysuria , no blood in urine Physical Exam - General: No acute distress - HEENT: No acute findings - Neck: Supple - Respiratory system: Able to talk in full sentences, no audible wheeze - cardiovascular: S1-S2 regular in rate and rhythm - Gastrointestinal: No pain - Extremities: No new findings - GUEST SERVICES AGENT: Alert awake oriented x3 motor sensory intact - Skin: Normal turgor Patient Instructions - Begin daily intake of Vitamin D at 1,000 IU. - Schedule follow-up labs in two months prior to the next scheduled visit. - Monitor calcium levels and parathyroid hormone, as per next lab results. - Adjust schedule and environment to improve sleep quality; consider avoiding naps. - Contact for medication refill as needed before the scheduled follow-up. - Keep a record of sleep patterns to identify contributing factors for insomnia. Orders: Orders Complete Blood Count Auto Diff Today E55.9 - Vitamin D deficiency, unspecified, E83.52 - Hypercalcemia, F33.41 - Major depressive disorder, recurrent, in partial remission, F41.1 - Generalized anxiety disorder, I10 - Essential (primary) hypertension, I51.89 - Other ill-defined heart diseases, J45.40 - Moderate persistent asthma, uncomplicated, K21.9 - Gastro-esophageal reflux disease without esophagitis, M46.1 - Sacroiliitis, not elsewhere classified, M47.816 - Spondylosis without myelopathy or radiculopathy, lumbar region, M54.12 - Radiculopathy, cervical region, Z15.89 - Genetic susceptibility to other disease, Z91.09 - Other allergy status, other than to drugs and biological substances LDL Cholesterol Direct Today E55.9 - Vitamin D deficiency, unspecified, E83.52 - Hypercalcemia, F33.41 - Major depressive disorder, recurrent, in partial remission, F41.1 - Generalized anxiety disorder, I10 - Essential (primary) hypertension, I51.89 - Other ill-defined heart diseases, J45.40 - Moderate persistent asthma, uncomplicated, K21.9 - Gastro-esophageal reflux disease without esophagitis, M46.1 - Sacroiliitis, not elsewhere classified, M47.816 - Spondylosis without myelopathy or radiculopathy, lumbar region, M54.12 - Radiculopathy, cervical region, Z15.89 - Genetic susceptibility to other disease, Z91.09 - Other allergy status, other than to drugs and biological substances TSH reflex Free T4 Today E55.9 - Vitamin D deficiency, unspecified, E83.52 - Hypercalcemia, F33.41 - Major depressive disorder, recurrent, in partial remission, F41.1 - Generalized anxiety disorder, I10 - Essential (primary) hypertension, I51.89 - Other ill-defined heart diseases, J45.40 - Moderate persistent asthma, uncomplicated, K21.9 - Gastro-esophageal reflux disease without esophagitis, M46.1 - Sacroiliitis, not elsewhere classified, M47.816 - Spondylosis without myelopathy or radiculopathy, lumbar region, M54.12 - Radiculopathy, cervical region, Z15.89 - Genetic susceptibility to other disease, Z91.09 - Other allergy status, other than to drugs and biological substances Parathyroid Hormone Related Pr Today E55.9 - Vitamin D deficiency, unspecified, E83.52 - Hypercalcemia, F33.41 - Major depressive disorder, recurrent, in partial remission, F41.1 - Generalized anxiety disorder, I10 - Essential (primary) hypertension, I51.89 - Other ill-defined heart diseases, J45.40 - Moderate persistent asthma, uncomplicated, K21.9 - Gastro-esophageal reflux disease without esophagitis, M46.1 - Sacroiliitis, not elsewhere classified, M47.816 - Spondylosis without myelopathy or radiculopathy, lumbar region, M54.12 - Radiculopathy, cervical region, Z15.89 - Genetic susceptibility to other disease, Z91.09 - Other allergy status, other than to drugs and biological substances Comprehensive Met. Panel Today E55.9 - Vitamin D deficiency, unspecified, E83.52 - Hypercalcemia, F33.41 - Major depressive disorder, recurrent, in partial remission, F41.1 - Generalized anxiety disorder, I10 - Essential (primary) hypertension, I51.89 - Other ill-defined heart diseases, J45.40 - Moderate persistent asthma, uncomplicated, K21.9 - Gastro-esophageal reflux disease without esophagitis, M46.1 - Sacroiliitis, not elsewhere classified, M47.816 - Spondylosis without myelopathy or radiculopathy, lumbar region, M54.12 - Radiculopathy, cervical region, Z15.89 - Genetic susceptibility to other disease, Z91.09 - Other allergy status, other than to drugs and biological substances Vitamin D 25-OH (D2 and D3) Today E55.9 - Vitamin D deficiency, unspecified, E83.52 - Hypercalcemia, F33.41 - Major depressive disorder, recurrent, in partial remission, F41.1 - Generalized anxiety disorder, I10 - Essential (primary) hypertension, I51.89 - Other ill-defined heart diseases, J45.40 - Moderate persistent asthma, uncomplicated, K21.9 - Gastro-esophageal reflux disease without esophagitis, M46.1 - Sacroiliitis, not elsewhere classified, M47.816 - Spondylosis without myelopathy or radiculopathy, lumbar region, M54.12 - Radiculopathy, cervical region, Z15.89 - Genetic susceptibility to other disease, Z91.09 - Other allergy status, other than to drugs and biological substances
[2024-11-14 15:28] VITALS: BP 134/82; PULSE 76; O2SAT 95; BMI 37.8
== END 2024-11-14 15:50 | disposition home or self-care (01) ==
PROVIDERS: PCP Internal Medicine; Visit Provider Internal Medicine
DX: M47.816 Spondylosis without myelopathy or radiculopathy, lumbar region (principal); F33.41 Major depressive disorder, recurrent, in partial remission; M46.1 Sacroiliitis, not elsewhere classified; Z15.89 Genetic susceptibility to other disease; I10 Essential (primary) hypertension; F41.1 Generalized anxiety disorder; K21.9 Gastro-esophageal reflux disease without esophagitis; Z91.09 Other allergy status, other than to drugs and biological substances; I51.89 Other ill-defined heart diseases; J45.40 Moderate persistent asthma, uncomplicated; M54.12 Radiculopathy, cervical region; E83.52 Hypercalcemia

== ENCOUNTER → 2024-11-14 15:22 | Outpatient (BNVA) | payer OTHER, SELFPAY | PROVIDERS: PCP Internal Medicine; Visit Provider Internal Medicine | DX: M47.816 Spondylosis without myelopathy or radiculopathy, lumbar region (principal); I10 Essential (primary) hypertension; F41.1 Generalized anxiety disorder; F33.41 Major depressive disorder, recurrent, in partial remission; K21.9 Gastro-esophageal reflux disease without esophagitis; M46.1 Sacroiliitis, not elsewhere classified; I51.89 Other ill-defined heart diseases; J45.40 Moderate persistent asthma, uncomplicated; M54.12 Radiculopathy, cervical region; E83.52 Hypercalcemia; E55.9 Vitamin D deficiency, unspecified; Z79.899 Other long term (current) drug therapy; Z91.09 Other allergy status, other than to drugs and biological substances; Z15.89 Genetic susceptibility to other disease | CPT/HCPCS: 96127 ==

== ENCOUNTER 2024-11-29 14:45 | Outpatient (AMB) | payer OTHER, SELFPAY ==
--- NOTE | 2024-11-29 14:48 | AM.OFFWIN_ITS ---
Intake Vital Signs 11/29/24 14:57 Weight 218 lb BP 140/90 H Blood Pressure Location Rt brachial Position Sitting Pulse 85 Pulse Source Pulse Oximeter Temp 98.8 F Temp Source Oral Pulse Oximetry (%) 95 Oxygen Delivery Method Room Air Intake Visit Reasons: EP cough, severe chest pain, SOB Intake Note: Patient here for cough, chest tightness, sob and headaches that started wednesday. Patient Tobacco Use Status: Former Tobacco user Allergies cat dander [CATS] Allergy (Severe, Verified 11/29/24 14:58) DIFFICULTY BREATHING dog dander [DOGS] Allergy (Severe, Verified 11/29/24 14:58) DIFFICULTY BREATHING latex [Latex] Allergy (Severe, Verified 11/29/24 14:58) ANAPHYLAXIS penicillin G [PENICILLIN G] Adverse Reaction (Unknown, Verified 11/29/24 14:58) PT STATES IT JUST DOESN'T WORK FOR HER Environmental Allergy (Unknown, Uncoded 11/29/24 14:58) allergy symptoms Do you need a note to return to daycare/school/sports/work: Yes HPI HPI Comments History of Present Illness Details Patient is a 59yo F who presents to office with cough She states ongoing since Wednesday Admits to dry cough + chest wall paina nd headache when [place] No pain at rest, 0/10 Feels tired No body aches, fever or chills Patient tried alkaseltzer cold without resolution and tea No abdominal pain, nausea, vomiting or dirrhea + congestion and ST. No ear pain Hx asthma. Only needs to use inhaler in am SOB only with daily activities like stairs and home chores PFSH Medical History (HFpEF) heart failure with preserved ejection fraction Obesity due to excess calories Asthma, moderate Essential hypertension Dyspnea on exertion Refusal of blood transfusions as patient is Hoahaoism HTN (hypertension) Diastolic dysfunction Apical variant hypertrophic cardiomyopathy MITCHELL (obstructive sleep apnea) Obesity (BMI 35.0-39.9 without comorbidity) Sacroiliitis Spondylosis of lumbar region without myelopathy or radiculopathy Cardiomyopathy Asthma Pain management Anxiety, generalized Depression, major, recurrent Chronic GERD Environmental allergies Noncompliance Hypertension, essential NSTEMI (non-ST elevated myocardial infarction) Heart murmur 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) Surgical History Hx of cardiac catheterization Hx of colonoscopy History of tubal ligation History of endometrial ablation History of hysterectomy for benign disease Family History Mother Uterine cancer Other Substance use disorder Social History Housing: House Alcohol intake: current Alcohol intake frequency: 0-2 drinks per day Alcohol type: hard liquor Patient Tobacco Use Status: Former Tobacco user Tobacco use type: Cigarette e-Cigarette/Vaping Use: Never Used Second Hand Smoke Exposure: No service: No Current occupational status: employed Cognitive needs: No Hearing needs: No Vision needs: Yes Female Reproductive History Menstrual Age of Menarche: 14 Review of Systems Const Denies chills, Reports fatigue, Denies fever(s) and Reports headache(s) Eyes Denies change in vision ENT Denies dizziness, Reports headache(s), Reports nasal congestion and Reports sore throat Card Denies chest pain and Denies syncope Resp Reports cough, Denies excessive phlegm production and Reports pain with cough GI Denies abdominal pain and Denies vomiting Musc Denies myalgias Neuro Denies dizziness, Denies syncope and Reports headache(s) Endo Reports fatigue Physical Exam Vital Signs: Last Vital Signs Temp 98.8 F 11/29/24 14:57 Pulse 85 11/29/24 14:57 BP 140/90 H 11/29/24 14:57 Pulse Ox 95 11/29/24 14:57 Oxygen Delivery Method Room Air 11/29/24 14:57 General: Non-toxic, NAD. Speaking full sentences. Skin: Warm dry throughout Eye: EOMI HENT: Airway patent. Uvula midline. No pharyngeal erythema or edema. No INFORMATICS PHYSICIAN LIAISON. +rhinorrhea Bilateral canals clear. TM non-erythematous, non-bulging. No TM perforation or hemotympanum noted. Respiratory: CTA bilaterally. No wheezes, rales or rhonchi. No accessory use or stridor. Cardiac: RRR. No murmur Neurology: Alert. No aphasia or facial droop. Gait without abnormality Psych: Good mood and affect Assessment & Plan Assessment & Plan (1) Upper respiratory disease: Code(s): J39.9 - Disease of upper respiratory tract, unspecified Plan: Patient seen and evaluated. Lungs CTA She is in no respiratory distress [place] for cough RSV/Flu/COVID obtained Rest, fever control, hydrate ER if CP or SON Patient gave verbal understanding and had no additional questions or concerns at time of discharge All questions answered Orders: Orders SARS-CoV2/FLU/RSV Today J39.9 - Disease of upper respiratory tract, unspecified Medications: New benzonatate 200 mg PO BID-TID PRN 20 caps 0RF cough Coding Level of Care Code Est Pt Level 3 (23115) Diagnoses Upper respiratory disease J39.9
[2024-11-29 14:57] VITALS: BP 140/90; PULSE 85; TEMP 37.1; O2SAT 95
== END 2024-11-29 15:58 | disposition home or self-care (01) ==
PROVIDERS: PCP Internal Medicine; Visit Provider Physician Assistant
DX: J39.9 Disease of upper respiratory tract, unspecified (principal)

== ENCOUNTER 2024-11-29 16:20 | Outpatient (REF) | payer OTHER, SELFPAY ==
[2024-11-29 17:50] LABS: Influenza A PCR NEGATIVE (Negative); Influenza B PCR NEGATIVE (Negative); Resp Syncy Virus RNA Qual PCR NEGATIVE (Negative); SARS COV2 PCR INHOUSE NEGATIVE (Negative)
== END 2024-11-29 16:21 | disposition home or self-care (01) ==
LOC: HO.LNP 16:20
PROVIDERS: Visit Provider Physician Assistant
DX: J39.9 Disease of upper respiratory tract, unspecified (principal)
CPT/HCPCS: 0241U

== ENCOUNTER 2025-01-12 12:24 | Outpatient (AMB) | payer OTHER, SELFPAY ==
--- NOTE | 2025-01-12 12:26 | MHC.PC.OV ---
Vital Signs 01/12/25 12:27 Height 5 ft 4 in Weight 228 lb 2 oz BMI 39.2 BP 122/68 Blood Pressure Location Rt brachial Position Sitting Pulse 85 Pulse Source Pulse Oximeter Pulse Oximetry (%) 95 Oxygen Delivery Method Room Air Intake Visit Reasons: 2m follow up Allergies cat dander [CATS] Allergy (Severe, Verified 01/12/25 12:27) DIFFICULTY BREATHING dog dander [DOGS] Allergy (Severe, Verified 01/12/25 12:27) DIFFICULTY BREATHING latex [Latex] Allergy (Severe, Verified 01/12/25 12:27) ANAPHYLAXIS penicillin G [PENICILLIN G] Adverse Reaction (Unknown, Verified 01/12/25 12:27) PT STATES IT JUST DOESN'T WORK FOR HER Environmental Allergy (Unknown, Uncoded 11/29/24 14:58) allergy symptoms Medication List - Last Reconciled 01/12/25 by Kai Saha MD albuterol sulfate 90 mcg/actuation 1 inh inhalation QID PRN 90 days albuterol sulfate 0.63 mg (3 mL) inhalation QID PRN betamethasone dipropionate 0.05% 1 appl topical DAILY PRN 30 days blood pressure test kit-large (Quick Response BP Monitor-Large Cuff kit) As directed [Bp monitor As directed] cetirizine (All Day Allergy (cetirizine)) 10 mg PO DAILY cholecalciferol (vitamin D3) 1,250 mcg PO QWEEK 90 days cyclobenzaprine 10 mg PO BEDTIME PRN diphenhydramine HCl (Benadryl Allergy) 25 mg PO DAILY fentanyl 37.5 mcg/hour 1 patch transdermal Q72H 30 days ferrous sulfate 324 mg PO BID fluticasone propion-salmeterol 500-50 mcg/dose (Wixela Inhub) 1 ea inhalation BID 90 days FreeStyle Lancets (lancets) Test blood sugar once per day NS FreeStyle Lite Meter (blood-glucose meter) Check blood sugar once per day NS FreeStyle Test (blood sugar diagnostic) Test blood sugar once per day NS furosemide (Lasix) 20 mg PO DAILY 90 days guselkumab (Tremfya) 100 mg subcut Q8W labetalol 100 mg PO BID 90 days lidocaine 5% 1 patch topical DAILY montelukast 10 mg PO BEDTIME quetiapine TAKE 1 TABLET BY MOUTH AT BEDTIME FOR 90 DAYS. FUTHER REFILLS WILL NEED OFFICE VISIT sertraline 200 mg (2 x 100 mg) PO DAILY [BoxCraPraccel machine As directed] verapamil ER 240 mg PO DAILY Tobacco use date assessed: 01/12/25 Dental Screening Dental Screen Date: 01/12/25 Did you have a dental visit in the last 12 months?: Yes Did you have a dental problem in the last 6 months where you did not have access to dental care?: No Was dental information given to patient?: Patient has dentist HPI 2m follow up HPI Details History - The patient is a 59-year-old female presenting for follow-up had recent defibrillator implantation. left side doing well - Asthma is well-managed without acute exacerbations reported during this visit. - Medication adjustment due to adverse effects: Jardiance was discontinued after an adverse reaction and consultation with her getter filler. - Sleep disturbances include immediate vivid dreaming; she experiences rapid onset dreaming when falling asleep. - Mood appears stable with continued use of Seroquel at night for depression management. - pain managment for Psoriatic arthritis with the help of Fentanyl patches, refill sent Medications - Fentanyl patch for pain management - Cyclobenzaprine as needed for muscle relaxation - Seroquel at night for depression other meds reviewed as well Problem List - Recent implantation of a defibrillator - Asthma - Adverse effects from Jardiance - Sleep disturbances with unusual dream patterns - Depression - allergies - Ankylosing spondilitis - HTN, Bp stable Diagnostic results - Labs and tests pending Patient Instructions - Continue current medications as prescribed. - Complete scheduled lab work today. - Attend upcoming appointments with cardiology on January 23 and annual physical exam on March 06. - Report any worsening of symptoms or new concerns before the next scheduled visit. Review of Systems - Psychiatry: Denies changes in mood and depression;Stable General: No fever no chills neurological: No headaches no dizziness ear nose throat: No sore throat no hearing difficulty no ear pain cardiovascular: No syncope, no chest pain, no palpitations gastrointestinal: No nausea vomiting or diarrhea endocrine: No polyuria polydipsia no heat intolerance genitourinary: No dysuria skin: No new complaints Physical Exam general: No acute distress HEENT: No acute findings neck: Supple respiratory system: Able to talk in full sentences, no audible wheeze, lungs are clear cardiovascular: S1-S2 gastrointestinal: No pain extremities: Pain in one arm, possibly due to surgery PATTERNMAKER SAMPLE: Alert awake oriented x3 motor sensory intact skin: Normal turgor [facility] Medical History (HFpEF) heart failure with preserved ejection fraction Obesity due to excess calories Asthma, moderate Essential hypertension Dyspnea on exertion Refusal of blood transfusions as patient is Rastafari HTN (hypertension) Diastolic dysfunction Apical variant hypertrophic cardiomyopathy MITCHELL (obstructive sleep apnea) Obesity (BMI 35.0-39.9 without comorbidity) Sacroiliitis Spondylosis of lumbar region without myelopathy or radiculopathy Cardiomyopathy Asthma Pain management Anxiety, generalized Depression, major, recurrent Chronic GERD Environmental allergies Noncompliance Hypertension, essential NSTEMI (non-ST elevated myocardial infarction) Heart murmur 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) Surgical History Hx of cardiac catheterization Hx of colonoscopy History of tubal ligation History of endometrial ablation History of hysterectomy for benign disease Family History Mother Uterine cancer Other Substance use disorder Social History Housing: House Alcohol intake: current Alcohol intake frequency: 0-2 drinks per day Alcohol type: hard liquor Patient Tobacco Use Status: Former Tobacco user Tobacco use type: Cigarette e-Cigarette/Vaping Use: Never Used Second Hand Smoke Exposure: No service: No Current occupational status: employed Cognitive needs: No Hearing needs: No Vision needs: Yes Female Reproductive History Menstrual Age of Menarche: 14 Questionnaire PHQ-9 Over the last 2 weeks, how often have you been bothered by any of the following problems? 1. Little interest or pleasure in doing things: not at all 2. Feeling down, depressed, or hopeless: not at all 3. Trouble falling or staying asleep, or sleeping too much: not at all 4. Feeling tired or having little energy: several days 5. Poor appetite or overeating: not at all 6. Feeling bad about yourself - or that you are a failure or have let yourself or your family down: not at all 7. Trouble concentrating on things, such as reading the newspaper or watching television: not at all 8. Moving or speaking so slowly that other people could have noticed. Or the opposite - being so fidgety or restless that you have been moving around a lot more than usual: not at all 9. Thoughts that you would be better off or of hurting yourself in some way: not at all Total score: 1 Depression Screening Interpretation: Negative Depression Screening Done: Yes 61635 - PHQ-9 Billing: Yes Source: Developed by Drs. Albin Fitch, Kate Fink, Yosi Bar and colleagues, with an educational isaak from [employer]. Thrive Questionnaire Date Thrive assessed: 01/12/25 I am a: Patient What is your living situation today?: I have a steady place to live Within the past 12 months, did the food you bought not last and you didn't have the money to get more?: Never true Within the past 12 months, did you worry whether your food would run out before you got money to buy more?: Never true Do you have trouble paying for medicines?: No Do you have trouble getting transportation to medical appointments?: No Do you have trouble paying your heating and electricity bill?: No Do you have trouble taking care of your child, family member or friend?: No Do you have trouble with day-to-day activities such as bathing, preparing meals, shopping, managing finances, etc.?: No Are you currently unemployed and looking for a job?: Yes Are you interested in more education?: No Please select the resources that you would like help with: None Currently or been in a relationship where the following occur: No concerns reported THRIVE Score: 0 AUDIT C Alcohol Use Questionnaire (AUDIT-C) 1. How often do you have a drink containing alcohol?: 2-3 times a week 2. How many drinks containing alcohol do you have on a typical day when you are drinking?: 1 or 2 3. How often do you have six or more drinks on one occasion?: Never Total Score: 3 Score Reviewed/Action Taken: Yes FIDELIA-7 AMB Questionnaire FIDELIA-7 Date FIDELIA - 7 assessed: 01/12/25 Feeling nervous, anxious, or on edge: 0 = Not at all Not being able to stop or control worryin = Not at all Worrying too much about different things: 0 = Not at all Trouble relaxin = Not at all Being so restless that it is hard to sit still: 0 = Not at all Becoming easily annoyed or irritable: 0 = Not at all Feeling afraid as if something awful might happen: 0 = Not at all Total FIDELIA-7 score (0-4 normal; 5-9 mild; 10-14 moderate; 15-21 severe): 0 Source: Developed by Drs. Albin Fitch, Kate Fink, Yosi Bar and colleagues, with an educational isaak from [employer]. FIDELIA-7 Assessment Billing FIDELIA-7 Assessment Tool: FIDELIA-7 Assessment 76664 Physical exam (Primary Care) Vital Signs: Last Vital Signs Pulse 85 01/12/25 12:27 BP 122/68 01/12/25 12:27 Pulse Ox 95 01/12/25 12:27 Oxygen Delivery Method Room Air 01/12/25 12:27 BMI result Body Mass Index 39.2 Tobacco/Smoking Status: Tobacco use Status Tobacco use date assessed 01/12/25 01/12/25 12:38 Patient Tobacco Use Status Former Tobacco user 01/12/25 12:38 Tobacco use type Cigarette 01/12/25 12:38 e-Cigarette/Vaping Use Never Used 01/12/25 12:38 PHQ-9: PHQ-9 Score PHQ-9: Total score 1 01/12/25 12:38 Depression Screening Interpretation: Negative Thrive Assessment: Date of Thrive Assessment Date Thrive assessed 01/12/25 01/12/25 12:38 Currently or been in a relationship where the following occur: No concerns reported Coding Level of Care Code Est Pt Level 4 (13072) Diagnoses Spondylosis of lumbar region without myelopathy or radiculopathy M47.816 HLA B27 (HLA B27 positive) Z15.89 Primary hypertension I10 Hypertension type: primary hypertension Anxiety, generalized F41.1 Recurrent major depressive disorder, in partial remission F33.41 Active/Remission status: in partial remission Chronic GERD K21.9 Environmental allergies Z91.09 Sacroiliitis M46.1 Diastolic dysfunction I51.89 Moderate persistent asthma without complication J45.40 Asthma complication type: uncomplicated Cervical radiculitis M54.12 Serum calcium elevated E83.52 Vitamin D deficiency E55.9 Additional Codes FIDELIA-7 Assessment Billing - FIDELIA-7 Assessment Tool: FIDELIA-7 Assessment 17935 ([id number]) PHQ-9 - 54665 - PHQ-9 Billing: Yes ([id number]) Assessment & Plan Assessment & Plan (1) Spondylosis of lumbar region without myelopathy or radiculopathy: Code(s): M47.816 - Spondylosis without myelopathy or radiculopathy, lumbar region Category: Medical (2) HLA B27 (HLA B27 positive): Code(s): Z15.89 - Genetic susceptibility to other disease Category: Medical (3) HTN (hypertension): Code(s): I10 - Essential (primary) hypertension Category: Medical Qualifiers: Hypertension type: primary hypertension Qualified Code(s): I10 - Essential (primary) hypertension (4) Anxiety, generalized: Code(s): F41.1 - Generalized anxiety disorder Category: Medical (5) Depression, major, recurrent: Code(s): F33.9 - Major depressive disorder, recurrent, unspecified Category: Medical Qualifiers: Active/Remission status: in partial remission Qualified Code(s): F33.41 - Major depressive disorder, recurrent, in partial remission (6) Chronic GERD: Code(s): K21.9 - Gastro-esophageal reflux disease without esophagitis Category: Medical (7) Environmental allergies: Code(s): Z91.09 - Other allergy status, other than to drugs and biological substances Category: Medical (8) Sacroiliitis: Code(s): M46.1 - Sacroiliitis, not elsewhere classified Category: Medical (9) Diastolic dysfunction: Code(s): I51.89 - Other ill-defined heart diseases Category: Medical (10) Asthma, moderate persistent: Code(s): J45.40 - Moderate persistent asthma, uncomplicated Category: Medical Qualifiers: Asthma complication type: uncomplicated Qualified Code(s): J45.40 - Moderate persistent asthma, uncomplicated (11) Cervical radiculitis: Code(s): M54.12 - Radiculopathy, cervical region Category: Medical (12) Serum calcium elevated: Code(s): E83.52 - Hypercalcemia Category: Medical (13) Vitamin D deficiency: Code(s): E55.9 - Vitamin D deficiency, unspecified Category: Medical Plan History - The patient is a 59-year-old female presenting for follow-up had recent defibrillator implantation. left side doing well - Asthma is well-managed without acute exacerbations reported during this visit. - Medication adjustment due to adverse effects: Jardiance was discontinued after an adverse reaction and consultation with her getter filler. - Sleep disturbances include immediate vivid dreaming; she experiences rapid onset dreaming when falling asleep. - Mood appears stable with continued use of Seroquel at night for depression management. - pain managment for Psoriatic arthritis with the help of Fentanyl patches, refill sent Medications - Fentanyl patch for pain management - Cyclobenzaprine as needed for muscle relaxation - Seroquel at night for depression other meds reviewed as well Problem List - Recent implantation of a defibrillator - Asthma - Adverse effects from Jardiance - Sleep disturbances with unusual dream patterns - Depression - allergies - Ankylosing spondilitis - HTN, Bp stable Diagnostic results - Labs and tests pending Patient Instructions - Continue current medications as prescribed. - Complete scheduled lab work today. - Attend upcoming appointments with cardiology on January 23 and annual physical exam on March 06. - Report any worsening of symptoms or new concerns before the next scheduled visit. Medications: Refilled fentanyl 37.5 mcg/hour 1 patch transdermal Q72H 30 days 5 ea 0RF L40.50 - Arthropathic psoriasis, unspecified, M46.1 - Sacroiliitis, not elsewhere classified, M47.816 - Spondylosis without myelopathy or radiculopathy, lumbar region, Z15.89 - Genetic susceptibility to other disease
[2025-01-12 12:27] VITALS: BP 122/68; PULSE 85; O2SAT 95; BMI 39.2
--- OUTSIDE RECORDS SUMMARY | 2025-01-12 14:34 | XMS_ITS | Continuity of Care Document ---
Author Organization [facility] Address [address] [place] [address]- Care Team Providers Care Customs Entry Clerk Name Role Phone Yifan LOPEZ, Kai Primary Care Physician [phone] Encounter [facility] Date(s): 11/16/24 - 01/06/25 [facility] [address] [place] [address]- Attending Physician: Jeffry Marie MD Admitting Physician: Jeffry Marie MD Referring Physician: Kai Saha MD Encounter Type: Pre-OutPatient One Time Allergies, Adverse Reactions, Alerts Substance Criticality Severity Reaction Reaction Severity Status Cats Active Dogs Active Fish Unable to assess criticality Persistent Severe Active Latex Unable to assess criticality Persistent Severe stop breathing Active Kiwi Unable to assess criticality Persistent Severe Active Medications Advair Diskus 250 mcg-50 mcg inhalation powder 1, puffs, Inhalation, 2 times a day, Refills 0, Maintenance, 02/14/16 11:25:00 AM EDT Start Date: 02/14/16 Status: Ordered Repeat number: 1 Cetirizine = 10 mg, 0 Refills, Maintenance, 12/19/24 12:04:00 PM EST, Partial fill upon patient request if the prescription is for a schedule II opioid drug. Start Date: 12/19/24 Status: Ordered Repeat number: 1 fentaNYL 25 mcg/hr transdermal film, extended release APPLY 1 PATCH TOPICALLY TO THE SKIN EVERY 72 HOURS Start Date: 11/23/24 Status: Ordered Repeat number: 1 Jardiance 10 mg oral tablet 1 tablet = 10 mg, By Mouth, Daily in AM, 0 Refills, Maintenance, 12/19/24 12:03:00 PM EST, Partial fill upon patient request if the prescription is for a schedule II opioid drug. Start Date: 12/19/24 Status: Ordered Repeat number: 1 labetalol 100 mg oral tablet 1 tablet = 100 mg, By Mouth, 2 times a day, # 180 tablet, 0 Refills, Maintenance, 12/19/24 12:00:00 PM EST, Tablet, Partial fill upon patient request if the prescription is for a schedule II opioid drug. Start Date: 12/19/24 Status: Ordered Quantity: 180.0 Unit: tablet Repeat number: 1 Lasix 20 mg oral tablet 40 mg, 2, tablet, By Mouth, Daily, Refills 0, Maintenance, 12/19/24 12:04:00 PM EST, Partial fill upon patient request if the prescription is for a schedule II opioid drug. Start Date: 12/19/24 Status: Ordered Repeat number: 1 Omeprazole = 20 mg, By Mouth, Daily, 0 Refills, Maintenance, 12/28/17 5:25:56 PM EST Start Date: 12/28/17 Status: Ordered Repeat number: 1 ProAir HFA 90 mcg/inh inhalation aerosol with adapter 2, puffs, Inhalation, 4 times a day, PRN, Refills 0, Maintenance, 02/14/16 11:24:40 AM EDT Start Date: 02/14/16 Status: Ordered Repeat number: 1 SEROquel 100 mg oral tablet 100 mg, 1, tablet, By Mouth, Daily, Refills 0, Maintenance, 12/19/24 12:03:00 PM EST, Partial fill upon patient request if the prescription is for a schedule II opioid drug. Start Date: 12/19/24 Status: Ordered Repeat number: 1 Singulair 10 mg oral tablet 10 mg, 1, tablet, By Mouth, Daily before dinner, Refills 0, Maintenance, 02/14/16 11:24:28 AM EDT Start Date: 02/14/16 Status: Ordered Repeat number: 1 Verapamil 240 mg ER tablet = 240 mg, By Mouth, Daily, 0 Refills, Maintenance, 12/19/24 12:01:00 PM EST, Partial fill upon patient request if the prescription is for a schedule II opioid drug. Start Date: 12/19/24 Status: Ordered Repeat number: 1 Zoloft 50 mg oral tablet 4 tablet = 200 mg, By Mouth, Daily at bedtime, 0 Refills, Maintenance, 02/14/16 11:52:05 AM EDT Start Date: 02/14/16 Status: Ordered Repeat number: 1 Problem List Condition Confirmation Course Effective Dates Status Health St atus Informant Obese class II Confirmed Active Social History Social History Type Response Smoking Status Former smoker; Type: Cigarettes; Other: quit 2008; Number of years: 15; entered on: 02/14/16 Sex Sex Representation Female (finding) Patient Care team information Care Team Personnel Name: Yifan LOPEZ, Kai Position: Reference Physician Member Role: PCP Address: [address] [place] [address] Telecom: Care Team Related Persons Name: CHARLES AGEE Name: GERALD HERNANDEZ Insurance Providers Guarantor name: QUE Health Plan Information #: 1 Payer: [employer] OPEN ACCESS Member Number: [id number] Policy Number: NA Group Number: [id number] Health Plan Information #: 2 Payer: [employer] OPEN ACCESS Member Number: [id number] Policy Number: NA Group Number: NA
--- OUTSIDE RECORDS SUMMARY | 2025-01-12 14:34 | XMS_ITS | Encounter Summary ---
Author Organization [facility] Address [address] [place] [address] Care Team Providers Care Hole Digger Name Role Phone Unknown Primary Care Provider [phone] Kai Saha MD Primary Care Provider [phone] Encounter Details Date Type Department Care Team (Late st Contact Info) Description 01/26/2024 Scanned Document [address] [id number] Radiology, Scan Social History Tobacco Use Types Packs/Day Years Used Date Smoking Tobacco: Never Assessed Sex and Gender Information Value Date Recorded Sex Assigned at Female 05/20/2024 9:39 AM EDT Gender Identity Female 05/20/2024 9:39 AM EDT Sexual Orientation Heterosexual (straight) 05/20 9:39 AM EDT documented as of this encounter Plan of Treatment Not on file documented as of this encounter Procedures Procedure Name Priority Date/Time Associated Diagnosis Comments HX OUTSIDE ORDER 01/26/2024 documented in this encounter Results * HX OUTSIDE ORDER (01/26/2024) Scan Radiology HX AMB PROCEDURES documented in this encounter Visit Diagnoses Not on filedocumented in this encounter Care Teams Hole Digger Relationship Specialty Start Date End Date Unknown Unknow Provider Address PCP - General 01/26/24 05/19/24 Kai Saha MD [address] [place] [address] PCP - General Internal Medicine 05/20/24 documented as of this encounter
--- OUTSIDE RECORDS SUMMARY | 2025-01-12 14:34 | XMS_ITS | Continuity of Care Document ---
Author Organization [facility] Address [address] [place] [phone]- Care Team Providers Care Ux Interaction Designer Name Role Phone Yifan LOPEZ, Asma Primary Care Physician [place] [facility] Date(s): 11/24/24 - 12/24/24 [facility] [address] [place] [address]- Encounter Type: Triage Allergies, Adverse Reactions, Alerts Substance Criticality Severity [...] Care team information Care Team Personnel Name: Kai Saha MD Position: Reference Physician Member Role: PCP Address: [address] [place] [address] Telecom: Care Team Related Persons Name: CHARLES AGEE Name: GERALD HERNANDEZ Insurance Providers Guarantor name: QUE Health Plan Information #: 1 Payer: [employer] OPEN ACCESS Member Number: NA Policy Number: NA Group Number: NA
--- OUTSIDE RECORDS SUMMARY | 2025-01-12 14:34 | XMS_ITS | Continuity of Care Document ---
Author Organization [facility] Address [address] [place] [phone]- Care Team Providers Care Power Shear Operator Name Role Phone Yifan LOPEZ, [facility] Primary Care Physician Encounter [facility] [place] Date(s): 11/23/24 - 12/23/24 [facility] [address] [place] [id number] Attending Physician: AdmJose M faust Admitting Physician: AdmtrJose M Referring Physician: Admtr, Ar8 Encounter Type: Triage Allergies, Adverse Reactions, Alerts [...] information Care Team Personnel Name: Yifan LOPEZ, Asma Position: Reference Physician Member Role: PCP Address: [address] [place] [address] Telecom: Care Team Related Persons Name: CHARLES AGEE Name: GERALD HERNANDEZ Insurance Providers Guarantor name: QUE Health Plan Information #: 1 Payer: [employer] OPEN ACCESS Member Number: NA Policy Number: NA Group Number: NA
--- OUTSIDE RECORDS SUMMARY | 2025-01-12 14:34 | XMS_ITS | Continuity of Care Document ---
Author Organization [facility] Address [address] [place] [address]- Care Team Providers Care Processing Inspector Name Role Phone Yifan [facility]OPEZ, [facility] Primary Care Physician [phone] Encounter [facility] [place] Date(s): 08/24/24 - 12/20/24 [facility] [address] [place] [address]- Attending Physician: Jeffry Marie MD Admitting Physician: Jeffry Marie MD Referring Physician: Catherine LOPEZ, Danielito Garcia Encounter Type: Pre-OutPatient One Time Allergies, Adverse [...] information Care Team Personnel Name: Yifan LOPEZ, Chrissya Position: Reference Physician Member Role: PCP Address: [address] [place] [address] Telecom: Care Team Related Persons Name: CHARLES AGEE Name: GERALD HERNANDEZ Insurance Providers Guarantor name: QUE Health Plan Information #: 1 Payer: [employer] OPEN ACCESS Member Number: [id number] Policy Number: NA Group Number: [id number] Health Plan Information #: 2 Payer: [employer] OPEN ACCESS Member Number: [id number] Policy Number: NA Group Number: NA
--- OUTSIDE RECORDS SUMMARY | 2025-01-12 14:34 | XMS_ITS | Clinical Summary ---
Author Organization [facility] Address [address] [place] [address] Care Team Providers Care Junior Assistant Manager Name Role Phone Kai aSha MD Primary Care Provider [phone] Allergies No known active allergies Social History Tobacco Use Types Packs/Day Years Used Date Smoking Tobacco: Never Assessed Sex and Gender Information Value Date Recorded Sex Assigned at Female 05/20/2024 9:39 AM EDT Gender Identity Female 05/20/2024 9:39 AM EDT Sexual Orientation Heterosexual (straight) 05/20 9:39 AM EDT Plan of Treatment Health Maintenance Due Date Last Done Comments Hepatitis C Virus Screening 1964 HIV Screening 1977 DTaP/Tdap/Td Vaccines (1 - Tdap) 1983 Pap Smear (Ages 21-65) 1985 Mammogram 2004 Colonoscopy 2009 Pneumococcal Vaccines 50+ (1 of 1 - PCV) 2014 Zoster (Shingles) Vaccine (1 of 2) 2014 Influenza Vaccine 06/15/2024 COVID-19 Vaccine (2023-2 5 season) 2024 RSV Vaccine 60 years and old er and Patients (1 - 1-dose 75+ series) 2039 Hepatitis B Vaccines Aged Out No long er eligible based on patient's age to complete this topic Pneumococcal Vaccine: Pediat robin (0-5 Years) and At-Risk Patients (6 to 49 Years) Aged Out No longer eligible b ased on patient's age to complete this topic Care Teams Junior Assistant Manager Relationship Specialty Start Date End Date Kai Saha MD [address] [place] [address] PCP - General Internal Medicine 05/20/24
== END 2025-01-12 13:34 | disposition home or self-care (01) ==
PROVIDERS: PCP Internal Medicine; Visit Provider Internal Medicine
DX: M47.816 Spondylosis without myelopathy or radiculopathy, lumbar region (principal); F33.41 Major depressive disorder, recurrent, in partial remission; M46.1 Sacroiliitis, not elsewhere classified; Z15.89 Genetic susceptibility to other disease; I10 Essential (primary) hypertension; F41.1 Generalized anxiety disorder; K21.9 Gastro-esophageal reflux disease without esophagitis; Z91.09 Other allergy status, other than to drugs and biological substances; I51.89 Other ill-defined heart diseases; J45.40 Moderate persistent asthma, uncomplicated; M54.12 Radiculopathy, cervical region; E83.52 Hypercalcemia

== ENCOUNTER → 2025-01-12 12:24 | Outpatient (BNVA) | payer OTHER, SELFPAY | PROVIDERS: PCP Internal Medicine; Visit Provider Internal Medicine | DX: M47.816 Spondylosis without myelopathy or radiculopathy, lumbar region (principal); I10 Essential (primary) hypertension; F41.1 Generalized anxiety disorder; F33.41 Major depressive disorder, recurrent, in partial remission; K21.9 Gastro-esophageal reflux disease without esophagitis; M46.1 Sacroiliitis, not elsewhere classified; I51.89 Other ill-defined heart diseases; J45.40 Moderate persistent asthma, uncomplicated; M54.12 Radiculopathy, cervical region; E83.52 Hypercalcemia; E55.9 Vitamin D deficiency, unspecified; J45.909 Unspecified asthma, uncomplicated; L40.50 Arthropathic psoriasis, unspecified; Z79.891 Long term (current) use of opiate analgesic; Z15.89 Genetic susceptibility to other disease; Z91.09 Other allergy status, other than to drugs and biological substances | CPT/HCPCS: 96127 ==

== ENCOUNTER 2025-01-23 14:25 | Outpatient (REF) | payer OTHER, SELFPAY ==
[2025-01-23 15:18] LABS: MANUAL DIFF FLAG NO
[2025-01-23 16:06] LABS: Basophils Percent Auto 0.5 % (0-2); Eosinophils Absolute Auto 0.2 X10*3/uL (0.0-0.4); Eosinophils Percent Auto 1.8 % (0-4); Hematocrit 40.1 % (37.0-47.0); Hemoglobin 12.9 g/dl (12.0-16.0); Imm Gran Abs Auto 0.03 X10*3/uL (0.00-0.03); Imm Gran Pct Auto 0.3 % (0.0-0.4); Lymphocytes Absolute Auto 1.3 X10*3/uL (1.2-4.9); Lymphocytes Percent Auto 14.5 % (20-40); Mean Corpuscular HGB Conc 32.2 g/dl (31.0-35.0); Mean Corpuscular Hemoglobin 30.1 pg (27.0-33.0); Mean Corpuscular Volume 93.7 fL (80.0-98.0); Mean Platelet Volume 10.1 fL (9.4-12.3); Monocytes Absolute Auto 0.8 X10*3/uL (0.1-1.2); Monocytes Percent Auto 9.2 % (2-11); Neutrophils Absolute Auto 6.5 x10*3/uL (2.0-8.3); Neutrophils Percent Auto 73.7 % (45-73); Platelet Count 265 X10*3/uL (160-400); Red Blood Count 4.28 X10*6/uL (4.20-5.50); Red Cell Distribution Width 14.1 % (11.0-16.0); White Blood Count 8.8 X10*3/uL (4.8-10.8)
[2025-01-23 16:57] LABS: Alanine Aminotransferase 41 U/L (0-31); Albumin Level 3.7 g/dL (3.5-5.0); Anion Gap 10 (12-20); Aspartate Amino Transferase 28 U/L (5-31); Bilirubin Total 0.5 mg/dL (0.0-1.0); Blood Urea Nitrogen 10 mg/dL (9-16); Calcium 10.7 mg/dL (8.4-10.2); Carbon Dioxide 29 mmol/L (22-29); Chloride 108 mmol/L (96-108); Estimated Glomerular Filt Rate 49; Glucose Random 102 mg/dL (60-115); Sodium 143 mmol/L (135-145)
--- OUTSIDE RECORDS SUMMARY | 2025-01-23 18:20 | XMS_ITS | Encounter Summary ---
Author Organization [facility] Address [address] [place] [address] Care Team Providers Care Certified Composites Technician Name Role Phone Unknown Primary Care Provider [phone] Kai Saha MD Primary Care Provider [phone] Encounter Details Date Type Department Care Team (Late st Contact Info) Description 01/26/2024 Scanned Document [address] [phone] Radiology, Scan Social History Tobacco [...] on filedocumented in this encounter Care Teams Certified Composites Technician Relationship Specialty Start Date End Date Unknown Unknow Provider Address PCP - General 01/26/24 05/19/24 Kai Saha MD [address] [place] [address] PCP - General Internal Medicine 05/20/24 documented as of this encounter
--- OUTSIDE RECORDS SUMMARY | 2025-01-23 18:21 | XMS_ITS | Clinical Summary ---
Author Organization [facility] Address [address] [place] [address] Care Team Providers Care Senior Systems Administrator Name Role Phone Kai Saha MD Primary Care Provider [phone] Allergies No known active allergies Social History [...] age to complete this topic Care Teams Senior Systems Administrator Relationship Specialty Start Date End Date Kai Saha MD [address] [place] [address] PCP - General Internal Medicine 05/20/24
[2025-01-23 18:32] LABS: Alkaline Phosphatase 97 U/L (39-117)
[2025-01-23 19:36] LABS: TSH reflex Free T4 0.34 uIU/mL (0.32-4.0)
[2025-01-27 17:04] LABS: Vitamin D 25-OH, D2 <4 ng/mL; Vitamin D 25-OH, D3 22 ng/mL; Vitamin D 25-OH, Total 22 ng/mL (30-100)
== END 2025-01-23 14:26 | disposition home or self-care (01) ==
LOC: HO.LAB 14:25
PROVIDERS: PCP Internal Medicine; Visit Provider Internal Medicine
DX: Z00.01 Encounter for general adult medical examination with abnormal findings (principal); M25.511 Pain in right shoulder; M54.12 Radiculopathy, cervical region; E83.52 Hypercalcemia; J45.40 Moderate persistent asthma, uncomplicated; I10 Essential (primary) hypertension; I51.89 Other ill-defined heart diseases; M46.1 Sacroiliitis, not elsewhere classified; M47.816 Spondylosis without myelopathy or radiculopathy, lumbar region; F41.1 Generalized anxiety disorder; F33.41 Major depressive disorder, recurrent, in partial remission; K21.9 Gastro-esophageal reflux disease without esophagitis; Z91.09 Other allergy status, other than to drugs and biological substances; Z51.89 Encounter for other specified aftercare; I50.30 Unspecified diastolic (congestive) heart failure; R73.03 Prediabetes; L40.50 Arthropathic psoriasis, unspecified; E66.09 Other obesity due to excess calories; F11.20 Opioid dependence, uncomplicated; H53.8 Other visual disturbances; I42.2 Other hypertrophic cardiomyopathy; F33.9 Major depressive disorder, recurrent, unspecified
CPT/HCPCS: 36415; 80053; 82306; 84443; 85025

== ENCOUNTER 2025-01-23 14:25 | Outpatient (AMB) | payer OTHER, SELFPAY ==
[2025-01-23 14:30] VITALS: BP 122/74; PULSE 66; BMI 37.8
--- NOTE | 2025-01-23 14:30 | A.OFFVIS_ITS ---
Vital Signs 01/23/25 14:30 Height 5 ft 4 in Weight 220 lb 7.396 oz BMI 37.8 BP 122/74 Blood Pressure Location Lt brachial Position Sitting Pulse 66 Intake Visit Reasons: 6 mth fu Intake Note: 6 month follow-up had ICD placed c/o pain in area Artificial Stone Setter Required: No Allergies cat dander [CATS] Allergy (Severe, Verified 01/12/25 12:27) DIFFICULTY BREATHING dog dander [DOGS] Allergy (Severe, Verified 01/12/25 12:27) DIFFICULTY BREATHING latex [Latex] Allergy (Severe, Verified 01/12/25 12:27) ANAPHYLAXIS penicillin G [PENICILLIN G] Adverse Reaction (Unknown, Verified 01/12/25 12:27) PT STATES IT JUST DOESN'T WORK FOR HER Environmental Allergy (Unknown, Uncoded 11/29/24 14:58) allergy symptoms Medication List - Last Reconciled 01/23/25 by Danielito Alexander MD albuterol sulfate 90 mcg/actuation 1 inh inhalation QID PRN 90 days albuterol sulfate 0.63 mg (3 mL) inhalation QID PRN betamethasone dipropionate 0.05% 1 appl topical DAILY PRN 30 days blood pressure test kit-large (Quick Response BP Monitor-Large Cuff kit) As directed [Bp monitor As directed] cetirizine (All Day Allergy (cetirizine)) 10 mg PO DAILY cholecalciferol (vitamin D3) 1,250 mcg PO QWEEK 90 days cyclobenzaprine 10 mg PO BEDTIME PRN diphenhydramine HCl (Benadryl Allergy) 25 mg PO DAILY fentanyl 37.5 mcg/hour 1 patch transdermal Q72H 30 days ferrous sulfate 324 mg PO BID fluticasone propion-salmeterol 500-50 mcg/dose (Wixela Inhub) 1 ea inhalation BID 90 days FreeStyle Lancets (lancets) Test blood sugar once per day NS FreeStyle Lite Meter (blood-glucose meter) Check blood sugar once per day NS FreeStyle Test (blood sugar diagnostic) Test blood sugar once per day NS furosemide (Lasix) 20 mg PO DAILY 90 days guselkumab (Tremfya) 100 mg subcut Q8W labetalol 100 mg PO BID 90 days lidocaine 5% 1 patch topical DAILY montelukast 10 mg PO BEDTIME quetiapine TAKE 1 TABLET BY MOUTH AT BEDTIME FOR 90 DAYS. FUTHER REFILLS WILL NEED OFFICE VISIT sertraline 200 mg (2 x 100 mg) PO DAILY [Core [employer] website machine As directed] verapamil ER 240 mg PO DAILY HPI Comments Details: Lisa comes for follow-up. She underwent a single-chamber [employer] ICD placement for primary prevention for sudden cardiac that for hypertrophic cardiomyopathy with increase car burden. Patient says she has been eating poorly with lot of high salt diet and her weight had gone up to 230 lb. Her usual weight is or 208 lb. She then improved diet and has reduced her salt intake in his gradually lost weight to up to 218 lb. She still has increased shortness of breath but not as bad as when she had gained significant amount of weight. Part of a weight gain appears to be related to fat intake. Although fluid weight is also likely. She feels abdominal distension. Denies any leg edema. No clear orthopnea, PND. Currently taking 40 mg of Lasix. She has not had any palpitations, lightheadedness, syncope, ICD discharge. No exertional chest pain. [facility] Medical History (Updated 01/23/25 @ 15:59 by Danielito Alexander MD) ICD (implantable cardioverter-defibrillator) in place (HFpEF) heart failure with preserved ejection fraction Obesity due to excess calories Asthma, moderate Essential hypertension Dyspnea on exertion Refusal of blood transfusions as patient is [employer] HTN (hypertension) Diastolic dysfunction Apical variant hypertrophic cardiomyopathy MITCHELL (obstructive sleep apnea) Obesity (BMI 35.0-39.9 without comorbidity) Sacroiliitis Spondylosis of lumbar region without myelopathy or radiculopathy Cardiomyopathy Asthma Pain management Anxiety, generalized Depression, major, recurrent Chronic GERD Environmental allergies Noncompliance Hypertension, essential NSTEMI (non-ST elevated myocardial infarction) Heart murmur 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) Surgical History Hx of cardiac catheterization Hx of colonoscopy History of tubal ligation History of endometrial ablation History of hysterectomy for benign disease Family History Mother Uterine cancer Other Substance use disorder Social History Housing: House Alcohol intake: current Alcohol intake frequency: 0-2 drinks per day Alcohol type: hard liquor Patient Tobacco Use Status: Former Tobacco user Tobacco use type: Cigarette e-Cigarette/Vaping Use: Never Used Second Hand Smoke Exposure: No service: No Current occupational status: employed Cognitive needs: No Hearing needs: No Vision needs: Yes Female Reproductive History Menstrual Age of Menarche: 14 Review of Systems Const Denies chills, Denies fatigue, Denies fever(s), Denies frequent falls, Denies weakness, Denies weight gain and Denies weight loss ENT Denies dizziness Card Denies chest pain, Denies leg edema, Denies lightheadedness, Denies palpitations, Denies dyspnea, Denies dyspnea on exertion, Denies orthopnea and Denies other (loss of consciousness) Resp Denies cough, Denies dyspnea and Denies dyspnea on exertion GI Denies hematochezia and Denies change in stool character Musc Denies abnormal gait, Denies muscle weakness, Denies numbness, Denies radiating pain into limb and Denies tingling Neuro Denies abnormal gait, Denies dizziness, Denies frequent falls, Denies numbness, Denies tingling and Denies weakness Endo Denies fatigue and Denies palpitations Physical Exam Vital Signs: Last Vital Signs Pulse 66 01/23/25 14:30 BP 122/74 01/23/25 14:30 BMI result Body Mass Index 37.8 Const General: cooperative, comfortable, no acute distress, alert and awake Nutritional Appearance: obese Orientation/consciousness: patient oriented x3 Limitations: no limitations Neck Neck: Yes trachea midline, Yes supple and Yes JVD Resp Effort & Inspection: normal respiratory effort Auscultation: clear to auscultation bilaterally Cardio Jugular venous distension: no JVD Palpation: normal PMI Rate: regular rate Rhythm: regular rhythm Heart sounds: S1 normal heart sound present, S2 normal heart sound present, no click, no gallops and Murmur heart sound present systolic early, decrescendo, crescendo and other (Worsening with upright positioning suggestive dynamic murmur) GI Inspection: Yes distended Skin General skin exam: no rashes or lesions noted Neuro General: patient oriented x3 and no focal motor deficits Extrem General: Yes no clubbing, cyanosis or edema Assessment & Plan Assessment & Plan (1) (HFpEF) heart failure with preserved ejection fraction: Code(s): I50.30 - Unspecified diastolic (congestive) heart failure Category: Medical Qualifiers: Heart failure chronicity: chronic Qualified Code(s): I50.32 - Chronic diastolic (congestive) heart failure Plan: Heart failure preserved ejection fraction with recent indiscrete eating with weight gain with abdominal distention with increased shortness of breath. Appears to be mildly fluid overloaded on today's exam. Importance of improving her diet which she was already done and avoiding the same was discussed also daily weight monitoring was discussed. For now will increase her Lasix to 60 mg daily till her weight is down back to her baseline then back to 40 mg daily. She could not tolerate Jardiance therapy due to increased thirst as well as yea st infection. Importance of good blood pressure control was discussed currently well optimized. Encouraged to maintain activity level as tolerated. (2) Apical variant hypertrophic cardiomyopathy: Code(s): I42.2 - Other hypertrophic cardiomyopathy Category: Medical Plan: Apical hypertrophic cardiomyopathy with now heart failure syndrome. No specific treatment pursue for apical hypertrophic cardiomyopathy except for controlling her blood pressure. (3) ICD (implantable cardioverter-defibrillator) in place: Comment: Status post single-chamber [employer] ICD in place, implanted December 2024 for primary prevention for hypertrophic cardiomyopathy Code(s): Z95.810 - Presence of automatic (implantable) cardiac defibrillator Category: Medical Plan: ICD in place for primary prevention. Will follow remotely for ICD function as well as heart failure. Follow up in the clinic in 6 months time for ICD check as well as clinic visit. Thank you for allowing me to partake in her care Orders: Orders PT Evaluation and Treatment Today M25.511 - Pain in right shoulder Coding Level of Care Code Est Pt Level 4 (40502) Complex EM visit Add On G2211 Diagnoses Chronic heart failure with preserved ejection fraction I50.32 Heart failure chronicity: chronic Apical variant hypertrophic cardiomyopathy I42.2 ICD (implantable cardioverter-defibrillator) in place Z95.810
--- OUTSIDE RECORDS SUMMARY | 2025-01-23 17:42 | XMS_ITS | Clinical Summary ---
Author Organization [facility] Address [address] [place] [address] Care Team Providers Care Space Operations Officer Name Role Phone Kai Saha MD Primary Care Provider [phone] Allergies No known active allergies Social History [...] age to complete this topic Care Teams Space Operations Officer Relationship Specialty Start Date End Date Kai Saha MD [address] [place] [address] PCP - General Internal Medicine 05/20/24
--- OUTSIDE RECORDS SUMMARY | 2025-01-23 17:42 | XMS_ITS | Encounter Summary ---
Author Organization [facility] Address [address] [place] [address] Care Team Providers Care Fine Sander Name Role Phone Unknown Primary Care Provider [phone] Kai Saha MD Primary Care Provider [phone] Encounter Details Date Type Department Care Team (Late st Contact Info) Description 01/26/2024 Scanned Document [address] [id number] Radiology, Scan Social History Tobacco [...] on filedocumented in this encounter Care Teams Fine Sander Relationship Specialty Start Date End Date Unknown Unknow Provider Address PCP - General 01/26/24 05/19/24 Kai Saha MD [address] [place] [address] PCP - General Internal Medicine 05/20/24 documented as of this encounter
== END 2025-01-23 14:58 | disposition home or self-care (01) ==
PROVIDERS: PCP Internal Medicine; Visit Provider Internal Medicine Cardiovascular Disease
DX: I50.32 Chronic diastolic (congestive) heart failure (principal); I42.2 Other hypertrophic cardiomyopathy; Z95.810 Presence of automatic (implantable) cardiac defibrillator
CPT/HCPCS: 99214

== ENCOUNTER → 2025-03-05 23:59 | Outpatient (BNV) | payer OTHER, SELFPAY ==
--- NOTE | 2025-03-07 12:25 | A.OFFVIS_ITS ---
Intake Visit Reasons: Remote ICD check-[place] [employer] Allergies cat dander [CATS] Allergy (Severe, Verified 03/06/25 15:36) DIFFICULTY BREATHING dog dander [DOGS] Allergy (Severe, Verified 03/06/25 15:36) DIFFICULTY BREATHING latex [Latex] Allergy (Severe, Verified 03/06/25 15:36) ANAPHYLAXIS penicillin G [PENICILLIN G] Adverse Reaction (Unknown, Verified 03/06/25 15:36) PT STATES IT JUST DOESN'T WORK FOR HER Environmental Allergy (Unknown, Uncoded 03/06/25 15:36) allergy symptoms PFSH Medical History ICD (implantable cardioverter-defibrillator) in place (HFpEF) heart failure with preserved ejection fraction Obesity due to excess calories Asthma, moderate Essential hypertension Dyspnea on exertion Refusal of blood transfusions as patient is Zoroastrianism HTN (hypertension) Diastolic dysfunction Apical variant hypertrophic cardiomyopathy MITCHELL (obstructive sleep apnea) Obesity (BMI 35.0-39.9 without comorbidity) Sacroiliitis Spondylosis of lumbar region without myelopathy or radiculopathy Cardiomyopathy Asthma Pain management Anxiety, generalized Depression, major, recurrent Chronic GERD Environmental allergies Noncompliance Hypertension, essential NSTEMI (non-ST elevated myocardial infarction) Heart murmur 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) Surgical History Hx of cardiac catheterization Hx of colonoscopy History of tubal ligation History of endometrial ablation History of hysterectomy for benign disease Family History Mother Uterine cancer Other Substance use disorder Social History Housing: House Alcohol intake: current Alcohol intake frequency: 0-2 drinks per day Alcohol ty pe: hard liquor Patient Tobacco Use Status: Former Tobacco user Tobacco use type: Cigarette e-Cigarette/Vaping Use: Never Used Second Hand Smoke Exposure: No service: No Current occupational status: employed Cognitive needs: No Hearing needs: No Vision needs: Yes Female Reproductive History Menstrual Age of Menarche: 14 Office Procedures Cardiac Device Check Cardiac Device Check Details: Remote ICD report generated 03/05/2025. ICD function is adequate [id number] Cardiac Interrogation, implant defibrillator w/interim Procedure code (CPT) selection complete Assessment & Plan Assessment & Plan (1) ICD (implantable cardioverter-defibrillator) in place: Comment: Status post single-chamber [place] [employer] ICD in place, implanted December 2024 for primary prevention for hypertrophic cardiomyopathy Code(s): Z95.810 - Presence of automatic (implantable) cardiac defibrillator Category: Medical Plan: See above Coding Level of Care Code Procedure Only Diagnoses ICD (implantable cardioverter-defibrillator) in place Z95.810 CPT Codes Cardiac Device Check - Cardiac Device 13: [id number] Cardiac Interrogation, implant defibrillator w/interim ([id number])
== END ==
PROVIDERS: PCP Internal Medicine; Visit Provider Internal Medicine Cardiovascular Disease
DX: I42.2 Other hypertrophic cardiomyopathy (principal); Z95.810 Presence of automatic (implantable) cardiac defibrillator
CPT/HCPCS: 93295

== ENCOUNTER 2025-03-06 15:30 | Outpatient (AMB) | payer OTHER, SELFPAY ==
--- NOTE | 2025-03-06 15:34 | MHC.PC.OV ---
Vital Signs 03/06/25 15:40 Height 5 ft 4 in Weight 220 lb BMI 37.8 BP 150/70 H Blood Pressure Location Lt brachial Position Sitting Respiration 16 Pulse 77 Pulse Source Pulse Oximeter Temp 98.0 F Temp Source Oral Pulse Oximetry (%) 94 Oxygen Delivery Method Room Air Intake Visit Reasons: Annual PE Allergies cat dander [CATS] Allergy (Severe, Verified 03/06/25 15:36) DIFFICULTY BREATHING dog dander [DOGS] Allergy (Severe, Verified 03/06/25 15:36) DIFFICULTY BREATHING latex [Latex] Allergy (Severe, Verified 03/06/25 15:36) ANAPHYLAXIS penicillin G [PENICILLIN G] Adverse Reaction (Unknown, Verified 03/06/25 15:36) PT STATES IT JUST DOESN'T WORK FOR HER Environmental Allergy (Unknown, Uncoded 03/06/25 15:36) allergy symptoms Medication List - Last Reconciled 03/06/25 by Kai Saha MD albuterol sulfate 90 mcg/actuation 1 inh inhalation QID PRN 90 days albuterol sulfate 0.63 mg (3 mL) inhalation QID PRN betamethasone dipropionate 0.05% 1 appl topical DAILY PRN 30 days blood pressure test kit-large (Quick Response BP Monitor-Large Cuff kit) As directed [Bp monitor As directed] cetirizine (All Day Allergy (cetirizine)) 10 mg PO DAILY cholecalciferol (vitamin D3) 1,250 mcg PO QWEEK 90 days cyclobenzaprine 10 mg PO BEDTIME PRN diphenhydramine HCl (Benadryl Allergy) 25 mg PO DAILY fentanyl 37.5 mcg/hour 1 patch transdermal Q72H 30 days ferrous sulfate 324 mg PO BID fluticasone propion-salmeterol 500-50 mcg/dose (Wixela Inhub) 1 ea inhalation BID 90 days FreeStyle Lancets (lancets) Test blood sugar once per day NS FreeStyle Lite Meter (blood-glucose meter) Check blood sugar once per day NS FreeStyle Test (blood sugar diagnostic) Test blood sugar once per day NS furosemide (Lasix) 60 mg (3 x 20 mg) PO DAILY 90 days guselkumab (Tremfya) 100 mg subcut Q8W labetalol 100 mg PO BID 90 days lidocaine 5% 1 patch topical DAILY montelukast 10 mg PO BEDTIME oxycodone 10 mg PO Q8H PRN 30 days quetiapine TAKE 1 TABLET BY MOUTH AT BEDTIME FOR 90 DAYS. FUTHER REFILLS WILL NEED OFFICE VISIT sertraline 200 mg (2 x 100 mg) PO DAILY [Updraft machine As directed] verapamil ER 240 mg PO DAILY Tobacco use date assessed: 03/06/25 Dental Screening Dental Screen Date: 03/06/25 Did you have a dental visit in the last 12 months?: Yes Did you have a dental problem in the last 6 months where you did not have access to dental care?: No Was dental information given to patient?: Patient has dentist HPI Annual PE HPI Details History of Present Illness - The patient is a 59-year-old female presenting for a physical exam appointment. - patient was switched to oxycodone 10 mg t.i.d. from fentanyl 25 mcg patches as they were not controlling her pain in the joint Patient suffers from psoriatic arthritis - History of a complete hysterectomy due to an intrauterine device (IUD) complication where the device became stuck in the uterus. - Patient indicates no recent colonoscopy but had one around age 49. Unclear records available. - Blood test in January revealed compromised kidney function with a glomerular filtration rate (GFR) of 49, liver enzyme elevation, and low vitamin D levels. No current symptoms related to this history were reported. - Discussed the history of enlarged liver seen on CTA last year when she was in emergency room for shortness a breath Health Maintenance - Mammogram due, last performed in January 2023. - Colonoscopy likely due, as the last one was around age 49, with current age being 59, suggesting it's time for a repeat procedure. - Blood tests: CBC and comprehensive metabolic panel (recommended fasting) from January revealed compromised kidney function, elevated liver enzyme, and vitamin D deficiency. - Discussions recommend vitamin D supplementation. Medications - Cetirizine for allergy management - Lasix (Furosemide) for fluid management - Labetalol 100 mg BID for hypertension - Montelukast for respiratory conditions - Oxycodone 10 mg every 8 hours for pain management - Quetiapine 100 mg for psychiatric condition - Sertraline 200 mg for depression - Verapamil 240 mg for cardiac conditions - Zveb-izn-vlmowsi Zyrtec for allergies - Vitamin D supplementation Patient Instructions - Schedule and complete a mammogram and colonoscopy as soon as possible. - Schedule a repeat blood test, including kidney and liver function, along with vitamin D level check, and do it fasting. - Continue taking prescribed medications and vitamin D supplements. - Exercise caution with balance exercises and prioritize exercises to improve balance. - Maintain regular follow-up for pain management and refill pain medication as needed. Review of Systems - General: No fever no chills - Neurological: No headaches no dizziness - Ear nose throat: No sore throat no hearing difficulty no ear pain - Cardiovascular: No syncope, no chest pain, no palpitations - Gastrointestinal: No nausea vomiting or diarrhea - Endocrine: No polyuria polydipsia no heat intolerance - Genitourinary: No dysuria - Skin: No new complaints Physical Exam General: Cooperative, healthy appearing, comfortable, no acute distress Orientation: Patient oriented x3 Head: Normal to inspection Ears: Within normal limit visually Nose: Normal external nose present Face and sinus: Normal facial exam Eyes: Appearance normal, extraocular movement intact pupils reactive Neck: Normal visual inspection and supple Respiratory: Normal respiratory effort and able to speak in complete sentences. Clear to auscultation, no stridor Cardiovascular: S1 and S2 RRR GI: Normal to inspection. Soft to palpation and nontender Skin: Turgor normal, no acute findings Neuro: Patient oriented x3, motor sensory intact, balance intact, unable to perform tandem walk Extremities: Normal to inspection [facility] Medical History ICD (implantable cardioverter-defibrillator) in place (HFpEF) heart failure with preserved ejection fraction Obesity due to excess calories Asthma, moderate Essential hypertension Dyspnea on exertion Refusal of blood transfusions as patient is Spiritism HTN (hypertension) Diastolic dysfunction Apical variant hypertrophic cardiomyopathy MITCHELL (obstructive sleep apnea) Obesity (BMI 35.0-39.9 without comorbidity) Sacroiliitis Spondylosis of lumbar region without myelopathy or radiculopathy Cardiomyopathy Asthma Pain management Anxiety, generalized Depression, major, recurrent Chronic GERD Environmental allergies Noncompliance Hypertension, essential NSTEMI (non-ST elevated myocardial infarction) Heart murmur 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) Surgical History Hx of cardiac catheterization Hx of colonoscopy History of tubal ligation History of endometrial ablation History of hysterectomy for benign disease Family History Mother Uterine cancer Other Substance use disorder Social History Housing: House Alcohol intake: current Alcohol intake frequency: 0-2 drinks per day Alcohol type: hard liquor Patient Tobacco Use Status: Former Tobacco user Tobacco use type: Cigarette e-Cigarette/Vaping Use: Never Used Second Hand Smoke Exposure: No service: No Current occupational status: employed Cognitive needs: No Hearing needs: No Vision needs: Yes Female Reproductive History Menstrual Age of Menarche: 14 Questionnaire Thrive Questionnaire Date Thrive assessed: 01/12/25 I am a: Patient What is your living situation today?: I have a steady place to live Within the past 12 months, did the food you bought not last and you didn't have the money to get more?: Never true Within the past 12 months, did you worry whether your food would run out before you got money to buy more?: Never true Do you have trouble paying for medicines?: No Do you have trouble getting transportation to medical appointments?: No Do you have trouble paying your heating and electricity bill?: No Do you have trouble taking care of your child, family member or friend?: No Do you have trouble with day-to-day activities such as bathing, preparing meals, shopping, managing finances, etc.?: No Are you currently unemployed and looking for a job?: Yes Are you interested in more education?: No Please select the resources that you would like help with: None Currently or been in a relationship where the following occur: No concerns reported THRIVE Score: 0 FIDELIA-7 AMB Questionnaire FIDELIA-7 Date FIDELIA - 7 assessed: 01/12/25 Source: Developed by Drs. Albin Fitch, Kate Fink, Yosi Bar and colleagues, with an educational isaak from [employer] Physical exam (Primary Care) Vital Signs: Last Vital Signs Temp 98.0 F 03/06/25 15:40 Pulse 77 03/06/25 15:40 Resp 16 03/06/25 15:40 BP 150/70 H 03/06/25 15:40 Pulse Ox 94 03/06/25 15:40 Oxygen Delivery Method Room Air 03/06/25 15:40 BMI result Body Mass Index 37.8 Tobacco/Smoking Status: Tobacco use Status Tobacco use date assessed 03/06/25 03/06/25 15:36 Patient Tobacco Use Status Former Tobacco user 03/06/25 15:34 Tobacco use type Cigarette 03/06/25 15:34 e-Cigarette/Vaping Use Never Used 03/06/25 15:34 Thrive Assessment: Date of Thrive Assessment Date Thrive assessed 01/12/25 03/06/25 15:34 Currently or been in a relationship where the following occur: No concerns reported Coding Level of Care Code Est Pt Level 3 (44971) Est Pt Prev Care 40-64y(32709) Diagnoses Encounter for general adult medical examination with abnormal findings Z00.01 HLA B27 (HLA B27 positive) Z15.89 Environmental allergies Z91.09 Chronic GERD K21.9 Recurrent major depressive disorder, in partial remission F33.41 Active/Remission status: in partial remission Anxiety, generalized F41.1 Spondylosis of lumbar region without myelopathy or radiculopathy M47.816 Apical variant hypertrophic cardiomyopathy I42.2 Diastolic dysfunction I51.89 Primary hypertension I10 Hypertension type: primary hypertension Chronic narcotic dependence F11.20 Moderate persistent asthma without complication J45.40 Asthma complication type: uncomplicated Abnormal tandem gait test R26.9 Obesity (BMI 35.0-39.9 without comorbidity) E66.9 Assessment & Plan Assessment & Plan (1) Encounter for general adult medical examination with abnormal findings: Code(s): Z00.01 - Encounter for general adult medical examination with abnormal findings Category: Medical (2) HLA B27 (HLA B27 positive): Code(s): Z15.89 - Genetic susceptibility to other disease Category: Medical (3) Environmental allergies: Code(s): Z91.09 - Other allergy status, other than to drugs and biological substances Category: Medical (4) Chronic GERD: Code(s): K21.9 - Gastro-esophageal reflux disease without esophagitis Category: Medical (5) Depression, major, recurrent: Code(s): F33.9 - Major depressive disorder, recurrent, unspecified Category: Medical Qualifiers: Active/Remission status: in partial remission Qualified Code(s): F33.41 - Major depressive disorder, recurrent, in partial remission (6) Anxiety, generalized: Code(s): F41.1 - Generalized anxiety disorder Category: Medical (7) Spondylosis of lumbar region without myelopathy or radiculopathy: Code(s): M47.816 - Spondylosis without myelopathy or radiculopathy, lumbar region Category: Medical (8) Apical variant hypertrophic cardiomyopathy: Code(s): I42.2 - Other hypertrophic cardiomyopathy Category: Medical (9) Diastolic dysfunction: Code(s): I51.89 - Other ill-defined heart diseases Category: Medical (10) HTN (hypertension): Code(s): I10 - Essential (primary) hypertension Category: Medical Qualifiers: Hypertension type: primary hypertension Qualified Code(s): I10 - Essential (primary) hypertension (11) Chronic narcotic dependence: Comment: Controlled nature of medication was discussed, it is important to notify me of change of pharmacy, or if traveling. Do not share the medication with anybody, keep it safe away from the hands of small children, and only take it as prescribed. This medication have a tendency to be abused, habit-forming, and it can cause severe constipation along with other allergic reactions. Long-term use of narcotic medications have shown to increase sensitivity to pain. Code(s): F11.20 - Opioid dependence, uncomplicated Category: Medical (12) Asthma, moderate persistent: Code(s): J45.40 - Moderate persistent asthma, uncomplicated Category: Medical Qualifiers: Asthma complication type: uncomplicated Qualified Code(s): J45.40 - Moderate persistent asthma, uncomplicated (13) Abnormal tandem gait test: Code(s): R26.9 - Unspecified abnormalities of gait and mobility Category: Medical (14) Obesity (BMI 35.0-39.9 without comorbidity): Comment: Patient has mom almost morbid obesity. Recent weight gain of 30 lb during the last year. This puts her at a high risk for obstructive sleep apnea. Discussed about weight loss program. She does not want to join the program. However she agrees to see a local company intermodal truck driver, to get dietary instructions . I have made referral for her to see a dietitian. Code(s): E66.9 - Obesity, unspecified Category: Medical Plan History of Present Illness - The patient is a 59-year-old female presenting for a physical exam appointment. - patient was switched to oxycodone 10 mg t.i.d. from fentanyl 25 mcg patches as they were not controlling her pain in the joint Patient suffers from psoriatic arthritis - History of a complete hysterectomy due to an intrauterine device (IUD) complication where the device became stuck in the uterus. - Patient indicates no recent colonoscopy but had one around age 49. Unclear records available. - Blood test in January revealed compromised kidney function with a glomerular filtration rate (GFR) of 49, liver enzyme elevation, and low vitamin D levels. No current symptoms related to this history were reported. - Discussed the history of enlarged liver seen on CTA last year when she was in emergency room for shortness a breath Health Maintenance - Mammogram due, last performed in January 2023. - Colonoscopy likely due, as the last one was around age 49, with current age being 59, suggesting it's time for a repeat procedure. - Blood tests: CBC and comprehensive metabolic panel (recommended fasting) from January revealed compromised kidney function, elevated liver enzyme, and vitamin D deficiency. - Discussions recommend vitamin D supplementation. Medications - Cetirizine for allergy management - Lasix (Furosemide) for fluid management - Labetalol 100 mg BID for hypertension - Montelukast for respiratory conditions - Oxycodone 10 mg every 8 hours for pain management - Quetiapine 100 mg for psychiatric condition - Sertraline 200 mg for depression - Verapamil 240 mg for cardiac conditions - [id number]-twu-ybiihdg Zyrtec for allergies - Vitamin D supplementation Patient Instructions - Schedule and complete a mammogram and colonoscopy as soon as possible. - Schedule a repeat blood test, including kidney and liver function, along with vitamin D level check, and do it fasting. - Continue taking prescribed medications and vitamin D supplements. - Exercise caution with balance exercises and prioritize exercises to improve balance. - Maintain regular follow-up for pain management and refill pain medication as needed. Orders: Orders Complete Blood Count Auto Diff Today E66.9 - Obesity, unspecified, F11.20 - Opioid dependence, uncomplicated, F33.41 - Major depressive disorder, recurrent, in partial remission, F41.1 - Generalized anxiety disorder, I10 - Essential (primary) hypertension, I42.2 - Other hypertrophic cardiomyopathy, I51.89 - Other ill-defined heart diseases, J45.40 - Moderate persistent asthma, uncomplicated, K21.9 - Gastro-esophageal reflux disease without esophagitis, Z00.01 - Encounter for general adult medical examination with abnormal findings, Z91.09 - Other allergy status, other than to drugs and biological substances Drug Screen Urine Today E66.9 - Obesity, unspecified, F11.20 - Opioid dependence, uncomplicated, F33.41 - Major depressive disorder, recurrent, in partial remission, F41.1 - Generalized anxiety disorder, I10 - Essential (primary) hypertension, I42.2 - Other hypertrophic cardiomyopathy, I51.89 - Other ill-defined heart diseases, J45.40 - Moderate persistent asthma, uncomplicated, K21.9 - Gastro-esophageal reflux disease without esophagitis, Z00.01 - Encounter for general adult medical examination with abnormal findings, Z91.09 - Other allergy status, other than to drugs and biological substances Lipid Panel Today E66.9 - Obesity, unspecified, F11.20 - Opioid dependence, uncomplicated, F33.41 - Major depressive disorder, recurrent, in partial remission, F41.1 - Generalized anxiety disorder, I10 - Essential (primary) hypertension, I42.2 - Other hypertrophic cardiomyopathy, I51.89 - Other ill-defined heart diseases, J45.40 - Moderate persistent asthma, uncomplicated, K21.9 - Gastro-esophageal reflux disease without esophagitis, Z00.01 - Encounter for general adult medical examination with abnormal findings, Z91.09 - Other allergy status, other than to drugs and biological substances Opiates GCMS Expanded, Ur Today E66.9 - Obesity, unspecified, F11.20 - Opioid dependence, uncomplicated, F33.41 - Major depressive disorder, recurrent, in partial remission, F41.1 - Generalized anxiety disorder, I10 - Essential (primary) hypertension, I42.2 - Other hypertrophic cardiomyopathy, I51.89 - Other ill-defined heart diseases, J45.40 - Moderate persistent asthma, uncomplicated, K21.9 - Gastro-esophageal reflux disease without esophagitis, Z00.01 - Encounter for general adult medical examination with abnormal findings, Z91.09 - Other allergy status, other than to drugs and biological substances Hemoglobin A1c Today E66.9 - Obesity, unspecified, F11.20 - Opioid dependence, uncomplicated, F33.41 - Major depressive disorder, recurrent, in partial remission, F41.1 - Generalized anxiety disorder, I10 - Essential (primary) hypertension, I42.2 - Other hypertrophic cardiomyopathy, I51.89 - Other ill-defined heart diseases, J45.40 - Moderate persistent asthma, uncomplicated, K21.9 - Gastro-esophageal reflux disease without esophagitis, Z00.01 - Encounter for general adult medical examination with abnormal findings, Z91.09 - Other allergy status, other than to drugs and biological substances Comprehensive Apison. Panel Fast Today E66.9 - Obesity, unspecified, F11.20 - Opioid dependence, uncomplicated, F33.41 - Major depressive disorder, recurrent, in partial remission, F41.1 - Generalized anxiety disorder, I10 - Essential (primary) hypertension, I42.2 - Other hypertrophic cardiomyopathy, I51.89 - Other ill-defined heart diseases, J45.40 - Moderate persistent asthma, uncomplicated, K21.9 - Gastro-esophageal reflux disease without esophagitis, Z00.01 - Encounter for general adult medical examination with abnormal findings, Z91.09 - Other allergy status, other than to drugs and biological substances Vitamin D 25-OH (D2 and D3) Today E66.9 - Obesity, unspecified, F11.20 - Opioid dependence, uncomplicated, F33.41 - Major depressive disorder, recurrent, in partial remission, F41.1 - Generalized anxiety disorder, I10 - Essential (primary) hypertension, I42.2 - Other hypertrophic cardiomyopathy, I51.89 - Other ill-defined heart diseases, J45.40 - Moderate persistent asthma, uncomplicated, K21.9 - Gastro-esophageal reflux disease without esophagitis, Z00.01 - Encounter for general adult medical examination with abnormal findings, Z91.09 - Other allergy status, other than to drugs and biological substances Vitamin B12 Today E66.9 - Obesity, unspecified, F11.20 - Opioid dependence, uncomplicated, F33.41 - Major depressive disorder, recurrent, in partial remission, F41.1 - Generalized anxiety disorder, I10 - Essential (primary) hypertension, I42.2 - Other hypertrophic cardiomyopathy, I51.89 - Other ill-defined heart diseases, J45.40 - Moderate persistent asthma, uncomplicated, K21.9 - Gastro-esophageal reflux disease without esophagitis, Z00.01 - Encounter for general adult medical examination with abnormal findings, Z91.09 - Other allergy status, other than to drugs and biological substances TSH reflex Free T4 Today E66.9 - Obesity, unspecified, F11.20 - Opioid dependence, uncomplicated, F33.41 - Major depressive disorder, recurrent, in partial remission, F41.1 - Generalized anxiety disorder, I10 - Essential (primary) hypertension, I42.2 - Other hypertrophic cardiomyopathy, I51.89 - Other ill-defined heart diseases, J45.40 - Moderate persistent asthma, uncomplicated, K21.9 - Gastro-esophageal reflux disease without esophagitis, Z00.01 - Encounter for general adult medical examination with abnormal findings, Z91.09 - Other allergy status, other than to drugs and biological substances Ferritin Today E66.9 - Obesity, unspecified, F11.20 - Opioid dependence, uncomplicated, F33.41 - Major depressive disorder, recurrent, in partial remission, F41.1 - Generalized anxiety disorder, I10 - Essential (primary) hypertension, I42.2 - Other hypertrophic cardiomyopathy, I51.89 - Other ill-defined heart diseases, J45.40 - Moderate persistent asthma, uncomplicated, K21.9 - Gastro-esophageal reflux disease without esophagitis, Z00.01 - Encounter for general adult medical examination with abnormal findings, Z91.09 - Other allergy status, other than to drugs and biological substances Medications: Discontinued cyclobenzaprine Discontinued Reason: Doctor's Order 10 mg PO BEDTIME PRN 90 tabs 0RF muscle spasm fentanyl 37.5 mcg/hour Discontinued Reason: Doctor's Order 1 patch transdermal Q72H 30 days 15 ea 0RF L40.50 - Arthropathic psoriasis, unspecified, M46.1 - Sacroiliitis, not elsewhere classified, M47.816 - Spondylosis without myelopathy or radiculopathy, lumbar region, Z15.89 - Genetic susceptibility to other disease ferrous sulfate Discontinued Reason: Doctor's Order 324 mg PO BID 180 tabs 0RF
[2025-03-06 15:40] VITALS: BP 150/70; PULSE 77; RESP 16; TEMP 36.7; O2SAT 94; BMI 37.8
--- OUTSIDE RECORDS SUMMARY | 2025-03-06 18:25 | XMS_ITS | Encounter Summary ---
Author Organization [facility] Address [address] [place] [id number] Care Team Providers Care Pressure Steamer Tender Name Role Phone Unknown Primary Care Provider [phone] Kai Saha MD Primary Care Provider [phone] Encounter Details Date Type Department Care Team (Late st Contact Info) Description 01/26/2024 Scanned Document [address] [place] [id number] Radiology, Scan Social History Tobacco Use Types Packs/Day Years Used Date Smoking Tobacco: Never Assessed Comments Unknown Sex and Gender Information Value Date Recorded Sex Assigned at Female 05/20/2024 9:39 AM EDT Legal Sex Female 6:59 PM EST Gender Identity Female 05/20/2024 9:39 AM EDT Sexual Orientation Heterosexual (straight) 05/20 9:39 AM EDT documented as of this encounter Plan of Treatment Not on file documented as of this encounter Procedures Procedure Name Priority Date/Time Associated Diagnosis Comments HX OUTSIDE ORDER 01/26/2024 documented in this encounter Results * HX OUTSIDE ORDER (01/26/2024) us Scan Radiology HX AMB PROCEDURES Final Result documented in this encounter Visit Diagnoses Not on filedocumented in this encounter Care Teams Pressure Steamer Tender Relationship Specialty Start Date End Date Unknown Unknow Provider Address PCP - General 01/26/24 05/19/24 Kai Saha MD [facility] [place] [address] PCP - General Internal Medicine 05/20/24 documented as of this encounter
--- OUTSIDE RECORDS SUMMARY | 2025-03-06 18:25 | XMS_ITS | Clinical Summary ---
Author Organization [facility] Address [address] [place] [address] Care Team Providers Care Business Services Manager Name Role Phone Kai Saha MD Primary Care Provider [phone] Allergies No known active allergies Social History [...] 2) 2014 Influenza Vaccine 06/15/2024 COVID-19 Vaccine ( - 2023-2 5 season) 2024 RSV Vaccine 60 years and old er and Patients (1 - 1-dose 75+ series) 2039 Hepatitis B Vaccines Aged Out No long er eligible based on patient's age to complete this topic Insurance [facility] Care Teams Business Services Manager Relationship Specialty Start Date End Date Kai Saha MD [address] [place] [address] PCP - General Internal Medicine 05/20/24
== END 2025-03-06 16:02 | disposition home or self-care (01) ==
LOC: HO.HMCC 15:31
PROVIDERS: PCP Internal Medicine; Visit Provider Internal Medicine
DX: Z00.01 Encounter for general adult medical examination with abnormal findings (principal); F33.41 Major depressive disorder, recurrent, in partial remission; I42.2 Other hypertrophic cardiomyopathy; F11.20 Opioid dependence, uncomplicated; Z15.89 Genetic susceptibility to other disease; Z91.09 Other allergy status, other than to drugs and biological substances; K21.9 Gastro-esophageal reflux disease without esophagitis; F41.1 Generalized anxiety disorder; M47.816 Spondylosis without myelopathy or radiculopathy, lumbar region; I51.89 Other ill-defined heart diseases; I10 Essential (primary) hypertension; J45.40 Moderate persistent asthma, uncomplicated

== ENCOUNTER → 2025-03-06 15:30 | Outpatient (BNVA) | payer OTHER, SELFPAY | PROVIDERS: PCP Internal Medicine; Visit Provider Internal Medicine | DX: Z13.89 Encounter for screening for other disorder (principal) ==

== ENCOUNTER → 2025-04-09 23:59 | Outpatient (BNV) | payer OTHER, SELFPAY ==
--- NOTE | 2025-04-12 15:28 | MHC.OFFVIS ---
Intake Visit Reasons: Remote HF check-[place] [employer] Allergies cat dander [CATS] Allergy (Severe, Verified 03/06/25 15:36) DIFFICULTY BREATHING dog dander [DOGS] Allergy (Severe, Verified 03/06/25 15:36) DIFFICULTY BREATHING latex [Latex] Allergy (Severe, Verified 03/06/25 15:36) ANAPHYLAXIS penicillin G [PENICILLIN G] Adverse Reaction (Unknown, Verified 03/06/25 15:36) PT STATES IT JUST DOESN'T WORK FOR HER Environmental Allergy (Unknown, Uncoded 03/06/25 15:36) allergy symptoms PFSH Medical History ICD (implantable cardioverter-defibrillator) in place (HFpEF) heart failure with preserved ejection fraction Obesity due to excess calories Asthma, moderate Essential hypertension Dyspnea on exertion Refusal of blood transfusions as patient is Orthodox HTN (hypertension) Diastolic dysfunction Apical variant hypertrophic cardiomyopathy MITCHELL (obstructive sleep apnea) Obesity (BMI 35.0-39.9 without comorbidity) Sacroiliitis Spondylosis of lumbar region without myelopathy or radiculopathy Cardiomyopathy Asthma Pain management Anxiety, generalized Depression, major, recurrent Chronic GERD Environmental allergies Noncompliance Hypertension, essential NSTEMI (non-ST elevated myocardial infarction) Heart murmur 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) Surgical History Hx of cardiac catheterization Hx of colonoscopy History of tubal ligation History of endometrial ablation History of hysterectomy for benign disease Family History Mother Uterine cancer Other Substance use disorder Social History Housing: House Alcohol intake: current Alcohol intake frequency: 0-2 drinks per day Alcohol type: hard liquor Patient Tobacco Use Status: Former Tobacco user Tobacco use type: Cigarette e-Cigarette/Vaping Use: Never Used Second Hand Smoke Exposure: No service: No Current occupational status: employed Cognitive needs: No Hearing needs: No Vision needs: Yes Female Reproductive History Menstrual Age of Menarche: 14 Office Procedures Cardiac Device Check Cardiac Device Check Details: remote ICD report generated 05/04/2025. ICD function is adequate [id number] Cardiac Interrogation, implant defibrillator w/interim Procedure code (CPT) selection complete Assessment & Plan Assessment & Plan (1) ICD (implantable cardioverter-defibrillator) in place: Comment: Status post single-chamber [place] [employer] ICD in place, implanted December 2024 for primary prevention for hypertrophic cardiomyopathy Code(s): Z95.810 - Presence of automatic (implantable) cardiac defibrillator Category: Medical Plan: see above Coding Level of Care Code Procedure Only Diagnoses ICD (implantable cardioverter-defibrillator) in place Z95.810 CPT Codes Cardiac Device Check - Cardiac Device 13: [id number] Cardiac Interrogation, implant defibrillator w/interim ([id number])
== END ==
PROVIDERS: PCP Internal Medicine; Visit Provider Internal Medicine Cardiovascular Disease
DX: Z45.02 Encounter for adjustment and management of automatic implantable cardiac defibrillator (principal)
CPT/HCPCS: 93295; 93297

== ENCOUNTER 2025-05-16 15:18 | Outpatient (AMB) | payer OTHER, SELFPAY ==
--- NOTE | 2025-05-16 15:21 | A.OFFPC_ITS ---
Vital Signs 05/16/25 15:23 Height 5 ft 4 in Weight 218 lb BMI 37.4 BP 148/62 H Blood Pressure Location Rt brachial Position Sitting Respiration 16 Pulse 76 Pulse Source Pulse Oximeter Temp 98.3 F Temp Source Oral Pulse Oximetry (%) 93 Oxygen Delivery Method Room Air Intake Visit Reasons: 2m follow up Allergies cat dander (CATS) Allergy (Severe, Verified 05/16/25 15:25) DIFFICULTY BREATHING dog dander (DOGS) Allergy (Severe, Verified 05/16/25 15:25) DIFFICULTY BREATHING latex (Latex) Allergy (Severe, Verified 05/16/25 15:25) ANAPHYLAXIS penicillin G (PENICILLIN G) Adverse Reaction (Unknown, Verified 05/16/25 15:25) PT STATES IT JUST DOESN'T WORK FOR HER Environmental Allergy (Unknown, Uncoded 05/16/25 15:25) allergy symptoms Medication List - Last Reconciled 05/16/25 by Kai Saha MD albuterol sulfate 90 mcg/actuation 1 inh inhalation QID PRN 90 days albuterol sulfate 0.63 mg (3 mL) inhalation QID PRN betamethasone dipropionate 0.05% 1 appl topical DAILY PRN 30 days blood pressure test kit-large (Quick Response BP Monitor-Large Cuff kit) As directed [Bp monitor As directed] cetirizine (All Day Allergy (cetirizine)) 10 mg PO DAILY fluticasone propion-salmeterol 500-50 mcg/dose (Wixela Inhub) 1 ea inhalation BID 90 days FreeStyle Lancets (lancets) Test blood sugar once per day NS FreeStyle Lite Meter (blood-glucose meter) Check blood sugar once per day NS FreeStyle Test (blood sugar diagnostic) Test blood sugar once per day NS furosemide (Lasix) 60 mg (3 x 20 mg) PO DAILY 90 days labetalol 100 mg PO BID 90 days lidocaine 5% 1 patch topical DAILY montelukast 10 mg PO BEDTIME oxycodone 10 mg PO Q8H PRN 30 days quetiapine TAKE 1 TABLET BY MOUTH AT BEDTIME FOR 90 DAYS. FUTHER REFILLS WILL NEED OFFICE VISIT sertraline 200 mg (2 x 100 mg) PO DAILY [Updraft machine As directed] verapamil ER 240 mg PO DAILY Tobacco use date assessed: 05/16/25 Dental Screening Dental Screen Date: 05/16/25 Did you have a dental visit in the last 12 months?: Yes Did you have a dental problem in the last 6 months where you did not have access to dental care?: Yes Was dental information given to patient?: Patient has dentist HPI 2m follow up HPI Details History - The patient is a 59-year-old female pr esenting with inquiries regarding weight management , asthma control. And pain management - Previously used Wegovy for weight indy gement without adverse reactions; discontinued on cardiology advice to switch to Jardiance which led to yeast infections. - Reports stable asthma management with Wixela, previously used Advair. - patient was seeing Dr. Clarke in the [facility] but stopped going as she is doing well with current medications - Experiencing ankylosing spondylitis-re lated back pain, especially in the sacroiliac joint. - Blood pressure fluctuating; previously 122/74 in January, currently 148/62. - Recent weight measurements show fluctu ations between 218 lbs and 228 lbs; current weight is 218 lbs. Due to cardiomyopathy, has appointment with Cardiology in July Medical History: - Ankylosing Spondylitis - Hypertension - Asthma - severe depression and insomnia treated with Seroquel Problem List - Hypertension - Asthma - Ankylosing Spondylitis - insomnia - severe depression - psoriatic arthritis - narcotic dependence Patient Instructions - Check blood pressure at home regularly and keep a log. - Continue weighing yourself and monitor any significant weight changes. - Follow instructions for self-administr ation of the prescribed medication. Wegovy injections 0.25 mg - Return or contact the office if experi encing adverse effects from medications. Follow-up 2 months Review of Systems - General: No fever no chills - Neurological: No headaches no dizziness - Ear nose throat: No sore throat no hearing difficulty no ear pain - Cardiovascular: No syncope, no chest pain, no palpitations - Gastrointestinal: No nausea vomiting or diarrhea - Endocrine: No polyuria polydipsia no heat intolerance - Genitourinary: No dysuria , no blood in urine Physical Exam General: No acute distress HEENT: No acute findings Neck: Supple Respiratory system: Lungs are clear, able to talk in full sentences, no audible wheeze Cardiovascular: S1-S2 murmur present chronic Gastrointestinal: No pain Extremities: No swelling of ankles CHUTE MAN: Alert awake oriented x3 motor sensory intact Skin: Normal turgor [facility] Medical History ICD (implantable cardioverter-defibrillator) in place (HFpEF) heart failure with preserved ejection fraction Obesity due to excess calories Asthma, moderate Essential hypertension Dyspnea on exertion Refusal of blood transfusions as patient is Alevism HTN (hypertension) Diastolic dysfunction Apical variant hypertrophic cardiomyopathy MITCHELL (obstructive sleep apnea) Obesity (BMI 35.0-39.9 without comorbidity) Sacroiliitis Spondylosis of lumbar region without myelopathy or radiculopathy Cardiomyopathy Asthma Pain management Anxiety, generalized Depression, major, recurrent Chronic GERD Environmental allergies Noncompliance Hypertension, essential NSTEMI (non-ST elevated myocardial infarction) Heart murmur 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) Surgical History Hx of cardiac catheterization Hx of colonoscopy History of tubal ligation History of endometrial ablation History of hysterectomy for benign disease Family History Mother Uterine cancer Other Substance use disorder Social History Housing: House Alcohol intake: current Alcohol intake frequency: 0-2 drinks per day Alcohol type: hard liquor Patient Tobacco Use Status: Former Tobacco user Tobacco use type: Cigarette e-Cigarette/Vaping Use: Never Used Second Hand Smoke Exposure: No service: No Current occupational status: employed Cognitive needs: No Hearing needs: No Vision needs: Yes Female Reproductive History Menstrual Age of Menarche: 14 Questionnaire Thrive Questionnaire Date Thrive assessed: 01/12/25 I am a: Patient What is your living situation today?: I have a steady place to live Within the past 12 months, did the food you bought not last and you didn't have the money to get more?: Never true Within the past 12 months, did you worry whether your food would run out before you got money to buy more?: Never true Do you have trouble paying for medicines?: No Do you have trouble getting transportation to medical appointments?: No Do you have trouble paying your heating and electricity bill?: No Do you have trouble taking care of your child, family member or friend?: No Do you have trouble with day-to-day activities such as bathing, preparing meals, shopping, managing finances, etc.?: No Are you currently unemployed and looking for a job?: Yes Are you interested in more education?: No Please select the resources that you would like help with: None Currently or been in a relationship where the following occur: No concerns reported THRIVE Score: 0 FIDELIA-7 AMB Questionnaire FIDELIA-7 Date FIDELIA - 7 assessed: 01/12/25 Source: Developed by Drs. Albin Fitch, Kate Fink, Yosi Bar and colleagues, with an educational isaak from [employer]. Physical exam (Primary Care) Vital Signs: Last Vital Signs Temp 98.3 F 05/16/25 15:23 Pulse 76 05/16/25 15:23 Resp 16 05/16/25 15:23 BP 148/62 H 05/16/25 15:23 Pulse Ox 93 05/16/25 15:23 Oxygen Delivery Method Room Air 05/16/25 15:23 BMI result Body Mass Index 37.4 Tobacco/Smoking Status: Tobacco use Status Tobacco use date assessed 05/16/25 05/16/25 15:28 Patient Tobacco Use Status Former Tobacco user 05/16/25 15:22 Tobacco use type Cigarette 05/16/25 15:22 e-Cigarette/Vaping Use Never Used 05/16/25 15:22 Thrive Assessment: Date of Thrive Assessment Date Thrive assessed 01/12/25 05/16/25 15:22 Currently or been in a relationship where the following occur: No concerns reported Coding Level of Care Code Est Pt Level 4 (43614) Diagnoses Primary hypertension I10 Hypertension type: primary hypertension Obesity (BMI 35.0-39.9 without comorbidity) E66.9 Moderate persistent asthma without complication J45.40 Asthma complication type: uncomplicated Anxiety, generalized F41.1 HLA B27 (HLA B27 positive) Z15.89 Recurrent major depressive disorder, in partial remission F33.41 Active/Remission status: in partial remission Spondylosis of lumbar region without myelopathy or radiculopathy M47.816 Apical variant hypertrophic cardiomyopathy I42.2 Diastolic dysfunction I51.89 Chronic narcotic dependence F11.20 Assessment & Plan Assessment & Plan (1) HTN (hypertension): Code(s): I10 - Essential (primary) hypertension Category: Medical Qualifiers: Hypertension type: primary hypertension Qualified Code(s): I10 - Essential (primary) hypertension (2) Obesity (BMI 35.0-39.9 without comorbidity): Comment: Patient has mom almost morbid obesity. Recent weight gain of 30 lb during the last year. This puts her at a high risk for obstructive sleep apnea. Discussed about weight loss program. She does not want to join the program. However she agrees to see a dough braker, to get dietary instructions . I have made referral for her to see a dietitian. Code(s): E66.9 - Obesity, unspecified Category: Medical (3) Asthma, moderate persistent: Code(s): J45.40 - Moderate persistent asthma, uncomplicated Category: Medical Qualifiers: Asthma complication type: uncomplicated Qualified Code(s): J45.40 - Moderate persistent asthma, uncomplicated (4) Anxiety, generalized: Code(s): F41.1 - Generalized anxiety disorder Category: Medical (5) HLA B27 (HLA B27 positive): Code(s): Z15.89 - Genetic susceptibility to other disease Category: Medical (6) Depression, major, recurrent: Code(s): F33.9 - Major depressive disorder, recurrent, unspecified Category: Medical Qualifiers: Active/Remission status: in partial remission Qualified Code(s): F33.41 - Major depressive disorder, recurrent, in partial remission (7) Spondylosis of lumbar region without myelopathy or radiculopathy: Code(s): M47.816 - Spondylosis without myelopathy or radiculopathy, lumbar region Category: Medical (8) Apical variant hypertrophic cardiomyopathy: Code(s): I42.2 - Other hypertrophic cardiomyopathy Category: Medical (9) Diastolic dysfunction: Code(s): I51.89 - Other ill-defined heart diseases Category: Medical (10) Chronic narcotic dependence: Comment: Controlled nature of medication was discussed, it is important to notify me of change of pharmacy, or if traveling. Do not share the medication with anybody, keep it safe away from the hands of small children, and only take it as prescribed. This medication have a tendency to be abused, habit-forming, and it can cause severe constipation along with other allergic reactions. Long-term use of narcotic medications have shown to increase sensitivity to pain. Code(s): F11.20 - Opioid dependence, uncomplicated Category: Medical Plan History - The patient is a 59-year-old female presenting with inquiries regarding weight management , asthma control. And pain management - Previously used Wegovy for weight management without adverse reactions; discontinued on cardiology advice to switch to Jardiance which led to yeast infections. - Reports stable asthma management with Wixela, previously used Advair. - patient was seeing Dr. Clarke in the past but stopped going as she is doing well with current medications - Experiencing ankylosing spondylitis-related back pain, especially in the sacroiliac joint. - Blood pressure fluctuating; previously 122/74 in January, currently 148/62. - Recent weight measurements show fluctuations between 218 lbs and 228 lbs; current weight is 218 lbs. Due to cardiomyopathy, has appointment with Cardiology in July Medical History: - Ankylosing Spondylitis - Hypertension - Asthma - severe depression and insomnia treated with Seroquel Problem List - Hypertension - Asthma - Ankylosing Spondylitis - insomnia - severe depression - psoriatic arthritis - narcotic dependence Patient Instructions - Check blood pressure at home regularly and keep a log. - Continue weighing yourself and monitor any significant weight changes. - Follow instructions for self-administration of the prescribed medication. Wegovy injections 0.25 mg - Return or contact the office if experiencing adverse effects from medications. Follow-up 2 months Medications: New Wegovy (semaglutide (weight loss)) administer weeks 1 through 4 of therapy 0.25 mg (0.5 mL) subcut QWEEK 2.5 mL 0RF 30 days NS Refilled fluticasone propion-salmeterol 500-50 mcg/dose (Wixela Inhub) 1 ea inhalation BID 60 ea 1RF 90 days J45.909 - Unspecified asthma, uncomplicated oxycodone 10 mg PO Q8H PRN 90 tabs 0RF pain 30 days
[2025-05-16 15:23] VITALS: BP 148/62; PULSE 76; RESP 16; TEMP 36.8; O2SAT 93; BMI 37.4
--- OUTSIDE RECORDS SUMMARY | 2025-05-16 15:34 | XMS_ITS | Encounter Summary ---
Author Organization [facility] Address [address] [place] [address] Care Team Providers Care Systems Lead Name Role Phone Unknown Primary Care Provider [phone] Kai Saah MD Primary Care Provider [phone] Encounter Details Date Type Department Care Team (Late st Contact Info) Description 01/26/2024 Scanned Document [address] [place] [id number] Radiology, Scan Social History Tobacco Use [...] on filedocumented in this encounter Care Teams Systems Lead Relationship Specialty Start Date End Date Unknown Unknow Provider Address PCP - General 01/26/24 05/19/24 Kai Saha MD [facility] [place] [address] PCP - General Internal Medicine 05/20/24 documented as of this encounter
--- OUTSIDE RECORDS SUMMARY | 2025-05-16 15:34 | XMS_ITS ---
Author Name [facility] Organization Unknown Problems Problem Status Onset Date Problem Type Date of Resolution Source Apical variant hypertrophic cardiomyopathy (HCC) active EncounterDiagnosisAct CCT Encounters Encounter Type Encounter Reason Primary Diagnosis Location Date Ambulatory Other hypertrophic cardiomyopathy Other hypertrophic cardiomyopathy [employer] 05/20/2024 Care Team Organization Name Specialty Phone Email Start Date End Da toñito [employer] Physician Liaison 05/20/2024 01/31/2025 [facility] TONIE ZAVALA Primary Care 05/20/2024 [employer] 01/26/2024
== END 2025-05-16 15:43 | disposition home or self-care (01) ==
LOC: HO.HMCC 15:19
PROVIDERS: PCP Internal Medicine; Visit Provider Internal Medicine
DX: I42.2 Other hypertrophic cardiomyopathy (principal); F11.20 Opioid dependence, uncomplicated; E66.9 Obesity, unspecified; Z68.37 Body mass index [BMI] 37.0-37.9, adult; I10 Essential (primary) hypertension; J45.40 Moderate persistent asthma, uncomplicated; F41.1 Generalized anxiety disorder; Z15.89 Genetic susceptibility to other disease; F33.41 Major depressive disorder, recurrent, in partial remission; M47.816 Spondylosis without myelopathy or radiculopathy, lumbar region; I51.89 Other ill-defined heart diseases

== ENCOUNTER → 2025-07-10 23:59 | Outpatient (BNV) | payer OTHER, SELFPAY ==
--- NOTE | 2025-07-11 10:41 | MHC.OFFVIS ---
Intake Visit Reasons: Remote ICD check- [employer] Allergies cat dander (CATS) Allergy (Severe, Verified 05/16/25 15:25) DIFFICULTY BREATHING dog dander (DOGS) Allergy (Severe, Verified 05/16/25 15:25) DIFFICULTY BREATHING latex (Latex) Allergy (Severe, Verified 05/16/25 15:25) ANAPHYLAXIS penicillin G (PENICILLIN G) Adverse Reaction (Unknown, Verified 05/16/25 15:25) PT STATES IT JUST DOESN'T WORK FOR HER Environmental Allergy (Unknown, Uncoded 05/16/25 15:25) allergy symptoms PFSH Medical History ICD (implantable cardioverter-defibrillator) in place (HFpEF) heart failure with preserved ejection fraction Obesity due to excess calories Asthma, moderate Essential hypertension Dyspnea on exertion Refusal of blood transfusions as patient is Zoroastrian HTN (hypertension) Diastolic dysfunction Apical variant hypertrophic cardiomyopathy MITCHELL (obstructive sleep apnea) Obesity (BMI 35.0-39.9 without comorbidity) Sacroiliitis Spondylosis of lumbar region without myelopathy or radiculopathy Cardiomyopathy Asthma Pain management Anxiety, generalized Depression, major, recurrent Chronic GERD Environmental allergies Noncompliance Hypertension, essential NSTEMI (non-ST elevated myocardial infarction) Heart murmur 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) Surgical History Hx of cardiac catheterization Hx of colonoscopy History of tubal ligation History of endometrial ablation History of hysterectomy for benign disease Family History Mother Uterine cancer Other Substance use disorder Social History Housing: House Alcohol intake: current Alcohol intake frequency: 0-2 drinks per day Alcohol type: hard liquor Patient Tobacco Use Status: Former Tobacco user Tobacco use type: Cigarette e-Cigarette/Vaping Use: Never Used Second Hand Smoke Exposure: No service: No Current occupational status: employed Cognitive needs: No Hearing needs: No Vision needs: Yes Female Reproductive History Menstrual Age of Menarche: 14 Office Procedures Cardiac Device Check Cardiac Device Check Details: Remote ICD report generated 07/09/2025. ICD function is adequate. No significant arrhythmias noted [id number] Cardiac Interrogation, implant defibrillator w/interim Procedure code (CPT) selection complete Assessment & Plan Assessment & Plan (1) ICD (implantable cardioverter-defibrillator) in place: Comment: Status post single-chamber [place] [employer] ICD in place, implanted December 2024 for primary prevention for hypertrophic cardiomyopathy Code(s): Z95.810 - Presence of automatic (implantable) cardiac defibrillator Category: Medical Plan: See above Coding Level of Care Code Procedure Only Diagnoses ICD (implantable cardioverter-defibrillator) in place Z95.810 CPT Codes Cardiac Device Check - Cardiac Device 13: [id number] Cardiac Interrogation, implant defibrillator w/interim ([id number])
== END ==
PROVIDERS: PCP Internal Medicine; Visit Provider Internal Medicine Cardiovascular Disease
DX: Z45.02 Encounter for adjustment and management of automatic implantable cardiac defibrillator (principal)
CPT/HCPCS: 93295

== ENCOUNTER → 2025-07-23 23:59 | Outpatient (BNV) | payer OTHER, SELFPAY ==
--- NOTE | 2025-07-24 13:22 | A.OFFVIS_ITS ---
Intake Visit Reasons: Remote ICD check- Ana Scient Allergies cat dander (CATS) Allergy (Severe, Verified 05/16/25 15:25) DIFFICULTY BREATHING dog dander (DOGS) Allergy (Severe, Verified 05/16/25 15:25) DIFFICULTY BREATHING latex (Latex) Allergy (Severe, Verified 05/16/25 15:25) ANAPHYLAXIS penicillin G (PENICILLIN G) Adverse Reaction (Unknown, Verified 05/16/25 15:25) PT STATES IT JUST DOESN'T WORK FOR HER Environmental Allergy (Unknown, Uncoded 05/16/25 15:25) allergy symptoms PFSH Medical History ICD (implantable cardioverter-defibrillator) in place (HFpEF) heart failure with preserved ejection fraction Obesity due to excess calories Asthma, moderate Essential hypertension Dyspnea on exertion Refusal of blood transfusions as patient is Lutheran HTN (hypertension) Diastolic dysfunction Apical variant hypertrophic cardiomyopathy MITCHELL (obstructive sleep apnea) Obesity (BMI 35.0-39.9 without comorbidity) Sacroiliitis Spondylosis of lumbar region without myelopathy or radiculopathy Cardiomyopathy Asthma Pain management Anxiety, generalized Depression, major, recurrent Chronic GERD Environmental allergies Noncompliance Hypertension, essential NSTEMI (non-ST elevated myocardial infarction) Heart murmur 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) Surgical History Hx of cardiac catheterization Hx of colonoscopy History of tubal ligation History of endometrial ablation History of hysterectomy for benign disease Family History Mother Uterine cancer Other Substance use disorder Social History Housing: House Alcohol intake: current Alcohol intake frequency: 0-2 drinks per day Alcohol type: hard liquor Patient Tobacco Use Status: Former Tobacco user Tobacco use type: Cigarette e-Cigarette/Vaping Use: Never Used Second Hand Smoke Exposure: No service: No Current occupational status: employed Cognitive needs: No Hearing needs: No Vision needs: Yes Female Reproductive History Menstrual Age of Menarche: 14 Office Procedures Cardiac Device Check Cardiac Device Check Details: Remote ICD report generated 07/23/2025. ICD function is adequate. [id number] Cardiac Interrogation, implant defibrillator w/interim Procedure code (CPT) selection complete Assessment & Plan Assessment & Plan (1) ICD (implantable cardioverter-defibrillator) in place: Comment: Status post single-chamber [employer] ICD in place, implanted December 2024 for primary prevention for hypertrophic cardiomyopathy Code(s): Z95.810 - Presence of automatic (implantable) cardiac defibrillator Category: Medical Plan: See above Coding Level of Care Code Procedure Only Diagnoses ICD (implantable cardioverter-defibrillator) in place Z95.810 CPT Codes Cardiac Device Check - Cardiac Device 13: [id number] Cardiac Interrogation, implant defibrillator w/interim ([id number])
== END ==
PROVIDERS: PCP Internal Medicine; Visit Provider Internal Medicine Cardiovascular Disease
DX: I42.2 Other hypertrophic cardiomyopathy (principal); Z95.810 Presence of automatic (implantable) cardiac defibrillator
CPT/HCPCS: 93295

== ENCOUNTER 2025-07-30 12:17 | Outpatient (AMB) | payer OTHER, SELFPAY ==
--- NOTE | 2025-07-30 12:44 | MHC.OFFVIS ---
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: No Allergies cat dander (CATS) Allergy (Severe, Verified 05/16/25 15:25) DIFFICULTY BREATHING dog dander (DOGS) Allergy (Severe, Verified 05/16/25 15:25) DIFFICULTY BREATHING latex (Latex) Allergy (Severe, Verified 05/16/25 15:25) ANAPHYLAXIS penicillin G (PENICILLIN G) Adverse Reaction (Unknown, Verified 05/16/25 15:25) PT STATES IT JUST DOESN'T WORK FOR HER Environmental Allergy (Unknown, Uncoded 05/16/25 15:25) allergy symptoms Medication List - Last Reconciled 07/30/25 by Danielito Alexander MD albuterol sulfate 90 mcg/actuation 1 inh inhalation QID PRN 90 days albuterol sulfate 0.63 mg (3 mL) inhalation QID PRN betamethasone dipropionate 0.05% 1 appl topical DAILY PRN 30 days blood pressure test kit-large (Quick Response BP Monitor-Large Cuff kit) As directed [Bp monitor As directed] cetirizine (All Day Allergy (cetirizine)) 10 mg PO DAILY fluticasone propion-salmeterol 500-50 mcg/dose (Wixela Inhub) 1 ea inhalation BID 90 days FreeStyle Lancets (lancets) Test blood sugar once per day NS FreeStyle Lite Meter (blood-glucose meter) Check blood sugar once per day NS FreeStyle Test (blood sugar diagnostic) Test blood sugar once per day NS furosemide (Lasix) 60 mg (3 x 20 mg) PO DAILY 90 days labetalol 100 mg PO BID 90 days lidocaine 5% 1 patch topical DAILY montelukast 10 mg PO BEDTIME oxycodone 10 mg PO Q8H PRN 30 days quetiapine TAKE 1 TABLET BY MOUTH AT BEDTIME FOR 90 DAYS. FUTHER REFILLS WILL NEED OFFICE VISIT sertraline 200 mg (2 x 100 mg) PO DAILY [Updraft machine As directed] verapamil ER 240 mg PO DAILY Wegovy (semaglutide (weight loss)) 0.25 mg (0.5 mL) subcut QWEEK 30 days NS HPI Comments Details: Lisa comes for follow-up. She has been doing well from cardiac perspective in terms of her shortness of breath. She has still not been exercising much. However she has been started on Wegovy and says that she has lost about 9 lb. He feels a little nausea with it but otherwise tolerating the medications well. She has not had any clear orthopnea, PND, leg edema. Denies any palpitation, lightheadedness, syncope. No ICD discharge. Denies exertional chest pain. She says a blood pressures at home have ranged from 140-160 systolic still not adequately controlled. 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 HTN (hypertension) Diastolic dysfunction Apical variant hypertrophic cardiomyopathy MITCHELL (obstructive sleep apnea) Obesity (BMI 35.0-39.9 without comorbidity) Sacroiliitis Spondylosis of lumbar region without myelopathy or radiculopathy Cardiomyopathy Asthma Pain management Anxiety, generalized Depression, major, recurrent Chronic GERD Environmental allergies Noncompliance Hypertension, essential NSTEMI (non-ST elevated myocardial infarction) Heart murmur 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) Surgical History Hx of cardiac catheterization Hx of colonoscopy History of tubal ligation History of endometrial ablation History of hysterectomy for benign disease Family History Mother Uterine cancer Other Substance use disorder Social History Housing: House Alcohol intake: current Alcohol intake frequency: 0-2 drinks per day Alcohol type: hard liquor Patient Tobacco Use Status: Former Tobacco user Tobacco use type: Cigarette e-Cigarette/Vaping Use: Never Used Second Hand Smoke Exposure: No service: No Current occupational status: employed Cognitive needs: No Hearing needs: No Vision needs: Yes Female Reproductive History Menstrual Age of Menarche: 14 Review of Systems Const Denies chills, Denies fatigue, Denies fever(s), Denies frequent falls, Denies weakness, Denies weight gain and Denies weight loss ENT Denies dizziness Card Denies chest pain, Denies leg edema, Denies lightheadedness, Denies palpitations, Denies dyspnea, Denies dyspnea on exertion, Denies orthopnea and Denies other (loss of consciousness) Resp Denies cough, Denies dyspnea and Denies dyspnea on exertion GI Denies hematochezia and Denies change in stool character Musc Denies abnormal gait, Denies muscle weakness, Denies numbness, Denies radiating pain into limb and Denies tingling Neuro Denies abnormal gait, Denies dizziness, Denies frequent falls, Denies numbness, Denies tingling and Denies weakness Endo Denies fatigue and Denies palpitations Physical Exam Vital Signs: Last Vital Signs Pulse 66 07/30/25 12:46 BP 120/70 07/30/25 12:46 BMI result Body Mass Index 37.1 Const General: cooperative, comfortable, no acute distress, alert and awake Nutritional Appearance: obese Orientation/consciousness: patient oriented x3 Limitations: no limitations Neck Neck: Yes trachea midline, Yes supple and Yes no JVD Resp Effort & Inspection: normal respiratory effort Auscultation: clear to auscultation bilaterally Cardio Jugular venous distension: no JVD Palpation: normal PMI Rate: regular rate Rhythm: regular rhythm Heart sounds: S1 normal heart sound present, S2 normal heart sound present, no click, no gallops and Murmur heart sound present systolic early, decrescendo, crescendo and other (Worsening with upright positioning suggestive dynamic murmur) GI Inspection: Yes distended Skin General skin exam: no rashes or lesions noted Neuro General: patient oriented x3 and no focal motor deficits Extrem General: Yes no clubbing, cyanosis or edema Office Procedures Cardiac Device Check Cardiac Device Check Details: Single-chamber [facility] [employer] ICD in place. Programmed in VVI at 40 beats per minute. No arrhythmias detected. Ventricular sensing is excellent. Ventricular pacing thresholds excellent. Shock and pacing lead impedance is stable. Battery life is excellent at 14 years [id number]-GG Cardiac Device Check, single lead implantable defibrillator Procedure code (CPT) selection complete Assessment & Plan Assessment & Plan (1) (HFpEF) heart failure with preserved ejection fraction: Code(s): I50.30 - Unspecified diastolic (congestive) heart failure Category: Medical Qualifiers: Heart failure chronicity: chronic Qualified Code(s): I50.32 - Chronic diastolic (congestive) heart failure Plan: Heart failure preserved ejection fraction in this middle-aged woman secondary to hypertrophic cardiomyopathy. Clinically appears to be euvolemic and well compensated. Blood pressure not well optimized. Will add spironolactone to her regimen to target goal blood pressure less than 130 systolic. Will check blood work today. Daily weight monitoring avoidance salt loading was discussed. Additional diuretics as need be. Continue to participate in physical activity and encouraged to increase activity level as tolerated. (2) Uncontrolled hypertension: Code(s): I10 - Essential (primary) hypertension Category: Medical Plan: Uncontrolled hypertension. Continue labetalol and verapamil therapy. Given her heart rate will add spironolactone to her regimen. Target goal blood pressure less than 130/84. Follow up in 2 weeks for blood pressure check. Advised to monitor blood pressure at home maintain a log. Gradually uptitrate spironolactone as tolerated. Low-salt diet was discussed. Importance of weight loss as well as regular physical activity was discussed. (3) Apical variant hypertrophic cardiomyopathy: Code(s): I42.2 - Other hypertrophic cardiomyopathy Category: Medical Plan: Apical variant of hypertrophic cardiomyopathy with significant subendocardial scar burden. This is led to diastolic dysfunction. Continue management as above. (4) ICD (implantable cardioverter-defibrillator) in place: Comment: Status post single-chamber [employer] [employer] ICD in place, implanted December 2024 for primary prevention for hypertrophic cardiomyopathy Code(s): Z95.810 - Presence of automatic (implantable) cardiac defibrillator Category: Medical Plan: ICD in place, working well. Reprogrammed for adequate functioning. Will follow remotely. Follow up in the clinic in 6 months time, sooner PRN. Thank you for allowing me to partake in her care Orders: Orders Basic Metabolic Panel Today I50.32 - Chronic diastolic (congestive) heart failure B Type Natriuretic Peptide Today I50.32 - Chronic diastolic (congestive) heart failure Medications: New spironolactone 25 mg PO DAILY 30 tabs 5RF Coding Level of Care Code Est Pt Level 4 (92307) Complex EM visit Add On G2211 Diagnoses Chronic heart failure with preserved ejection fraction I50.32 Heart failure chronicity: chronic Uncontrolled hypertension I10 Apical variant hypertrophic cardiomyopathy I42.2 ICD (implantable cardioverter-defibrillator) in place Z95.810 CPT Codes Cardiac Device Check - Cardiac Device 4: [id number] Cardiac Device Check, single lead implantable defibrillator ([id number])
[2025-07-30 12:46] VITALS: BP 120/70; PULSE 66; BMI 37.1
--- OUTSIDE RECORDS SUMMARY | 2025-07-30 16:57 | XMS_ITS | Encounter Summary ---
Author Organization [facility] Address [address] [place] [id number] Care Team Providers Care Spanish Moss Picker Name Role Phone Unknown Primary Care Provider [phone] Kai Saha MD Primary Care Provider [phone] Encounter Details Date Type Department Care Team (Late st Contact Info) Description 01/26/2024 Scanned Document [address] [place] [id number] Radiology, Scan Social History Tobacco Use [...] on filedocumented in this encounter Care Teams Spanish Moss Picker Relationship Specialty Start Date End Date Unknown Unknow Provider Address PCP - General 01/26/24 05/19/24 Kai Saha MD [facility] [place] [address] PCP - General Internal Medicine 05/20/24 documented as of this encounter
--- OUTSIDE RECORDS SUMMARY | 2025-07-30 16:57 | XMS_ITS | Clinical Summary ---
Author Organization [facility] Address [address] [place] [address] Care Team Providers Care Actuarial Clerk Name Role Phone Kai Saha MD Primary Care Provider [phone] Allergies No known active allergies Social History [...] Vaccine (1 of 2) 2014 Influenza Vaccine 06/15/2025 COVID-19 Vaccine ( - 2023-2 5 season) 2025 RSV Vaccine 60 years and old er and Patients (1 - 1-dose 75+ series) 2039 Hepatitis B Vaccines Aged Out No long er eligible based on patient's age to complete this topic Insurance [facility] Care Teams Actuarial Clerk Relationship Specialty Start Date End Date Kai Saha MD [address] [place] [address] PCP - General Internal Medicine 05/20/24
== END 2025-07-30 13:21 | disposition home or self-care (01) ==
LOC: HO.HCS 12:19
PROVIDERS: PCP Internal Medicine; Visit Provider Internal Medicine Cardiovascular Disease
DX: I50.32 Chronic diastolic (congestive) heart failure (principal); I10 Essential (primary) hypertension; I42.2 Other hypertrophic cardiomyopathy; Z95.810 Presence of automatic (implantable) cardiac defibrillator
CPT/HCPCS: 93282; 99214

== ENCOUNTER 2025-08-17 10:16 | Outpatient (REF) | payer OTHER, SELFPAY ==
[2025-08-17 13:36] LABS: Anion Gap 10 (12-20); Blood Urea Nitrogen 14 mg/dL (9-16); Calcium 10.9 mg/dL (8.4-10.2); Carbon Dioxide 31 mmol/L (22-29); Chloride 103 mmol/L (96-108); Estimated Glomerular Filt Rate > 60; Potassium 4.2 mmol/L (3.3-5.1); Sodium 140 mmol/L (135-145)
== END 2025-08-17 10:17 | disposition home or self-care (01) ==
LOC: HO.LAB 10:16
PROVIDERS: PCP Internal Medicine; Visit Provider Internal Medicine Cardiovascular Disease
DX: I50.32 Chronic diastolic (congestive) heart failure (principal)
CPT/HCPCS: 36415; 80048

== ENCOUNTER → 2025-08-27 23:59 | Outpatient (BNV) | payer SELFPAY ==
--- NOTE | 2025-09-04 17:28 | A.OFFVIS_ITS ---
Intake Visit Reasons: Remote ICD check- [employer] Allergies cat dander (CATS) Allergy (Severe, Verified 08/31/25 15:04) DIFFICULTY BREATHING dog dander (DOGS) Allergy (Severe, Verified 08/31/25 15:04) DIFFICULTY BREATHING latex (Latex) Allergy (Severe, Verified 08/31/25 15:04) ANAPHYLAXIS penicillin G (PENICILLIN G) Adverse Reaction (Unknown, Verified 08/31/25 15:04) PT STATES IT JUST DOESN'T WORK FOR HER Environmental Allergy (Unknown, Uncoded 05/16/25 15:25) allergy symptoms PFSH Medical History ICD (implantable cardioverter-defibrillator) in place (HFpEF) heart failure with preserved ejection fraction Obesity due to excess calories Asthma, moderate Essential hypertension Dyspnea on exertion Refusal of blood transfusions as patient is 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 HTN (hypertension) Diastolic dysfunction Apical variant hypertrophic cardiomyopathy MITCHELL (obstructive sleep apnea) Obesity (BMI 35.0-39.9 without comorbidity) Sacroiliitis Spondylosis of lumbar region without myelopathy or radiculopathy Cardiomyopathy Asthma Pain management Anxiety, generalized Depression, major, recurrent Chronic GERD Environmental allergies Noncompliance Hypertension, essential NSTEMI (non-ST elevated myocardial infarction) Heart murmur 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) Surgical History Hx of cardiac catheterization Hx of colonoscopy History of tubal ligation History of endometrial ablation History of hysterectomy for benign disease Family History Mother Uterine cancer Other Substance use disorder Social History Housing: House Alcohol intake: current Alcohol intake frequency: 0-2 drinks per day Alcohol type: hard liquor Patient Tobacco Use Status: Former Tobacco user Tobacco use type: Cigarette e-Cigarette/Vaping Use: Never Used Second Hand Smoke Exposure: No service: No Current occupational status: employed Cognitive needs: No Hearing needs: No Vision needs: Yes Female Reproductive History Menstrual Age of Menarche: 14 Office Procedures Cardiac Device Check Cardiac Device Check Details: Remote ICD report generated 08/31/2025. ICD function is adequate [id number] Cardiac Interrogation, implant defibrillator w/interim Procedure code (CPT) selection complete Assessment & Plan Assessment & Plan (1) ICD (implantable cardioverter-defibrillator) in place: Comment: Status post single-chamber [employer] ICD in place, implanted December 2024 for primary prevention for hypertrophic cardiomyopathy Code(s): Z95.810 - Presence of automatic (implantable) cardiac defibrillator Category: Medical Plan: See above Coding Level of Care Code Procedure Only Diagnoses ICD (implantable cardioverter-defibrillator) in place Z95.810 CPT Codes Cardiac Device Check - Cardiac Device 13: [id number] Cardiac Interrogation, implant defibrillator w/interim ([id number])
== END ==
PROVIDERS: PCP Internal Medicine; Visit Provider Internal Medicine Cardiovascular Disease
DX: I42.2 Other hypertrophic cardiomyopathy (principal); Z95.810 Presence of automatic (implantable) cardiac defibrillator
CPT/HCPCS: 93295

== ENCOUNTER → 2025-08-31 10:17 | Outpatient (BNVA) | payer OTHER, SELFPAY | PROVIDERS: PCP Internal Medicine; Visit Provider Internal Medicine Cardiovascular Disease | DX: L40.50 Arthropathic psoriasis, unspecified (principal); I10 Essential (primary) hypertension; E66.9 Obesity, unspecified; Z68.36 Body mass index [BMI] 36.0-36.9, adult; J45.40 Moderate persistent asthma, uncomplicated; I42.2 Other hypertrophic cardiomyopathy; F11.20 Opioid dependence, uncomplicated; Z15.89 Genetic susceptibility to other disease; Z13.31 Encounter for screening for depression; Z13.39 Encounter for screening examination for other mental health and behavioral disorders | CPT/HCPCS: 96127 ==

== ENCOUNTER 2025-08-31 14:50 | Outpatient (AMB) | payer OTHER, SELFPAY ==
--- NOTE | 2025-08-31 14:55 | A.OFFPC_ITS ---
Vital Signs 08/31/25 14:58 08/31/25 15:15 Height 5 ft 4 in Weight 211 lb BMI 36.2 BP 140/68 H 118/76 Blood Pressure Location Lt brachial Position Sitting Respiration 18 Pulse 69 Pulse Source Pulse Oximeter Pulse Oximetry (%) 96 Intake Visit Reasons: 3 months f/up, resched-inactive ins Outreach Rep Required: No Accompanied by: Self / Same As Patient Allergies cat dander (CATS) Allergy (Severe, Verified 08/31/25 15:04) DIFFICULTY BREATHING dog dander (DOGS) Allergy (Severe, Verified 08/31/25 15:04) DIFFICULTY BREATHING latex (Latex) Allergy (Severe, Verified 08/31/25 15:04) ANAPHYLAXIS penicillin G (PENICILLIN G) Adverse Reaction (Unknown, Verified 08/31/25 15:04) PT STATES IT JUST DOESN'T WORK FOR HER Environmental Allergy (Unknown, Uncoded 05/16/25 15:25) allergy symptoms Medication List - Last Reconciled 08/31/25 by Kai Saha MD albuterol sulfate 0.63 mg (3 mL) inhalation QID PRN albuterol sulfate 90 mcg/actuation 1 inh inhalation QID PRN 90 days betamethasone dipropionate 0.05% 1 appl topical DAILY PRN 30 days blood pressure test kit-large (Quick Response BP Monitor-Large Cuff kit) As directed [Bp monitor As directed] cetirizine (All Day Allergy (cetirizine)) 10 mg PO DAILY fluticasone propion-salmeterol 500-50 mcg/dose (Wixela Inhub) 1 ea inhalation BID 90 days FreeStyle Lancets (lancets) Test blood sugar once per day NS FreeStyle Lite Meter (blood-glucose meter) Check blood sugar once per day NS FreeStyle Test (blood sugar diagnostic) Test blood sugar once per day NS furosemide (Lasix) 60 mg (3 x 20 mg) PO DAILY 90 days labetalol 100 mg PO BID 90 days lidocaine 5% 1 patch topical DAILY montelukast 10 mg PO BEDTIME oxycodone 10 mg PO Q8H PRN 30 days quetiapine TAKE 1 TABLET BY MOUTH AT BEDTIME FOR 90 DAYS. FUTHER REFILLS WILL NEED OFFICE VISIT sertraline 200 mg (2 x 100 mg) PO DAILY spironolactone 25 mg PO DAILY [Updraft machine As directed] verapamil ER 240 mg PO DAILY Wegovy (semaglutide (weight loss)) 0.25 mg (0.5 mL) subcut QWEEK 30 days NS Tobacco use date assessed: 08/31/25 Dental Screening Dental Screen Date: 08/31/25 HPI 3 months f/up, resched-inactive ins HPI Details History of Present Illness The patient is a 59-year-old female for regular 2 M follow up visit Elevated Blood Pressure: - The patient noted her blood pressure w as higher during today's visit, measured at 140/68. - The blood pressure was previously well controlled at 120/70 as of last month. - A new antihypertensive medication was started approximately four weeks ago. by Cardio - Bp rechecked by me was 118/78 left arm Asthma: - Patient reports increased use of her i nhaler, which is unusual for her, indicating her asthma has been bothersome recently. - She denies usual symptoms in [facility] except this increased inhaler usage. wt managment: patient is on Wagovy and has lost some wt since last month Psoriatic arthritis : pain stable with Oxycodon 10 mg tid Problem List - Elevated Blood Pressure - Asthma Flare-up - Cardiac Concerns Related to Cardiomyop athy - Psoriatic arthritis Plan - Continue monitoring blood pressure, es pecially given the transition to a new antihypertensive regimen. - Continue Wegovy for weight management unless adverse effects occur. - Refill Wixela for asthma control to ma nage asthma symptoms and decrease inhaler use. - Prescribe a course of prednisone 10 mg daily for five days to manage asthma exacerbation. - Ensure oxycodone for pain management r emains effective and refill as needed. Review of Systems - General: No fever no chills - Neurological: No headaches no dizziness - Ear nose throat: No sore throat no hearing difficulty no ear pain - Cardiovascular: No syncope, no chest pain, no palpitations - Gastrointestinal: No nausea vomiting or diarrhea - Endocrine: No polyuria polydipsia no heat intolerance - Genitourinary: No dysuria , no blood in urine Physical Exam General: No acute distress HEENT: No acute findings Neck: Supple Respiratory system: Able to talk in full sentences, no audible wheeze, asthma is acting up Cardiovascular: S1-S2 regular in rate and rhythm Gastrointestinal: No pain Extremities: No new findings MEDICAL ASSOCIATE: Alert awake oriented x3 motor intact Skin: Normal turgor PFSH Medical History ICD (implantable cardioverter-defibrillator) in place (HFpEF) heart failure with preserved ejection fraction Obesity due to excess calories Asthma, moderate Essential hypertension Dyspnea on exertion Refusal of blood transfusions as patient is Nondenominational HTN (hypertension) Diastolic dysfunction Apical variant hypertrophic cardiomyopathy MITCHELL (obstructive sleep apnea) Obesity (BMI 35.0-39.9 without comorbidity) Sacroiliitis Spondylosis of lumbar region without myelopathy or radiculopathy Cardiomyopathy Asthma Pain management Anxiety, generalized Depression, major, recurrent Chronic GERD Environmental allergies Noncompliance Hypertension, essential NSTEMI (non-ST elevated myocardial infarction) Heart murmur 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) Surgical History Hx of cardiac catheterization Hx of colonoscopy History of tubal ligation History of endometrial ablation History of hysterectomy for benign disease Family History Mother Uterine cancer Other Substance use disorder Social History Housing: House Alcohol intake: current Alcohol intake frequency: 0-2 drinks per day Alcohol type: hard liquor Patient Tobacco Use Status: Former Tobacco user Tobacco use type: Cigarette e-Cigarette/Vaping Use: Never Used Second Hand Smoke Exposure: No service: No Current occupational status: employed Cognitive needs: No Hearing needs: No Vision needs: Yes Female Reproductive History Menstrual Age of Menarche: 14 Questionnaire PHQ-9 Over the last 2 weeks, how often have you been bothered by any of the following problems? 1. Little interest or pleasure in doing things: not at all 2. Feeling down, depressed, or hopeless: not at all 3. Trouble falling or staying asleep, or sleeping too much: not at all 4. Feeling tired or having little energy: several days 5. Poor appetite or overeating: not at all 6. Feeling bad about yourself - or that you are a failure or have let yourself or your family down: not at all 7. Trouble concentrating on things, such as reading the newspaper or watching television: not at all 8. Moving or speaking so slowly that other people could have noticed. Or the opposite - being so fidgety or restless that you have been moving around a lot more than usual: not at all 9. Thoughts that you would be better off or of hurting yourself in some way : not at all Total score: 1 Depression Screening Interpretation: Negative Depression Screening Done: Yes 52125 - PHQ-9 Billing: Yes Source: Developed by Drs. Albin Fitch, Kate Fink, Yosi Bar and colleagues, with an educational isaak from [employer] Thrive Questionnaire Date Thrive assessed: 01/12/25 I am a: Patient What is your living situation today?: I have a steady place to live Within the past 12 months, did the food you bought not last and you didn't have the money to get more?: Never true Within the past 12 months, did you worry whether your food would run out before you got money to buy more?: Never true Do you have trouble paying for medicines?: No Do you have trouble getting transportation to medical appointments?: No Do you have trouble paying your heating and electricity bill?: No Do you have trouble taking care of your child, family member or friend?: No Do you have trouble with day-to-day activities such as bathing, preparing meals, shopping, managing finances, etc.?: No Are you currently unemployed and looking for a job?: Yes Are you interested in more education?: No Please select the resources that you would like help with: None Currently or been in a relationship where the following occur: No concerns reported THRIVE Score: 0 FIDELIA-7 AMB Questionnaire FIDELIA-7 Date FIDELIA - 7 assessed: 08/31/25 Feeling nervous, anxious, or on edge: 0 = Not at all Not being able to stop or control worryin = Not at all Worrying too much about different things: 0 = Not at all Trouble relaxin = Not at all Being so restless that it is hard to sit still: 0 = Not at all Becoming easily annoyed or irritable: 0 = Not at all Feeling afraid as if something awful might happen: 0 = Not at all Total FIDELIA-7 score (0-4 normal; 5-9 mild; 10-14 moderate; 15-21 severe): 0 Source: Developed by Drs. Albin Fitch, Kate Fink, Yosi Bar and colleagues, with an educational isaak from [employer] FIDELIA-7 Assessment Billing FIDELIA-7 Assessment Tool: FIDELIA-7 Assessment 57435 Physical exam (Primary Care) Vital Signs: Last Vital Signs Pulse 69 08/31/25 14:58 Resp 18 08/31/25 14:58 BP 118/76 08/31/25 15:15 Pulse Ox 96 08/31/25 14:58 BMI result Body Mass Index 36.2 Tobacco/Smoking Status: Tobacco use Status Tobacco use date assessed 08/31/25 08/31/25 15:05 Patient Tobacco Use Status Former Tobacco user 08/31/25 14:56 Tobacco use type Cigarette 08/31/25 14:56 e-Cigarette/Vaping Use Never Used 08/31/25 14:56 PHQ-9: PHQ-9 Score PHQ-9: Total score 1 08/31/25 15:15 Depression Screening Interpretation: Negative Thrive Assessment: Date of Thrive Assessment Date Thrive assessed 01/12/25 08/31/25 14:56 Currently or been in a relationship where the following occur: No concerns reported Coding Level of Care Code Est Pt Level 3 (88497) Diagnoses Psoriatic arthritis L40.50 Primary hypertension I10 Hypertension type: primary hypertension Obesity (BMI 35.0-39.9 without comorbidity) E66.9 Moderate persistent asthma without complication J45.40 Asthma complication type: uncomplicated HLA B27 (HLA B27 positive) Z15.89 Apical variant hypertrophic cardiomyopathy I42.2 Chronic narcotic dependence F11.20 Additional Codes FIDELIA-7 Assessment Billing - FIDELIA-7 Assessment Tool: FIDELIA-7 Assessment 99707 ([id number]) PHQ-9 - 44218 - PHQ-9 Billing: Yes ([id number]) Assessment & Plan Assessment & Plan (1) Psoriatic arthritis: Code(s): L40.50 - Arthropathic psoriasis, unspecified Category: Medical (2) HTN (hypertension): Code(s): I10 - Essential (primary) hypertension Category: Medical Qualifiers: Hypertension type: primary hypertension Qualified Code(s): I10 - Essential (primary) hypertension (3) Obesity (BMI 35.0-39.9 without comorbidity): Comment: Patient has mom almost morbid obesity. Recent weight gain of 30 lb during the last year. This puts her at a high risk for obstructive sleep apnea. Discussed about weight loss program. She does not want to join the program. However she agrees to see a plain clothes police officer, to get dietary instructions . I have made referral for her to see a dietitian. Code(s): E66.9 - Obesity, unspecified Category: Medical (4) Asthma, moderate persistent: Code(s): J45.40 - Moderate persistent asthma, uncomplicated Category: Medical Qualifiers: Asthma complication type: uncomplicated Qualified Code(s): J45.40 - Moderate persistent asthma, uncomplicated (5) HLA B27 (HLA B27 positive): Code(s): Z15.89 - Genetic susceptibility to other disease Category: Medical (6) Apical variant hypertrophic cardiomyopathy: Code(s): I42.2 - Other hypertrophic cardiomyopathy Category: Medical (7) Chronic narcotic dependence: Comment: Controlled nature of medication was discussed, it is important to notify me of change of pharmacy, or if traveling. Do not share the medication with anybody, keep it safe away from the hands of small children, and only take it as prescribed. This medication have a tendency to be abused, habit-forming, and it can cause severe constipation along with other allergic reactions. Long-term use of narcotic medications have shown to increase sensitivity to pain. Code(s): F11.20 - Opioid dependence, uncomplicated Category: Medical Plan Elevated Blood Pressure: - The patient noted her blood pressure was higher during today's visit, measured at 140/68. - The blood pressure was previously well controlled at 120/70 as of last month. - A new antihypertensive medication was started approximately four weeks ago. by Cardio - Bp rechecked by me was 118/78 left arm Asthma: - Patient reports increased use of her inhaler, which is unusual for her, indicating her asthma has been bothersome recently. - She denies usual symptoms in her respiratory health except this increased inhaler usage. wt managment: patient is on Wagovy and has lost some wt since last month Psoriatic arthritis : pain stable with Oxycodon 10 mg tid Problem List - Elevated Blood Pressure - Asthma Flare-up - Cardiac Concerns Related to Cardiomyopathy - Psoriatic arthritis Plan - Continue monitoring blood pressure, especially given the transition to a new antihypertensive regimen. - Continue Wegovy for weight management unless adverse effects occur. - Refill Wixela for asthma control to manage asthma symptoms and decrease inhaler use. - Prescribe a course of prednisone 10 mg daily for five days to manage asthma exacerbation. - Ensure oxycodone for pain management remains effective and refill as needed. Medications: New prednisone 10 mg PO DAILY 5 tabs 0RF 5 days Refilled fluticasone propion-salmeterol 500-50 mcg/dose (Wixela Inhub) 1 ea inhalation BID 60 ea 1RF 90 days J45.909 - Unspecified asthma, uncomplicated Wegovy (semaglutide (weight loss)) administer weeks 1 through 4 of therapy 0.25 mg (0.5 mL) subcut QWEEK 2.5 mL 1RF 30 days NS oxycodone 10 mg PO Q8H PRN 90 tabs 0RF pain 30 days
[2025-08-31 14:58] VITALS: BP 140/68; PULSE 69; RESP 18; O2SAT 96; BMI 36.2
[2025-08-31 15:15] VITALS: BP 118/76
== END 2025-08-31 15:22 | disposition home or self-care (01) ==
PROVIDERS: PCP Internal Medicine; Visit Provider Internal Medicine
DX: I42.2 Other hypertrophic cardiomyopathy (principal); L40.50 Arthropathic psoriasis, unspecified; F11.20 Opioid dependence, uncomplicated; E66.9 Obesity, unspecified; Z68.36 Body mass index [BMI] 36.0-36.9, adult; I10 Essential (primary) hypertension; J45.40 Moderate persistent asthma, uncomplicated; Z15.89 Genetic susceptibility to other disease

== ENCOUNTER → 2025-10-01 11:58 | Outpatient (BNV) | payer OTHER, SELFPAY | PROVIDERS: PCP Internal Medicine | DX: Z45.02 Encounter for adjustment and management of automatic implantable cardiac defibrillator (principal) | CPT/HCPCS: 93297 ==

== ENCOUNTER 2025-11-07 12:40 | Outpatient (REF) | payer OTHER, SELFPAY ==
[2025-11-07 14:45] LABS: MANUAL DIFF FLAG NO
[2025-11-07 14:48] LABS: Cannabinoid Screen Urine Not Detected (Not Detect)
[2025-11-07 15:12] LABS: Hematocrit 44.0 % (37.0-47.0); Hemoglobin 14.4 g/dl (12.0-16.0); Imm Gran Abs Auto 0.04 X10*3/uL (0.00-0.03); Imm Gran Pct Auto 0.4 % (0.0-0.4); Lymphocytes Absolute Auto 1.6 X10*3/uL (1.2-4.9); Mean Corpuscular HGB Conc 32.7 g/dl (31.0-35.0); Mean Corpuscular Hemoglobin 29.8 pg (27.0-33.0); Mean Corpuscular Volume 90.9 fL (80.0-98.0); NRBC Abs Auto 0.000 X10*3/uL (0.0-0.012); NRBC Pct Auto 0.0 /100WBC (0.0-0.2); Platelet Count 292 X10*3/uL (160-400); Red Blood Count 4.84 X10*6/uL (4.20-5.50); White Blood Count 9.7 X10*3/uL (4.8-10.8)
[2025-11-07 16:25] LABS: Alanine Aminotransferase 20 U/L (0-31); Albumin Level 4.2 g/dL (3.5-5.0); Alkaline Phosphatase 105 U/L (39-117); Anion Gap 11 (12-20); Aspartate Amino Transferase 25 U/L (5-31); Blood Urea Nitrogen 8 mg/dL (9-16); Calcium 10.9 mg/dL (8.4-10.2); Carbon Dioxide 24 mmol/L (22-29); Chloride 109 mmol/L (96-108); Estimated Glomerular Filt Rate > 60; Potassium 3.6 mmol/L (3.3-5.1); Sodium 140 mmol/L (135-145); Total Protein 8.0 g/dL (6.5-8.0)
[2025-11-07 16:40] LABS: Vitamin B12 304 pg/mL (200-900)
[2025-11-12 11:47] LABS: Codeine, Ur NEGATIVE; Hydrocodone, Ur NEGATIVE; Oxycodone, Ur NEGATIVE
[2025-11-12 11:48] LABS: Hydromorphone, Ur NEGATIVE; Morphine, Ur NEGATIVE; Norhydrocodone, Ur NEGATIVE; Oxymorphone, Ur NEGATIVE
[2025-11-12 11:49] LABS: Noroxycodone, Ur 257
[2025-11-17 03:33] LABS: Parathyroid Hormone Related Pr 9 pg/mL (11-20); Vitamin D 25-OH, D2 <4 ng/mL; Vitamin D 25-OH, D3 13 ng/mL; Vitamin D 25-OH, Total 13 ng/mL (30-100)
== END 2025-11-07 12:41 | disposition home or self-care (01) ==
LOC: HO.HMGCLDS 12:40
PROVIDERS: PCP Internal Medicine; Visit Provider Internal Medicine
DX: F11.20 Opioid dependence, uncomplicated (principal); L40.50 Arthropathic psoriasis, unspecified; R52 Pain, unspecified; Z95.810 Presence of automatic (implantable) cardiac defibrillator; I50.32 Chronic diastolic (congestive) heart failure; I10 Essential (primary) hypertension; F41.1 Generalized anxiety disorder; F33.41 Major depressive disorder, recurrent, in partial remission
CPT/HCPCS: 80053; 80307; 80365; 82306; 82607; 83036; 83519; 83721; 84443; 85025; G0480

== ENCOUNTER 2025-11-07 12:40 | Outpatient (AMB) | payer OTHER, SELFPAY ==
[2025-11-07 12:44] VITALS: BP 132/80; PULSE 80; O2SAT 97; BMI 35.9
--- NOTE | 2025-11-07 12:44 | MHC.PC.OV ---
Vital Signs 11/07/25 12:44 Height 5 ft 4 in Weight 209 lb BMI 35.9 BP 132/80 Blood Pressure Location Lt brachial Position Sitting Pulse 80 Pulse Source Pulse Oximeter Pulse Oximetry (%) 97 Oxygen Delivery Method Room Air Intake Visit Reasons: 2 months f/up-ok with shana Allergies cat dander (CATS) Allergy (Severe, Verified 11/07/25 12:44) DIFFICULTY BREATHING dog dander (DOGS) Allergy (Severe, Verified 11/07/25 12:44) DIFFICULTY BREATHING latex (Latex) Allergy (Severe, Verified 11/07/25 12:44) ANAPHYLAXIS penicillin G (PENICILLIN G) Adverse Reaction (Unknown, Verified 11/07/25 12:44) PT STATES IT JUST DOESN'T WORK FOR HER Environmental Allergy (Unknown, Uncoded 05/16/25 15:25) allergy symptoms Medication List - Last Reconciled 11/07/25 by Kai Saha MD albuterol sulfate 0.63 mg (3 mL) inhalation QID PRN albuterol sulfate 90 mcg/actuation 1 inh inhalation QID PRN 90 days betamethasone dipropionate 0.05% 1 appl topical DAILY PRN 30 days blood pressure test kit-large (Quick Response BP Monitor-Large Cuff kit) As directed [Bp monitor As directed] cetirizine (All Day Allergy (cetirizine)) 10 mg PO DAILY fluticasone propion-salmeterol 500-50 mcg/dose (Wixela Inhub) 1 ea inhalation BID 90 days FreeStyle Lancets (lancets) Test blood sugar once per day NS FreeStyle Lite Meter (blood-glucose meter) Check blood sugar once per day NS FreeStyle Test (blood sugar diagnostic) Test blood sugar once per day NS furosemide (Lasix) 60 mg (3 x 20 mg) PO DAILY 90 days labetalol 100 mg PO BID 90 days lidocaine 5% 1 patch topical DAILY montelukast 10 mg PO BEDTIME oxycodone 10 mg PO Q8H PRN 30 days quetiapine TAKE 1 TABLET BY MOUTH AT BEDTIME FOR 90 DAYS. FUTHER REFILLS WILL NEED OFFICE VISIT sertraline 200 mg (2 x 100 mg) PO DAILY spironolactone 25 mg PO DAILY [Updraft machine As directed] verapamil ER 240 mg PO DAILY Wegovy (semaglutide (weight loss)) 0.25 mg (0.5 mL) subcut QWEEK 30 days NS Tobacco use date assessed: 08/31/25 Dental Screening Dental Screen Date: 08/31/25 HPI HPI Comments History of Present Illness Details History The patient is a 60 year old female presenting for medication refills and management of chronic conditions. Psoriatic arthritis and Chronic Pain: - The patient has psoriatic arthritis involving multiple joints and is HLA-B27 positive. - For pain management, she takes oxycodone 10 mg three times a day. Cardiomyopathy: - The patient has a history of cardiomyopathy and has an implantable cardioverter-defibrillator (ICD). - She reports no issues with the device and denies dizziness. - She has a follow-up appointment with cardiology scheduled. Obstructive Sleep Apnea: - The patient has a diagnosis of obstructive sleep apnea but does not use a CPAP machine because she reports she is unable to sleep with it. Vitamin D Deficiency: - Her last vitamin D level check was in January, which was 22. - She stopped taking her vitamin D supplement. Hypercalcemia: - The patient has a history of slightly elevated calcium levels that fluctuate. Prediabetes: - The patient has a history of prediabetes. Depression: - The patient takes a high dose of quitapine for depression, which she reports is stable. - She reports her sleep is okay. Weight Management: - The patient has lost 2 pounds since her last visit. - She is currently on Wegovy for weight loss. Acute Cough: - The patient is just getting over a cold and has developed a rattly cough with mucus. Medical History: - Psoriatic arthritis, multiple joints - HLA-B27 positive - Cardiomyopathy - Prediabetes - Obstructive sleep apnea - Depression - History of elevated sodium, now resolved - Hypercalcemia - Vitamin D deficiency - persistent asthma Surgical History: - Implantable cardioverter-defibrillator (ICD) placement for cardiomyopathy Medications: - Sertraline, high dose, for depression - Oxycodone 10 mg three times a day for pain management - Wegovy 0.25 for weight management - Inhaler, as needed when outside [facility] Medical History ICD (implantable cardioverter-defibrillator) in place (HFpEF) heart failure with preserved ejection fraction Obesity due to excess calories Asthma, moderate Essential hypertension Dyspnea on exertion Refusal of blood transfusions as patient is Mu-ism HTN (hypertension) Diastolic dysfunction Apical variant hypertrophic cardiomyopathy MITCHELL (obstructive sleep apnea) Obesity (BMI 35.0-39.9 without comorbidity) Sacroiliitis Spondylosis of lumbar region without myelopathy or radiculopathy Cardiomyopathy Asthma Pain management Anxiety, generalized Depression, major, recurrent Chronic GERD Environmental allergies Noncompliance Hypertension, essential NSTEMI (non-ST elevated myocardial infarction) Heart murmur 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) Surgical History Hx of cardiac catheterization Hx of colonoscopy History of tubal ligation History of endometrial ablation History of hysterectomy for benign disease Family History Mother Uterine cancer Other Substance use disorder Social History Housing: House Alcohol intake: current Alcohol intake frequency: 0-2 drinks per day Alcohol type: hard liquor Patient Tobacco Use Status: Former Tobacco user Tobacco use type: Cigarette e-Cigarette/Vaping Use: Never Used Second Hand Smoke Exposure: No service: No Current occupational status: employed Cognitive needs: No Hearing needs: No Vision needs: Yes Female Reproductive History Menstrual Age of Menarche: 14 Questionnaire Thrive Questionnaire Date Thrive assessed: 01/12/25 I am a: Patient What is your living situation today?: I have a steady place to live Within the past 12 months, did the food you bought not last and you didn't have the money to get more?: Never true Within the past 12 months, did you worry whether your food would run out before you got money to buy more?: Never true Do you have trouble paying for medicines?: No Do you have trouble getting transportation to medical appointments?: No Do you have trouble paying your heating and electricity bill?: No Do you have trouble taking care of your child, family member or friend?: No Do you have trouble with day-to-day activities such as bathing, preparing meals, shopping, managing finances, etc.?: No Are you currently unemployed and looking for a job?: Yes Are you interested in more education?: No Currently or been in a relationship where the following occur: No concerns reported THRIVE Score: 0 FIDELIA-7 AMB Questionnaire FIDELIA-7 Date FIDELIA - 7 assessed: 08/31/25 Source: Developed by Drs. Albin Fitch, Kate Fink, Yosi Bar and colleagues, with an educational isaak from [email or web address]. Review of Systems Narrative Review of Systems General: No fever no chills neurological: No headaches no dizziness ear nose throat: No sore throat no hearing difficulty no ear pain cardiovascular: No syncope, no chest pain, no palpitations gastrointestinal: No nausea vomiting or diarrhea endocrine: No polyuria polydipsia no heat intolerance genitourinary: No dysuria skin: No new complaints Physical exam (Primary Care) Vital Signs: Last Vital Signs Pulse 80 11/07/25 12:44 BP 132/80 11/07/25 12:44 Pulse Ox 97 11/07/25 12:44 Oxygen Delivery Method Room Air 11/07/25 12:44 BMI result Body Mass Index 35.9 Tobacco/Smoking Status: Tobacco use Status Tobacco use date assessed 08/31/25 11/07/25 12:46 Patient Tobacco Use Status Former Tobacco user 11/07/25 12:46 Tobacco use type Cigarette 11/07/25 12:46 e-Cigarette/Vaping Use Never Used 11/07/25 12:46 Thrive Assessment: Date of Thrive Assessment Date Thrive assessed 01/12/25 11/07/25 12:46 Currently or been in a relationship where the following occur: No concerns reported Narrative . 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 awake oriented x3 motor sensory intact skin: Normal turgor Coding Level of Care Code Est Pt Level 5 (06205) Diagnoses Wheezing R06.2 Moderate persistent asthma without complication J45.40 Asthma complication type: uncomplicated Chronic heart failure with preserved ejection fraction I50.32 Heart failure chronicity: chronic Psoriatic arthritis L40.50 Serum calcium elevated E83.52 Primary hypertension I10 Hypertension type: primary hypertension Recurrent major depressive disorder, in partial remission F33.41 Active/Remission status: in partial remission Pre-diabetes R73.03 Anxiety, generalized F41.1 Chronic narcotic dependence F11.20 Diastolic dysfunction I51.89 ICD (implantable cardioverter-defibrillator) in place Z95.810 Chronic GERD K21.9 Sacroiliitis M46.1 HLA B27 (HLA B27 positive) Z15.89 Pain management R52 Time Spent (min) 40 Comment chart/labs review/face to face/ coordination of care Assessment & Plan Assessment & Plan (1) Wheezing: Code(s): R06.2 - Wheezing Category: Medical (2) Asthma, moderate persistent: Code(s): J45.40 - Moderate persistent asthma, uncomplicated Category: Medical Qualifiers: Asthma complication type: uncomplicated Qualified Code(s): J45.40 - Moderate persistent asthma, uncomplicated (3) (HFpEF) heart failure with preserved ejection fraction: Code(s): I50.30 - Unspecified diastolic (congestive) heart failure Category: Medical Qualifiers: Heart failure chronicity: chronic Qualified Code(s): I50.32 - Chronic diastolic (congestive) heart failure (4) Psoriatic arthritis: Code(s): L40.50 - Arthropathic psoriasis, unspecified Category: Medical (5) Serum calcium elevated: Code(s): E83.52 - Hypercalcemia Category: Medical (6) HTN (hypertension): Code(s): I10 - Essential (primary) hypertension Category: Medical Qualifiers: Hypertension type: primary hypertension Qualified Code(s): I10 - Essential (primary) hypertension (7) Depression, major, recurrent: Code(s): F33.9 - Major depressive disorder, recurrent, unspecified Category: Medical Qualifiers: Active/Remission status: in partial remission Qualified Code(s): F33.41 - Major depressive disorder, recurrent, in partial remission (8) Pre-diabetes: Code(s): R73.03 - Prediabetes Category: Medical (9) Anxiety, generalized: Code(s): F41.1 - Generalized anxiety disorder Category: Medical (10) Chronic narcotic dependence: Comment: Controlled nature of medication was discussed, it is important to notify me of change of pharmacy, or if traveling. Do not share the medication with anybody, keep it safe away from the hands of small children, and only take it as prescribed. This medication have a tendency to be abused, habit-forming, and it can cause severe constipation along with other allergic reactions. Long-term use of narcotic medications have shown to increase sensitivity to pain. Code(s): F11.20 - Opioid dependence, uncomplicated Category: Medical (11) Diastolic dysfunction: Code(s): I51.89 - Other ill-defined heart diseases Category: Medical (12) ICD (implantable cardioverter-defibrillator) in place: Comment: Status post single-chamber [employer] ICD in place, implanted December 2024 for primary prevention for hypertrophic cardiomyopathy Code(s): Z95.810 - Presence of automatic (implantable) cardiac defibrillator Category: Medical (13) Chronic GERD: Code(s): K21.9 - Gastro-esophageal reflux disease without esophagitis Category: Medical (14) Sacroiliitis: Code(s): M46.1 - Sacroiliitis, not elsewhere classified Category: Medical (15) HLA B27 (HLA B27 positive): Code(s): Z15.89 - Genetic susceptibility to other disease Category: Medical (16) Pain management: Code(s): R52 - Pain, unspecified Category: Medical Plan Problem List - Psoriatic arthritis of multiple joints - Chronic pain management - Cardiomyopathy with implantable cardioverter-defibrillator (ICD) - HLA-B27 positive - Obstructive sleep apnea - Prediabetes - Vitamin D deficiency - Hypercalcemia - Depression - Acute cough - Weight management Plan - Prescribed prednisone 20 mg, one tablet daily for 5 days, for acute cough and wheezing. - Ordered labs including a CBC, thyroid panel, cholesterol, and a parathyroid hormone level to investigate the hypercalcemia. - Ordered a urine test. - Increased Wegovy dose to 0.5. - Refilled pain medication, Oxycodone 10 mg three times a day. - Prescribed vitamin D and instructed the patient not to discontinue it unless advised. - Provided refills for other medications. - Advised the patient to schedule a follow-up appointment in 7 weeks to ensure medication continuity. Orders: Orders LDL Cholesterol Direct Today F11.20 - Opioid dependence, uncomplicated, F33.41 - Major depressive disorder, recurrent, in partial remission, F41.1 - Generalized anxiety disorder, I10 - Essential (primary) hypertension, I50.32 - Chronic diastolic (congestive) heart failure, I51.89 - Other ill-defined heart diseases, J45.40 - Moderate persistent asthma, uncomplicated, K21.9 - Gastro-esophageal reflux disease without esophagitis, L40.50 - Arthropathic psoriasis, unspecified, M46.1 - Sacroiliitis, not elsewhere classified, R52 - Pain, unspecified, R73.03 - Prediabetes, Z15.89 - Genetic susceptibility to other disease, Z95.810 - Presence of automatic (implantable) cardiac defibrillator Vitamin D 25-OH (D2 and D3) Today F11.20 - Opioid dependence, uncomplicated, F33.41 - Major depressive disorder, recurrent, in partial remission, F41.1 - Generalized anxiety disorder, I10 - Essential (primary) hypertension, I50.32 - Chronic diastolic (congestive) heart failure, I51.89 - Other ill-defined heart diseases, J45.40 - Moderate persistent asthma, uncomplicated, K21.9 - Gastro-esophageal reflux disease without esophagitis, L40.50 - Arthropathic psoriasis, unspecified, M46.1 - Sacroiliitis, not elsewhere classified, R52 - Pain, unspecified, R73.03 - Prediabetes, Z15.89 - Genetic susceptibility to other disease, Z95.810 - Presence of automatic (implantable) cardiac defibrillator Opiates GCMS Expanded, Ur Today F11.20 - Opioid dependence, uncomplicated, F33.41 - Major depressive disorder, recurrent, in partial remission, F41.1 - Generalized anxiety disorder, I10 - Essential (primary) hypertension, I50.32 - Chronic diastolic (congestive) heart failure, I51.89 - Other ill-defined heart diseases, J45.40 - Moderate persistent asthma, uncomplicated, K21.9 - Gastro-esophageal reflux disease without esophagitis, L40.50 - Arthropathic psoriasis, unspecified, M46.1 - Sacroiliitis, not elsewhere classified, R52 - Pain, unspecified, R73.03 - Prediabetes, Z15.89 - Genetic susceptibility to other disease, Z95.810 - Presence of automatic (implantable) cardiac defibrillator Drug Screen Urine Today F11.20 - Opioid dependence, uncomplicated, F33.41 - Major depressive disorder, recurrent, in partial remission, F41.1 - Generalized anxiety disorder, I10 - Essential (primary) hypertension, I50.32 - Chronic diastolic (congestive) heart failure, I51.89 - Other ill-defined heart diseases, J45.40 - Moderate persistent asthma, uncomplicated, K21.9 - Gastro-esophageal reflux disease without esophagitis, L40.50 - Arthropathic psoriasis, unspecified, M46.1 - Sacroiliitis, not elsewhere classified, R52 - Pain, unspecified, R73.03 - Prediabetes, Z15.89 - Genetic susceptibility to other disease, Z95.810 - Presence of automatic (implantable) cardiac defibrillator Hemoglobin A1c Today F11.20 - Opioid dependence, uncomplicated, F33.41 - Major depressive disorder, recurrent, in partial remission, F41.1 - Generalized anxiety disorder, I10 - Essential (primary) hypertension, I50.32 - Chronic diastolic (congestive) heart failure, I51.89 - Other ill-defined heart diseases, J45.40 - Moderate persistent asthma, uncomplicated, K21.9 - Gastro-esophageal reflux disease without esophagitis, L40.50 - Arthropathic psoriasis, unspecified, M46.1 - Sacroiliitis, not elsewhere classified, R52 - Pain, unspecified, R73.03 - Prediabetes, Z15.89 - Genetic susceptibility to other disease, Z95.810 - Presence of automatic (implantable) cardiac defibrillator Complete Blood Count Auto Diff Today F11.20 - Opioid dependence, uncomplicated, F33.41 - Major depressive disorder, recurrent, in partial remission, F41.1 - Generalized anxiety disorder, I10 - Essential (primary) hypertension, I50.32 - Chronic diastolic (congestive) heart failure, I51.89 - Other ill-defined heart diseases, J45.40 - Moderate persistent asthma, uncomplicated, K21.9 - Gastro-esophageal reflux disease without esophagitis, L40.50 - Arthropathic psoriasis, unspecified, M46.1 - Sacroiliitis, not elsewhere classified, R52 - Pain, unspecified, R73.03 - Prediabetes, Z15.89 - Genetic susceptibility to other disease, Z95.810 - Presence of automatic (implantable) cardiac defibrillator Comprehensive Met. Panel Today F11.20 - Opioid dependence, uncomplicated, F33.41 - Major depressive disorder, recurrent, in partial remission, F41.1 - Generalized anxiety disorder, I10 - Essential (primary) hypertension, I50.32 - Chronic diastolic (congestive) heart failure, I51.89 - Other ill-defined heart diseases, J45.40 - Moderate persistent asthma, uncomplicated, K21.9 - Gastro-esophageal reflux disease without esophagitis, L40.50 - Arthropathic psoriasis, unspecified, M46.1 - Sacroiliitis, not elsewhere classified, R52 - Pain, unspecified, R73.03 - Prediabetes, Z15.89 - Genetic susceptibility to other disease, Z95.810 - Presence of automatic (implantable) cardiac defibrillator Vitamin B12 Today F11.20 - Opioid dependence, uncomplicated, F33.41 - Major depressive disorder, recurrent, in partial remission, F41.1 - Generalized anxiety disorder, I10 - Essential (primary) hypertension, I50.32 - Chronic diastolic (congestive) heart failure, I51.89 - Other ill-defined heart diseases, J45.40 - Moderate persistent asthma, uncomplicated, K21.9 - Gastro-esophageal reflux disease without esophagitis, L40.50 - Arthropathic psoriasis, unspecified, M46.1 - Sacroiliitis, not elsewhere classified, R52 - Pain, unspecified, R73.03 - Prediabetes, Z15.89 - Genetic susceptibility to other disease, Z95.810 - Presence of automatic (implantable) cardiac defibrillator TSH reflex Free T4 Today F11.20 - Opioid dependence, uncomplicated, F33.41 - Major depressive disorder, recurrent, in partial remission, F41.1 - Generalized anxiety disorder, I10 - Essential (primary) hypertension, I50.32 - Chronic diastolic (congestive) heart failure, I51.89 - Other ill-defined heart diseases, J45.40 - Moderate persistent asthma, uncomplicated, K21.9 - Gastro-esophageal reflux disease without esophagitis, L40.50 - Arthropathic psoriasis, unspecified, M46.1 - Sacroiliitis, not elsewhere classified, R52 - Pain, unspecified, R73.03 - Prediabetes, Z15.89 - Genetic susceptibility to other disease, Z95.810 - Presence of automatic (implantable) cardiac defibrillator Parathyroid Hormone Related Pr Today E83.52 - Hypercalcemia Medications: New prednisone 20 mg PO DAILY 5 tabs 0RF 5 days cholecalciferol (vitamin D3) 25 mcg PO DAILY 90 caps 1RF 90 days Changed From Wegovy (semaglutide (weight loss)) administer weeks 1 through 4 of therapy 0.25 mg (0.5 mL) subcut QWEEK 30 days 2.5 mL 1RF NS To semaglutide (weight loss) administer weeks 1 through 4 of therapy 0.5 mg (0.5 mL) subcut QWEEK 2.5 mL 1RF 30 days Refilled oxycodone 10 mg PO Q8H PRN 90 tabs 0RF pain 30 days
--- OUTSIDE RECORDS SUMMARY | 2025-11-07 12:44 | XMS_ITS | Clinical Summary ---
Author Organization [facility] Address [address] [place] [address] Care Team Providers Care [employer] Impregnating Range Tender Name Role Phone Kai Saha MD Primary Care Provider [phone] Allergies No known active allergies Social History [...] Influenza Vaccine 06/15/2025 COVID-19 Vaccine ( - 2024-2 6 season) 2025 RSV Vaccine 50 years and old er and Patients (1 - 1-dose 75+ series) 2039 Hepatitis B Vaccines Aged Out No long er eligible based on patient's age to complete this topic Insurance [facility] Care Teams T[employer] Impregnating Range Tender Relationship Specialty Start Date End Date Kai Saha MD [address] [place] [address] PCP - General Internal Medicine 05/20/24
--- OUTSIDE RECORDS SUMMARY | 2025-11-07 12:44 | XMS_ITS | Encounter Summary ---
Author Organization [facility] Address [address] [place] [id number] Care Team Providers Care Television News Reporter Name Role Phone Unknown Primary Care Provider [phone] Kai Saha MD Primary Care Provider [phone] Encounter Details Date Type Department Care Team (Late st Contact Info) Description 01/26/2024 Scanned Document [address] [place] [id number] Radiology, Scan Social History Tobacco Use [...] on filedocumented in this encounter Care Teams Television News Reporter Relationship Specialty Start Date End Date Unknown Unknow Provider Address PCP - General 01/26/24 05/19/24 Kai Saha MD [facility] [place] [address] PCP - General Internal Medicine 05/20/24 documented as of this encounter
== END 2025-11-07 13:06 | disposition home or self-care (01) ==
LOC: HO.HMCC 12:41
PROVIDERS: PCP Internal Medicine; Visit Provider Internal Medicine
DX: J45.40 Moderate persistent asthma, uncomplicated (principal); I50.32 Chronic diastolic (congestive) heart failure; L40.50 Arthropathic psoriasis, unspecified; E83.52 Hypercalcemia; I10 Essential (primary) hypertension; F33.41 Major depressive disorder, recurrent, in partial remission; R73.03 Prediabetes; F41.1 Generalized anxiety disorder; F11.20 Opioid dependence, uncomplicated; I51.89 Other ill-defined heart diseases; Z95.810 Presence of automatic (implantable) cardiac defibrillator; K21.9 Gastro-esophageal reflux disease without esophagitis; M46.1 Sacroiliitis, not elsewhere classified; Z15.89 Genetic susceptibility to other disease; R52 Pain, unspecified

== ENCOUNTER → 2025-11-09 16:16 | Outpatient (BNV) | payer OTHER, SELFPAY | PROVIDERS: PCP Internal Medicine; Visit Provider Internal Medicine Cardiovascular Disease | DX: Z45.02 Encounter for adjustment and management of automatic implantable cardiac defibrillator (principal) | CPT/HCPCS: 93297 ==